=== PATIENT | female | born 1940 | race Caucasian/White ===

== ENCOUNTER 2022-05-31 10:34 | Outpatient (CLI) | payer MEDICARE, OTHER, SELFPAY ==
--- OUTSIDE RECORDS SUMMARY | 2022-05-09 09:34 | XMS_ITS | Continuity of Care Document ---
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 2018 2:50pm Simvastatin Disconti 20 MG PO Bedtime 30 uafebruary N O FURTHER nued y , , REFILLS UNTI L 2018 2018 SEEN IN 4:20pm 10:36a CLINIC. m Simvastatin Disconti 20 MG PO Bedtime 30 uaua NO FURTHER nued y , ry REFILLS UNTIL 2018, SEEN IN 10:21am 2018 CLINIC. 4:20pm Simvastatin Disconti 20 MG PO Bedtime 90 Augustua nued , ry 2017 11, 3:29pm 2018 10:21a m Simvastatin Disconti 20 MG PO Bedtime June Octobe nued , r 2017, 10:24am 2017 3:29pm Simvastatin Disconti 20 MG PO Bedtime 90 Juneua (Zocor) 20 Mg nued , ry TAB 2016, 1:56pm 2017 4:10pm Simvastatin Disconti 20 MG PO Bedtime 90 August (Zocor) 20 Mg nued , , TAB 2015 2016 1:28pm 1:56pm Simvastatin Disconti 20 MG PO Bedtime 180 November Octobe (Zocor) 20 Mg nued , r TAB 2015, 10:36am 2015 1:28pm Simvastatin Disconti 20 MG PO Bedtime 90 Septemb Januar (Zocor) 20 Mg nued er y , TAB 2015 10:36a 4:38pm m Simvastatin Disconti 20 MG PO Bedtime 30 Septem (Zocor) 20 Mg nued naz TAB 2014 4:38pm Sulfamethoxaz Disconti 1 TAB PO Twice A Day January il ole-Trimethop nued , , rim (Bactrim 2018 2018 Ds) 800 11:41am 2:48pm Mg/160 Mg TAB Tramadol Hcl Disconti 50 MG PO Three Times 90 De cemb nued A Day r , er 2020, 1:45pm 2020 9:11am Tramadol Hcl Disconti 50 MG PO Three Times 90 August No vemb nued A Day , er 2020, 4:10pm 2020 1:44pm Tramadol Hcl Disconti 50 MG PO Three Times 90 Julemb Oc opal nued A Day er r , , 2020 2020 7:13am 4:10pm Tramadol Hcl Disconti 50 MG PO Three Times 12 July Sep tem nued A Day , 2020, 9:36am 2020 7:11am Tramadol Hcl Disconti 50 MG PO Three Times [address] nued A Day , , 2020 2020 9:32am 9:35am Tramadol Hcl Disconti 50 MG PO Three Times 270 May nued A Day , , 2020 2020 10:44am 9:30am Tramadol Hcl Disconti 50 MG PO Three Times 270 May nued A Day , , 2020 2020 4:42pm 10:44a m Tramadol Hcl Disconti 50 MG PO Three Times 270 May nued A Day , 2020 10:22am 4:41pm Tramadol Hcl Disconti 50 MG PO Three Times 270 February nued A Day , 2020 7:33am 10:21a m Tramadol Hcl Disconti 50 MG PO Three Times 270 November Ap ril nued A Day , 2020 2:01pm 7:32am Tramadol Hcl Disconti 50 MG PO Three Times 270 August Ja nuar nued A Day 15, y 2019 7:18am 2:00pm Tramadol Hcl Disconti 50 MG PO Three Times May be nued A Day 2019, 11:51am 2019 7:17am Tramadol Hcl Disconti 50 MG PO Three Times March nued A Day 2019 10:20am 11:50a m Tramadol Hcl Disconti 50 MG PO Three Times 90 February nued A Day 2019 4:35pm 10:18a m Tramadol Hcl Disconti 50 MG PO Three Times 90 Februar Ap ril nued A Day y , 2019 4:24pm 4:34pm Tramadol Hcl Disconti 50 MG PO Three Times 120 Februar Fe brua nued A Day y 2019, 9:17am 2019 4:23pm Tramadol Hcl Disconti 50-100 MG PO Twice A Day November F ebrua nued as needed 2019, 4:17pm 2019 9:16am Tramadol Hcl Disconti 50-100 MG PO Twice A Day 60 J maddy nued as needed er y 2019 4:16pm 10:00am Tramadol Hcl Disconti 50 MG PO Twice A Day March nued as needed 2018 8:47am Tramadol Hcl Disconti 1-2 TAB PO Twice A Day February Apri l 1-2 tab twice nued as needed , , a day as 2018 2018 needed for 3:56pm 3:24pm pain Tramadol Hcl Disconti 1-2 TAB PO Twice A Day January Apri l 1-2 tab twice nued as needed , , a day as 2018 2018 needed for 1:34pm 3:56pm pain Tramadol Hcl Disconti 1-2 TAB PO Twice A Day November Ma rch 1-2 tab twice nued as needed , , a day as 2018 2018 needed for 9:39am 1:34pm pain Tramadol Hcl Disconti 1-2 TAB PO Twice A Day June uar 1-2 tab twice nued as needed 2nd, y a day as 2017, needed for 7:28am 2018 pain 9:39am Tramadol Hcl Disconti 1-2 TAB PO Twice A Day March st 1-2 tab twice nued as needed 4th, 2nd, a day as 2017 2017 needed for 2:14pm 7:28am pain Tramadol Hcl Disconti 1-2 TAB PO Twice A Day February 1-2 tab twice nued as needed 3rd, 4th, a day as 2017 2017 needed for 11:59am 2:14pm pain Tramadol Hcl Disconti 1-2 TAB PO Twice A Day 240 Novembe Ap ril 1-2 tab po bid prn pain, please give 2 months, since nued as needed r , , patient i s [place] 2 months 2016 2017 4:27pm 11:59a m Tramadol Hcl Disconti 1-2 TAB PO Twice A Day June emb 1-2 tab po bid prn pain, please give 2 months, since nued as needed , er patient is [place]ing [place] for 2 months 2017 04, 1:17pm 2016 4:27pm Tramadol Hcl Disconti 1-2 TAB PO Twice A Day May st 1-2 tab po nued as needed , , bid prn pa in 2016 2016 3:59pm 1:17pm Tramadol Hcl Disconti 1 TAB PO Twice A Day April nued as needed 2016 4:04pm 3:59pm Tramadol Hcl Disconti 1 TAB PO Twice A Day March nued as needed 2016 3:03pm 4:04pm Tramadol Hcl Disconti 1 TAB PO Bedtime as 0 March nued needed 2016 3:03pm Tramadol Hcl Disconti 50 MG PO Twice A Day January 1 tab po bid nued as needed , , prn back p ain 2016 2016 1:08pm 2:40pm Tramadol Hcl Disconti 50 MG PO Twice A Day 60 January Nas h 1 tab po bid nued as needed , , prn back p ain 2016 2016 11:42am 1:08pm Tramadol Hcl Disconti 50 MG PO Twice A Day 60 Februar Ma rch 1 tab po bid nued as needed y , , prn back pain 2016 2016 2:37pm 11:42a m Tramadol Hcl Disconti 50 MG PO Twice A Day 60 Februar Fe brua 1 tab po bid nued as needed y 17, ry prn back pain 2016, 3:34pm 2016 2:37pm Tramadol Hcl Disconti 50 MG PO Twice A Day November brua 1 tab po bid nued as needed , ry prn back p ain 2016, 10:04am 2016 3:34pm Tramadol Hcl Disconti 50 MG PO Twice A Day November Ja nuar 1 tab po bid nued as needed 17, y prn back p ain 2016, 2:23pm 2016 10:04a m Tramadol Hcl Disconti 50 MG PO Twice A Day 60 Novem Ja nuar 1 tab po bid nued as needed r 25th, y prn back pain 2015, 10:22am 2016 2:23pm Tramadol Hcl Disconti 50 - MG PO Q4-6H Prn November (Ultram) 50 nued 100 31st, 28th, Mg TAB 2010 2010 5:57pm 2:59pm Triamcinolone Disconti Unknow TOP Twice A Day 15 Oc opal APPLY TO Acetonide nued n Dose r AFFECTED AREA (Ointment) 2018 3:49pm Immunizations Immunization Event Date Not Given 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 Vac cine Reason Number Number Informatio n Statement (VIS) Deta COVID-19 Moderna November 25, 2020 COVID-19 Moderna December 152020 Influenza August 27, 2013 Influenza November 17, 2 Sanofi 2016 Influenza September 02, SANOFI 2015 Influenza August 16, 2017 Influenza July 182018 Influenza August 20, 2019 Prevnar Adult July 14 WYETH [id number] 2014 Pneumovax Adult January 20 MERCK [id number] 2017 Tetanus/Diptheri June 11, 1 a 2011 Tdap June 11 (adolescent/adul 2011 t) Tdap September 14 [id number] (adolescent/adul 2019 t) Typhoid April 15 2005 Yellow Fever April 152004 Medical Equipment Device Date Implanted Device Details ATTUNE March 12, 2019 ELVIN: [id number] Issuing Agency: [facility] [[email or web address]] Device Id: [id number] Expiration Date: 04-22-30 Lot Number: [id number] ATTUNE March 12, 2019 ELVIN: [id number] Issuing Agency: [facility] Device Id: [id number] Expiration Date: 07-14-30 Lot Number: [id number] ATTUNE March 12, 2019 ELVIN: [id number] Issuing Agency: 1 Device Id: [id number] Expiration Date: 01-16-30 Lot Number: [id number] ATTUNE March 12, 2019 ELVIN: [id number] Issuing Agency: [facility] Device Id: [id number] Expiration Date: 02-13-28 Lot Number: [id number] Advance Directives Advance Directive Response Recorded Date/Time Does Pt have Health Care No January 22 11:05am Directive? Has patient completed a Yes November 26 7:26am Health Care Directive? Insurance Providers Guarantor Alesia Navas Address [address] [facility] [address] Contact Info. Home Phone: Payer Policy Id Coverage Id Subscriber's Subscriber Id Effective E xpiration Name Date Date Medica [id number] Alesia Navas November Prime M 2021 Solution Plan Medicare [id number] Alesia Navas Plan of Treatment Future Tests Future scheduled test information is unavailable Pending Tests Pending diagnostic test information is unavailable Future Visits Future appointment information is unavailable Referrals to Other Providers Reason for Referral Referral Start Provider Provider Contact Pr ovider Address Date Information JAMAR Work Phone: [facility] [address] [phone] Cognitive impairment JAMAR Future Procedures Future procedure information is unavailable Future Medications Future medication information is unavailable Patient Instructions See Additional Instructions Urinary Tract Infection in Older Adults (ED) Urinary Tract Infection - Women
== END 2022-05-31 10:35 | disposition home or self-care (01) ==
PROVIDERS: PCP Family Medicine; Visit Provider Family Medicine
DX: M54.16 Radiculopathy, lumbar region (principal); M51.36 Other intervertebral disc degeneration, lumbar region
CPT/HCPCS: 62323; J0702; Q9966

== ENCOUNTER 2022-07-19 14:19 | Outpatient (REF) | payer MEDICARE, OTHER, SELFPAY ==
[2022-07-19 16:05] LABS: Chloride* 102 mmol/L (96-114); Potassium* 3.7 mmol/L (3.6-5.1); Sodium* 140 mmol/L (135-149)
[2022-07-19 16:08] LABS: Blood Urea Nitrogen* 16 mg/dL (7-30); Carbon Dioxide* 26 mmol/L (20-32); Creatinine* 0.8 mg/dL (0.5-1.5); Estimated Glomerular Filt Rate 74 ml/min
[2022-07-19 16:09] LABS: Calcium* 8.8 mg/dL (8.4-10.6); Glucose* 130 mg/dL (60-115)
[2022-07-19 16:40] LABS: Thyroid Stimulating Hormone* 0.743 uIU/mL (0.270-4.20)
== END 2022-07-19 14:20 | disposition home or self-care (01) ==
LOC: NPINS 14:19
PROVIDERS: PCP Family Medicine; Visit Provider Nurse Practitioner Gerontology
DX: E05.90 Thyrotoxicosis, unspecified without thyrotoxic crisis or storm (principal)
CPT/HCPCS: 80048; 84443

== ENCOUNTER 2022-08-27 14:08 | Emergency (ER) | payer MEDICARE, OTHER, SELFPAY ==
[2022-08-27 14:31] VITALS: PULSE 77; RESP 20; TEMP 36.2; O2SAT 98; BMI 50.6
--- NOTE | 2022-08-27 15:29 | ED.GENADULT ---
HPI - General Adult General Time Seen by Provider: 15:31 Date Seen: 08/27/22 Chief complaint: Shoulder Injury/Pain Stated complaint: Shoulder Pain Time Seen by Provider: 08/27/22 15:10 Source: patient, family and RN notes reviewed Mode of arrival: ambulatory Limitations: no limitations History of Present Illness HPI narrative: Alesia is an 81-year-old female brought in by her daughter from [facility] where she resides. Her daughter was visiting and her mom kept complaining of left shoulder pain. She seemed quite uncomfortable. She has had a history of about 3 years of chronic shoulder pain and issues. Her daughter states there was calcium buildup and Dr. Mary has attempted injection of this. She is seen a specialist in is going to be having some specialized procedure. Her daughter is interested in her perhaps having an MRI or having increased pain meds. There is no new falls. Patient talks about a fall recently where she fell down the stairs and her son helped her up. The daughter notes that the son lives in [facility] and has not been back home for 4 years. Patient became a little agitated at her daughter talking about it. Seems that the patient has some confusion for time line. In any event there is no new noted fall. Patient seems quite comfortable right now is not complaining of any significant shoulder pain right now. I did review her medication list and she is getting some Tylenol baseline and then the used tramadol 50 mg 3 times a day. Patient states that there is no neck pain. She is having no difficulty breathing, no pain in the chest. Related Data Home Medications Medication Instructions Recorded Confirmed albuterol sulfate 90 mcg/actuation 2 puff inhalation Q4H PRN 08/27/22 08/27/22 aerosol inhaler Allergies Allergy/AdvReac Type Severity Reaction Status Date / Time cephalexin [From Keflex] Allergy Verified 05/31/22 11:25 Cephalosporins Allergy Verified 05/31/22 11:25 Penicillins Allergy Verified 05/31/22 11:25 Sulfa (Sulfonamide Allergy Verified 05/31/22 11:25 Antibiotics) Review of Systems Status of ROS: Reports: 6 or more systems reviewed and unremarkable except as noted in History and below PFSH PFSH Social History Smoking Status: Never smoker Do you use any of these nicotine containing products: None Second hand tobacco smoke exposure: No How often do you have a drink containing alcohol: monthly or less How many standard drinks containing alcohol do you have on a typical day: 1 or 2 How often do you have six or more drinks on one occasion: Never AUDIT-C Alcohol total score: 1 Non-prescribed substance use: denies use Exam Const: Vital Signs, click to edit/add: Vital Signs - 24 hr 08/27/22 14:31 Temperature 97.1 F L Pulse Rate [Right Pulse Oximeter] 77 Respiratory Rate 20 Pulse Oximetry 98 Oxygen Delivery Me thod Room Air Documenting provider has reviewed patient's vital signs: yes Common normals: no apparent distress and alert General appearance: cooperative and comfortable HENMT: Common normals: normocephalic, head/scalp atraumatic and hearing grossly normal bilaterally Head and scalp: normocephalic and atraumatic Neck & C-Spine: Other: No midline tenderness, good range of motion, no paraspinous tenderness. Extremity: Other: Has crepitus when I palpate around her left shoulder but really is not complaining of any pain as a mobilize it. She is nontender over the clavicle, no acute joint effusion noted of her left shoulder. There is no erythema, no ecchymosis, no warmth. She has got good range of motion about her elbow, normal flexion extension and normal supination/pronation. Wrist with good range of motion, hand with good range of motion. No overlying skin changes. Normal peripheral pulse, neurovascular intact. She seems to be quite comfortable at baseline but states just after the minimal amount of mobilization I did about her shoulder. Neuro: Sensorium/orientation: alert Course Course Hospital Course: Reviewed with daughter that we cannot do an MRI on the weekend nor is it really clinically indicated at this time. This can be done in follow-up. I reviewed her medication reconciliation in she is getting tramadol 50 mg 3 times a day, did not get it at 2:00 p.m. today as they wanted me to see her in her state of pain. She and I discussed that acute pain needs certainly can be addressed but chronic ongoing pain management really should come to the clinic. I do think increasing the frequency of her tramadol since she tolerates this makes the most sense. Reviewed with the daughter that there is plenty of room both to increase the frequency as are going to do today but then after that increased the dose of the medicine. Did review that narcotics are a risk for falls in the elderly and would not want to necessarily try a new medicine on her when we know she works with tramadol per report. We will give her 100 mg dose here to load her and then she can never usual dose tonight. Tomorrow I will make recommendations that they dose her 4 times a day with 50 mg. Vital Signs Vital signs: Initial Vital Signs Temperature 97.1 F L 08/27/22 14:31 Temperature Source Temporal Artery Scan 08/27/22 14:31 Pulse Rate 77 08/27/22 14:31 Pulse Rhythm 08/27/22 14:31 Respiratory Rate 20 08/27/22 14:31 Pulse Oximetry 98 08/27/22 14:31 Oxygen Delivery Method 08/27/22 14:31 Vital Signs Temperature 97.1 F L 08/27/22 14:31 Pulse Rate 77 08/27/22 14:31 Respiratory Rate 20 08/27/22 14:31 Pulse Oximetry 98 08/27/22 14:31 Oxygen Delivery Method 08/27/22 14:31 Temperature 97.1 F L 08/27/22 14:31 Pulse Rate 77 08/27/22 14:31 Respiratory Rate 20 08/27/22 14:31 Pulse Oximetry 98 08/27/22 14:31 Oxygen Delivery Method 08/27/22 14:31 Discharge Plan Discharge Clinical Impression: Chronic left shoulder pain Patient Disposition: Home w/ Parent or Adult Condition: Stable Instructions: Shoulder Pain (ED) Additional Instructions: Give usual dose of tramadol tonight. Starting tomorrow recommend increasing tramadol to 50 mg 4 times a day, attempting to make this as equally spaced out during the day as possible. Will need to get a prescription for this increased amount from her primary care doctor as she will run out early. We will not be doing an MRI of her shoulder through the ER, this is not an emergent procedure. It certainly is not a possibility on weekends or after hours anyway. Follow-up with primary care or Dr. Muir as soon as you are able to. Activity Level: Activity as Tolerated Prescriptions: No Action albuterol sulfate 90 mcg/actuation HFA aerosol inhaler 2 puff INHALATION Q4H PRN Follow Up/Referrals: Samantha Acharya MD [Primary Care Provider] - Stand Alone Forms: [employer] Info Instructions
[2022-08-27] MEDS: TRAMADOL HCL 50 MG TABLET 100 MG PO (15:42)
== END 2022-08-27 17:21 | disposition home or self-care (01) ==
PROVIDERS: Emergency Provider Family Medicine; PCP Family Medicine
DX: M25.512 Pain in left shoulder (principal)
CPT/HCPCS: 99283; 99284; A9270

== ENCOUNTER 2022-09-03 11:47 | Outpatient (CLI) | payer MEDICARE, OTHER, SELFPAY | END 2022-09-03 11:48 | disposition home or self-care (01) | PROVIDERS: PCP Family Medicine; Visit Provider Family Medicine | DX: G89.29 Other chronic pain (principal); M25.519 Pain in unspecified shoulder | CPT/HCPCS: A0425; A0427 ==

== ENCOUNTER 2022-11-15 09:29 | Outpatient (REF) | payer MEDICARE, OTHER, SELFPAY ==
[2022-11-15 11:21] LABS: Basophils Absolute Auto 0.04 K/uL (0.00-0.30); Basophils Percent Auto 0.5 % (0.0-3.0); Eosinophils Absolute Auto 0.37 K/uL (0.00-0.50); Eosinophils Percent Auto 4.8 % (0.0-7.0); Hematocrit 38.4 % (33.0-51.0); Hemoglobin* 12.7 gm/dL (12.0-16.0); Immature Granulocytes Abs Auto 0.01 K/uL (0.00-0.30); Immature Granulocytes Pct Auto 0.1 %; Lymphocytes Absolute Auto 2.32 K/uL (0.90-2.90); Mean Corpuscular HGB Conc 33 gm/dL (32-36); Mean Corpuscular Hemoglobin 31 pg (26-34); Mean Corpuscular Volume 92 fL (80-100); Monocytes Percent Auto 9.1 % (0.0-11.0); Neutrophils Absolute Auto 4.29 K/uL (1.7-7.0); Neutrophils Percent Auto 55.5 % (42.0-72.0); Platelet Count* 304 K/uL (140-440); RDW Coefficient of Variation % 12.5 % (11.5-15.5); Red Blood Count 4.17 m/uL (4.00-5.20); White Blood Count* 7.73 K/uL (4.50-11.00)
[2022-11-15 11:24] LABS: Slide Review Reflex No
[2022-11-15 11:35] LABS: Albumin* 4.2 g/dL (3.3-5.0); Chloride* 109 mmol/L (96-114); Hemoglobin A1C* 5.78 % (0-5.6); Potassium* 4.2 mmol/L (3.6-5.1); Sodium* 143 mmol/L (135-149)
[2022-11-15 11:38] LABS: Alanine Aminotransferase* 18 U/L (4-35); Alkaline Phosphatase* 76 U/L (40-150); Aspartate Amino Transferase* 24 U/L (12-35); Bilirubin Total* 0.5 mg/dL (0.1-1.5); Blood Urea Nitrogen* 15 mg/dL (7-30); Carbon Dioxide* 28 mmol/L (20-32); Creatinine* 0.7 mg/dL (0.5-1.5); Estimated Glomerular Filt Rate 86 ml/min; Glucose* 90 mg/dL (60-115); Total Protein* 6.6 g/dL (6.0-8.3)
== END 2022-11-15 09:30 | disposition home or self-care (01) ==
LOC: NPINS 09:29
PROVIDERS: PCP Family Medicine; Visit Provider Family Medicine
DX: E03.9 Hypothyroidism, unspecified (principal); I10 Essential (primary) hypertension; E11.9 Type 2 diabetes mellitus without complications
CPT/HCPCS: 80053; 83036; 84443; 85025

== ENCOUNTER 2023-06-09 10:45 | Outpatient (CLI) | payer MEDICARE, OTHER, SELFPAY | END 2023-06-09 10:46 | disposition home or self-care (01) | LOC: INJ CL 10:46 | PROVIDERS: PCP Family Medicine; Visit Provider Family Medicine | DX: M54.16 Radiculopathy, lumbar region (principal); M51.36 Other intervertebral disc degeneration, lumbar region | CPT/HCPCS: 62323; J0702; Q9966 ==

== ENCOUNTER 2023-09-19 09:12 | Outpatient (REF) | payer MEDICARE, SELFPAY ==
[2023-09-19 10:36] LABS: Chloride* 107 mmol/L (96-114)
[2023-09-19 10:37] LABS: Potassium* 3.8 mmol/L (3.6-5.1); Sodium* 141 mmol/L (135-149)
[2023-09-19 10:39] LABS: Creatinine* 0.8 mg/dL (0.5-1.5); Estimated Glomerular Filt Rate 74 ml/min
[2023-09-19 10:40] LABS: Anion Gap 5 mEq/L (7-15); Blood Urea Nitrogen* 16 mg/dL (7-30); Carbon Dioxide* 29 mmol/L (20-32); Glucose* 104 mg/dL (60-115)
== END 2023-09-19 09:13 | disposition home or self-care (01) ==
LOC: NPINS 09:12
PROVIDERS: PCP Family Medicine; Visit Provider Family Medicine
DX: E03.9 Hypothyroidism, unspecified (principal); I10 Essential (primary) hypertension
CPT/HCPCS: 80048; 84443

== ENCOUNTER 2023-10-26 14:24 | Outpatient (REF) | payer MEDICARE, OTHER, SELFPAY ==
[2023-10-26 18:40] LABS: Appearance Urine Clear (Clear); Bilirubin Urine Negative (Negative); Blood Urine Negative (Negative); Color Urine Yellow (Yellow); Glucose Urine Negative (Negative); Ketones Urine Negative (Negative); Leukocyte Esterase Urine 1+ (Negative); Nitrite Urine Negative (Negative); Protein Urine Negative (Negative); Specific Gravity Urine 1.015 (1.000-1.030); Urobilinogen Urine 0.2 (0.2-1.0)
[2023-10-26 19:36] LABS: Bacteria Urine Few; RBC Urine 0-2 (0-2); Squamous Epithelial Cell Urine Few (None-Few); WBC Urine 0-2 (0-5)
== END 2023-10-26 14:25 | disposition home or self-care (01) ==
LOC: NPINS 14:24
PROVIDERS: PCP Family Medicine; Visit Provider Nurse Practitioner Gerontology
DX: R53.1 Weakness (principal)
CPT/HCPCS: 81001; 87086

== ENCOUNTER 2023-10-31 08:59 | Outpatient (REF) | payer MEDICARE, OTHER, SELFPAY ==
[2023-10-31 09:23] LABS: Basophils Absolute Auto 0.02 K/uL (0.00-0.30); Basophils Percent Auto 0.4 % (0.0-3.0); Eosinophils Absolute Auto 0.28 K/uL (0.00-0.50); Eosinophils Percent Auto 5.7 % (0.0-7.0); Hematocrit 38.4 % (33.0-51.0); Hemoglobin* 12.6 gm/dL (12.0-16.0); Immature Granulocytes Abs Auto 0.01 K/uL (0.00-0.30); Immature Granulocytes Pct Auto 0.2 %; Lymphocytes Absolute Auto 1.96 K/uL (0.90-2.90); Lymphocytes Percent Auto 40.2 % (20-44); Mean Corpuscular HGB Conc 33 gm/dL (32-36); Mean Corpuscular Hemoglobin 30 pg (26-34); Mean Corpuscular Volume 93 fL (80-100); Monocytes Percent Auto 10.7 % (0.0-11.0); Neutrophils Absolute Auto 2.08 K/uL (1.7-7.0); Neutrophils Percent Auto 42.8 % (42.0-72.0); Platelet Count* 270 K/uL (140-440); RDW Coefficient of Variation % 12.5 % (11.5-15.5); Red Blood Count 4.14 m/uL (4.00-5.20); White Blood Count* 4.87 K/uL (4.50-11.00)
[2023-10-31 09:28] LABS: Slide Review Reflex No
[2023-10-31 09:33] LABS: Chloride* 105 mmol/L (96-114); Potassium* 3.8 mmol/L (3.6-5.1); Sodium* 139 mmol/L (135-149)
[2023-10-31 09:36] LABS: Anion Gap 5 mEq/L (7-15); Carbon Dioxide* 29 mmol/L (20-32); Creatinine* 0.8 mg/dL (0.5-1.5); Estimated Glomerular Filt Rate 73 ml/min
[2023-10-31 09:37] LABS: Blood Urea Nitrogen* 15 mg/dL (7-30); Calcium* 8.9 mg/dL (8.4-10.6); Glucose* 106 mg/dL (60-115)
== END 2023-10-31 09:00 | disposition home or self-care (01) ==
LOC: NPINS 08:59
PROVIDERS: PCP Family Medicine; Visit Provider Nurse Practitioner Gerontology
DX: R53.1 Weakness (principal)
CPT/HCPCS: 80048; 85025

== ENCOUNTER 2023-12-20 23:51 | Outpatient (CLI) | payer MEDICARE, OTHER, SELFPAY | END 2023-12-20 23:52 | disposition home or self-care (01) | LOC: AMB 12-22 17:24 | PROVIDERS: PCP Family Medicine; Visit Provider Emergency Medicine | DX: R53.1 Weakness (principal) | CPT/HCPCS: A0425; A0429 ==

== ENCOUNTER 2023-12-21 00:22 | Emergency (ER) | payer MEDICARE, OTHER, SELFPAY ==
[2023-12-21] VITALS (12 sets, daily range): BP systolic 124–162; BP diastolic 70–97; PULSE 92–114; RESP 20–24; TEMP 37.2; O2SAT 93–95; BMI 40.4
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
--- NOTE | 2023-12-21 00:46 | CRLHL7_ITS ---
For Patients: As a result of the Century Cures Act, medical imaging exams and procedure reports are released immediately into your electronic medical record. You may view this report before your referring provider. If you have questions, please contact your health care provider. INDICATION: Dyspnea and weakness. TECHNIQUE: Chest 1 view. COMPARISON: 09/30/2020. FINDINGS: Cardiovascular and mediastinum: Heart size and vasculature are normal in caliber and appearance. Lungs and pleural spaces: Lungs are clear. No sign of infiltrate or mass. No sign of pleural effusion. No pneumothorax. Bones and soft tissues: No significant findings. IMPRESSION: Unremarkable chest. Dictated by Ralph Krishna MD @ 12/21/2023 1:33:03 AM (Electronically Signed)
[2023-12-21 00:47] LABS: Appearance Urine Cloudy (Clear); Bilirubin Urine Negative (Negative); Blood Urine Negative (Negative); Color Urine Yellow (Yellow); Glucose Urine Negative (Negative); Ketones Urine Negative (Negative); Leukocyte Esterase Urine 1+ (Negative); Nitrite Urine Negative (Negative); Protein Urine Negative (Negative); Specific Gravity Urine 1.025 (1.000-1.030); Urobilinogen Urine 0.2 (0.2-1.0); pH Urine 5.5 (5.0-8.5)
[2023-12-21] MEDS: IPRAT-ALBUT 0.5-2.5 MG/3 ML NEB 1 NEB IH (00:48)
[2023-12-21 00:55] LABS: RBC Urine 0-2 (0-2)
[2023-12-21 00:56] LABS: Bacteria Urine Moderate; Mucus Urine Moderate; Squamous Epithelial Cell Urine Moderate (None-Few)
[2023-12-21 01:34] LABS: Basophils Percent Auto 0.2 % (0.0-3.0); Eosinophils Percent Auto 0.1 % (0.0-7.0); Hematocrit 41.2 % (33.0-51.0); Hemoglobin* 13.5 gm/dL (12.0-16.0); Immature Granulocytes Pct Auto 0.4 %; Lymphocytes Percent Auto 11.9 % (20-44); Mean Corpuscular HGB Conc 33 gm/dL (32-36); Mean Corpuscular Hemoglobin 30 pg (26-34); Mean Corpuscular Volume 92 fL (80-100); Monocytes Percent Auto 6.1 % (0.0-11.0); Neutrophils Percent Auto 81.3 % (42.0-72.0); Platelet Count* 303 K/uL (140-440); RDW Coefficient of Variation % 12.9 % (11.5-15.5); Red Blood Count 4.47 m/uL (4.00-5.20); White Blood Count* 18.83 K/uL (4.50-11.00)
[2023-12-21 01:35] LABS: PCR FLU A Negative PCR FLU A (Negative); PCR FLU B Negative PCR FLU B (Negative); PCR RSV Negative PCR RSV (Negative); SARS PCR* Negative SARS-CoV-2 (Negative)
[2023-12-21 01:35] LABS: Slide Review Reflex No
[2023-12-21 01:36] LABS: HCO3 VBG 27 mmol/L (21-28); PCO2 VBG 41 mmHG (40-50); PO2 VBG 37.7 mmHG (25-47); pH VBG 7.425 (7.32-7.43)
--- NOTE | 2023-12-21 01:44 | CRLHL7_ITS ---
For Patients: As a result of the Century Cures Act, medical imaging exams and procedure reports are released immediately into your electronic medical record. You may view this report before your referring provider. If you have questions, please contact your health care provider. INDICATION: Sepsis TECHNIQUE: CT abdomen and pelvis without contrast. COMPARISON: None. FINDINGS: Portions of the examination are degraded by respiratory motion. Lower chest: Severely degraded, grossly unremarkable. Hepatobiliary: Status post cholecystectomy. No acute abnormality appreciated. Spleen: No acute abnormality appreciated. Pancreas: Unremarkable. Adrenal glands: Unremarkable. Kidneys: Grossly unremarkable. No hydronephrosis. Bowel: No obstruction. No obstruction. No focal perienteric or pericolonic stranding is appreciated. Vascular: Calcified atherosclerotic plaque. Lymph nodes: Grossly unremarkable. Peritoneum: No free air. No free fluid. Soft tissues: Multiple ventral abdominal hernias are noted. There is a hernia along the right supraumbilical abdomen containing a portion of a transverse colon wall compatible with Dunlap`s hernia. There remaining hernias contain fat. No acute abnormality appreciated. Bones: No acute abnormality appreciated. Degenerative changes of the spine and pelvis. IMPRESSION: 1. Allowing for areas of motion degradation, no acute abnormality is appreciated. 2. Multiple ventral abdominal hernias are noted. In particular, there is a hernia along the right supraumbilical space containing a portion of the transverse colon wall compatible with Dunlap`s hernia. Recommend correlation with reducibility. Surgical referral recommended as these are prone to silent bowel perforation if incarcerated. Please note that all CT scans at this facility use dose modulation, iterative reconstruction, and/or weight-based dosing when appropriate to reduce radiation dose to as low as reasonably achievable. Dictated by Ganesh Blanco MD @ 12/21/2023 2:49:42 AM (Electronically Signed)
[2023-12-21 01:45] LABS: Lactate* 2.7 mmol/L (0.5-1.9)
[2023-12-21 01:56] LABS: Chloride* 104 mmol/L (96-114); Sodium* 140 mmol/L (135-149)
[2023-12-21 01:58] LABS: Creatinine* 0.7 mg/dL (0.5-1.5); Est. Creatinine Clearance* 61.05; Estimated Glomerular Filt Rate 86 ml/min
[2023-12-21 01:59] LABS: Anion Gap 12 mEq/L (7-15); Blood Urea Nitrogen* 14 mg/dL (7-30); Calcium* 9.5 mg/dL (8.4-10.6); Carbon Dioxide* 24 mmol/L (20-32); Glucose* 184 mg/dL (60-115)
[2023-12-21 02:14] LABS: NT Pro B Type NatriureticPept* 356 pg/mL
[2023-12-21] MEDS: levoFLOXacin 750 MG TABLET PO (02:44)
[2023-12-21] MEDS: 0.9 % SODIUM CHLORIDE 1000 ml 1,000 ML IV (02:45)
--- NOTE | 2023-12-21 02:59 | CRLHL7_ITS ---
For Patients: As a result of the Century Cures Act, medical imaging exams and procedure reports are released immediately into your electronic medical record. You may view this report before your referring provider. If you have questions, please contact your health care provider. INDICATION: Cough, sepsis TECHNIQUE: CT chest without contrast. COMPARISON: Same day radiograph. FINDINGS: Examination is degraded by respiratory motion. Lungs: Apparent right basilar consolidation is favored to be hepatic dome respiratory motion, and the lesion was appreciated here on the lung bases of the CT abdomen and pelvis. No other consolidation. No pneumothorax. No effusion. Mediastinum: Cardiomegaly. No gross acute abnormality appreciated. Lymph nodes: Grossly unremarkable. Upper abdomen: Grossly unremarkable. Soft tissues: Grossly unremarkable. Bones: No acute abnormality appreciated. IMPRESSION: Respiratory motion degraded examination. No definite acute abnormality appreciated. Please note that all CT scans at this facility use dose modulation, iterative reconstruction, and/or weight-based dosing when appropriate to reduce radiation dose to as low as reasonably achievable. Dictated by Ganesh Blanco MD @ 12/21/2023 3:40:41 AM (Electronically Signed)
[2023-12-21 03:39] LABS: Procalcitonin* 0.13 ng/mL (<0.50)
[2023-12-21] MEDS: HYDROmorphone 0.5 mg/0.5 ml inj IVP (03:40)
[2023-12-21 04:31] LABS: Lactate* 2.5 mmol/L (0.5-1.9)
== END 2023-12-21 07:02 | disposition short-term general hospital (02) ==
PROVIDERS: Emergency Provider Family Medicine; PCP Family Medicine
DX: N39.0 Urinary tract infection, site not specified (principal); E66.01 Morbid (severe) obesity due to excess calories; A41.9 Sepsis, unspecified organism
CPT/HCPCS: 36415; 71045; 71250; 74176; 80048; 81001; 82803; 83605; 83880; 84145; 85025; 87040; 87086; 87631; 94640; 94761; 96365; 96375; 99285; A9270; J1170; J3370; J7030

== ENCOUNTER 2023-12-21 06:50 | Outpatient (CLI) | payer MEDICARE, OTHER, SELFPAY | END 2023-12-21 06:51 | disposition home or self-care (01) | LOC: AMB 12-22 17:32 | PROVIDERS: PCP Family Medicine; Visit Provider Family Medicine | DX: R53.1 Weakness (principal); R06.09 Other forms of dyspnea | CPT/HCPCS: A0425; A0426 ==

== ENCOUNTER 2024-03-02 02:49 | Outpatient (CLI) | payer MEDICARE, OTHER, SELFPAY ==
--- OUTSIDE RECORDS SUMMARY | 2024-03-03 14:29 | XMS_ITS | Clinical Summary ---
Author Name Unknown Organization [place] Address [address] [place] [address] Care Team Providers Care Break Out Worker Name Role Phone System, Provider Not In Primary Care Provider Un available Allergies Active Allergy Reactions Criticality Noted Date Comments Cephalexin Rash Low 06/18/2010 Cephalexin Monohydrate 04/15/2005 Penicillins Rash Low 06/18/2010 Avoids. Mild rash 06/07/16 Sulfamethoxazole-Trimethopri m Rash High 12/27/2019 Medications Medication Sig Dispensed Refills Start Date End Date Status PAIN RELIEF EXTRA STRENGTH 500 MG tablet Take 500 mg by mouth as needed 08/17/2021 Active albuterol (PROAIR HFA/PROVENTIL HFA/VENTOLIN HFA) 108 (90 Base) MCG/ACT inhaler Inhale 2 puffs into the lungs as needed 09/10/2021 Active VITAMIN D3 25 MCG (1000 UT) tablet Take 1 tablet by mouth daily 08/17/2021 Active diclofenac (VOLTAREN) 1 % topical gel Apply 2 g topically 4 times daily as needed for moderate pain (Shoulders) 08/01/2022 Active Multiple Vitamin (TAB-A-HAILEY) TABS TAKLE 1 TAB BY MOUTH ONCE DAILY 08/17/2021 Active NYAMYC 112701 UNIT/GM external powder Apply topically daily as needed 01/24/2022 Active simvastatin (ZOCOR) 20 MG tablet Take 20 mg by mouth at bedtime 08/12/2022 Active hydrochlorothiazide (HYDRODIURIL) 25 MG tabletIndications:Ess ential hypertension Take 1 tablet (25 mg) by mouth daily for 30 days 30 tablet 12/29/2023 Active gabapentin (NEURONTIN) 100 MG capsuleIndications:Ne uropathic pain Take 1 capsule (100 mg) by mouth at bedtime for 30 days 30 capsule 12/28/2023 Active levothyroxine (SYNTHROID/LEVOTHROID ) 125 MCG tabletIndications:Hyp othyroidism, unspecified type Take 1 tablet (125 mcg) by mouth daily for 30 days 30 tablet 12/29/2023 Active Rivaroxaban ANTICOAGULANT 15 & 20 MG TBPK Starter Therapy PackIndications:Acute deep vein thrombosis (DVT) of brachial vein of both upper extremities (H) Take 15 mg by mouth 2 times daily (with meals) for 19 days, THEN 20 mg daily with food for 9 days. 51 each 12/29/2023 Active Active Problems Problem Noted Date Diagnosed Date Pneumonia 12/26/2023 Weakness 12/21/2023 Primary osteoarthritis of both knees 05/10/2017 Lumbar spinal stenosis 01/12/2017 Bariatric surgery status 06/09/2016 Overview: Dr. Mandie [facility] Dr. Villanueva Encounters Date Type Department Care Team Description 12/21/2023 7:36 AM ACID WASHER OPERATOR - 12/29/2023 2:38 PM ACID WASHER OPERATOR Hospital Encounter [place] [address] [facility] [address] [place] [address] Roberto Donovan DO Baxa, Alexander, DO Chronic shoulder pain, unspecified laterality (Primary Dx); Neuropathic pain; Essential hypertension; Hypothyroidism, unspecified type; Pneumonia of left lower lobe due to infectious organism; Acute deep vein thrombosis (DVT) of brachial vein of both upper extremities (H) Discharge Disposition: Intermediate Care Facility 12/21/2023 Telephone [facility] - General Medicine & Pediatrics [facility] [place] [address] Roberto Donovan DO from Last 3 Months Immunizations Name Administration Dates Next Due COVID-19 Bivalent 18+ (Moderna) 08/18/2022 Influenza (High Dose) 3 radha nt vaccine 08/20/2020,08/15/2019,08/16/2018,2015 Influenza Vaccine >6 months,quad, PF 07/16/2019, 09/02/2016 Pneumo Conj 13-V (2010&after) 07/28/2015 Pneumococcal 23 valent 01/20/2017 TDAP (Adacel,Boostrix) 09/30/2020,06/11/2012 Typhoid IM 04/15/2005 Yellow Fever 04/15/2005 Social History Tobacco Use Types Packs/Day Years Used Date Smoking Tobacco: Never Smokeless Tobacco: Never Tobacco Cessation:Counseling Given: Not Answered PHQ-2 Answer Date Recorded PHQ-2 Score 0 08/14/2023 Adolescent Education Answer Date Record ed Getting School Help Needed Not on file 08/07 Sex and Gender Information Value Date Recorded Sex Assigned at Not on file Gender Identity Not on file Sexual Orientation Not on file Last Filed Vital Signs Vital Sign Reading Time Taken Comments Blood Pressure 132/88 12/29/2023 11:46 AM ACID WASHER OPERATOR Pulse 81 12/29/2023 11:46 AM ACID WASHER OPERATOR Temperature 36.6 ??C (97.9 ??F) 12/29/2023 8:07 AM CS T Respiratory Rate 19 12/29/2023 11:4 6 AM ACID WASHER OPERATOR Oxygen Saturation 93% 12/29/2023 11: 46 AM ACID WASHER OPERATOR Inhaled Oxygen Concentration - - Weight 107.7 kg (237 lb 6.4 oz) 12/26/2023 9:56 AM ACID WASHER OPERATOR Height 152.4 cm (5') 12/21/2023 8:24 AM ACID WASHER OPERATOR Body Mass Index 46.36 12/21/2023 8:24 AM ACID WASHER OPERATOR Plan of Treatment Health Maintenance Due Date Last Done Comments ADVANCE CARE PLANNING 1940 ANNUAL REVIEW OF HM ORDERS 1940 DEXA 1940 LIPID 1940 URINE DRUG SCREEN 1940 ZOSTER IMMUNIZATION (1 of 2) 1990 RSV VACCINE ( & 60+) (1 - 1-dose 60+ series) 2000 FALL RISK ASSESSMENT 2005 MEDICARE ANNUAL WELLNESS VISIT 2005 COVID-19 Vaccine ( season) 2023 08/18/2022, 12/23/2020, 11/25/2020 PHQ-2 (once per calendar year) 2023 08/14/2023 DTAP/TDAP/TD IMMUNIZATION (3 - Td or Tdap) 09/30/2030 09/30/2020, 06/11/2012 Pneumococcal Vaccine: 65+ Years Completed 01/20/2017, 07/28/2015 INFLUENZA VACCINE Completed 08/09/2023, , 08/15/2019, Additional history exists HPV IMMUNIZATION Aged Out No longer e ligible based on patient's age to complete this topic IPV IMMUNIZATION Aged Out No longer e ligible based on patient's age to complete this topic MENINGITIS IMMUNIZATION Aged Out No l onger eligible based on patient's age to complete this topic RSV MONOCLONAL ANTIBODY Aged Out No l onger eligible based on patient's age to complete this topic Procedures Procedure Name Priority Date/Time Associated Diagnosis Comments GLUCOSE BY METER Routine 12/29/2023 12:3 8 AM ACID WASHER OPERATOR BLOOD GAS VENOUS STAT 12/28/2023 2:41 PM ACID WASHER OPERATOR GLUCOSE BY METER Routine 12/28/2023 2:18 PM ACID WASHER OPERATOR MRSA MSSA PCR, NASAL SWAB STAT 12/28/2023 6:57 AM ACID WASHER OPERATOR LEGIONELLA PNEUMOPHILA URINARY ANTIGEN Routine 12/28/2023 6:56 AM ACID WASHER OPERATOR BASIC METABOLIC PANEL Routine 12/28/2023 6:26 AM ACID WASHER OPERATOR CBC WITH PLATELETS Routine 12/28/2023 6: 26 AM ACID WASHER OPERATOR HEPARIN UNFRACTIONATED ANTI XA LEVEL Routine 12/28/2023 6:26 AM ACID WASHER OPERATOR HEPARIN UNFRACTIONATED ANTI XA LEVEL Timed 12/27/2023 3:03 PM ACID WASHER OPERATOR BLOOD CULTURE STAT 12/27/2023 10:36 AM ACID WASHER OPERATOR BLOOD CULTURE STAT 12/27/2023 10:31 AM ACID WASHER OPERATOR PROCALCITONIN Routine 12/27/2023 10:31 AM ACID WASHER OPERATOR HEPARIN UNFRACTIONATED ANTI XA LEVEL Timed 12/27/2023 8:16 AM ACID WASHER OPERATOR EKG 12-LEAD, TRACING ONLY STAT 12/27/2023 7:01 AM ACID WASHER OPERATOR HEPARIN UNFRACTIONATED ANTI XA LEVEL Timed 12/27/2023 12:28 AM ACID WASHER OPERATOR CT CHEST PULMONARY EMBOLISM W CONTRAST Routine 12/26/2023 4:33 PM ACID WASHER OPERATOR HEPARIN UNFRACTIONATED ANTI XA LEVEL Timed 12/26/2023 3:38 PM ACID WASHER OPERATOR CBC WITH PLATELETS STAT 12/26/2023 9: 08 AM ACID WASHER OPERATOR US LOWER EXTREMITY VENOUS DUPLEX BILATERAL Routine 12/25/2023 4:17 PM ACID WASHER OPERATOR US UPPER EXTREMITY VENOUS DUPLEX BILATERAL Routine 12/25/2023 4:16 PM ACID WASHER OPERATOR RESPIRATORY PANEL PCR Routine 12/25/2023 1:46 PM ACID WASHER OPERATOR CBC WITH PLATELETS Routine 12/25/2023 9: 17 AM ACID WASHER OPERATOR BASIC METABOLIC PANEL Routine 12/25/2023 9:17 AM ACID WASHER OPERATOR CBC WITH PLATELETS Routine 12/24/2023 1: 39 PM ACID WASHER OPERATOR BASIC METABOLIC PANEL Routine 12/24/2023 1:39 PM ACID WASHER OPERATOR ECHO COMPLETE WITH CONTRAST Routine 12/23/2023 9:20 AM ACID WASHER OPERATOR US LOWER EXTREMITY VENOUS DUPLEX BILATERAL Routine 12/23/2023 5:10 AM ACID WASHER OPERATOR XR CHEST PORT 1 VIEW Routine 12/22/2023 10:11 AM ACID WASHER OPERATOR CBC WITH PLATELETS Routine 12/22/2023 6: 53 AM ACID WASHER OPERATOR COMPREHENSIVE METABOLIC PANEL Routine 12/22/2023 6:53 AM ACID WASHER OPERATOR ROUTINE UA WITH MICROSCOPIC REFLEX TO CULTURE Routine 12/21/2023 1:49 PM ACID WASHER OPERATOR XR CHEST PORT 1 VIEW Routine 12/21/2023 11:05 AM ACID WASHER OPERATOR T4 FREE STAT 12/21/2023 8:33 AM ACID WASHER OPERATOR EXTRA GREEN TOP (LITHIUM HEPARIN) TUBE Routine 12/21/2023 8:33 AM ACID WASHER OPERATOR EXTRA TUBE Routine 12/21/2023 8:33 AM ACID WASHER OPERATOR LACTIC ACID WHOLE BLOOD Routine 12/21/19 8:33 AM ACID WASHER OPERATOR TSH WITH FREE T4 REFLEX STAT 12/21/19 8:33 AM ACID WASHER OPERATOR BLOOD GAS VENOUS STAT 12/21/2023 8:33 AM ACID WASHER OPERATOR TROPONIN T, HIGH SENSITIVITY STAT 12/21/2023 8:33 AM ACID WASHER OPERATOR AMMONIA STAT 12/21/2023 8:33 AM ACID WASHER OPERATOR HEPATIC FUNCTION PANEL STAT 8:33 AM ACID WASHER OPERATOR MAGNESIUM STAT 12/21/2023 8:33 AM ACID WASHER OPERATOR CBC WITH PLATELETS STAT 12/21/2023 8: 33 AM ACID WASHER OPERATOR BASIC METABOLIC PANEL STAT 12/21/2023 8:33 AM ACID WASHER OPERATOR XRAY IMAGING - HIM SCAN 12/21/19 12:00 AM ACID WASHER OPERATOR CT IMAGING - HIM SCAN 12/21/2023 12:00 AM ACID WASHER OPERATOR CT IMAGING - HIM SCAN 12/21/2023 12:00 AM ACID WASHER OPERATOR from Last 3 Months Results * (ABNORMAL) Glucose by meter (12/29/2023 12:38 AM ACID WASHER OPERATOR) Only the most recent of2 resultswithin the time period is included. GLUCOSE BY METER POCT 111(H) 70 - 99 mg/dL 12/29/2023 12:45 AM ACID WASHER OPERATOR [facility] POC Blood, Capillary BLOOD SPECIMEN / Unknown 12/29/2023 12:38 AM ACID WASHER OPERATOR 12/29/2023 12:45 AM ACID WASHER OPERATOR Roberto Donovan DO LAB - ARTHUR POCT [facility] POC [facility] [address] Lab (1st floor, no room number) [place] [address], [facility] [place] [phone] * (ABNORMAL) Blood gas venous (12/28/2023 2:41 PM ACID WASHER OPERATOR) Only the most recent of2 resultswithin the time period is included. pH Venous 7.37 7.32 - 7.43 12/28/2023 3:03 PM ACID WASHER OPERATOR [facility] pCO2 Venous 55(H) 40 - 50 mm Hg 12/28/2023 3:03 PM ACID WASHER OPERATOR [facility] pO2 Venous 26 25 - 47 mm Hg 12/28/2023 3:03 PM ACID WASHER OPERATOR [facility] Bicarbonate Venous 32(H) 21 - 28 mmol/L 12/28/2023 3:03 PM ACID WASHER OPERATOR [facility] Base Excess/Deficit Venous 4.8(H) -3.0 - 3.0 mmol/L 12/28/2023 3:03 PM ACID WASHER OPERATOR [facility] FIO2 21 DELILAH 12/28/2023 3:03 PM ACID WASHER OPERATOR [facility] Oxyhemoglobin Venous 48(L) 70 - 75 % 12/28/2023 3:03 PM ACID WASHER OPERATOR [facility] O2 Sat, Venous 49.0(L) 70.0 - 75.0 % 12/28/2023 3:03 PM ACID WASHER OPERATOR [facility] Blood, venous STRUCTURE OF RIGHT UPPER LIMB / Unknown Venipuncture / Unknown 12/28/2023 2:41 PM ACID WASHER OPERATOR 12/28/2023 2:46 PM ACID WASHER OPERATOR Narrative [facility] - 12/28/2023 3:03 PM ACID WASHER OPERATOR In healthy individuals, oxyhemoglobin (O2Hb) and oxygen saturation (SO2) are approximately equal. In the presence of dyshemoglobins, oxyhemoglobin can be considerably lower than oxygen saturation. Kristina Griffin MD LAB - BLOOD ORDERABL ES LABORATORY [facility] [address] Lab (1st floor, no room number) [place] [address], [place] [phone] * MRSA MSSA PCR, Nasal Swab (12/28/2023 6:57 AM ACID WASHER OPERATOR) MRSA Target DNA Negative Negative 12/28/2023 10:01 AM ACID WASHER OPERATOR [facility] SA Target DNA Negative 12/28/2023 10:01 AM ACID WASHER OPERATOR [facility] Swab BOTH ANTERIOR NARES / Unknown Non-blood Collection / Unknown 12/28/2023 6:57 AM ACID WASHER OPERATOR 12/28/2023 7:13 AM ACID WASHER OPERATOR Narrative [facility] - 12/28/2023 10:01 AM ACID WASHER OPERATOR The Cepheid?? Xpert SA Nasal Complete assay performed in the [employer]?? Dx System is a qualitative in vitro diagnostic test designed for rapid detection of Staphylococcus aureus (SA) and methicillin-resistant Staphylococcus aureus (MRSA) from nasal swabs in patients at risk for nasal colonization. The test utilizes automated real- time polymerase chain reaction (PCR) to detect MRSA/SA DNA. The Xpert SA Nasal Complete assay is intended to aid in the prevention and control of MRSA/SA infections in healthcare settings. The assay is not intended to diagnose, guide or monitor treatment for MRSA/SA infections, or provide results of susceptibility to methicillin. A negative result does not preclude MRSA/SA nasal colonization. Kristina Griffin MD LAB - MICRO GENERAL ORDERABLES [facility] Inf. Diseases Diag. Lab [address] [place] [address], [place] [phone] * Legionella pneumophila antigen urine (12/28/2023 6:56 AM ACID WASHER OPERATOR) Legionella pneumophila serogroup 1 urinary antigen Negative Negative DELILAH 12/28/2023 9:08 AM ACID WASHER OPERATOR [facility] Comment:Suggests no recent o r current infection. Infection due to Legionella cannot be ruled out, since other serogroups and species may cause disease, antigen may not be present in urine in early infection, and the level of antigen present in the urine may be below detectable limits of the test. Urine MID-STREAM URINE SPECIMEN / Unknown Non-blood Collection / Unknown 12/28/2023 6:56 AM ACID WASHER OPERATOR 12/28/2023 7:16 AM ACID WASHER OPERATOR Kristina Griffin MD LAB - MICRO GENERAL ORDERABLES [facility] Inf. Diseases Diag. Lab [address] [place] [address], [place] [phone] * (ABNORMAL) Heparin Unfractionated Anti Xa Level (12/28/2023 6:26 AM ACID WASHER OPERATOR) Only the most recent of5 resultswithin the time period is included. Anti Xa Unfractionated Heparin >1.10(HH ) For Reference Range, See Comment IU/mL 12/28/2023 7:40 AM ACID WASHER OPERATOR LABORATORY Blood STRUCTURE OF RIGHT HAND / Unknown Venipuncture / Unknown 12/28/2023 6:26 AM ACID WASHER OPERATOR 12/28/2023 6:36 AM ACID WASHER OPERATOR Narrative LABORATORY - 12/28/2023 7:40 AM ACID WASHER OPERATOR Therapeutic Range: UFH: 0.25-0.50 IU/mL for low intensity dosing, 0.30-0.70 IU/mL for high intensity dosing DVT and PE. This test is not validated for other direct factor X inhibitors (e.g. rivaroxaban, apixaban, edoxaban, betrixaban, fondaparinux) and should not be used for monitoring of other medications. Kristina Griffin MD LAB - BLOOD ORDERABL ES LABORATORY [facility] [address] Lab (1st floor, no room number) [place] [address], [place] [phone] * (ABNORMAL) Basic metabolic panel (12/28/2023 6:26 AM ACID WASHER OPERATOR) Only the most recent of4 resultswithin the time period is included. Sodium 142 135 - 145 mmol/L 12/28/2023 7:13 AM [facility] Comment:Reference intervals for this test were updated on 08/08/2023 to more accurately reflect our healthy population. There may be differences in the flagging of prior results with similar values performed with this method. Interpretation of those prior results can be made in the context of the updated reference intervals. Potassium 3.8 3.4 - 5.3 mmol/L 12/28/2023 7:13 AM [facility] Chloride 103 98 - 107 mmol/L 12/28/2023 7:13 AM [facility] Carbon Dioxide (CO2) 26 22 - 29 mmol/L 12/28/2023 7:13 AM [facility] Anion Gap 13 7 - 15 mmol/L 12/28/2023 7:13 AM [facility] Urea Nitrogen 17.9 8.0 - 23.0 mg/dL 12/28/2023 7:13 AM [facility] Creatinine 0.90 0.51 - 0.95 mg/dL 12/28/2023 7:13 AM [facility] GFR Estimate 63 >60 mL/min/1. 73m2 12/28/2023 7:13 AM [facility] Calcium 9.4 8.8 - 10.2 mg/dL 12/28/2023 7:13 AM [facility] Glucose 117(H) 70 - 99 mg/dL 12/28/2023 7:13 AM [facility] Blood STRUCTURE OF RIGHT HAND / Unknown Venipuncture / Unknown 12/28/2023 6:26 AM ACID WASHER OPERATOR 12/28/2023 6:36 AM [facility] Kristina Griffin MD LAB - BLOOD ORDERABL ES LABORATORY [facility] [address] [facility] Lab (1st floor, no room number) [place] [address], [facility] [place] [phone] * (ABNORMAL) CBC with platelets (12/28/2023 6:26 AM ACID WASHER OPERATOR) Only the most recent of6 resultswithin the time period is included. WBC Count 11.7(H) 4.0 - 11.0 10e3/uL 12/28/2023 6:41 AM ACID WASHER OPERATOR [facility] RBC Count 4.37 3.80 - 5.20 10e6/uL 12/28/2023 6:41 AM ACID WASHER OPERATOR [facility] Hemoglobin 13.2 11.7 - 15.7 g/dL 12/28/2023 6:41 AM ACID WASHER OPERATOR [facility] Hematocrit 40.7 35.0 - 47.0 % 12/28/2023 6:41 AM ACID WASHER OPERATOR [facility] MCV 93 78 - 100 fL 12/28/2023 6:41 AM ACID WASHER OPERATOR [facility] MCH 30.2 26.5 - 33.0 pg 12/28/2023 6:41 AM ACID WASHER OPERATOR [facility] MCHC 32.4 31.5 - 36.5 g/dL 12/28/2023 6:41 AM ACID WASHER OPERATOR [facility] RDW 13.2 10.0 - 15.0 % 12/28/2023 6:41 AM ACID WASHER OPERATOR [facility] Platelet Count 379 150 - 450 10e3/uL 12/28/2023 6:41 AM ACID WASHER OPERATOR [facility] Blood STRUCTURE OF RIGHT HAND / Unknown Venipuncture / Unknown 12/28/2023 6:26 AM ACID WASHER OPERATOR 12/28/2023 6:36 AM ACID WASHER OPERATOR Kristina Griffin MD LAB - BLOOD ORDERABL ES LABORATORY [facility] [address] [facility] Lab (1st floor, no room number) [place] [address], [facility] [place] [phone] * Blood Culture Hand, Right (12/27/2023 10:36 AM ACID WASHER OPERATOR) Only the most recent of2 resultswithin the time period is included. Culture No Growth 01/01/2024 3:32 PM ACID WASHER OPERATOR [facility] Blood STRUCTURE OF RIGHT HAND / Unknown Venipuncture / Unknown 12/27/2023 10:36 AM ACID WASHER OPERATOR 12/27/2023 10:40 AM ACID WASHER OPERATOR Narrative [facility] - 01/01/2024 3:32 PM ACID WASHER OPERATOR Only an Aerobic Blood Culture Bottle was collected, interpret results with caution. Gomez Napier MD LAB - MICRO GENERAL ORDERABLES [facility] Inf. Diseases Diag. Lab [address] [place] [address], [facility] [place] [phone] * Procalcitonin (12/27/2023 10:31 AM ACID WASHER OPERATOR) Procalcitonin 0.12 <0.50 ng/mL 12/27/2023 11:12 AM ACID WASHER OPERATOR LABORATORY Comment: Interpretation and Recommendations <0.5 ng/mL: Systemic bacterial infection unlikely. Local bacterial infection is possible. 0.5-1.99 ng/mL: Systemic bacterial infection possible, but various other conditions are known to induce PCT as well. >=2.00 ng/mL: Systemic bacterial infection likely, unless other causes are known. Decision to start antibiotics should not be based on procalcitonin level alone. See Procalcitonin Guidance document for more details. [email or web address] Factors that may affect PCT levels (not all-inclusive): ?? - Increased PCT level ?Severe trauma/lombardi ?Invasive surgery ?Cooling therapy after cardiac arrest/surgery ?Treatment with agents which stimulate cytokines ?Acute kidney injury ?Chronic kidney disease and end stage renal disease ?Acute graft vs host disease ?Non-specific shock causing decreased organ perfusion and/or infarction ?? - Normal or unchanged PCT level ?Early in infections (if low and infection is suspected, repeating in 6-12 hours is recommended) ?Chronic infections (endocarditis, osteomyelitis, prosthetic device/graft infections) ?Localized infections (cellulitis, wound infections, intra-abdominal abscess) Note: PCT has not been extensively studied in /, pediatrics, severe immunosuppression, and cystic fibrosis. Blood STRUCTURE OF RIGHT WRIST REGION / Unknown Venipuncture / Unknown 12/27/2023 10:31 AM ACID WASHER OPERATOR 12/27/2023 10:40 AM ACID WASHER OPERATOR Gomez Napier MD LAB - BLOOD ORDERABL ES [facility] Acute Care Lab [address] Lab (1st floor, no room number) [place] [address], [facility] [place] [phone] * EKG 12-lead, tracing only (12/27/2023 7:01 AM ACID WASHER OPERATOR) Systolic Blood Pressure mmHg RADIOLOGY RESULTS Diastolic Blood Pressure mmHg RADIOLOGY RESULTS Ventricular Rate 87 BPM RAD IOLOGY RESULTS Atrial Rate 87 BPM RADIOLOG Y RESULTS ID Interval 158 ms RADIOLOG Y RESULTS QRS Duration 82 ms RADIOLO GY RESULTS QT 400 ms RADIOLOGY RESULTS QTc 481 ms RADIOLOGY RESULTS P [place] 64 degrees RADIOLOGY RESULTS R AXIS 5 degrees RADIOLOGY RESULTS T [place] 90 degrees RADIOLOGY RESULTS Interpretation ECG Sinus rhythm Inferior infarct , age undetermined Abnormal ECG Confirmed by MD BIBI, HALIMA ([id number]), technical editor Javid Gray ([id number]) on 12/27/2023 2:43:26 PM RADIOLOGY RESULTS 12/27/2023 7:01 AM ACID WASHER OPERATOR 12/27/2023 2:43 PM ACID WASHER OPERATOR Kristina Griffin MD ECG ORDERABLES RADIOLOGY RESULTS * CT Chest Pulmonary Embolism w Contrast (12/26/2023 4:33 PM ACID WASHER OPERATOR) Anatomical Region Laterality Modality Chest, SUBRAD CT BODY, UMP CT CHEST Computed Tomography 12/26/2023 4:33 PM ACID WASHER OPERATOR Impressions 12/26/2023 5:49 PM ACID WASHER OPERATOR IMPRESSION: 1. ??No acute pulmonary emboli. 2. ??Small left pleural effusion with left lower lobe consolidation concerning for pneumonia. Patchy airspace opacities in the right lower lobe are also likely infectious or inflammatory. 3. ??Incidental 0.4 cm left upper lobe pulmonary nodule. Follow-up recommendations below: REFERENCE: Guidelines for Management of Incidental Pulmonary Nodules Detected on CT Images: From the Fleischner Society 2017. Guidelines apply to incidental nodules in patients who are 35 years or older. Guidelines do not apply to lung cancer screening, patients with immunosuppression, or patients with known primary cancer. SINGLE NODULE Nodule size <6 mm Low-risk patients: No follow-up needed. High-risk patients: Optional follow-up at 12 months. Narrative 12/26/2023 5:49 PM ACID WASHER OPERATOR EXAM: CT CHEST PULMONARY EMBOLISM W CONTRAST LOCATION: [facility] DATE: 12/26/2023 INDICATION: continued cough and mild resp failure; now with DVTS; rule out PE vs intraparenchymal disease COMPARISON: None. TECHNIQUE: CT chest pulmonary angiogram during arterial phase injection of IV contrast. Multiplanar reformats and MIP reconstructions were performed. Dose reduction techniques were used. CONTRAST: 85mL Isovue 370 FINDINGS: ANGIOGRAM CHEST: Pulmonary arteries are normal caliber and negative for pulmonary emboli. Thoracic aorta is negative for dissection. No CT evidence of right heart strain. LUNGS AND PLEURA: 0.4 cm nodule in the left upper lobe (7/86). Small left pleural effusion with confluent opacities and consolidation in the left lower lobe. Scattered patchy and confluent opacities in the right lower lobe as well. MEDIASTINUM/AXILLAE: Normal. CORONARY ARTERY CALCIFICATION: None. UPPER ABDOMEN: Cholecystectomy. MUSCULOSKELETAL: Mild degenerative changes in the spine. Advanced degenerative changes shoulder. Procedure Note Lionel Chavez MD - 12/26/2023 EXAM: CT CHEST PULMONARY EMBOLISM W CONTRAST LOCATION: [facility] DATE: 12/26/2023 INDICATION: continued cough and mild resp failure; now with DVTS; rule outPE vs intraparenchymal disease COMPARISON: None. TECHNIQUE: CT chest pulmonary angiogram during arterial phase injection ofIV contrast. Multiplanar reformats and MIP reconstructions were performed.Dose reduction techniques were used. CONTRAST: 85mL Isovue 370 FINDINGS: ANGIOGRAM CHEST: Pulmonary arteries are normal caliber and negative forpulmonary emboli. Thoracic aorta is negative for dissection. No CTevidence of right heart strain. LUNGS AND PLEURA: 0.4 cm nodule in the left upper lobe (7/86). Small leftpleural effusion with confluent opacities and consolidation in the leftlower lobe. Scattered patchy and confluent opacities in the right lowerlobe as well. MEDIASTINUM/AXILLAE: Normal. CORONARY ARTERY CALCIFICATION: None. UPPER ABDOMEN: Cholecystectomy. MUSCULOSKELETAL: Mild degenerative changes in the spine. Advanceddegenerative changes shoulder. IMPRESSION: 1. No acute pulmonary emboli. 2. Small left pleural effusion with left lower lobe consolidationconcerning for pneumonia. Patchy airspace opacities in the right lowerlobe are also likely infectious or inflammatory. 3. Incidental 0.4 cm left upper lobe pulmonary nodule. Follow-uprecommendations below: REFERENCE: Guidelines for Management of Incidental Pulmonary Nodules Detected on CTImages: From the Fleischner Society 2017. Guidelines apply to incidental nodules in patients who are 35 years orolder. Guidelines do not apply to lung cancer screening, patients withimmunosuppression, or patients with known primary cancer. SINGLE NODULE Nodule size <6 mm Low-risk patients: No follow-up needed. High-risk patients: Optional follow-up at 12 months. Christian Carson MD IMG CT ORDERABLES * US Lower Extremity Venous Duplex Bilateral (12/25/2023 4:17 PM ACID WASHER OPERATOR) Only the most recent of2 resultswithin the time period is included. Anatomical Region Laterality Modality Vascular, Thigh, Leg Ultrasound Impressions 12/25/2023 4:23 PM ACID WASHER OPERATOR IMPRESSION: 1. No evidence of deep venous thrombosis in the right lower extremity. 2. No evidence of deep venous thrombosis in the left lower extremity. KHALIF DOMÍNGUEZ MD Narrative 12/25/2023 4:23 PM ACID WASHER OPERATOR US LOWER EXTREMITY VENOUS DUPLEX BILATERAL PROCEDURE DATE: 12/25/2023 4:17 PM HISTORY: ??Bilateral lower extremity pain, evaluate for DVT. COMPARISON: None. TECHNIQUE: Grayscale, color-flow, and spectral waveform analysis were performed of the deep veins of the bilateral lower extremities. Patient did not allow compression due to pain. FINDINGS: The right common femoral vein, femoral vein, popliteal vein and tibial veins demonstrate normal spectral waveform, color flow and augmentation. The left common femoral vein, femoral vein, popliteal vein and tibial veins demonstrate normal spectral waveform, color flow and augmentation. Procedure Note Khalif Domínguez MD - 12/25/2023 US LOWER EXTREMITY VENOUS DUPLEX BILATERAL PROCEDURE DATE: 12/25/2023 4:17 PM HISTORY: Bilateral lower extremity pain, evaluate for DVT. COMPARISON: None. TECHNIQUE: Grayscale, color-flow, and spectral waveform analysis were performed of the deep veins of the bilateral lower extremities. Patient did not allow compression due to pain. FINDINGS: The right common femoral vein, femoral vein, popliteal vein and tibial veins demonstrate normal spectral waveform, color flow and augmentation. The left common femoral vein, femoral vein, popliteal vein and tibial veins demonstrate normal spectral waveform, color flow and augmentation. IMPRESSION: 1. No evidence of deep venous thrombosis in the right lower extremity. 2. No evidence of deep venous thrombosis in the left lower extremity. KHALIF DOMÍNGUEZ MD Christian Carson MD IMT[place] US ORDERABLES * US Upper Extremity Venous Duplex Bilat (12/25/2023 4:16 PM ACID WASHER OPERATOR) Anatomical Region Laterality Modality Arm Ultrasound Impressions 12/25/2023 4:26 PM ACID WASHER OPERATOR IMPRESSION: 1. ??Short segment DVT in the right brachial vein at the level of mid humerus. 2. ??Nonocclusive DVT within the left brachial vein at the level of the mid to distal humerus. KHALIF DOMÍNGUEZ MD Narrative 12/25/2023 4:26 PM ACID WASHER OPERATOR US UPPER EXTREMITY VENOUS DUPLEX BILATERAL ??12/25/2023 4:16 PM HISTORY: ??new left arm pain and warmth, evaluate for DVT COMPARISON: None. TECHNIQUE: ??Snowden-scale evaluation with compression, spectral flow, and color Doppler assessment of the deep venous system of both upper extremities. FINDINGS: Normal blood flow and waveforms are demonstrated in the internal jugular, innominate, subclavian, and axillary veins bilaterally. Short segment nonocclusive DVT is noted within the right brachial vein at the level of the midhumerus. There is also short segment nonocclusive DVT within the left brachial vein at the level of the mid to distal humerus. There is normal compressibility of the bilateral basilic and cephalic veins. Procedure Note Khalif Domínguez MD - 12/25/2023 US UPPER EXTREMITY VENOUS DUPLEX BILATERAL 12/25/2023 4:16 PM HISTORY: new left arm pain and warmth, evaluate for DVT COMPARISON: None. TECHNIQUE: Snowden-scale evaluation with compression, spectral flow, and color Doppler assessment of the deep venous system of both upper extremities. FINDINGS: Normal blood flow and waveforms are demonstrated in the internal jugular, innominate, subclavian, and axillary veins bilaterally. Short segment nonocclusive DVT is noted within the right brachial vein at the level of the midhumerus. There is also short segment nonocclusive DVT within the left brachial vein at the level of the mid to distal humerus. There is normal compressibility of the bilateral basilic and cephalic veins. IMPRESSION: 1. Short segment DVT in the right brachial vein at the level of mid humerus. 2. Nonocclusive DVT within the left brachial vein at the level of the mid to distal humerus. KHALIF DOMÍNGUEZ MD Christian Carson MD [place] US ORDERABLES * Respiratory Panel PCR (12/25/2023 1:46 PM ACID WASHER OPERATOR) Adenovirus Not Detected Not Detected 12/25/2023 5:35 PM ACID WASHER OPERATOR [facility] Coronavirus Not Detected Not Detected 12/25/2023 5:35 PM ACID WASHER OPERATOR [facility] Comment:This test detects Co ronavirus 229E, HKU1, NL63 and OC43 but does not distinguish between them. It does not detect MERS ( Respiratory Syndrome), SARS (Severe Acute Respiratory Syndrome) or 2019-nCoV (Novel 2018) Coronavirus. Human Metapneumovirus Not Detected Not Detected 12/25/2023 5:35 PM ACID WASHER OPERATOR [facility] Human Rhin/Enterovirus Not Detected Not Detected 12/25/2023 5:35 PM ACID WASHER OPERATOR [facility] Influenza A Not Detected Not Detected 12/25/2023 5:35 PM ACID WASHER OPERATOR [facility] Influenza A, H1 Not Detected Not Detected 12/25/2023 5:35 PM ACID WASHER OPERATOR [facility] Influenza A 2009 H1N1 Not Detected Not Detected 12/25/2023 5:35 PM ACID WASHER OPERATOR [facility] Influenza A, H3 Not Detected Not Detected 12/25/2023 5:35 PM ACID WASHER OPERATOR [facility] Influenza B Not Detected Not Detected 12/25/2023 5:35 PM ACID WASHER OPERATOR [facility] Parainfluenza Virus 1 Not Detected Not Detected 12/25/2023 5:35 PM ACID WASHER OPERATOR [facility] Parainfluenza Virus 2 Not Detected Not Detected 12/25/2023 5:35 PM ACID WASHER OPERATOR [facility] Parainfluenza Virus 3 Not Detected Not Detected 12/25/2023 5:35 PM ACID WASHER OPERATOR [facility] Parainfluenza Virus 4 Not Detected Not Detected 12/25/2023 5:35 PM ACID WASHER OPERATOR [facility] Respiratory Syncytial Virus A Not Detected Not Detected 12/25/2023 5:35 PM ACID WASHER OPERATOR [facility] Respiratory Syncytial Virus B Not Detected Not Detected 12/25/2023 5:35 PM ACID WASHER OPERATOR [facility] Chlamydia Pneumoniae Not Detected Not Detected 12/25/2023 5:35 PM ACID WASHER OPERATOR [facility] Mycoplasma Pneumoniae Not Detected Not Detected 12/25/2023 5:35 PM ACID WASHER OPERATOR [facility] Swab NASOPHARYNGEAL STRUCTURE / Unknown Non-blood Collection / Unknown 12/25/2023 1:46 PM ACID WASHER OPERATOR 12/25/2023 2:10 PM ACID WASHER OPERATOR Narrative [facility] - 12/25/2023 5:35 PM ACID WASHER OPERATOR The ePlex Respiratory Panel is a qualitative nucleic acid, multiplex, in vitro diagnostic test for the simultaneous detection and identification of multiple respiratory viral and bacterial nucleic acids in nasopharyngeal swabs collected in viral transport media from individual exhibiting signs and symptoms of respiratory infection. The assay has received FDA approval for the testing of nasopharyngeal (OIL TANK CAR [employer]ER) swabs only. The Infectious Diseases Diagnostic Laboratory at [facility] has validated the performance characteristics for bronchial alveolar lavage specimens. This test is used for clinical purposes and should not be regarded as investigational or for research. This laboratory is certified under the Clinical Laboratory Improvement Amendments of 1988 (CLIA-88) as qualified to perform high complexity clinical laboratory testing. Christian Carson MD LAB - MICRO GENERAL ORDERABLES [facility] Inf. Diseases Diag. Lab [address], [address] [place] [address] [[email or web address]] [phone] * ECHO COMPLETE WITH CONTRAST (12/23/2023 9:20 AM ACID WASHER OPERATOR) [facility] LVEF 60-65% CARDIOLOGY RESULTS Anatomical Region Laterality Modality Echocardiography 12/23/2023 9:01 AM ACID WASHER OPERATOR Narrative 12/23/2023 11:21 AM [facility] [id number]^MITCHELL^CHRISTIAN [facility] Echocardiography Laboratory [address] [place] [id number] Name: ALESIA NAVAS : 1940 Study Date: 12/23/2023 09:01 AM Age: 83 yrs Gender: Female Patient Location: [facility] Reason For Study: Cardiac Murmur Ordering Physician: CHRISTIAN CARSON Referring Physician: BRIANNA ROYAL Performed By: González Orosco RDCS BSA: 2.0 m2 Height: 60 in Weight: 245 lb HR: 92 BP: 155/78 mmHg Procedure Complete Portable Echo Adult. Farrah ([facility] #[id number]) given intravenously. Interpretation Summary Doppler interrogation does not demonstate signficant stenosis or insufficiency involving cardiac valves. There is mild trileaflet aortic sclerosis. Left ventricular systolic function is normal. The visual ejection fraction is 60-65%. The left ventricle is normal in size. The right ventricle is normal in structure, function and size. Sinus rhythm was noted. No old studies for comparison Left Ventricle The left ventricle is normal in size. There is normal left ventricular wall thickness. Left ventricular systolic function is normal. The visual ejection fraction is 60-65%. Left ventricular diastolic function is indeterminate. No regional wall motion abnormalities noted. Right Ventricle The right ventricle is normal in structure, function and size. There is no mass or thrombus in the right ventricle. Atria Normal left atrial size. Right atrial size is normal. There is no atrial shunt seen. The left atrial appendage is not well visualized. Mitral Valve The mitral valve leaflets appear normal. There is no evidence of stenosis, fluttering, or prolapse. There is no mitral regurgitation noted. There is no mitral valve stenosis. Tricuspid Valve Normal tricuspid valve. The right ventricular systolic pressure is approximated at 32.6 mmHg plus the right atrial pressure. There is trace to mild tricuspid regurgitation. Right ventricular systolic pressure is elevated, consistent with mild pulmonary hypertension. There is no tricuspid stenosis. Aortic Valve There is mild trileaflet aortic sclerosis. No aortic regurgitation is present. No aortic stenosis is present. Pulmonic Valve Normal pulmonic valve. There is no pulmonic valvular regurgitation. There is no pulmonic valvular stenosis. Vessels The aortic root is normal size. Normal size ascending aorta. The inferior vena cava is normal. The pulmonary artery is normal size. Pericardium The pericardium appears normal. There is no pleural effusion. Rhythm Sinus rhythm was noted. MMode/2D Measurements & Calculations IVSd: 1.1 cm LVIDd: 4.3 cm LVIDs: 2.0 cm LVPWd: 1.2 cm IVC diam: 1.8 cm FS: 53.8 % LV mass(C)d: 169.6 grams LV mass(C)dI: 83.4 grams/m2 Ao root diam: 3.1 cm asc Aorta Diam: 3.4 cm LVOT diam: 1.9 cm LVOT area: 2.8 cm2 Ao root diam index Ht(cm/m): 2.0 Ao root diam index BSA (cm/m2): 1.5 Asc Ao diam index BSA (cm/m2): 1.7 Asc Ao diam index Ht(cm/m): 2.2 LA Volume (BP): 54.0 ml LA Volume Index (BP): 26.6 ml/m2 RWT: 0.55 TAPSE: 2.4 cm Time Measurements Aortic HR: 102.0 BPM Doppler Measurements & Calculations MV E max ernie: 111.0 cm/sec MV A max ernie: 111.0 cm/sec MV E/A: 1.0 MV max P.8 mmHg MV mean P.0 mmHg MV V2 VTI: 23.3 cm MVA(VTI): 2.5 cm2 MV dec time: 0.18 sec LV V1 max P.6 mmHg LV V1 max: 118.0 cm/sec LV V1 VTI: 20.7 cm CO(LVOT): 5.9 l/min CI(LVOT): 2.9 l/min/m2 SV(LVOT): 58.1 ml SI(LVOT): 28.5 ml/m2 PA acc time: 0.11 sec TR max ernie: 285.5 cm/sec TR max P.6 mmHg E/E' av.6 Lateral E/e': 10.5 Medial E/e': 10.6 RV S Ernie: 15.1 cm/sec Report approved by: Dr. Halima Robison 12/23/2023 11:21 AM Procedure Note Halima Jama MD - 12/23/2023 [id number]^CARSON^TOY [facility] Echocardiography Laboratory [address] [place] [address] Name: ALESIA NAVAS : 1940 Study Date: 12/23/2023 09:01 AM Age: 83 yrs Gender: Female Patient Location: [facility] Reason For Study: Cardiac Murmur Ordering Physician: CHRISTIAN CARSON Referring Physician: BRIANNA ROYAL Performed By: González Orosco RDCS BSA: 2.0 m2 Height: 60 in Weight: 245 lb HR: 92 BP: 155/78 mmHg Procedure Complete Portable Echo Adult. Optison ([facility] #[id number]) givenintravenously. Interpretation Summary Doppler interrogation does not demonstate signficant stenosis orinsufficiency involving cardiac valves. There is mild trileaflet aortic sclerosis. Left ventricular systolic function is normal. The visual ejection fraction is 60-65%. The left ventricle is normal in size. The right ventricle is normal in structure, function and size. Sinus rhythm was noted. No old studies for comparison Left Ventricle The left ventricle is normal in size. There is normal left ventricularwall thickness. Left ventricular systolic function is normal. The visualejection fraction is 60-65%. Left ventricular diastolic function is indeterminate.No regional wall motion abnormalities noted. Right Ventricle The right ventricle is normal in structure, function and size. There isno mass or thrombus in the right ventricle. Atria Normal left atrial size. Right atrial size is normal. There is no atrialshunt seen. The left atrial appendage is not well visualized. Mitral Valve The mitral valve leaflets appear normal. There is no evidence ofstenosis, fluttering, or prolapse. There is no mitral regurgitation noted. There isno mitral valve stenosis. Tricuspid Valve Normal tricuspid valve. The right ventricular systolic pressure is approximated at 32.6 mmHg plus the right atrial pressure. There is traceto mild tricuspid regurgitation. Right ventricular systolic pressure iselevated, consistent with mild pulmonary hypertension. There is no tricuspidstenosis. Aortic Valve There is mild trileaflet aortic sclerosis. No aortic regurgitation ispresent. No aortic stenosis is present. Pulmonic Valve Normal pulmonic valve. There is no pulmonic valvular regurgitation. Thereis no pulmonic valvular stenosis. Vessels The aortic root is normal size. Normal size ascending aorta. The inferiorvena cava is normal. The pulmonary artery is normal size. Pericardium The pericardium appears normal. There is no pleural effusion. Rhythm Sinus rhythm was noted. MMode/2D Measurements & Calculations IVSd: 1.1 cm LVIDd: 4.3 cm LVIDs: 2.0 cm LVPWd: 1.2 cm IVC diam: 1.8 cm FS: 53.8 % LV mass(C)d: 169.6 grams LV mass(C)dI: 83.4 grams/m2 Ao root diam: 3.1 cm asc Aorta Diam: 3.4 cm LVOT diam: 1.9 cm LVOT area: 2.8 cm2 Ao root diam index Ht(cm/m): 2.0 Ao root diam index BSA (cm/m2): 1.5 Asc Ao diam index BSA (cm/m2): 1.7 Asc Ao diam index Ht(cm/m): 2.2 LA Volume (BP): 54.0 ml LA Volume Index (BP): 26.6 ml/m2 RWT: 0.55 TAPSE: 2.4 cm Time Measurements Aortic HR: 102.0 BPM Doppler Measurements & Calculations MV E max ernie: 111.0 cm/sec MV A max ernie: 111.0 cm/sec MV E/A: 1.0 MV max P.8 mmHg MV mean P.0 mmHg MV V2 VTI: 23.3 cm MVA(VTI): 2.5 cm2 MV dec time: 0.18 sec LV V1 max P.6 mmHg LV V1 max: 118.0 cm/sec LV V1 VTI: 20.7 cm CO(LVOT): 5.9 l/min CI(LVOT): 2.9 l/min/m2 SV(LVOT): 58.1 ml SI(LVOT): 28.5 ml/m2 PA acc time: 0.11 sec TR max ernie: 285.5 cm/sec TR max P.6 mmHg E/E' av.6 Lateral E/e': 10.5 Medial E/e': 10.6 RV S Ernie: 15.1 cm/sec Report approved by: Dr. Halima Robison 12/23/2023 11:21 AM Christian Carson MD CV ECHO ORDERABLES * XR Chest Port 1 View (12/22/2023 10:11 AM ACID WASHER OPERATOR) Only the most recent of2 resultswithin the time period is included. Anatomical Region Laterality Modality Chest Digital Radiogra phy Impressions 12/22/2023 1:11 PM ACID WASHER OPERATOR IMPRESSION: No acute disease. ROBERTO DIXON MD SYSTEM ID: ??[id number] Narrative 12/22/2023 1:11 PM ACID WASHER OPERATOR CHEST ONE VIEW ??12/22/2023 10:11 AM HISTORY: Respiratory distress. COMPARISON: 12/21/23 Procedure Note Roberto Dixon MD - 12/22/2023 CHEST ONE VIEW 12/22/2023 10:11 AM HISTORY: Respiratory distress. COMPARISON: 12/21/23 IMPRESSION: No acute disease. ROBERTO DIXON MD SYSTEM ID: [id number] Christian Carson MD IMG DIAGNOSTIC IMAGI NG ORDERABLES * (ABNORMAL) Comprehensive metabolic panel (12/22/2023 6:53 AM ACID WASHER OPERATOR) [facility] Sodium 140 135 - 145 mmol/L 12/22/2023 7:15 AM ACID WASHER OPERATOR [facility] Comment:Reference intervals for this test were updated on 08/08/2023 to more accurately reflect our healthy population. There may be differences in the flagging of prior results with similar values performed with this method. Interpretation of those prior results can be made in the context of the updated reference intervals. Potassium 4.0 3.4 - 5.3 mmol/L 12/22/2023 7:15 AM ACID WASHER OPERATOR [facility] Carbon Dioxide (CO2) 27 22 - 29 mmol/L 12/22/2023 7:15 AM ACID WASHER OPERATOR [facility] Anion Gap 9 7 - 15 mmol/L 12/22/2023 7:15 AM ACID WASHER OPERATOR [facility] Urea Nitrogen 8.5 8.0 - 23.0 mg/dL 12/22/2023 7:15 AM ACID WASHER OPERATOR [facility] Creatinine 0.80 0.51 - 0.95 mg/dL 12/22/2023 7:15 AM ACID WASHER OPERATOR [facility] GFR Estimate 73 >60 mL/min/1. 73m2 12/22/2023 7:15 AM ACID WASHER OPERATOR [facility] Calcium 8.6(L) 8.8 - 10.2 mg/dL 12/22/2023 7:15 AM ACID WASHER OPERATOR [facility] Chloride 104 98 - 107 mmol/L 12/22/2023 7:15 AM ACID WASHER OPERATOR [facility] Glucose 113(H) 70 - 99 mg/dL 12/22/2023 7:15 AM ACID WASHER OPERATOR [facility] Alkaline Phosphatase 80 40 - 150 U/L 12/22/2023 7:15 AM ACID WASHER OPERATOR [facility] Comment:Reference intervals for this test were updated on 09/26/2023 to more accurately reflect our healthy population. There may be differences in the flagging of prior results with similar values performed with this method. Interpretation of those prior results can be made in the context of the updated reference intervals. AST 22 0 - 45 U/L 12/22/2023 7:15 AM ACID WASHER OPERATOR [facility] Comment:Reference intervals for this test were updated on 04/24/2023 to more accurately reflect our healthy population. There may be differences in the flagging of prior results with similar values performed with this method. Interpretation of those prior results can be made in the context of the updated reference intervals. ALT 17 0 - 50 U/L 12/22/2023 7:15 AM ACID WASHER OPERATOR [facility] Comment:Reference intervals for this test were updated on 04/24/2023 to more accurately reflect our healthy population. There may be differences in the flagging of prior results with similar values performed with this method. Interpretation of those prior results can be made in the context of the updated reference intervals. Protein Total 6.4 6.4 - 8.3 g/dL 12/22/2023 7:15 AM ACID WASHER OPERATOR LABORATORY Albumin 3.7 3.5 - 5.2 g/dL 12/22/2023 7:15 AM ACID WASHER OPERATOR [facility] Bilirubin Total 0.7 <=1.2 mg/dL 12/22/2023 7:15 AM ACID WASHER OPERATOR LABORATORY Blood STRUCTURE OF RIGHT WRIST REGION / Unknown Venipuncture / Unknown 12/22/2023 6:53 AM ACID WASHER OPERATOR 12/22/2023 6:57 AM ACID WASHER OPERATOR Oswaldo Samuel APRN CARDIOLOGY NURSE LAB - BLOOD O RDERABLES LABORATORY [facility] Lab [address] [facility] Lab (1st floor, no room number) [place] [address], [facility] [place] [phone] * (ABNORMAL) UA with Microscopic reflex to Culture (12/21/2023 1:49 PM ACID WASHER OPERATOR) Color Urine Yellow Colorless, Straw, Light Yellow, Yellow 12/21/2023 2:07 PM ACID WASHER OPERATOR LABORATORY Appearance Urine Clear Clear 12/21/19 24 2:07 PM ACID WASHER OPERATOR LABORATORY Glucose Urine Negative Negative mg/dL 12/21/2023 2:07 PM ACID WASHER OPERATOR LABORATORY Bilirubin Urine Negative Negative 2:07 PM ACID WASHER OPERATOR LABORATORY Ketones Urine Negative Negative mg/dL 12/21/2023 2:07 PM ACID WASHER OPERATOR LABORATORY Specific [place] Urine 1.028 1.003 - 1.035 12/21/2023 2:07 PM ACID WASHER OPERATOR LABORATORY Blood Urine Trace(A) Negative 12/21/2023 2:07 PM ACID WASHER OPERATOR LABORATORY pH Urine 6.0 5.0 - 7.0 12/21/2023 2:07 PM ACID WASHER OPERATOR LABORATORY Protein Albumin Urine 20(A) Negative mg/dL 12/21/2023 2:07 PM ACID WASHER OPERATOR LABORATORY Urobilinogen Urine Normal Normal, 2.0 mg/dL 12/21/2023 2:07 PM ACID WASHER OPERATOR LABORATORY Nitrite Urine Negative Negative 12/21/2023 2:07 PM ACID WASHER OPERATOR LABORATORY Leukocyte Esterase Urine Negative Negative 12/21/2023 2:07 PM ACID WASHER OPERATOR LABORATORY Mucus Urine Present(A) None Seen /LPF 12/21/2023 2:07 PM ACID WASHER OPERATOR LABORATORY RBC Urine 5(H) <=2 /HPF 12/21/2023 2:07 PM ACID WASHER OPERATOR LABORATORY WBC Urine 1 <=5 /HPF 12/21/2023 2:07 PM ACID WASHER OPERATOR LABORATORY Urine URINE SPECIMEN OBTAINED VIA [facility] URINARY CATHETER / Unknown Non-blood Collection / Unknown 12/21/2023 1:49 PM ACID WASHER OPERATOR 12/21/2023 1:58 PM ACID WASHER OPERATOR [facility] LABORATORY - 12/21/2023 2:07 PM ACID WASHER OPERATOR Urine Culture not indicated Oswaldo Samuel APRN CARDIOLOGY NURSE LAB - URINE O RDERABLES LABORATORY [facility] [address] (1st floor, no room number) [place] [address], [facility] [place] [phone] * Extra Green Top (Erick Heparin) Tube (12/21/2023 8:33 AM ACID WASHER OPERATOR) Hold Specimen [facility] 12/21/2023 10:04 AM ACID WASHER OPERATOR LABORATORY Blood STRUCTURE OF LEFT UPPER LIMB / Unknown Venipuncture / Unknown 12/21/2023 8:33 AM ACID WASHER OPERATOR 12/21/2023 8:51 AM ACID WASHER OPERATOR Roberto Florianbyron Donovan DO LAB - BLOOD ORDERAB LES Performing Organization Address City/[facility]/ZIP Co de Phone Number [facility] Acute Care Lab [address] Lab (1st floor, no room number) [place] [address], [facility] [place] [phone] * Troponin T, High Sensitivity (12/21/2023 8:33 AM ACID WASHER OPERATOR) Troponin T, High Sensitivity 13 <=14 ng/L 12/21/2023 9:14 AM ACID WASHER OPERATOR LABORATORY Comment: Either a High Sensitivity Troponin T baseline (0 hours) value = 100 ng/L, or an increase in High Sensitivity Troponin T = 7 ng/L at 2 hours compared to 0 hours (2-0 hours), suggests myocardial injury, and urgent clinical attention is required. ?? If the 2-0 hours increase is <7 ng/L, a High Sensitivity Troponin T result above gender-specific reference ranges warrants further evaluation. Recommendations for further evaluation include correlation with clinical decision-making tool (e.g., HEART), a 3rd High Sensitivity Troponin T test 2 hours after the 2nd (a 20% change from baseline would represent concern), admission for observation, close PCC/cardiology follow-up, or urgent outpatient provocative testing. Blood STRUCTURE OF LEFT UPPER LIMB / Unknown Venipuncture / Unknown 12/21/2023 8:33 AM ACID WASHER OPERATOR 12/21/2023 8:40 AM ACID WASHER OPERATOR Oswaldo Sameul APRN CARDIOLOGY NURSE LAB - BLOOD O RDERABLES [facility] Acute Care Lab [address] Lab (1st floor, no room number) [place] [address], [facility] [place] [phone] * (ABNORMAL) TSH with free T4 reflex (12/21/2023 8:33 AM ACID WASHER OPERATOR) TSH 5.16(H) 0.30 - 4.20 uIU/mL 12/21/2023 9:14 AM ACID WASHER OPERATOR LABORATORY Blood STRUCTURE OF LEFT UPPER LIMB / Unknown Venipuncture / Unknown 12/21/2023 8:33 AM ACID WASHER OPERATOR 12/21/2023 8:40 AM ACID WASHER OPERATOR Oswaldo Samuel APRN CARDIOLOGY NURSE LAB - BLOOD O RDERABLES [facility] [address] Lab (1st floor, no room number) [place] [address], [facility] [place] [phone] * T4 free (12/21/2023 8:33 AM ACID WASHER OPERATOR) Free T4 1.12 0.90 - 1.70 ng/dL 12/21/2023 9:45 AM ACID WASHER OPERATOR [facility] Blood STRUCTURE OF LEFT UPPER LIMB / Unknown Venipuncture / Unknown 12/21/2023 8:33 AM ACID WASHER OPERATOR 12/21/2023 8:40 AM ACID WASHER OPERATOR Oswaldo Samuel APRN CARDIOLOGY NURSE LAB - BLOOD O RDERAGISSELLE Performing Organization Address [facility]/ZIP Co de Phone Number [facility] [address] Lab (1st floor, no room number) [place] [address], [facility] [place] [phone] * Magnesium (12/21/2023 8:33 AM ACID WASHER OPERATOR) Magnesium 1.9 1.7 - 2.3 mg/dL 12/21/2023 9:09 AM ACID WASHER OPERATOR [facility] Blood STRUCTURE OF LEFT UPPER LIMB / Unknown Venipuncture / Unknown 12/21/2023 8:33 AM ACID WASHER OPERATOR 12/21/2023 8:40 AM ACID WASHER OPERATOR Oswaldo Samuel APRN CARDIOLOGY NURSE LAB - BLOOD O RDERABLES [facility] [address] Lab (1st floor, no room number) [place] [address], [facility] [place] [phone] * Lactic acid whole blood (12/21/2023 8:33 AM ACID WASHER OPERATOR) Lactic Acid 1.4 0.7 - 2.0 mmol/L 12/21/2023 8:44 AM ACID WASHER OPERATOR LABORATORY Blood, venous BLOOD SPECIMEN / Unknown Venipuncture / Unknown 12/21/2023 8:33 AM ACID WASHER OPERATOR 12/21/2023 8:41 AM ACID WASHER OPERATOR Oswaldo Samuel APRN CARDIOLOGY NURSE LAB - BLOOD O RDERABLES [facility] [address] Lab (1st floor, no room number) [place] [address], [facility] [place] [phone] * Hepatic panel (12/21/2023 8:33 AM ACID WASHER OPERATOR) Protein Total 6.9 6.4 - 8.3 g/dL 12/21/2023 9:09 AM ACID WASHER OPERATOR LABORATORY Albumin 4.1 3.5 - 5.2 g/dL 12/21/2023 9:09 AM ACID WASHER OPERATOR LABORATORY Bilirubin Total 0.6 <=1.2 mg/dL 12/21/2023 9:09 AM ACID WASHER OPERATOR LABORATORY Alkaline Phosphatase 83 40 - 150 U/L 12/21/2023 9:09 AM ACID WASHER OPERATOR [facility] Comment:Reference intervals for this test were updated on 09/26/2023 to more accurately reflect our healthy population. There may be differences in the flagging of prior results with similar values performed with this method. Interpretation of those prior results can be made in the context of the updated reference intervals. AST 20 0 - 45 U/L 12/21/2023 9:09 AM ACID WASHER OPERATOR [facility] Comment:Reference intervals for this test were updated on 04/24/2023 to more accurately reflect our healthy population. There may be differences in the flagging of prior results with similar values performed with this method. Interpretation of those prior results can be made in the context of the updated reference intervals. ALT 15 0 - 50 U/L 12/21/2023 9:09 AM ACID WASHER OPERATOR [facility] Comment:Reference intervals for this test were updated on 04/24/2023 to more accurately reflect our healthy population. There may be differences in the flagging of prior results with similar values performed with this method. Interpretation of those prior results can be made in the context of the updated reference intervals. Bilirubin Direct <0.20 0.00 - 0.30 mg/dL 12/21/2023 9:09 AM ACID WASHER OPERATOR LABORATORY Blood STRUCTURE OF LEFT UPPER LIMB / Unknown Venipuncture / Unknown 12/21/2023 8:33 AM ACID WASHER OPERATOR 12/21/2023 8:40 AM ACID WASHER OPERATOR Oswaldo Samuel APRN CARDIOLOGY NURSE LAB - BLOOD O RDERABLES [facility] [address] Lab (1st floor, no room number) [place] [address], [facility] [place] [phone] * Ammonia (12/21/2023 8:33 AM ACID WASHER OPERATOR) Ammonia 23 11 - 51 umol/L 12/21/2023 9:13 AM ACID WASHER OPERATOR LABORATORY Blood STRUCTURE OF LEFT UPPER LIMB / Unknown Venipuncture / Unknown 12/21/2023 8:33 AM ACID WASHER OPERATOR 12/21/2023 8:40 AM ACID WASHER OPERATOR Oswaldo Samuel APRN CARDIOLOGY NURSE LAB - BLOOD O RDERABLES Performing Organization Address [facility] Co de Phone Number [facility] [address] Lab (1st floor, no room number) [place] [address], [facility] [place] [phone] * XRAY IMAGING - HIM SCAN (12/21/2023 12:00 AM ACID WASHER OPERATOR) Anatomical Region Laterality Modality Other 12/21/2023 Provider Outside IMG DIAGNOSTIC IMAGI NG ORDERABLES * CT IMAGING - HIM SCAN (12/21/2023 12:00 AM ACID WASHER OPERATOR) Only the most recent of2 resultswithin the time period is included. Anatomical Region Laterality Modality Computed Tomogra phy 12/21/[address] ORDERABLES from Last 3 Months Advance Directives For more information, please contact: [phone] * No CPR- Do NOT Intubate (Latest Code Status on File) Date Activated Date Inactivated Comments 12/21/2023 8:01 AM 12/29/2023 4:45 PM NO basic or a dvanced life-sustaining interventions are performed Question Answer Comments Code status determined by: Discussion with alexa davidson/ legal decision maker Care Teams Break Out Worker Relationship Specialty Start Date End Date System, Provider Not In PCP - General Clinic 12/21/23
--- OUTSIDE RECORDS SUMMARY | 2024-03-03 14:30 | XMS_ITS | Referral Summary ---
Author Name Unknown Organization [facility] Address [address] [place] [address]. [place] [address] Care Team Providers Care Regional Driver Name Role Phone System, Provider Not In Primary Care Provider Un available Encounters Date Type Department Care Team Description 12/21/2023 7:36 AM AUDITING SPECIALIST - 12/29/2023 2:38 PM AUDITING SPECIALIST Hospital Encounter [place] [id number] [facility] Surgical [address] [place] [address] Roberto Donovan DO Baxa, Alexander, DO Chronic shoulder pain, unspecified laterality (Primary Dx); Neuropathic pain; Essential hypertension; Hypothyroidism, unspecified type; Pneumonia of left lower lobe due to infectious organism; Acute deep vein thrombosis (DVT) of brachial vein of both upper extremities (H) Discharge Disposition: Intermediate Care Facility 12/21/2023 Telephone [facility] Services - General Medicine & Pediatrics [address] [place] [address] Roberto Donovan DO from Last 3 Months Allergies Active Allergy Reactions Criticality Noted Date [...] BY MOUTH ONCE DAILY 08/17/2021 Active NYAMYC 153791 UNIT/GM external powder Apply topically daily as [...] surgery status 06/09/2016 Overview: Dr. Mandie Douglass of [place] Dr. Villanueva Immunizations Name Administration Dates Next Due COVID-19 [...] Comments Blood Pressure 132/88 12/29/2023 11:46 AM AUDITING SPECIALIST Pulse 81 12/29/2023 11:46 AM AUDITING SPECIALIST Temperature 36.6 ??C (97.9 ??F) 12/29/2023 8:07 AM CS T Respiratory Rate 19 12/29/2023 11:4 6 AM AUDITING SPECIALIST Oxygen Saturation 93% 12/29/2023 11: 46 AM AUDITING SPECIALIST Inhaled Oxygen Concentration - - Weight 107.7 kg (237 lb 6.4 oz) 12/26/2023 9:56 AM AUDITING SPECIALIST Height 152.4 cm (5') 12/21/2023 8:24 AM AUDITING SPECIALIST Body Mass Index 46.36 12/21/2023 8:24 AM AUDITING SPECIALIST Plan of Treatment Not on file Procedures Procedure Name Priority Date/Time Associated Diagnosis Comments GLUCOSE BY METER Routine 12/29/2023 12:3 8 AM AUDITING SPECIALIST BLOOD GAS VENOUS STAT 12/28/2023 2:41 PM AUDITING SPECIALIST GLUCOSE BY METER Routine 12/28/2023 2:18 PM AUDITING SPECIALIST MRSA MSSA PCR, NASAL SWAB STAT 12/28/2023 6:57 AM AUDITING SPECIALIST LEGIONELLA PNEUMOPHILA URINARY ANTIGEN Routine 12/28/2023 6:56 AM AUDITING SPECIALIST BASIC METABOLIC PANEL Routine 12/28/2023 6:26 AM AUDITING SPECIALIST CBC WITH PLATELETS Routine 12/28/2023 6: 26 AM AUDITING SPECIALIST HEPARIN UNFRACTIONATED ANTI XA LEVEL Routine 12/28/2023 6:26 AM AUDITING SPECIALIST HEPARIN UNFRACTIONATED ANTI XA LEVEL Timed 12/27/2023 3:03 PM AUDITING SPECIALIST BLOOD CULTURE STAT 12/27/2023 10:36 AM AUDITING SPECIALIST BLOOD CULTURE STAT 12/27/2023 10:31 AM AUDITING SPECIALIST PROCALCITONIN Routine 12/27/2023 10:31 AM AUDITING SPECIALIST HEPARIN UNFRACTIONATED ANTI XA LEVEL Timed 12/27/2023 8:16 AM AUDITING SPECIALIST EKG 12-LEAD, TRACING ONLY STAT 12/27/2023 7:01 AM AUDITING SPECIALIST HEPARIN UNFRACTIONATED ANTI XA LEVEL Timed 12/27/2023 12:[address] CHEST PULMONARY EMBOLISM W CONTRAST Routine 12/26/2023 4:33 PM AUDITING SPECIALIST HEPARIN UNFRACTIONATED ANTI XA LEVEL Timed 12/26/2023 3:38 PM AUDITING SPECIALIST CBC WITH PLATELETS STAT 12/26/2023 9: 08 AM AUDITING SPECIALIST US LOWER EXTREMITY VENOUS DUPLEX BILATERAL Routine 12/25/2023 4:17 PM AUDITING SPECIALIST US UPPER EXTREMITY VENOUS DUPLEX BILATERAL Routine 12/25/2023 4:16 PM AUDITING SPECIALIST RESPIRATORY PANEL PCR Routine 12/25/2023 1:46 PM AUDITING SPECIALIST CBC WITH PLATELETS Routine 12/25/2023 9: 17 AM AUDITING SPECIALIST BASIC METABOLIC PANEL Routine 12/25/2023 9:17 AM AUDITING SPECIALIST CBC WITH PLATELETS Routine 12/24/2023 1: 39 PM AUDITING SPECIALIST BASIC METABOLIC PANEL Routine 12/24/2023 1:39 PM AUDITING SPECIALIST ECHO COMPLETE WITH CONTRAST Routine 12/23/2023 9:20 AM AUDITING SPECIALIST US LOWER EXTREMITY VENOUS DUPLEX BILATERAL Routine 12/23/2023 5:10 AM AUDITING SPECIALIST XR CHEST PORT 1 VIEW Routine 12/22/2023 10:11 AM AUDITING SPECIALIST CBC WITH PLATELETS Routine 12/22/2023 6: 53 AM AUDITING SPECIALIST COMPREHENSIVE METABOLIC PANEL Routine 12/22/2023 6:53 AM AUDITING SPECIALIST ROUTINE UA WITH MICROSCOPIC REFLEX TO CULTURE Routine 12/21/2023 1:49 PM AUDITING SPECIALIST XR CHEST PORT 1 VIEW Routine 12/21/2023 11:05 AM AUDITING SPECIALIST T4 FREE STAT 12/21/2023 8:33 AM AUDITING SPECIALIST EXTRA GREEN TOP (LITHIUM HEPARIN) TUBE Routine 12/21/2023 8:33 AM AUDITING SPECIALIST EXTRA TUBE Routine 12/21/2023 8:33 AM AUDITING SPECIALIST LACTIC ACID WHOLE BLOOD Routine 12/21/19 24 8:33 AM AUDITING SPECIALIST TSH WITH FREE T4 REFLEX STAT 12/21/19 24 8:33 AM AUDITING SPECIALIST BLOOD GAS VENOUS STAT 12/21/2023 8:33 AM AUDITING SPECIALIST TROPONIN T, HIGH SENSITIVITY STAT 12/21/2023 8:33 AM AUDITING SPECIALIST AMMONIA STAT 12/21/2023 8:33 AM AUDITING SPECIALIST HEPATIC FUNCTION PANEL STAT 8:33 AM AUDITING SPECIALIST MAGNESIUM STAT 12/21/2023 8:33 AM AUDITING SPECIALIST CBC WITH PLATELETS STAT 12/21/2023 8: 33 AM AUDITING SPECIALIST BASIC METABOLIC PANEL STAT 12/21/2023 8:33 AM AUDITING SPECIALIST XRAY IMAGING - HIM SCAN 12/21/19 12:[address] IMAGING - HIM SCAN 12/21/2023 12:[address] IMAGING - HIM SCAN 12/21/2023 12:00 AM AUDITING SPECIALIST from Last 3 Months Results * (ABNORMAL) Glucose by meter (12/29/2023 12:38 AM AUDITING SPECIALIST) Only the most recent of2 resultswithin the time period is included. [facility] GLUCOSE BY METER POCT 111(H) 70 - 99 mg/dL 12/29/2023 12:45 AM AUDITING SPECIALIST [facility] POC Blood, Capillary BLOOD SPECIMEN / Unknown 12/29/2023 12:38 AM AUDITING SPECIALIST 12/29/2023 12:45 AM AUDITING SPECIALIST Roberto Donovan DO LAB - MELCHORAKER POCT [facility] Acute Care Lab [address] [facility] Lab (1st floor, no room number) [place] [address], [facility] [phone] * (ABNORMAL) Blood gas venous (12/28/2023 2:41 PM AUDITING SPECIALIST) Only the most recent of2 resultswithin the time period is included. pH Venous 7.37 7.32 - 7.43 12/28/2023 3:03 PM AUDITING SPECIALIST [facility] pCO2 Venous 55(H) 40 - 50 mm Hg 12/28/2023 3:03 PM AUDITING SPECIALIST [facility] pO2 Venous 26 25 - 47 mm Hg 12/28/2023 3:03 PM AUDITING SPECIALIST [facility] Bicarbonate Venous 32(H) 21 - 28 mmol/L 12/28/2023 3:03 PM AUDITING SPECIALIST [facility] Base Excess/Deficit Venous 4.8(H) -3.0 - 3.0 mmol/L 12/28/2023 3:03 PM AUDITING SPECIALIST [facility] FIO2 21 DELILAH 12/28/2023 3:03 PM AUDITING SPECIALIST [facility] Oxyhemoglobin Venous 48(L) 70 - 75 % 12/28/2023 3:03 PM AUDITING SPECIALIST [facility] O2 Sat, Venous 49.0(L) 70.0 - 75.0 % 12/28/2023 3:03 PM AUDITING SPECIALIST [facility] Blood, venous STRUCTURE OF RIGHT UPPER LIMB / Unknown Venipuncture / Unknown 12/28/2023 2:41 PM AUDITING SPECIALIST 12/28/2023 2:46 PM AUDITING SPECIALIST Narrative [facility] - 12/28/2023 3:03 PM AUDITING SPECIALIST In healthy individuals, oxyhemoglobin (O2Hb) and oxygen saturation (SO2) are approximately equal. In the presence of dyshemoglobins, oxyhemoglobin can be considerably lower than oxygen saturation. Kristina Griffin MD LAB - BLOOD ORDERABL ES LABORATORY [facility] Acute Care Lab [address] [facility] Lab (1st floor, no room number) [place] [address], [facility] [phone] * MRSA MSSA PCR, Nasal Swab (12/28/2023 6:57 AM AUDITING SPECIALIST) [facility] MRSA Target DNA Negative Negative 12/28/2023 10:01 AM AUDITING SPECIALIST [facility] SA Target DNA Negative 12/28/2023 10:01 AM AUDITING SPECIALIST [facility] Swab BOTH ANTERIOR NARES / Unknown Non-blood Collection / Unknown 12/28/2023 6:57 AM AUDITING SPECIALIST 12/28/2023 7:13 AM AUDITING SPECIALIST Narrative [facility] - 12/28/2023 10:01 AM AUDITING SPECIALIST The Cepheid?? Xpert SA Nasal Complete assay performed in the GeneBarcoding?? Dx System is a qualitative in vitro [...] Griffin MD LAB - MICRO GENERAL ORDERABLES Performing Organization Address [facility] de Phone Number [facility] Inf. Diseases Diag. Lab [address] [facility], [address] [address], [facility] [phone] * Legionella pneumophila antigen urine (12/28/2023 6:56 AM AUDITING SPECIALIST) Legionella pneumophila serogroup 1 urinary antigen Negative Negative DELILAH 12/28/2023 9:08 AM AUDITING SPECIALIST [facility] Comment:Suggests no recent o [...] Non-blood Collection / Unknown 12/28/2023 6:56 AM AUDITING SPECIALIST 12/28/2023 7:16 AM AUDITING SPECIALIST Kristina Griffin MD LAB - MICRO GENERAL ORDERABLES Performing Organization Address [facility] de Phone Number [facility] Inf. Diseases Diag. Lab [address] [place] [address], [address] [address], [facility] [phone] * (ABNORMAL) Heparin Unfractionated Anti Xa Level (12/28/2023 6:26 AM AUDITING SPECIALIST) Only the most recent of5 resultswithin the time period is included. Anti Xa Unfractionated Heparin >1.10(HH ) For Reference Range, See Comment IU/mL 12/28/2023 7:40 AM AUDITING SPECIALIST [facility] Blood STRUCTURE OF RIGHT HAND / Unknown Venipuncture / Unknown 12/28/2023 6:26 AM AUDITING SPECIALIST 12/28/2023 6:36 AM AUDITING SPECIALIST Narrative [facility] - 12/28/2023 7:40 AM AUDITING SPECIALIST Therapeutic Range: UFH: 0.25-0.50 IU/mL for low intensity dosing, 0.30-0.70 IU/mL for high intensity dosing DVT and PE. This test is not validated for other direct factor X inhibitors (e.g. rivaroxaban, apixaban, edoxaban, betrixaban, fondaparinux) and should not be used for monitoring of other medications. Kristina Griffin MD LAB - BLOOD ORDERABL ES LABORATORY [facility] Acute Care Lab [address] [facility] Lab (1st floor, no room number) [place] [address], [facility] [phone] * (ABNORMAL) Basic metabolic panel (12/28/2023 6:26 AM AUDITING SPECIALIST) Only the most recent of4 resultswithin the time period is included. [facility] Sodium 142 135 - 145 mmol/L 12/28/2023 7:13 AM [facility] Comment:Reference intervals for this test were updated on 08/08/2023 to more accurately reflect our healthy population. There may be differences in the flagging of prior results with similar values performed with this method. Interpretation of those prior results can be made in the context of the updated reference intervals. Potassium 3.8 3.4 - 5.3 mmol/L 12/28/2023 7:13 AM [facility] Chloride 103 98 - 107 mmol/L 12/28/2023 7:13 AM [facility] Carbon Dioxide (CO2) 26 22 - 29 mmol/L 12/28/2023 7:13 AM [facility] Anion Gap 13 7 - 15 mmol/L 12/28/2023 7:13 AM [facility] Urea Nitrogen 17.9 8.0 - 23.0 mg/dL 12/28/2023 7:13 AM [facility] Creatinine 0.90 0.51 - 0.95 mg/dL 12/28/2023 7:13 AM [facility] GFR Estimate 63 >60 mL/min/1. 73m2 12/28/2023 7:13 AM [facility] Calcium 9.4 8.8 - 10.2 mg/dL 12/28/2023 7:13 AM [facility] Glucose 117(H) 70 - 99 mg/dL 12/28/2023 7:13 AM AUDITING SPECIALIST [facility] Blood STRUCTURE OF RIGHT HAND / Unknown Venipuncture / Unknown 12/28/2023 6:26 AM AUDITING SPECIALIST 12/28/2023 6:36 AM AUDITING SPECIALIST Kristina Griffin MD LAB - BLOOD ORDERABL ES [facility] Lab [address] Lab (1st floor, no room number) [place] [address], [facility] [phone] * (ABNORMAL) CBC with platelets (12/28/2023 6:26 AM AUDITING SPECIALIST) Only the most recent of6 resultswithin the time period is included. WBC Count 11.7(H) 4.0 - 11.0 10e3/uL 12/28/2023 6:41 AM AUDITING SPECIALIST [facility] RBC Count 4.37 3.80 - 5.20 10e6/uL 12/28/2023 6:41 AM AUDITING SPECIALIST [facility] Hemoglobin 13.2 11.7 - 15.7 g/dL 12/28/2023 6:41 AM AUDITING SPECIALIST [facility] Hematocrit 40.7 35.0 - 47.0 % 12/28/2023 6:41 AM AUDITING SPECIALIST [facility] MCV 93 78 - 100 fL 12/28/2023 6:41 AM AUDITING SPECIALIST [facility] MCH 30.2 26.5 - 33.0 pg 12/28/2023 6:41 AM AUDITING SPECIALIST [facility] MCHC 32.4 31.5 - 36.5 g/dL 12/28/2023 6:41 AM AUDITING SPECIALIST [facility] RDW 13.2 10.0 - 15.0 % 12/28/2023 6:41 AM AUDITING SPECIALIST [facility] Platelet Count 379 150 - 450 10e3/uL 12/28/2023 6:41 AM AUDITING SPECIALIST [facility] Blood STRUCTURE OF RIGHT HAND / Unknown Venipuncture / Unknown 12/28/2023 6:26 AM AUDITING SPECIALIST 12/28/2023 6:36 AM AUDITING SPECIALIST rKistina Griffin MD LAB - BLOOD ORDERABL ES LABORATORY [facility] Care Lab [address] Lab (1st floor, no room number) [place] [address], [place] [phone] * Blood Culture Hand, Right (12/27/2023 10:36 AM AUDITING SPECIALIST) Only the most recent of2 resultswithin the time period is included. Culture No Growth 01/01/2024 3:32 PM AUDITING SPECIALIST [facility] Blood STRUCTURE OF RIGHT HAND / Unknown Venipuncture / Unknown 12/27/2023 10:36 AM AUDITING SPECIALIST 12/27/2023 10:40 AM AUDITING SPECIALIST Narrative [facility] - 01/01/2024 3:32 PM AUDITING SPECIALIST Only an Aerobic Blood Culture Bottle was collected, interpret results with caution. Gomez Napier MD LAB - MICRO GENERAL ORDERABLES [facility] Inf. Diseases Diag. Lab [address] [facility], [address] [place] [address], [place] [phone] * Procalcitonin (12/27/2023 10:31 AM AUDITING SPECIALIST) Procalcitonin 0.12 <0.50 ng/mL 12/27/2023 11:12 AM AUDITING SPECIALIST LABORATORY Comment: Interpretation and Recommendations <0.5 ng/mL: Systemic bacterial infection unlikely. Local bacterial infection is possible. 0.5-1.99 ng/mL: Systemic bacterial infection possible, but various other conditions are known to induce PCT as well. >=2.00 ng/mL: Systemic bacterial infection likely, unless other causes are known. Decision to start antibiotics should not be based on procalcitonin level alone. See Procalcitonin Guidance document for more details. [email or web address] Factors that may affect PCT levels (not [...] Unknown Venipuncture / Unknown 12/27/2023 10:31 AM AUDITING SPECIALIST 12/27/2023 10:40 AM AUDITING SPECIALIST Gomez Napier MD LAB - BLOOD ORDERABL ES [facility] Acute Care Lab [address] [facility] Lab (1st floor, no room number) [place] [address], [facility] [phone] * EKG 12-lead, tracing only (12/27/2023 7:01 AM AUDITING SPECIALIST) Systolic Blood Pressure mmHg RADIOLOGY RESULTS Diastolic Blood Pressure mmHg RADIOLOGY RESULTS Ventricular Rate 87 BPM RAD IOLOGY RESULTS Atrial Rate 87 BPM RADIOLOG Y RESULTS AZ Interval 158 ms RADIOLOG Y RESULTS QRS Duration 82 ms RADIOLO GY RESULTS QT 400 ms RADIOLOGY RESULTS QTc 481 ms RADIOLOGY RESULTS P Lyons 64 degrees RADIOLOGY RESULTS R AXIS 5 degrees RADIOLOGY RESULTS T Lyons 90 degrees RADIOLOGY RESULTS Interpretation ECG Sinus rhythm Inferior infarct , age undetermined Abnormal ECG Confirmed by MD BIBI, HALIMA ([id number]), newspaper photo editor Javid Gray ([id number]) on 12/27/2023 2:43:26 PM RADIOLOGY RESULTS 12/27/2023 7:01 AM AUDITING SPECIALIST 12/27/2023 2:43 PM AUDITING SPECIALIST Kristina Griffin MD ECG ORDERABLES RADIOLOGY RESULTS * CT Chest Pulmonary Embolism w Contrast (12/26/2023 4:33 PM AUDITING SPECIALIST) Anatomical Region Laterality Modality Chest, SUBRAD CT BODY, UMP CT CHEST Computed Tomography 12/26/2023 4:33 PM AUDITING SPECIALIST Impressions 12/26/2023 5:49 PM AUDITING SPECIALIST IMPRESSION: 1. ??No acute pulmonary emboli. 2. [...] at 12 months. Narrative 12/26/2023 5:49 PM AUDITING SPECIALIST EXAM: CT CHEST PULMONARY EMBOLISM W CONTRAST LOCATION: [facility] DATE: 12/26/2023 INDICATION: continued cough and [...] cm nodule in the left upper lobe (). Small left pleural effusion with confluent opacities and consolidation in the left lower lobe. Scattered patchy and confluent opacities in the right lower lobe as well. MEDIASTINUM/AXILLAE: Normal. CORONARY ARTERY CALCIFICATION: None. UPPER ABDOMEN: Cholecystectomy. MUSCULOSKELETAL: Mild degenerative changes in the spine. Advanced degenerative changes shoulder. Procedure Note Lionel Chavez MD - 12/26/2023 EXAM: CT CHEST PULMONARY EMBOLISM W CONTRAST LOCATION: [facility] DATE: 12/26/2023 INDICATION: continued cough and [...] cm nodule in the left upper lobe (). Small leftpleural effusion with confluent opacities and [...] Extremity Venous Duplex Bilateral (12/25/2023 4:17 PM AUDITING SPECIALIST) Only the most recent of2 resultswithin the time period is included. Anatomical Region Laterality Modality Vascular, Thigh, Leg Ultrasound Impressions 12/25/2023 4:23 PM AUDITING SPECIALIST IMPRESSION: 1. No evidence of deep venous thrombosis in the right lower extremity. 2. No evidence of deep venous thrombosis in the left lower extremity. KHALIF DOMÍNGUEZ MD Narrative 12/25/2023 4:23 PM AUDITING SPECIALIST US LOWER EXTREMITY VENOUS DUPLEX BILATERAL PROCEDURE [...] the left lower extremity. KHALIF DOMÍNGUEZ MD Authorizing Provider Result Milton MATAMOROS US ORDERABLES * US Upper Extremity Venous Duplex Bilat (12/25/2023 4:16 PM AUDITING SPECIALIST) Anatomical Region Laterality Modality Arm Ultrasound Impressions 12/25/2023 4:26 PM AUDITING SPECIALIST IMPRESSION: 1. ??Short segment DVT in the right brachial vein at the level of mid humerus. 2. ??Nonocclusive DVT within the left brachial vein at the level of the mid to distal humerus. KHALIF DOMÍNGUEZ MD Narrative 12/25/2023 4:26 PM AUDITING SPECIALIST US UPPER EXTREMITY VENOUS DUPLEX BILATERAL ??12/25/2023 [...] humerus. KHALIF DOMÍNGUEZ MD Christian Carson MD [facility] US ORDERABLES * Respiratory Panel PCR (12/25/2023 1:46 PM AUDITING SPECIALIST) Pathologist [facility] Adenovirus Not Detected Not Detected 12/25/2023 5:35 PM AUDITING SPECIALIST [facility] Coronavirus Not Detected Not Detected 12/25/2023 5:35 PM AUDITING SPECIALIST [facility] Comment:This test detects Co ronavirus 229E, HKU1, NL63 and OC43 but does not distinguish between them. It does not detect MERS ( Respiratory Syndrome), SARS (Severe Acute Respiratory Syndrome) or 2019-nCoV (Novel 2019) Coronavirus. Human Metapneumovirus Not Detected Not Detected 12/25/2023 5:35 PM AUDITING SPECIALIST [facility] Human Rhin/Enterovirus Not Detected Not Detected 12/25/2023 5:35 PM AUDITING SPECIALIST [facility] Influenza A Not Detected Not Detected 12/25/2023 5:35 PM AUDITING SPECIALIST [facility] Influenza A, H1 Not Detected Not Detected 12/25/2023 5:35 PM AUDITING SPECIALIST [facility] Influenza A 2009 H1N1 Not Detected Not Detected 12/25/2023 5:35 PM AUDITING SPECIALIST [facility] Influenza A, H3 Not Detected Not Detected 12/25/2023 5:35 PM AUDITING SPECIALIST [facility] Influenza B Not Detected Not Detected 12/25/2023 5:35 PM AUDITING SPECIALIST [facility] Parainfluenza Virus 1 Not Detected Not Detected 12/25/2023 5:35 PM AUDITING SPECIALIST [facility] Parainfluenza Virus 2 Not Detected Not Detected 12/25/2023 5:35 PM AUDITING SPECIALIST [facility] Parainfluenza Virus 3 Not Detected Not Detected 12/25/2023 5:35 PM AUDITING SPECIALIST [facility] Parainfluenza Virus 4 Not Detected Not Detected 12/25/2023 5:35 PM AUDITING SPECIALIST [facility] Respiratory Syncytial Virus A Not Detected Not Detected 12/25/2023 5:35 PM AUDITING SPECIALIST [facility] Respiratory Syncytial Virus B Not Detected Not Detected 12/25/2023 5:35 PM AUDITING SPECIALIST [facility] Chlamydia Pneumoniae Not Detected Not Detected 12/25/2023 5:35 PM AUDITING SPECIALIST [facility] Mycoplasma Pneumoniae Not Detected Not Detected 12/25/2023 5:35 PM AUDITING SPECIALIST [facility] Swab NASOPHARYNGEAL STRUCTURE / Unknown Non-blood Collection / Unknown 12/25/2023 1:46 PM AUDITING SPECIALIST 12/25/2023 2:10 PM AUDITING SPECIALIST Narrative [facility] - 12/25/2023 5:35 PM AUDITING SPECIALIST The ePlex Respiratory Panel is a qualitative nucleic acid, multiplex, in vitro diagnostic test for the simultaneous detection and identification of multiple respiratory viral and bacterial nucleic acids in nasopharyngeal swabs collected in viral transport media from individual exhibiting signs and symptoms of respiratory infection. The assay has received FDA approval for the testing of nasopharyngeal (QUALITY TECHNICIAN FIBERGLASS) swabs only. The Infectious Diseases Diagnostic Laboratory at [facility] has validated the performance characteristics for bronchial alveolar lavage specimens. This test is used for clinical purposes and should not be regarded as investigational or for research. This laboratory is certified under the Clinical Laboratory Improvement Amendments of 1988 (CLIA-88) as qualified to perform high complexity clinical laboratory testing. Christian Carson MD LAB - MICRO GENERAL ORDERABLES [facility] Inf. Diseases Diag. Lab [address] [facility], [address] [place] [address], [facility] [phone] * ECHO COMPLETE WITH CONTRAST (12/23/2023 9:20 AM AUDITING SPECIALIST) [facility] LVEF 60-65% CARDIOLOGY RESULTS Anatomical Region Laterality Modality Echocardiography 12/23/2023 9:01 AM AUDITING SPECIALIST Narrative 12/23/2023 11:21 AM AUDITING SPECIALIST [id number]^MITCHELL^CHRISTIAN [facility] Echocardiography Laboratory [address] [place] [id number] Name: ALESIA NAVAS : 1940 Study Date: 12/23/2023 09:01 AM Age: 83 yrs Gender: Female Patient Location: [facility] Reason For Study: Cardiac Murmur Ordering Physician: CHRISTIAN CARSON Referring Physician: BRIANNA ROYAL Performed By: González Orosco RDCS BSA: 2.0 m2 Height: 60 in Weight: 245 lb HR: 92 BP: 155/78 mmHg Procedure Complete Portable Echo Adult. Optison ([facility] #[id number]) given intravenously. Interpretation Summary Doppler interrogation does [...] Procedure Note Halima Jama MD - 12/23/2023 [id number]^MITCHELL^CHRISTIAN [facility] Echocardiography Laboratory [address] [place] [id number] Name: ALESIA NAVAS : 1940 Study Date: 12/23/2023 09:01 AM Age: 83 yrs Gender: Female Patient Location: [facility] Reason For Study: Cardiac Murmur Ordering Physician: CHRISTIAN CARSON Referring Physician: BRIANNA ROYAL Performed By: González Orosco RDCS BSA: 2.0 m2 Height: 60 in Weight: 245 lb HR: 92 BP: 155/78 mmHg Procedure Complete Portable Echo Adult. Optison ([facility] #[id number]) givenintravenously. Interpretation Summary Doppler interrogation does not [...] Chest Port 1 View (12/22/2023 10:11 AM AUDITING SPECIALIST) Only the most recent of2 resultswithin the time period is included. Anatomical Region Laterality Modality Chest Digital Radiogra phy Impressions 12/22/2023 1:11 PM AUDITING SPECIALIST IMPRESSION: No acute disease. ROBERTO DIXON MD SYSTEM ID: [id number] Narrative 12/22/2023 1:11 PM AUDITING SPECIALIST CHEST ONE VIEW ??12/22/2023 10:11 AM HISTORY: Respiratory distress. COMPARISON: 12/21/23 Procedure Note Roberto Dixon MD - 12/22/2023 CHEST ONE VIEW 12/22/2023 10:11 AM HISTORY: Respiratory distress. COMPARISON: 12/21/23 IMPRESSION: No acute disease. ROBERTO DIXON MD SYSTEM ID: [id number] Christian Carson MD IMG DIAGNOSTIC IMAGI NG ORDERABLES * (ABNORMAL) Comprehensive metabolic panel (12/22/2023 6:53 AM AUDITING SPECIALIST) Sodium 140 135 - 145 mmol/L 12/22/2023 7:15 AM AUDITING SPECIALIST [facility] Comment:Reference intervals for this test were updated on 08/08/2023 to more accurately reflect our healthy population. There may be differences in the flagging of prior results with similar values performed with this method. Interpretation of those prior results can be made in the context of the updated reference intervals. Potassium 4.0 3.4 - 5.3 mmol/L 12/22/2023 7:15 AM AUDITING SPECIALIST [facility] Carbon Dioxide (CO2) 27 22 - 29 mmol/L 12/22/2023 7:15 AM AUDITING SPECIALIST [facility] Anion Gap 9 7 - 15 mmol/L 12/22/2023 7:15 AM AUDITING SPECIALIST [facility] Urea Nitrogen 8.5 8.0 - 23.0 mg/dL 12/22/2023 7:15 AM AUDITING SPECIALIST [facility] Creatinine 0.80 0.51 - 0.95 mg/dL 12/22/2023 7:15 AM [facility] GFR Estimate 73 >60 mL/min/1. 73m2 12/22/2023 7:15 AM [facility] Calcium 8.6(L) 8.8 - 10.2 mg/dL 12/22/2023 7:15 AM [facility] Chloride 104 98 - 107 mmol/L 12/22/2023 7:15 AM [facility] Glucose 113(H) 70 - 99 mg/dL 12/22/2023 7:15 AM [facility] Alkaline Phosphatase 80 40 - 150 U/L 12/22/2023 7:15 AM [facility] Comment:Reference intervals for this test were updated on 09/26/2023 to more accurately reflect our healthy population. There may be differences in the flagging of prior results with similar values performed with this method. Interpretation of those prior results can be made in the context of the updated reference intervals. AST 22 0 - 45 U/L 12/22/2023 7:15 AM [facility] Comment:Reference intervals for this test were updated on 04/24/2023 to more accurately reflect our healthy population. There may be differences in the flagging of prior results with similar values performed with this method. Interpretation of those prior results can be made in the context of the updated reference intervals. ALT 17 0 - 50 U/L 12/22/2023 7:15 AM [facility] Comment:Reference intervals for this test were updated on 04/24/2023 to more accurately reflect our healthy population. There may be differences in the flagging of prior results with similar values performed with this method. Interpretation of those prior results can be made in the context of the updated reference intervals. Protein Total 6.4 6.4 - 8.3 g/dL 12/22/2023 7:15 AM [facility] Albumin 3.7 3.5 - 5.2 g/dL 12/22/2023 7:15 AM [facility] Bilirubin Total 0.7 <=1.2 mg/dL 12/22/2023 7:15 AM [facility] Blood STRUCTURE OF RIGHT WRIST REGION / Unknown Venipuncture / Unknown 12/22/2023 6:53 AM AUDITING SPECIALIST 12/22/2023 6:57 AM AUDITING SPECIALIST Oswaldo Samuel BLUEPRINT CLERK HUMAN RESOURCE ASSISTANT LAB - BLOOD O RDERABLES LABORATORY [facility] Acute Care Lab [address] [facility] Lab (1st floor, no room number) [place] [address], [facility] [phone] * (ABNORMAL) UA with Microscopic reflex to Culture (12/21/2023 1:49 PM AUDITING SPECIALIST) Color Urine Yellow Colorless, Straw, Light Yellow, Yellow 12/21/2023 2:07 PM AUDITING SPECIALIST LABORATORY Appearance Urine Clear Clear 12/21/19 24 2:07 PM AUDITING SPECIALIST LABORATORY Glucose Urine Negative Negative mg/dL 12/21/2023 2:07 PM AUDITING SPECIALIST LABORATORY Bilirubin Urine Negative Negative 2:07 PM AUDITING SPECIALIST LABORATORY Ketones Urine Negative Negative mg/dL 12/21/2023 2:07 PM AUDITING SPECIALIST LABORATORY Specific [place] Urine 1.028 1.003 - 1.035 12/21/2023 2:07 PM AUDITING SPECIALIST LABORATORY Blood Urine Trace(A) Negative 12/21/2023 2:07 PM AUDITING SPECIALIST LABORATORY pH Urine 6.0 5.0 - 7.0 12/21/2023 2:07 PM AUDITING SPECIALIST LABORATORY Protein Albumin Urine 20(A) Negative mg/dL 12/21/2023 2:07 PM AUDITING SPECIALIST LABORATORY Urobilinogen Urine Normal Normal, 2.0 mg/dL 12/21/2023 2:07 PM AUDITING SPECIALIST LABORATORY Nitrite Urine Negative Negative 12/21/2023 2:07 PM AUDITING SPECIALIST LABORATORY Leukocyte Esterase Urine Negative Negative 12/21/2023 2:07 PM [facility] Mucus Urine Present(A) None Seen /LPF 12/21/2023 2:07 PM AUDITING SPECIALIST LABORATORY RBC Urine 5(H) <=2 /HPF 12/21/2023 2:07 PM AUDITING SPECIALIST LABORATORY WBC Urine 1 <=5 /HPF 12/21/2023 2:07 PM [facility] Urine URINE SPECIMEN OBTAINED VIA INDWELLING URINARY CATHETER / Unknown Non-blood Collection / Unknown 12/21/2023 1:49 PM AUDITING SPECIALIST 12/21/2023 1:58 PM AUDITING SPECIALIST Narrative LABORATORY - 12/21/2023 2:07 PM AUDITING SPECIALIST Urine Culture not indicated Oswaldo Samuel APRN HUMAN RESOURCE ASSISTANT LAB - URINE O RDERABLES [facility] [address] [facility] [address] [facility], no room number) [place] [address], [facility] [phone] * Extra Green Top ([place] Heparin) Tube (12/21/2023 8:33 AM AUDITING SPECIALIST) Hold Specimen JIC 12/21/2023 10:04 AM AUDITING SPECIALIST LABORATORY Blood STRUCTURE OF LEFT UPPER LIMB / Unknown Venipuncture / Unknown 12/21/2023 8:33 AM AUDITING SPECIALIST 12/21/2023 8:51 AM AUDITING SPECIALIST Roberto Donovan DO LAB - BLOOD ORDERAB LES Performing Organization Address City/[facility]/ZIP Co de Phone Number [facility] [address] [facility] (1st floor, no room number) [place] [address], [facility] [phone] * Troponin T, High Sensitivity (12/21/2023 8:33 AM AUDITING SPECIALIST) Pathologist [facility] Troponin T, High Sensitivity 13 <=14 ng/L 12/21/2023 9:14 AM AUDITING SPECIALIST LABORATORY Comment: Either a High Sensitivity Troponin [...] Unknown Venipuncture / Unknown 12/21/2023 8:33 AM AUDITING SPECIALIST 12/21/2023 8:40 AM AUDITING SPECIALIST Oswaldo Samuel APRN HUMAN RESOURCE ASSISTANT LAB - BLOOD O RDERABLES Performing Organization Address City/[facility]/ZIP Co de Phone Number [facility] Care Lab [address] Lab (1st floor, no room number) [place] [phone], [facility] [phone] * (ABNORMAL) TSH with free T4 reflex (12/21/2023 8:33 AM AUDITING SPECIALIST) TSH 5.16(H) 0.30 - 4.20 uIU/mL 12/21/2023 9:14 AM AUDITING SPECIALIST LABORATORY Blood STRUCTURE OF LEFT UPPER LIMB / Unknown Venipuncture / Unknown 12/21/2023 8:33 AM AUDITING SPECIALIST 12/21/2023 8:40 AM AUDITING SPECIALIST Oswaldo Samuel APRN HUMAN RESOURCE ASSISTANT LAB - BLOOD O RDERABLES Performing Organization Address [facility]/ZIP Co de Phone Number [facility] Acute Care Lab [address] Lab (1st floor, no room number) [place] [phone], [facility] [phone] * T4 free (12/21/2023 8:33 AM AUDITING SPECIALIST) Free T4 1.12 0.90 - 1.70 ng/dL 12/21/2023 9:45 AM AUDITING SPECIALIST LABORATORY Blood STRUCTURE OF LEFT UPPER LIMB / Unknown Venipuncture / Unknown 12/21/2023 8:33 AM AUDITING SPECIALIST 12/21/2023 8:40 AM AUDITING SPECIALIST Oswaldo Samuel APRN HUMAN RESOURCE ASSISTANT LAB - BLOOD O RDERABLES [facility] Care Lab [address] Lab (1st floor, no room number) [place] [phone], [facility] [phone] * Magnesium (12/21/2023 8:33 AM AUDITING SPECIALIST) Magnesium 1.9 1.7 - 2.3 mg/dL 12/21/2023 9:09 AM AUDITING SPECIALIST LABORATORY Blood STRUCTURE OF LEFT UPPER LIMB / Unknown Venipuncture / Unknown 12/21/2023 8:33 AM AUDITING SPECIALIST 12/21/2023 8:40 AM AUDITING SPECIALIST Oswaldo Samuel APRN [facility] LAB - BLOOD O RDERABLES LABORATORY [facility] Acute Care Lab [address] Lab (1st floor, no room number) [place] [address], [facility] [phone] * Lactic acid whole blood (12/21/2023 8:33 AM AUDITING SPECIALIST) Lactic Acid 1.4 0.7 - 2.0 mmol/L 12/21/2023 8:44 AM AUDITING SPECIALIST LABORATORY Blood, venous BLOOD SPECIMEN / Unknown Venipuncture / Unknown 12/21/2023 8:33 AM AUDITING SPECIALIST 12/21/2023 8:41 AM AUDITING SPECIALIST Oswaldo Samuel APRN [facility] LAB - BLOOD O RDERABLES LABORATORY [facility] Acute Care Lab [address] Lab (1st floor, no room number) [place] [address], [facility] [phone] * Hepatic panel (12/21/2023 8:33 AM AUDITING SPECIALIST) Protein Total 6.9 6.4 - 8.3 g/dL 12/21/2023 9:09 AM AUDITING SPECIALIST LABORATORY Albumin 4.1 3.5 - 5.2 g/dL 12/21/2023 9:09 AM [facility] Bilirubin Total 0.6 <=1.2 mg/dL 12/21/2023 9:09 AM AUDITING SPECIALIST LABORATORY Alkaline Phosphatase 83 40 - 150 U/L 12/21/2023 9:09 AM [facility] Comment:Reference intervals for this test were updated on 09/26/2023 to more accurately reflect our healthy population. There may be differences in the flagging of prior results with similar values performed with this method. Interpretation of those prior results can be made in the context of the updated reference intervals. AST 20 0 - 45 U/L 12/21/2023 9:09 AM AUDITING SPECIALIST [facility] Comment:Reference intervals for this test were updated on 04/24/2023 to more accurately reflect our healthy population. There may be differences in the flagging of prior results with similar values performed with this method. Interpretation of those prior results can be made in the context of the updated reference intervals. ALT 15 0 - 50 U/L 12/21/2023 9:09 AM AUDITING SPECIALIST [facility] Comment:Reference intervals for this test were updated on 04/24/2023 to more accurately reflect our healthy population. There may be differences in the flagging of prior results with similar values performed with this method. Interpretation of those prior results can be made in the context of the updated reference intervals. Bilirubin Direct <0.20 0.00 - 0.30 mg/dL 12/21/2023 9:09 AM AUDITING SPECIALIST [facility] Blood STRUCTURE OF LEFT UPPER LIMB / Unknown Venipuncture / Unknown 12/21/2023 8:33 AM AUDITING SPECIALIST 12/21/2023 8:40 AM AUDITING SPECIALIST Oswaldo Samuel APRN, CNP LAB - BLOOD O RDERABLES [facility] Acute Care Lab [address] [facility] Lab (1st floor, no room number) [place] [address], [facility] [phone] * Ammonia (12/21/2023 8:33 AM AUDITING SPECIALIST) Ammonia 23 11 - 51 umol/L 12/21/2023 9:13 AM AUDITING SPECIALIST [facility] Blood STRUCTURE OF LEFT UPPER LIMB / Unknown Venipuncture / Unknown 12/21/2023 8:33 AM AUDITING SPECIALIST 12/21/2023 8:40 AM AUDITING SPECIALIST Oswaldo Samuel APRN, CNP LAB - BLOOD O RDERAGISSELLE [facility] Acute Care Lab [address] [facility] Lab (1st floor, no room number) [place] [address], [facility] [phone] * XRAY IMAGING - HIM SCAN (12/21/2023 12:00 AM AUDITING SPECIALIST) Anatomical Region Laterality Modality Other 12/21/2023 Provider Outside IMG DIAGNOSTIC IMAGI NG ORDERABLES * CT IMAGING - HIM SCAN (12/21/2023 12:00 AM AUDITING SPECIALIST) Only the most recent of2 resultswithin the time period is included. Anatomical Region Laterality Modality Computed Tomogra phy 12/21/[address] ORDERABLES from Last 3 Months Advance Directives For more information, please contact: [phone] * No CPR- Do NOT Intubate (Latest Code Status on File) Date Activated Date Inactivated Comments 12/21/2023 8:01 AM 12/29/2023 4:45 PM NO basic or a dvanced life-sustaining interventions are performed Question Answer Comments Code status determined by: Discussion with alexa nt/ legal decision maker Care Teams Regional Driver Relationship Specialty Start Date End Date System, Provider Not In PCP - General Clinic 12/21/23
--- OUTSIDE RECORDS SUMMARY | 2024-03-03 14:31 | XMS_ITS | Continuity of Care Document ---
Author Name Unknown Organization [facility] Address [address] [place] [address] Phone Care Team Providers Care Modern Languages Professor Name Role Phone Jonny PAC Luis Unavailable Unavailable Allergies, Adverse Reactions, Alerts Substance Reaction Status Criticality No Known Allergies Active No Inform ation Procedures Procedure Date Office/Outpatient Visit,[facility] 2016 Advance Directives Directive Yes / No Effective Date File Name No Information Encounters Encounter Description Practice Location Reason(s) For Visit Diagnoses Date Provider Providers Copied on Encounter [facility], [address], [place], [place], [id number], [place] tel:[phone] [facility] No Information Panvica Luis. [facility], [address] [place] [address], [facility] [address], [place], [place], [id number] , [place]. tel:[phone] Office/Outpat ient Visit,[facility], [facility], [address], [place], [place], [id number], [place] tel:[phone] [facility] Spondylolisthes is, lumbar regionSpinal stenosis, lumbar regionOther intervertebral disc degeneration, lumbar region Panvica Luis. [facility], [address] [place] [address], [address], [place], [place], [id number] , [place]. tel:[phone] Referring Provider: Samantha Abreu[address], [address]. tel:[phone] Family History Family Member Type Diagnosis Age At Onset No Information Payers Payer name Insurance type Covered republican ID Authoriza amirah(s) [employer] Camila RIOS [id number] Social History Type Description Quantity Date Captured Comments Sex Female Smoking Status No Information Chief Complaint And Reason For Visit No Information Reason For Referral Reason For Referral No Information History Of Present Illness Encounter Date Complaint History Of Prese nt Illness No Information Functional Status Date Functional Assessmen t No Information Instructions Date Instruction Additional Infor mation Weight Management Education Rela surinder to Overweight Weight management: I nstructed to return to General Practitioner timeframe: 1 Month. Related to Overweight Assessments Type Assessment Date No Information Patient Care Teams Name Effective Dates (start - stop) Status Members No Information
--- OUTSIDE RECORDS SUMMARY | 2024-03-03 14:31 | XMS_ITS | Clinical Summary ---
Author Name Unknown Organization [facility] Address [address] [place] [address] Care Team Providers Care Member Services Representative Name Role Phone Unavailable Primary Care Provider Unavailabl e Source Comments Patient records contain information from all sites at [facility]. For routine questions regarding patient records, call [phone] during business hours, M-F 8:00 AM - 5:00 PM Central Time. Record requests for emergency care only can be directed to [phone] at any time.[facility] Allergies No known active allergies Medications No known medications Active Problems No known active problems Social History Tobacco Use Types Packs/Day Years Used Date Smoking Tobacco: Never Tobacco Cessation:Counseling Given: Not Answered Nutrition Answer Date Recorded Nutrition: EVOO Fat Source Unknown 05/16 Nutrition: Servings of Fruits/Vegetables per Day Not on file 05/16/2023 Dental Answer Date Recorded Dental: Regular Dentist Unknown 05/16/20 Sex and Gender Information Value Date Recorded Sex Assigned at Not on file Gender Identity Not on file Sexual Orientation Not on file Last Filed Vital Signs Vital Sign Reading Time Taken Comments Blood Pressure 151/72 05/16/2023 1:45 PM CDT Pulse 70 05/16/2023 2:15 PM CDT Temperature 36.6 ??C (97.9 ??F) 05/16/2023 12:01 PM C DT Respiratory Rate - - Oxygen Saturation 97% 05/16/2023 2:15 PM CDT Inhaled Oxygen Concentration - - Weight 105 kg (231 lb 7.7 oz) 05/16/2023 12:01 P M CDT Height - - Body Mass Index - - Plan of Treatment Health Maintenance Due Date Last Done Comments Zoster Vaccines (1 of 2) 1990 COVID-19 Vaccine (4 - 2022-2 4 season) 2023 08/18/2022, 12/23/2020, 11/25/2020 Depression Screening (Annual PHQ-2) 11/13/2023 Fall Risk Screen (Annual) 11/13/2023 DTaP,Tdap,and Td Vaccines (3 - Td or Tdap) 09/30/2030 09/30/2020, 06/11/2012 Pneumococcal vaccine (65+ years) Completed 01/21/20 17, 07/28/2015 Influenza Vaccine Completed 08/09/2023, , 08/15/2019, Additional history exists Medical Devices Implanted Type Area Kitchen Bath Designer Device Identifier Shelf Expiration Date Model / Serial / Lot Hardware E.G. Pins/Screws/Ro ds Hardware e.g. pins/screws/ rods Right: Knee
--- OUTSIDE RECORDS SUMMARY | 2024-03-03 14:31 | XMS_ITS | Encounter Summary ---
Author Name Unknown Organization [facility] Address [address] [place] [address]. [place] [address] Care Team Providers Care Plate Grainer Apprentice Name Role Phone System, Provider Not In Primary Care Provider Un available Encounter Details Date Type Department Care Team (Late st Contact Info) Description 12/21/2023 Telephone [facility] - General Medicine & Pediatrics [address] [place] [id number] Alvarez Donovan, DO [address] [place] [address] Social History Tobacco Use Types Packs/Day Years Used Date Smoking Tobacco: Never Smokeless Tobacco: Never PHQ-2 Answer Date Recorded PHQ-2 Score 0 08/14/2023 Adolescent Education Answer Date Record ed Getting School Help Needed Not on file 08/07 Sex and Gender Information Value Date Recorded Sex Assigned at Not on file Gender Identity Not on file Sexual Orientation Not on file documented as of this encounter Plan of Treatment Not on file documented as of this encounter Visit Diagnoses Not on filedocumented in this encounter Care Teams Plate Grainer Apprentice Relationship Specialty Start Date End Date System, Provider Not In PCP - General Clinic 12/21/23 documented as of this encounter
--- OUTSIDE RECORDS SUMMARY | 2024-03-03 14:31 | XMS_ITS ---
Author Name Unknown Organization [facility] Address [address] [place] [address]. [place] [address] Care Team Providers Care Telecommunications Repairer Name Role Phone System, Provider Not In Primary Care Provider Un available Transitional Care Management Status:Closed (Closed) Start date:12/30/2023 End date:12/30/2023 Continued Care and Services Coordination
--- OUTSIDE RECORDS SUMMARY | 2024-03-03 14:31 | XMS_ITS | Referral Summary ---
Author Name Unknown Organization [facility] Address [address] [place] [address] Care Team Providers Care Electrical System Specialist Name Role Phone Unavailable Primary Care Provider Unavailabl e Source Comments Patient records contain information from all sites at [facility]. For routine questions regarding patient records, call [phone] during business hours, M-F 8:00 AM - 5:00 PM Central Time. Record requests for emergency care only can be directed to [phone] at any time.[facility] Allergies No known active allergies Medications No [...] Mass Index - - Plan of Treatment Not on file Medical Devices Implanted Type Area Plaster Applicator Device Identifier Shelf Expiration Date Model / Serial / Lot Hardware E.G. Pins/Screws/Ro ds Hardware e.g. pins/screws/ rods Right: Knee
--- OUTSIDE RECORDS SUMMARY | 2024-03-03 14:31 | XMS_ITS | Encounter Summary ---
Author Name Unknown Organization [facility] Address [address] [facility] [place] [address] Care Team Providers Care Mushroom Cutter Name Role Phone System, Provider Not In Primary Care Provider Un available Reason for Visit * Auth/Cert (Routine) Specialty Diagnoses / Procedures Referred By Courtney t Referred To Contact Med Surg Diagnoses Weakness Urosepsis Weakness 3 Medical Surgical [address] [place] [address] Referral ID Status Reason Start Date Expiration Date Visits Re quested Visits Authorized [id number] 1 1 Encounter Details Date Type Department Care Team (Latest Contact Info) Description 12/21/2023 7:36 AM CLINICAL LAW PROFESSOR - 12/29/2023 2:38 PM CLINICAL LAW PROFESSOR Hospital Encounter [facility] 3 Medical Surgical [address] [place] [address] Roberto Donovan, [address] [place] [address] Valdo Roach, DO [address] [place] [address] Chronic shoulder pain, unspecified laterality (Primary Dx); Neuropathic pain; Essential hypertension; Hypothyroidism, unspecified type; Pneumonia of left lower lobe due to infectious organism; Acute deep vein thrombosis (DVT) of brachial vein of both upper extremities (H) Discharge Disposition: Intermediate Care Facility Social History Tobacco Use Types Packs/Day Years [...] on file documented as of this encounter Last Filed Vital Signs Vital Sign Reading Time Taken Comments Blood Pressure 132/88 12/29/2023 11:46 AM CLINICAL LAW PROFESSOR Pulse 81 12/29/2023 11:46 AM CLINICAL LAW PROFESSOR Temperature 36.6 ??C (97.9 ??F) 12/29/2023 8:07 AM CS T Respiratory Rate 19 12/29/2023 11:4 6 AM CLINICAL LAW PROFESSOR Oxygen Saturation 93% 12/29/2023 11: 46 AM CLINICAL LAW PROFESSOR Inhaled Oxygen Concentration - - Weight 107.7 kg (237 lb 6.4 oz) 12/26/2023 9:56 AM CLINICAL LAW PROFESSOR Height 152.4 cm (5') 12/21/2023 8:24 AM CLINICAL LAW PROFESSOR Body Mass Index 46.36 12/21/2023 8:24 AM CLINICAL LAW PROFESSOR documented in this encounter Discharge Summaries * Kristina Griffin MD - 12/29/2023 1:09 PM CST [facility] Hospitalist Discharge Summary Date of Admission: 12/21/2023 Date of Discharge: 12/29/2023 Discharging Provider: Kristina Griffin MD Discharge Service: Hospitalist Service Discharge Diagnoses Bilateral brachial vein DVT Acute toxic/metabolic encephalopathy, resolved Dementia Delirium Early sepsis, secondary to unclear etiology, resolved Urinary retention, resolved Acute hypoxic respiratory failure, resolved Left lower lobe infiltrate, suspicious for pneumonia Prolonged QTc Clinically Significant Risk Factors # Severe Obesity: Estimated body mass index is 46.36 kg/m?? as calculated from the following: Height as of this encounter: 1.524 m (5'). Weight as of this encounter: 107.7 kg (237 lb 6.4 oz). Follow-ups Needed After Discharge Follow-up Appointments Follow Up and recommended labs and tests Follow up with PCP in 7-10 days for a routine hospital discharge follow up and medication change. Unresulted Labs Ordered in the Past 30 Days of this Admission Date and Time Order Name Status Description 12/27/2023 10:20 AM Blood Culture Hand, Right Preliminary 12/27/2023 10:20 AM Blood Culture Wrist, Right Preliminary Discharge Disposition Discharged to home Condition at discharge: Stable Hospital Course Alesia Fishman is a 83 year old female with a past medical history of chronic pain (on tramadol), hypertension, and obesity who resides in a memory care unit at assisted living facility who was at her daughter's house earlier in the day of 12/20/2023. She took a dose of tramadol due to chronic shoulder pain. Daughter said that this knocked her out. Daughter tried to drop her off to the facilityhowever she was unable to get into the car, then daughter called EMS, requested them to transport her back to the facility however given her somnolence/confusion she was taken to the [facility] ER. At [facility] ER She was noted to be awake and alert but was confused and vague. No focal deficits. She was hemodynamically stable. Laboratory evaluation at the emergency department showed a white count of 18,000 with predominant neutrophils shift. BMP was okay except for blood sugar of around 180.Lactate was 2.7 with a procalcitonin at 0.13. Urinalysis revealed 5-10 white blood cells with moderate bacteria. A CT of the chest abdomen pelvis was negative and viral respiratory testing was also negative. Given history of penicillin and cephalosporin allergies she was given Levaquin and vancomycin due to concern for urinary tract infection. She received 1 L of IV fluid and was transferred to [facility] for further evaluation and management. Upon admission she continued to received levofloxacin and vancomycin was stopped due to low concerns for MRSA infection/UTI. Urine analysis did not qualify for cultures and hence Lovenox was stopped. During the course of hospital stay patient was also noted to have bilateral upper extremities DVT and was started on IV heparin then transitioned to PO rivaroxaban. She has had intermittent AHRF/wheezing/cough improved with IV diuresis. CT chest showed LLL pneumonia. Over all patient remained clinically stable. ID consulted and seemed less likely having clinically significant pneumonia. Will continue treating empirically with doxycycline but would not escalate abx further. Patient is discharging back to her assisted living facility/memory care unit. Following problems were addressed during this hospitalization Bilateral Brachial Vein DVT Reporting mid-humeral pain to left upper extremity on 12/25/2023. Upper extremity ultrasounds obtained showing brachial DVTs bilaterally. Bilateral lower extremity ultrasound without evidence of DVT. Unclear cause of upper DVTs; reportedly may have had recent PICC in left arm, but unclear if had onein right as well. Started heparin gtt then switched to PO DOAC. -Continue PO Rivaroxban 15 mg BID for 21 days (started on 12/27) followed by 20 mg daily with supper. Cost issues were discussed with the daughter. -Likely need 3 to 6 months of anticoagulation. Acute Toxic / Metabolic Encephalopathy, resolved Dementia Delirium Patient with underlying dementia and resides in a memory care unit. She was Presented 2/2 confusionand was found to have possible sepsis. Initially encephalopathy suspected 2/2 infection, however, patient became more encephalopathic on 12/22/2023 likely 2/2 combination of her normal pain medicationsplus an additional dose of seroquel for agitation. Multiple changes were made in the sedating meds this admission, see below. -discussed with the daughter about patient's baseline mental status. At baseline patient is very forgetful though pleasant. To me patient appears at her baseline. Daughter thinks that currently she is a bit restless and agitated and this is likely due to hospital environment which I agree. She did not require sitter. -Continue delirium precautions -continue PO tramadol 25 mg TID PRN for shoulder pain (this was decreased from 50 mg TID) -started on topicals including lidocaine patch and diclofenac gel for shoulder pain -continue Po gabapentin 100 mg at bed time (this was decreased from 300 mg at bed time) -continue to hold melatonin and trazodone -started PO Seroquel 12.5 mg at bed time PRN for sleep/agitation. Patient was using it intermittently here and was not prescribed at the time of discharge hoping that going back into her home environment will help her and she might not this medication. Early Sepsis, resolved Possible Urinary Tract Infection, resolved Urinary Retention, resolved Presented with tachycardia, leukocytosis, and elevated lactic acid as well as encephalopathy. Suspected to have sepsis, with possible source to be urinary given moderate bacteria in urine and urinaryretention on presentation. She was started on vancomycin + levaquin and admitted for further cares;levaquin alone was continued on admission. However, cultures were not run in setting of equivocal urinalysis findings (no LE or nitrites). Continued levaquin for total 4 days. Trial of void completed12/23/2023 successfully. -discontinue Levaquin Acute Hypoxic Respiratory Failure, resolved Cough Wheezing Noted by nursing to have a cough and some wheezing on 12/22/2023. Sounded slightly upper respiratory wheeze on exam. CXR with poor inspiration and similar to prior. Did provide lasix 20mg IV once, withimprovement in symptoms. Recurred on 12/24/2023; auscultation with what sounded suspicious for cardiogenic wheezing. In setting of accelerated hypertension and reaccumulation of peripheral edema sinceyesterday. Provided additional lasix 20mg IV once with repeat improvement. Do wonder if patient is experiencing diastolic dysfunction vs flash pulmonary edema with blood pressure spikes. Seems to be helped with diuresis, so will add fluid and sodium restriction. Changed losartan to hydrochlorothiazide in instance that may have bradykinin mediated cough. Expiratory wheezing seemed to improve slightly, but is still present. Continues to have persistent dry cough, and new notable expiratory crackles in LLL. Was able to wean off supplemental O2, but still with SpO2 in mid-90s. RVP negative. -CT PE Chest without PE but showed LLL pneumonia. -ID consulted and seemed less likely having clinically significant pneumonia. Will continue treating empirically with doxycycline but would not escalate abx further. -Continue doxycycline upon discharge Prolong QTC QTC up to 480. -avoid QTC prolonging medications. Leukocytosis Mild leukocytosis at 11.7. No fever or chills reported. Review of system is fairly negative. Receiving doxycycline for her left lower lobe infiltrate. -Continue to monitor Systolic Murmur Patient endorsed having been told she had a murmur before, reported to Dr. Carson they are trying tofigure out what to do with that next. She could not provide much additional collateral information, however. TTE, however, without obvious valvular insufficiency. Murmur does appear to have improvedafter single dose of lasix, but has resolved since 12/22/2023. Unclear if this was auscultation erroror if hemodynamics were changed by lasix that may have reduced murmur. Ventral Hernias Hx of morbid obesity and s/p previous abdominal surgeries including hernia repair. Outside imaging made note of multiple ventral hernias on CT abdomen and pelvis. There is a hernia long the right supraumbilical space containing a portion of the transverse colon compatible with Dunlap's hernia. On clinical exam, does not have a reducible hernia nor is complaining of abdominal pain. Monitor. Chronic Pain / OA / Left Rotator Cuff Tear: On tramadol at baseline. Hypertension: On losartan initially, now changed to HCTZ. Dementia: Lives in . Delirium precautions. Redirect as able. Dannielle HERNÁNDEZ for assistance with sleep, only. Severe Obesity: BMI of 47. Complicates cares. Hypothyroidism: TSH 5.16, T4 1.12. Increased levothyroxine to 125mcg from 112mcg to achieve T4 >1.5. Consultations This Hospital Stay PHARMACY IP CONSULT PHYSICAL THERAPY ADULT IP CONSULT UROLOGY IP CONSULT CARE MANAGEMENT / SOCIAL WORK IP CONSULT PHARMACY IP CONSULT PHARMACY LIAISON FOR MEDICATION COVERAGE CONSULT PHARMACY LIAISON FOR MEDICATION COVERAGE CONSULT INFECTIOUS DISEASES IP CONSULT PHARMACY DISCHARGE EDUCATION BY PHARMACIST Code Status No CPR- Do NOT Intubate Time Spent on this Encounter I, Kristina Griffin MD, personally saw the patient today and spent greater than 30 minutes discharging this patient. Kristina Griffin MD [address] SURGICAL [address] [facility] [address] Physical Exam Vital Signs: Temp: 97.9 ??F (36.6 ??C) Temp src: Oral BP: 132/88 Pulse: 81 Resp: 19 SpO2: 93 % O2 Device: None (Room air) Oxygen Delivery: 1 LPM Weight: 237 lbs 6.4 oz General: Very pleasant female resting comfortably in chair. Thinks year is 1959. HEENT: Normocephalic, atraumatic. sclerae anicteric. Mucous membranes moist. Cardiac: Regular rate and rhythm. No murmur Respiratory: Normal work of breathing. Lungs clear anteriorly GI: Normal, active bowel sounds. Abdomen soft, nontender, nondistended. : Deferred. Musculoskeletal: 1+ peripheral edema bilaterally. Skin: No rashes or abrasions on exposed skin. Neurologic: Alert and oriented to self and place. She knew that she is in the hospital. Said year is 1959 Psychologic: Appropriate mood and affect Primary Care Physician Provider Not In System Discharge Orders Follow Up and recommended labs and tests Follow up with PCP in 7-10 days for a routine hospital discharge follow up and medication change. Reason for your hospital stay Dear Alesia, You were admitted to the hospital due to concerns for sepsis secondary to UTI. You were started on antibiotics however this was stopped since your urine studies did not qualify for cultures.. During the course of hospital stay you were also noted to have a blood clot in both of your upper extremities. You were started on a blood thinner medication. There were also concerns for possible pneumonia based on your imaging findings due to which you were started on antibiotics empirically. Due to intermittent confusion changes were made in your pain medications. Please see the medication list for further details. Activity - Up with assistive device Activity Your activity upon discharge: activity as tolerated Diet Follow this diet upon discharge: Orders Placed This Encounter Fluid restriction 1800 ML FLUID 2 Gram Sodium Diet Diet Significant Results and Procedures Most Recent 3 CBC's: Recent Labs Lab Test 12/28/23 0626 12/26/23 0908 12/25/23 0917 WBC 11.7* 10.7 10.1 HGB 13.2 11.8 12.1 MCV 93 91 93 PLT 379 342 339 Most Recent 3 BMP's: Recent Labs Lab Test 12/29/23 0038 12/28/23 1418 12/28/23 0626 12/25/23 0917 12/24/23 1339 NA -- -- 142 140 142 POTASSIUM -- -- 3.8 3.8 3.9 CHLORIDE -- -- 103 102 103 CO2 -- -- 26 26 25 BUN -- -- 17.9 15.6 15.0 CR -- -- 0.90 0.79 0.84 ANIONGAP -- -- 13 12 14 BENEDICTO -- -- 9.4 9.1 9.2 GLC 111* 120* 117* 113* 157* Discharge Medications Current Discharge Medication List START taking these medications Details doxycycline hyclate (VIBRAMYCIN) 100 MG capsule Take 1 capsule (100 mg) by mouth 2 times daily for 4 doses Qty: 4 capsule, Refills: 0 Associated Diagnoses: Pneumonia of left lower lobe due to infectious organism hydrochlorothiazide (HYDRODIURIL) 25 MG tablet Take 1 tablet (25 mg) by mouth daily for 30 days Qty: 30 tablet, Refills: 0 Associated Diagnoses: Essential hypertension Rivaroxaban ANTICOAGULANT 15 & 20 MG TBPK Starter Therapy Pack Take 15 mg by mouth 2 times daily (with meals) for 19 days, THEN 20 mg daily with food for 9 days. Qty: 51 each, Refills: 0 Associated Diagnoses: Acute deep vein thrombosis (DVT) of brachial vein of both upper extremities (H) CONTINUE these medications which have CHANGED Details gabapentin (NEURONTIN) 100 MG capsule Take 1 capsule (100 mg) by mouth at bedtime for 30 days Qty: 30 capsule, Refills: 0 Associated Diagnoses: Neuropathic pain levothyroxine (SYNTHROID/LEVOTHROID) 125 MCG tablet Take 1 tablet (125 mcg) by mouth daily for 30 days Qty: 30 tablet, Refills: 0 Associated Diagnoses: Hypothyroidism, unspecified type traMADol (ULTRAM) 50 MG tablet Take 0.5 tablets (25 mg) by mouth 3 times daily as needed for pain Qty: 15 tablet, Refills: 0 Associated Diagnoses: Chronic shoulder pain, unspecified laterality CONTINUE these medications which have NOT CHANGED Details albuterol (PROAIR HFA/PROVENTIL HFA/VENTOLIN HFA) 108 (90 Base) MCG/ACT inhaler Inhale 2 puffs intothe lungs as needed diclofenac (VOLTAREN) 1 % topical gel Apply 2 g topically 4 times daily as needed for moderate pain(Shoulders) Multiple Vitamin (TAB-A-HAILEY) TABS TAKLE 1 TAB BY MOUTH ONCE DAILY NYAMYC 801082 UNIT/GM external powder Apply topically daily as needed PAIN RELIEF EXTRA STRENGTH 500 MG tablet Take 500 mg by mouth as needed simvastatin (ZOCOR) 20 MG tablet Take 20 mg by mouth at bedtime VITAMIN D3 25 MCG (1000 UT) tablet Take 1 tablet by mouth daily STOP taking these medications losartan (COZAAR) 50 MG tablet Comments: Reason for Stopping: Allergies Allergies Allergen Reactions Sulfamethoxazole-Trimethoprim Rash Keflex [Cephalexin Monohydrate] Cephalexin Rash Penicillins Rash Avoids. Mild rash 06/07/16 ICAL LAW PROFESSOR documented in this encounter Medications at Time of Discharge Medication Sig Dispensed Refills Start Date End Date albuterol (PROAIR HFA/PROVENTIL HFA/VENTOLIN HFA) 108 (90 Base) MCG/ACT inhaler Inhale 2 puffs into the lungs as needed 09/10/2021 diclofenac (VOLTAREN) 1 % topical gel Apply 2 g topically 4 times daily as needed for moderate pain (Shoulders) 08/01/2022 gabapentin (NEURONTIN) 100 MG capsuleIndications:Neur opathic pain Take 1 capsule (100 mg) by mouth at bedtime for 30 days 30 capsule 12/28/2023 hydrochlorothiazide (HYDRODIURIL) 25 MG tabletIndications:Essen tial hypertension Take 1 tablet (25 mg) by mouth daily for 30 days 30 tablet 12/29/2023 levothyroxine (SYNTHROID/LEVOTHROID) 125 MCG tabletIndications:Hypot hyroidism, unspecified type Take 1 tablet (125 mcg) by mouth daily for 30 days 30 tablet 12/29/2023 Multiple Vitamin (TAB-A-HAILEY) TABS TAKLE 1 TAB BY MOUTH ONCE DAILY 08/17/2021 NYAMYC [id number] UNIT/GM external powder Apply topically daily as needed 01/24/2022 PAIN RELIEF EXTRA STRENGTH 500 MG tablet Take 500 mg by mouth as needed 08/17/2021 Rivaroxaban ANTICOAGULANT 15 & 20 MG TBPK Starter Therapy PackIndications:Acute deep vein thrombosis (DVT) of brachial vein of both upper extremities (H) Take 15 mg by mouth 2 times daily (with meals) for 19 days, THEN 20 mg daily with food for 9 days. 51 each 12/29/2023 simvastatin (ZOCOR) 20 MG tablet Take 20 mg by mouth at bedtime 08/12/2022 VITAMIN D3 25 MCG (1000 UT) tablet Take 1 tablet by mouth daily 08/17/2021 doxycycline hyclate (VIBRAMYCIN) 100 MG capsuleIndications:Comm unity Acquired Pneumonia Take 1 capsule (100 mg) by mouth 2 times daily for 4 doses 4 capsule 12/29/2023 12/31/2023 traMADol (ULTRAM) 50 MG tabletIndications:Chron ic shoulder pain, unspecified laterality Take 0.5 tablets (25 mg) by mouth 3 times daily as needed for pain 15 tablet 12/29/2023 01/08/2024 documented as of this encounter Progress Notes * Filomena Najera RN - 12/29/2023 1:40 PM CST Care Management Discharge Note Discharge Date: 12/29/2023 Discharge Disposition: Assisted Living Discharge Transportation: Family Private pay costs discussed: Not applicable Does the patient's insurance plan have a 3 day qualifying hospital stay waiver? No Education Provided on the Discharge Plan: Yes Persons Notified of Discharge Plans: Provider, family, Memory Care, bedside nurse Patient/Family in Agreement with the Plan: yes Handoff Referral Completed: No Additional Information: Pt will be discharging back to her Memory Care today. Son-in-law will be providing transportation around 1400. Orders have been faxed to [facility] facility. Please call if additional needs arise. Filomena Najera RN Inpatient Care Coordination [facility] ICAL LAW PROFESSOR * Manju Guzman MD - 12/29/2023 10:39 AM CST [facility] Infectious Disease Progress Note Date of Service : 12/29/2023 Assessment: 1 83-year-old female admitted with mental status changes, vague weakness, overall syndrome , now with slight cough and infiltrate on repeat imaging not at all convinced she has pneumonia as an initial unifying diagnosis or current actual diagnosis in this type vague syndrome with differential including infectious encephalopathy by far the most important laboratory test his blood cultures which were not done 2 slight infiltrate, cough, initial CT negative s 3 bilateral brachial vein thrombosis 4 some urinary retention, urinalysis completely normal 5 penicillin and cephalosporin allergy Recommendations Received Levaquin for 4 days and now on day 4 of Doxycycline Treat with Doxycycline X 5 days then discontinue antibiotics on 12/31 Supportive care Manju Guzman MD Interval History Patient was seen and examined, chart reviewed Sitting out in a chair, has remained afebrile, no new complaints feels a little weak but no cough or shortness of breath Physical Exam Temp: 97.9 ??F (36.6 ??C) Temp src: Oral BP: (!) 136/92 Pulse: 84 Resp: 22 SpO2: 93 % O2 Device: None (Room air) Oxygen Delivery: 1 LPM Vitals: 12/21/23 0824 12/26/23 0956 Weight: 111.3 kg (245 lb 6 oz) 107.7 kg (237 lb 6.4 oz) Vital Signs with Ranges Temp: [97.2 ??F (36.2 ??C)-97.9 ??F (36.6 ??C)] 97.9 ??F (36.6 ??C) Pulse: [80-91] 84 Resp: [18-22] 22 BP: (136-172)/(63-92) 136/92 SpO2: [93 %-98 %] 93 % Constitutional: Awake, alert, cooperative, no apparent distress Lungs: Clear to auscultation bilaterally, no crackles or wheezing Cardiovascular: Regular rate and rhythm, normal S1 and S2, and no murmur noted Abdomen: Normal bowel sounds, soft, non-distended, non-tender Skin: No rashes, no cyanosis, no edema Other: Medications diclofenac 4 g Topical 4x Daily doxycycline hyclate 100 mg Oral BID gabapentin 100 mg Oral At Bedtime hydrochlorothiazide 25 mg Oral Daily levothyroxine 125 mcg Oral Daily lidocaine 2 patch Transdermal Q24H menthol Transdermal Q8H miconazole Topical BID rivaroxaban ANTICOAGULANT 15 mg Oral BID w/meals Followed by [START ON 01/17/2024] rivaroxaban ANTICOAGULANT 20 mg Oral Daily with supper sodium chloride (PF) 3 mL Intracatheter Q8H Data All microbiology laboratory data reviewed. Recent Labs Lab Test 12/28/23 0626 12/26/23 0908 12/25/23 0917 WBC 11.7* 10.7 10.1 HGB 13.2 11.8 12.1 HCT 40.7 35.8 37.4 MCV 93 91 93 PLT 379 342 339 Recent Labs Lab Test 12/28/23 0626 12/25/23 0917 12/24/23 1339 CR 0.90 0.79 0.84 Imaging EXAM: CT CHEST PULMONARY EMBOLISM W CONTRAST LOCATION: [facility] DATE: 12/26/2023 INDICATION: continued cough and mild resp failure; now with DVTS; rule out PE vs intraparenchymal disease COMPARISON: None. TECHNIQUE: CT chest pulmonary angiogram during arterial phase injection of IV contrast. Multiplanarreformats and MIP reconstructions were performed. Dose reduction techniques were used. CONTRAST: 85mL Isovue 370 FINDINGS: ANGIOGRAM CHEST: Pulmonary arteries are normal caliber and negative for pulmonary emboli. Thoracic aorta is negative for dissection. No CT evidence of right heart strain. LUNGS AND PLEURA: 0.4 cm nodule in the left upper lobe (7/). Small left pleural effusion with confluent opacities and consolidation in the left lower lobe. Scattered patchy and confluent opacities in the right lower lobe as well. MEDIASTINUM/AXILLAE: Normal. CORONARY ARTERY CALCIFICATION: None. UPPER ABDOMEN: Cholecystectomy. MUSCULOSKELETAL: Mild degenerative changes in the spine. Advanced degenerative changes shoulder. IMPRESSION: 1. No acute pulmonary [...] cancer screening, patients with immunosuppression, or patients withknown primary cancer. SINGLE NODULE Nodule size <6 mm Low-risk patients: No follow-up needed. High-risk patients: Optional follow-up at 12 months. ICAL LAW PROFESSOR * Kristina Griffin MD - 12/28/2023 12:27 PM CST [facility] Medicine Progress Note - Hospitalist Service Date of Admission: 12/21/2023 Assessment & Plan Summary of hospital stay: cherie Fishman is a 83 year old female who past medical history of chronic pain (on tramadol), hypertension, and obesity who apparently resides in a memory care unit at assisted living facility who was at her daughter's house earlier in the day of 12/20/2023. She took a dose of tramadol due to chronic shoulder pain. Daughter said that this knocked her out. Daughter tried to drop her off to the facility however she was unable to get into the car, then daughter called EMS, requested them to transport her back to the facility however given her somnolence/confusion she was taken to the [facility] ER. At [facility] ER She was noted to be awake and alert but was confused and vague. No focal deficits. She was hemodynamically stable. Laboratory evaluation at the emergency department showed a white count of 18,000 with predominant neutrophils shift. BMP was okay except for blood sugar of around 180. Lactate was 2.7 with a procalcitonin at 0.13. Urinalysis revealed 5-10 white blood cells with moderate bacteria. A CT of the chest abdomen pelvis was negative and viral respiratory testing wasalso negative. Given history of penicillin and cephalosporin allergies she was given Levaquin and vancomycin due to concern for urinary tract infection. She received 1 L of IV fluid and was transferred to [facility] for further evaluation and management. Upon admission she continued to received levofloxacin and vancomycin was stopped due to low concerns for MRSA infection/UTI. UCX came back negative and levofloxacin was stopped. During the course of hospital stay patient was also noted to have bilateral upper extremities DVT and was started on IV heparin then transitioned to PO r ivaroxaban. She has had intermittent AHRF/wheezing/cough. CT chest showed LLL pneumonia. Over all patient remained clinically stable. ID consulted and seemed less likely having clinically significantpneumonia. Will continue treating empirically with doxycycline but would not escalate abx further. Patient now medically stable and ready for discharge. Bilateral Brachial Vein DVT Reporting mid-humeral pain to left upper extremity on 12/25/2023. Upper extremity ultrasounds obtained showing brachial DVTs bilaterally. Bilateral lower extremity ultrasound without evidence of DVT. Unclear cause of upper DVTs; reportedly may have had recent PICC in left arm, but unclear if had onein right as well. Started heparin gtt then switched to PO DOAC. -Continue PO Rivaroxban 15 mg BID for 21 days (started on 12/27) followed by 20 mg daily with supper. Cost issues were discussed with the daughter Acute Toxic / Metabolic Encephalopathy, resolved Dementia Delirium Patient with underlying dementia and resides in a memory care unit. She was Presented 2/2 confusionand was found to have possible sepsis. Initially encephalopathy suspected 2/2 infection, however, patient became more encephalopathic on 12/22/2023 likely 2/2 combination of her normal pain medicationsplus an additional dose of seroquel for agitation. Multiple changes were made in the sedating meds this admission, see below. -discussed with the daughter about patient's baseline mental status. At baseline patient is very forgetful though pleasant. To me patient appears at her baseline. Daughter thinks that currently she is a bit restless and agitated and this is likely due to hospital environment which I agree. Encourage daughter to visit as often as possible. -delirium precautions -continue PO tramadol 25 mg TID PRN for shoulder pain (this was decreased from 50 mg TID) -started on topicals including lidocaine patch and diclofenac gel for shoulder pain -continue Po gabapentin 100 mg at bed time (this was decreased from 300 mg at bed time) -continue to hold melatonin and trazodone -started PO Seroquel 12.5 mg at bed time PRN for sleep/agitation Early Sepsis, resolved Possible Urinary Tract Infection, resolved Urinary Retention, resolved Presented with tachycardia, leukocytosis, and elevated lactic acid as well as encephalopathy. Suspected to have sepsis, with possible source to be urinary given moderate bacteria in urine and urinaryretention on presentation. She was started on vancomycin + levaquin and admitted for further cares;levaquin alone was continued on admission. However, cultures were not run in setting of equivocal urinalysis findings (no LE or nitrites). Continued levaquin for total 4 days. Trial of void completed12/23/2023 successfully. -discontinue Levaquin -PT consulted Acute Hypoxic Respiratory Failure, resolved Cough Wheezing Noted by nursing to have a cough and some wheezing on 12/22/2023. Sounded slightly upper respiratory wheeze on exam. CXR with poor inspiration and similar to prior. Did provide lasix 20mg IV once, withimprovement in symptoms. Recurred on 12/24/2023; auscultation with what sounded suspicious for cardiogenic wheezing. In setting of accelerated hypertension and reaccumulation of peripheral edema sinceyesterday. Provided additional lasix 20mg IV once with repeat improvement. Do wonder if patient is experiencing diastolic dysfunction vs flash pulmonary edema with blood pressure spikes. Seems to be helped with diuresis, so will add fluid and sodium restriction. Changed losartan to hydrochlorothiazide in instance that may have bradykinin mediated cough. Expiratory wheezing seemed to improve slightly, but is still present. Continues to have persistent dry cough, and new notable expiratory crackles in LLL. Was able to wean off supplemental O2, but still with SpO2 in mid-90s. RVP negative. -CT PE Chest without PE but showed LLL pneumonia. -ID consulted and seemed less likely having clinically significant pneumonia. Will continue treating empirically with doxycycline but would not escalate abx further. Prolong QTC QTC up to 480. -avoid QTC prolonging medications. Systolic Murmur Patient endorsed having been told she had a murmur before, reported to Dr. Carson they are trying tofigure out what to do with that next. She could not provide much additional collateral information, however. TTE, however, without obvious valvular insufficiency. Murmur does appear to have improvedafter single dose of lasix, but has resolved since 12/22/2023. Unclear if this was auscultation erroror if hemodynamics were changed by lasix that may have reduced murmur. Ventral Hernias Hx of morbid obesity and s/p previous abdominal surgeries including hernia repair. Outside imaging made note of multiple ventral hernias on CT abdomen and pelvis. There is a hernia long the right supraumbilical space containing a portion of the transverse colon compatible with Dunlap's hernia. On clinical exam, does not have a reducible hernia nor is complaining of abdominal pain. Monitor. Chronic Pain / OA / Left Rotator Cuff Tear: On tramadol at baseline. Hypertension: On losartan initially, now changed to HCTZ. Dementia: Lives in . Delirium precautions. Redirect as able. Dannielle HERNÁNDEZ for assistance with sleep, only. Severe Obesity: BMI of 47. Complicates cares. Hypothyroidism: TSH 5.16, T4 1.12. Increased levothyroxine to 125mcg from 112mcg to achieve T4 >1.5. Diet: Orders Placed This Encounter 2 Gram Sodium Diet DVT Prophylaxis: DOAC Code Status: No CPR- Do NOT Intubate Expected discharge: Likely 1-2 days, awaiting to hear back from memory care The patient's care was discussed with the Bedside Nurse and Patient. Updated Daughter Ayla as well. I personally spent 47 minutes on chart review, documentation, coordination, and bedside management of patient. Kristina Griffin Hospitalist Service [facility] Interval History Nursing notes reviewed. Patient reported feeling fine. This morning she knew where she was. She reported feeling okay and sleeping well at night. She is looking forward to get out of hospital. A full 10+ point review of systems was performed and found to be negative with the exception of those items noted here. Physical Exam Temp: 97.7 ??F (36.5 ??C) Temp src: Oral BP: (!) 150/87 Pulse: 87 Resp: 18 SpO2: 95 % O2 Device: None (Room air) Oxygen Delivery: 1 LPM Height: 152.4 cm (5') Weight: 107.7 kg (237 lb 6.4 oz) Estimated body mass index is 46.36 kg/m?? as calculated from the following: Height as of this encounter: 1.524 m (5'). Weight as of this encounter: 107.7 kg (237 lb 6.4 oz). General: Very pleasant female resting comfortably in hospital bed. Sleeping but easily arisen to voice HEENT: Normocephalic, atraumatic. sclerae anicteric. Mucous membranes moist. Cardiac: Regular rate and rhythm. No murmur Respiratory: Normal work of breathing. Lungs clear anteriorly GI: Normal, active bowel sounds. Abdomen soft, nontender, nondistended. : Deferred. Musculoskeletal: Moving all extremities appropriately. 1+ peripheral edema bilaterally. Skin: No rashes or abrasions on exposed skin. Neurologic: Alert and oriented to self and place. Psychologic: Appropriate mood and affect. Data All laboratory results and other diagnostic data from the past 24 hours is available in [facility] and has been personally reviewed. Recent Labs Lab 12/28/23 0626 12/26/23 0908 12/25/23 0917 12/24/23 1339 12/22/23 0653 WBC 11.7* 10.7 10.1 13.6* 16.3* HGB 13.2 11.8 12.1 13.0 11.1* MCV 93 91 93 93 94 PLT 379 342 339 348 232 NA 142 -- 140 142 140 POTASSIUM 3.8 -- 3.8 3.9 4.0 CHLORIDE 103 -- 102 103 104 CO2 26 -- 26 25 27 BUN 17.9 -- 15.6 15.0 8.5 CR 0.90 -- 0.79 0.84 0.80 ANIONGAP 13 -- 12 14 9 BENEDICTO 9.4 -- 9.1 9.2 8.6* GLC 117* -- 113* 157* 113* ALBUMIN -- -- -- -- 3.7 PROTTOTAL -- -- -- -- 6.4 BILITOTAL -- -- -- -- 0.7 ALKPHOS -- -- -- -- 80 ALT -- -- -- -- 17 AST -- -- -- -- 22 Imaging results reviewed over the past 24 hrs: No results found for this or any previous visit (from the past 24 hour(s)). I personally reviewed: no images or EKG's today. ICAL LAW PROFESSOR * Filomena Najera RN - 12/28/2023 12:16 PM CST Care Management Follow Up Length of Stay (days): 2 Expected Discharge Date: 12/28/2023 Concerns to be Addressed: care coordination/care conferences, discharge planning Patient plan of care discussed at interdisciplinary rounds: Yes Anticipated Discharge Disposition: Memory Care Education Provided on the Discharge Plan: Yes Additional Information: Pt is ready to discharge today. Call to NORMA Lora in Memory Care at [facility]. They are unable to accept pt back today as they need to complete an assessment before accepting back. Requested documentation be faxed for review, faxed information to [phone]. Updated provider on delay in discharge. Spoke with daughter, she prefers to transport pt rather than paying for the transportation. She would be able to pick pt up tomorrow after 1600. Informed Memory Care that pt would not be returning until after 1700 tomorrow despite their preference would be a return before 1400. Will continue to follow for discharge planning. Filomena Najera RN Inpatient Care Coordination [facility] ICAL LAW PROFESSOR * Gomez Napier MD - 12/28/2023 10:46 AM CST [facility] Infectious Disease Progress Note Assessment and Plan: Date of Admission: 12/21/2023 Date of Consult (When I saw the patient): 12/27/23 Assessment & Plan Alesia Fishman is a 83 year old who was admitted on 12/21/2023. Impression: 1 83-year-old female admitted 1 week ago with mental status changes, vague weakness, overall syndrome with large differential diagnosis and no clear infection, being treated as a UTI but UTI was completely eliminated by initial normal urinalysis , initial CT scan with no diagnosis either, now with slight cough and infiltrate on repeat imaging not at all convinced she has pneumonia as an initial unifying diagnosis or current actual diagnosis in this type vague syndrome with differential including infectious encephalopathy by far the most important laboratory test his blood culturesnot done yet 2 slight infiltrate, cough, initial CT negative so was not the cause the initial admission, overalldoubt infectious pneumonia 3 bilateral brachial vein thrombosis 4 some urinary retention, urinalysis completely normal 5 penicillin and cephalosporin allergy REC 1 unclear cause to the 1 week hospitalization, no clear infection including not convincing clinical pneumonia currently, okay with doxycycline but would not expand antibiotics or challenge allergies, plan 1 week course 2 by far the most important laboratory test in this situation, with a concern for infectious encephalopathy, is blood cultures, not done until now, negative at 24 hours and not septic or ill looking anticipate them being negative Interval History: no new complaints except some shortness of breath only now acutely as she just was up walking, oxygen dropped into the 80s but quickly back into the mid and high 90s at rest. Mild cough, not much forclinical pneumonia and original imaging imaging was negative so certainly not the cause of initial e ncephalopathy. Mentation seems fairly good to me but per daughter still not at baseline. No fever and blood cultures negative Medications: diclofenac 4 g Topical 4x Daily doxycycline 100 mg Intravenous Q12H gabapentin 100 mg Oral At Bedtime hydrochlorothiazide 25 mg Oral Daily ipratropium - albuterol 0.5 mg/2.5 mg/3 mL 3 mL Nebulization 4x daily levothyroxine 125 mcg Oral Daily lidocaine 2 patch Transdermal Q24H menthol Transdermal Q8H miconazole Topical BID rivaroxaban ANTICOAGULANT 15 mg Oral BID w/meals Followed by [START ON 01/17/2024] rivaroxaban ANTICOAGULANT 20 mg Oral Daily with supper sodium chloride (PF) 3 mL Intracatheter Q8H Physical Exam: Blood pressure (!) 150/72, pulse 69, temperature 97.6 ??F (36.4 ??C), temperature source Oral, resp. rate 18, height 1.524 m (5'), weight 107.7 kg (237 lb 6.4 oz), SpO2 93%. Wt Readings from Last 2 Encounters: 12/26/23 107.7 kg (237 lb 6.4 oz) Vital Signs with Ranges Temp: [97.5 ??F (36.4 ??C)-98.3 ??F (36.8 ??C)] 97.6 ??F (36.4 ??C) Pulse: [69-110] 69 Resp: [18-26] 18 BP: (116-172)/(72-95) 150/72 SpO2: [92 %-96 %] 93 % Constitutional: Awake, alert, cooperative, no apparent distress Just got up from walking and slightly short of breath and hypoxic but immediately resolved on rest Lungs: Clear to auscultation bilaterally, no crackles or wheezing Cardiovascular: Regular rate and rhythm, normal S1 and S2, and no murmur noted Abdomen: Normal bowel sounds, soft, non-distended, non-tender Skin: No rashes, no cyanosis, no edema Other: Data: All microbiology laboratory data reviewed. Recent Labs Lab Test 12/28/23 0626 12/26/23 0908 12/25/23 0917 WBC 11.7* 10.7 10.1 HGB 13.2 11.8 12.1 HCT 40.7 35.8 37.4 MCV 93 91 93 PLT 379 342 339 Recent Labs Lab Test 12/28/23 0626 12/25/23 0917 12/24/23 1339 CR 0.90 0.79 0.84 No lab results found. No lab results found. Invalid input(s): [facility] ICAL LAW PROFESSOR * Lionel Fontenot, RT - 12/28/2023 8:33 AM CST [facility] Date: 12/28/2023 Admission Dx: Weakness Pulmonary History Mild intermittent asthma Home Nebulizer/MDI Use: Albuterol HFA prn Home Oxygen: Room air Acuity Level (RCAT flow sheet): 4 Aerosol Therapy initiated: Duoneb changed from QID to Q4 hours prn. Pulmonary Hygiene initiated: Deep breath and cough TID Volume Expansion initiated: IS TID Current Oxygen Requirements: Room air Current SpO2: 93% Re-evaluation date: 12/31/2023 Patient Education: Informed Pt of RCAT, she seems to have some confusion but is cooperative. See RT Assessments flow sheet for patient assessment scoring and Acuity Level Details. ICAL LAW PROFESSOR * Karen Ward RN - 12/27/2023 11:57 PM CST Alert , oriented only to self . On RA . High SBP , stable for her baser line . Confused but cooperative . Denied chest pain or palpitation. Wheezing all over th the lung field and diminished air entry on the anterior and lateal lung field . Moved to bed with assit. X 1 with GBW . Repositioned with asst x2 and lift . Scheduled pain medication provided poc. Miconazole applied on L lower quadrant skin fold . Abx : doxycycline ICAL LAW PROFESSOR * Kristina Griffin MD - 12/27/2023 3:42 PM CST [facility] Medicine Progress Note - Hospitalist Service Date of Admission: 12/21/2023 Assessment & Plan cherie Fishman is a 83 year old female who past medical history of chronic pain (on tramadol), hypertension, and obesity who apparently resides at assisted living facility (questionable if this isnot a memory care facility) who was at her daughter's house earlier in the day of 12/20/2023. She took a dose of tramadol due to chronic shoulder pain. She fell asleep and when she woke up at her daught er's house she was confused. EMS was contacted and daughter intended for EMS to bring her back to her facility but instead they brought her to [place] emergency department for evaluation. She was noted to be awake and alert but was confused and vague. No focal deficits. She was hemodynamically stable. Laboratory evaluation at the emergency department showed a white count of 18,000 with predominant neutrophils shift. BMP was okay except for blood sugar of around 180. Lactate was 2.7 with a procalcitonin at 0.13. Urinalysis revealed 5- 10 white blood cells with moderate bacteria. A CT of the chest abdomen pelvis was negative and viral respiratory testing was also negative. Given history of p enicillin and cephalosporin allergies she was given Levaquin and vancomycin due to concern for urinary tract infection. She received 1 L of IV fluid and was transferred to [facility] for further evaluation and management. Bilateral Brachial Vein DVT Reporting mid-humeral pain to left upper extremity on 12/25/2023. Upper extremity ultrasounds obtained showing brachial DVTs bilaterally. Bilateral lower extremity ultrasound without evidence of DVT. Unclear cause of upper DVTs; reportedly may have had recent PICC in left arm, but unclear if had onein right as well. Started heparin gtt -switch to PO rivaroxaban Acute Toxic / Metabolic Encephalopathy, resolved Delirium Presented 2/2 confusion and was found to have possible sepsis. Initially encephalopathy suspected 2/2 infection, however, patient became more encephalopathic on 12/22/2023 likely 2/2 combination of hernormal pain medications plus an additional dose of seroquel for agitation. Majority of sedating medi cations were held, with exception of gabapentin that was restarted at a lower dose due to patient uncontrolled neuropathic pain. Dr. Carson restarted low dose tramadol PRN for additional pain relief, as well as seroquel 12.5mg PO at night to assist with sleep; continuing to hold dilaudid, melatonin, trazodone. -discussed with the daughter about patient's baseline mental status. At baseline patient is very forgetful though pleasant. To me patient appears at her baseline. Daughter thinks that currently she is a bit restless and agitated and this is likely due to hospital environment which I agree. Encourage daughter to visit as often as possible. -delirium precautions Early Sepsis, resolved Possible Urinary Tract Infection, resolved Urinary Retention, resolved Presented with tachycardia, leukocytosis, and elevated lactic acid as well as encephalopathy. Suspected to have sepsis, with possible source to be urinary given moderate bacteria in urine and urinaryretention on presentation. She was started on vancomycin + levaquin and admitted for further cares;levaquin alone was continued on admission. Patient now vitally improved, with improvement in mentation as well. However, cultures were not run in setting of equivocal urinalysis findings (no LE or nitrites). Continued levaquin for total 4 days. Trial of void completed 12/23/2023 successfully. - discontinue Levaquin -PT consulted Acute Hypoxic Respiratory Failure, resolved Cough Wheezing Noted by nursing to have a cough and some wheezing on 12/22/2023. Sounded slightly upper respiratory wheeze on exam. CXR with poor inspiration and similar to prior. Did provide lasix 20mg IV once, withimprovement in symptoms. Recurred on 12/24/2023; auscultation with what sounded suspicious for cardiogenic wheezing. In setting of accelerated hypertension and reaccumulation of peripheral edema sinceyesterday. Provided additional lasix 20mg IV once with repeat improvement. Do wonder if patient is experiencing diastolic dysfunction vs flash pulmonary edema with blood pressure spikes. Seems to be helped with diuresis, so will add fluid and sodium restriction. Changed losartan to hydrochlorothiazide in instance that may have bradykinin mediated cough. Expiratory wheezing seemed to improve slightly, but is still present. Continues to have persistent dry cough, and new notable expiratory crackles in LLL. Was able to wean off supplemental O2, but still with SpO2 in mid-90s. RVP negative. -CT PE Chest without PE but showed LLL pneumonia. -ID consulted for antibiotics management, appreciated recommendations. Prolong QTC QTC up to 480. -avoid QTC prolonging medications. Systolic Murmur Patient endorsed having been told she had a murmur before, reporting they are trying to figure outwhat to do with that next. She could not provide much additional collateral information, however. TTE, however, without obvious valvular insufficiency. Murmur does appear to have improved after single dose of lasix, but has resolved since 12/22/2023. Unclear if this was auscultation error or if hemodynamics were changed by lasix that may have reduced murmur. Ventral Hernias Hx of morbid obesity and s/p previous abdominal surgeries including hernia repair. Outside imaging made note of multiple ventral hernias on CT abdomen and pelvis. There is a hernia long the right supraumbilical space containing a portion of the transverse colon compatible with Dunlap's hernia. On clinical exam, does not have a reducible hernia nor is complaining of abdominal pain. Monitor. Chronic Pain / OA / Left Rotator Cuff Tear: On tramadol at baseline. Hypertension: On losartan initially, now changed to HCTZ. Dementia: Lives in . Delirium precautions. Redirect as able. Serjani PRN for assistance with sleep, only. Severe Obesity: BMI of 47. Complicates cares. Hypothyroidism: TSH 5.16, T4 1.12. Increased levothyroxine to 125mcg from 112mcg to achieve T4 >1.5. Diet: Orders Placed This Encounter 2 Gram Sodium Diet DVT Prophylaxis: Pneumatic Compression Devices Pinon: TOV tomorrow Code Status: No CPR- Do NOT Intubate Expected discharge: Likely 1-2 days pending trial of void. The patient's care was discussed with the Bedside Nurse and Patient. Have attempted to connect withdaughter, Jacquelyn, via telephone on several occasions without success. I personally spent 45 minutes on chart review, documentation, coordination, and bedside management of patient. Juan Carson MD, S Hospitalist Service [facility] Interval History Nursing notes reviewed. Patient continued to endorse cough and wheezing. Otherwise, no new symptoms. A full 10+ point review of systems was performed and found to be negative with the exception of those items noted here. Physical Exam Temp: 97.7 ??F (36.5 ??C) Temp src: Oral BP: (!) 143/89 Pulse: 97 Resp: 24 SpO2: 94 % O2 Device: None (Room air) Oxygen Delivery: 1 LPM Height: 152.4 cm (5') Weight: 107.7 kg (237 lb 6.4 oz) Estimated body mass index is 46.36 kg/m?? as calculated from the following: Height as of this encounter: 1.524 m (5'). Weight as of this encounter: 107.7 kg (237 lb 6.4 oz). General: Very pleasant female resting comfortably in hospital bed. Awake, alert, interactive. Folding pillow cases. HEENT: Normocephalic, atraumatic. PERRL, EOMI. Conjunctiva clear, sclerae anicteric. Mucous membranes moist. Cardiac: Regular rate and rhythm. Load systolic murmur heard throughout all femrin. Respiratory: Normal work of breathing. Dry cough. Upper airway mediated wheezing. Faint crackles inleft base. GI: Normal, active bowel sounds. Abdomen soft, nontender, nondistended. : Deferred. Musculoskeletal: Moving all extremities appropriately. 1+ peripheral edema bilaterally. Left upper arm with tenderness to palpation of mid-humerus soft tissue. Skin: No rashes or abrasions on exposed skin. Neurologic: Alert and oriented x1. She thought she was at an office building that has a place for children to play. Thought month was February and did not know the year. Psychologic: Appropriate mood and affect. Data All laboratory results and other diagnostic data from the past 24 hours is available in [facility] and has been personally reviewed. Recent Labs Lab 12/26/23 0908 12/25/23 0917 12/24/23 1339 12/22/23 0653 12/21/23 0833 WBC 10.7 10.1 13.6* 16.3* 17.7* HGB 11.8 12.1 13.0 11.1* 12.1 MCV 91 93 93 94 96 PLT 342 339 348 232 274 NA -- 140 142 140 141 POTASSIUM -- 3.8 3.9 4.0 3.9 CHLORIDE -- 102 103 104 105 CO2 -- 26 25 27 24 BUN -- 15.6 15.0 8.5 11.3 CR -- 0.79 0.84 0.80 0.74 ANIONGAP -- 12 14 9 12 BENEDICTO -- 9.1 9.2 8.6* 8.5* GLC -- 113* 157* 113* 135* ALBUMIN -- -- -- 3.7 4.1 PROTTOTAL -- -- -- 6.4 6.9 BILITOTAL -- -- -- 0.7 0.6 ALKPHOS -- -- -- 80 83 ALT -- -- -- 17 15 AST -- -- -- 22 20 Imaging results reviewed over the past 24 hrs: Recent Results (from the past 24 hour(s)) CT Chest Pulmonary Embolism w Contrast Narrative EXAM: CT CHEST PULMONARY EMBOLISM W CONTRAST LOCATION: [facility] DATE: 12/26/2023 INDICATION: continued cough and mild resp failure; now with DVTS; rule out PE vs intraparenchymal disease COMPARISON: None. TECHNIQUE: CT chest pulmonary angiogram during arterial phase injection of IV contrast. Multiplanarreformats and MIP reconstructions were performed. Dose reduction [...] in the spine. Advanced degenerative changes shoulder. Impression IMPRESSION: 1. No acute pulmonary emboli. 2. [...] cancer screening, patients with immunosuppression, or patients withknown primary cancer. SINGLE NODULE Nodule size <6 mm Low-risk patients: No follow-up needed. High-risk patients: Optional follow-up at 12 months. I personally reviewed: no images or EKG's today. ICAL LAW PROFESSOR * Juan Carson MD - 12/26/2023 6:51 PM CST Review of CT shows possible LLL pneumonia. Patient had received levaquin for UTI, but with continued pneumonia. Unfortunately, has penicillin and cephalosporin allergies. Started doxycycline, but could consider contacting ID for desensitization/initiation of cephalosporin/penicillin if necessary/patient worsens. Juan Carson MD ICAL LAW PROFESSOR * Janelle Ureña RN - 12/26/2023 4:42 PM CST Patient Transfer Information Patient connected to monitoring equipment on arrival: N/A Patient connected to wall oxygen on arrival: N/A Belongings: No belongings present Safety check completed: Yes ICAL LAW PROFESSOR * Juan Carson MD - 12/26/2023 3:12 PM CST [facility] Medicine Progress Note - Hospitalist Service Date of Admission: 12/21/2023 Assessment & Plan cherie Fishman is a 83 year old female who past medical history of chronic pain (on tramadol), hypertension, and obesity who apparently resides at assisted living facility (questionable if this isnot a memory care facility) who was at her daughter's house earlier in the day of 12/20/2023. She took a dose of tramadol due to chronic shoulder pain. She fell asleep and when she woke up at her daught er's house she was confused. EMS was contacted and daughter intended for EMS to bring her back to her facility but instead they brought her to [place] emergency department for evaluation. She was noted to be awake and alert but was confused and vague. No focal deficits. She was hemodynamically stable. Laboratory evaluation at the emergency department showed a white count of 18,000 with predominant neutrophils shift. BMP was okay except for blood sugar of around 180. Lactate was 2.7 with a procalcitonin at 0.13. Urinalysis revealed 5- 10 white blood cells with moderate bacteria. A CT of the chest abdomen pelvis was negative and viral respiratory testing was also negative. Given history of p enicillin and cephalosporin allergies she was given Levaquin and vancomycin due to concern for urinary tract infection. She received 1 L of IV fluid and was transferred to [facility] for further evaluation and management. Bilateral Brachial Vein DVT Reporting mid-humeral pain to left upper extremity on 12/25/2023. Upper extremity ultrasounds obtained showing brachial DVTs bilaterally. Bilateral lower extremity ultrasound without evidence of DVT. Unclear cause of upper DVTs; reportedly may have had recent PICC in left arm, but unclear if had onein right as well. Started heparin gtt, with plan to transition to DOAC if not cost prohibitive. Acute Toxic / Metabolic Encephalopathy, resolved Presented 2/2 confusion and was found to have possible sepsis. Initially encephalopathy suspected 2/2 infection, however, patient became more encephalopathic on 12/22/2023 likely 2/2 combination of hernormal pain medications plus an additional dose of seroquel for agitation. I do wonder if there is also a compounding toxic component. Majority of sedating medications were held, with exception of gabapentin that was restarted overnight at a lower dose due to patient uncontrolled neuropathic pain. I have restarted low dose tramadol PRN for additional pain relief, as well as seroquel 12.5mg PO at night to assist with sleep; continuing to hold dilaudid, melatonin, trazodone. Early Sepsis, resolved Possible Urinary Tract Infection, resolved Urinary Retention, resolved Presented with tachycardia, leukocytosis, and elevated lactic acid as well as encephalopathy. Suspected to have sepsis, with possible source to be urinary given moderate bacteria in urine and urinaryretention on presentation. She was started on vancomycin + levaquin and admitted for further cares;levaquin alone was continued on admission. Patient now vitally improved, with improvement in mentation as well. However, cultures were not run in setting of equivocal urinalysis findings (no LE or nitrites). Continue levaquin for total 3 days. Trial of void completed 12/23/2023 successfully. - discontinue Levaquin -PT consulted Acute Hypoxic Respiratory Failure, resolved Cough Wheezing Noted by nursing to have a cough and some wheezing on 12/22/2023. Sounded slightly upper respiratory wheeze on exam. CXR with poor inspiration and similar to prior. Did provide lasix 20mg IV once, withimprovement in symptoms. Recurred on 12/24/2023; auscultation with what sounded suspicious for cardiogenic wheezing. In setting of accelerated hypertension and reaccumulation of peripheral edema sinceyesterday. Provided additional lasix 20mg IV once with repeat improvement. Do wonder if patient is experiencing diastolic dysfunction vs flash pulmonary edema with blood pressure spikes. Seems to be helped with diuresis, so will add fluid and sodium restriction. Changed losartan to hydrochlorothiazide in instance that may have bradykinin mediated cough. Expiratory wheezing seemed to improve slightly, but is still present. Continues to have persistent dry cough, and new notable expiratory crackles in LLL. Was able to wean off supplemental O2, but still with SpO2 in mid-90s. RVP negative. -CT PE Chest to rule out PE (in setting of upper extremity DVTs) vs parenchymal disease vs PNA Systolic Murmur Patient endorsed having been told she had a murmur before, reporting they are trying to figure outwhat to do with that next. She could not provide much additional collateral information, however. TTE, however, without obvious valvular insufficiency. Murmur does appear to have improved after single dose of lasix, but has resolved since 12/22/2023. Unclear if this was auscultation error or if hemodynamics were changed by lasix that may have reduced murmur. Ventral Hernias Hx of morbid obesity and s/p previous abdominal surgeries including hernia repair. Outside imaging made note of multiple ventral hernias on CT abdomen and pelvis. There is a hernia long the right supraumbilical space containing a portion of the transverse colon compatible with Dunlap's hernia. On clinical exam, does not have a reducible hernia nor is complaining of abdominal pain. Monitor. Chronic Pain / OA / Left Rotator Cuff Tear: On tramadol at baseline. Hypertension: On losartan initially, now changed to HCTZ. Dementia: Lives in . Delirium precautions. Redirect as able. Seroquel PRN for assistance with sleep, only. Severe Obesity: BMI of 47. Complicates cares. Hypothyroidism: TSH 5.16, T4 1.12. Increased levothyroxine to 125mcg from 112mcg to achieve T4 >1.5. Diet: Orders Placed This Encounter 2 Gram Sodium Diet DVT Prophylaxis: Pneumatic Compression Devices Pinon: TOGuillaume tomorrow Code Status: No CPR- Do NOT Intubate Expected discharge: Likely 1-2 days pending trial of void. The patient's care was discussed with the Bedside Nurse and Patient. Have attempted to connect withdaalpesh, Jacquelyn, via telephone on several occasions without success. I personally spent 45 minutes on chart review, documentation, coordination, and bedside management of patient. Juan Carson MD, S Hospitalist Service [facility] Interval History Nursing notes reviewed. Patient continued to endorse cough and wheezing. Otherwise, no new symptoms. A full 10+ point review of systems was performed and found to be negative with the exception of those items noted here. Physical Exam Temp: 97.9 ??F (36.6 ??C) Temp src: Oral BP: 137/77 Pulse: 86 Resp: 20 SpO2: 95 % O2 Device: Nasal cannula Oxygen Delivery: 1 LPM Height: 152.4 cm (5') Weight: 107.7 kg (237 lb 6.4 oz) Estimated body mass index is 46.36 kg/m?? as calculated from the following: Height as of this encounter: 1.524 m (5'). Weight as of this encounter: 107.7 kg (237 lb 6.4 oz). General: Very pleasant female resting comfortably in hospital bed. Awake, alert, interactive. Folding pillow cases. HEENT: Normocephalic, atraumatic. PERRL, EOMI. Conjunctiva clear, sclerae anicteric. Mucous membranes moist. Cardiac: Regular rate and rhythm. Load systolic murmur heard throughout all fermin. Respiratory: Normal work of breathing. Dry cough. Upper airway mediated wheezing. Faint crackles inleft base. GI: Normal, active bowel sounds. Abdomen soft, nontender, nondistended. : Deferred. Musculoskeletal: Moving all extremities appropriately. 1+ peripheral edema bilaterally. Left upper arm with tenderness to palpation of mid-humerus soft tissue. Skin: No rashes or abrasions on exposed skin. Neurologic: Alert and oriented x1. She thought she was at an office building that has a place for children to play. Thought month was February and did not know the year. Psychologic: Appropriate mood and affect. Data All laboratory results and other diagnostic data from the past 24 hours is available in Flasma and has been personally reviewed. Recent Labs Lab 12/26/23 0908 12/25/23 0917 12/24/23 1339 12/22/23 0653 12/21/23 0833 WBC 10.7 10.1 13.6* 16.3* 17.7* HGB 11.8 12.1 13.0 11.1* 12.1 MCV 91 93 93 94 96 PLT 342 339 348 232 274 NA -- 140 142 140 141 POTASSIUM -- 3.8 3.9 4.0 3.9 CHLORIDE -- 102 103 104 105 CO2 -- 26 25 27 24 BUN -- 15.6 15.0 8.5 11.3 CR -- 0.79 0.84 0.80 0.74 ANIONGAP -- 12 14 9 12 BENEDICTO -- 9.1 9.2 8.6* 8.5* GLC -- 113* 157* 113* 135* ALBUMIN -- -- -- 3.7 4.1 PROTTOTAL -- -- -- 6.4 6.9 BILITOTAL -- -- -- 0.7 0.6 ALKPHOS -- -- -- 80 83 ALT -- -- -- 17 15 AST -- -- -- 22 20 Imaging results reviewed over the past 24 hrs: Recent Results (from the past 24 hour(s)) US Upper Extremity Venous Duplex Bilat Narrative US UPPER EXTREMITY VENOUS DUPLEX BILATERAL 12/25/2023 [...] of the bilateral basilic and cephalic veins. Impression IMPRESSION: 1. Short segment DVT in the right brachial vein at the level of mid humerus. 2. Nonocclusive DVT within the left brachial vein at the level of the mid to distal humerus. KHALIF DOMÍNGUEZ MD US Lower Extremity Venous Duplex Bilateral Narrative US LOWER EXTREMITY VENOUS DUPLEX BILATERAL PROCEDURE [...] normal spectral waveform, color flow and augmentation. Impression IMPRESSION: 1. No evidence of deep venous thrombosis in the right lower extremity. 2. No evidence of deep venous thrombosis in the left lower extremity. KHALIF DOMÍNGUEZ MD I personally reviewed: no images or EKG's today. ICAL LAW PROFESSOR * Juana Kay RN - 12/26/2023 4:00 AM CST PRIMARY DIAGNOSIS: GENERALIZED WEAKNESS OUTPATIENT/OBSERVATION GOALS TO BE MET BEFORE DISCHARGE 1. Orthostatic performed: No 2. Tolerating PO medications: Yes 3. Return to near baseline physical activity: No 4. Cleared for discharge by consultants (if involved): No Art Sales Consultant Nurse Safe discharge environment identified: No Barriers to discharge: Yes Entered by: Juana Kay RN 12/26/2023 Please review provider order for any additional goals. Nurse to notify provider when observation goals have been met and patient is ready for discharge. ICAL LAW PROFESSOR * Juana Kay RN - 12/26/2023 12:00 AM CST PRIMARY DIAGNOSIS: GENERALIZED WEAKNESS OUTPATIENT/OBSERVATION GOALS TO BE MET BEFORE DISCHARGE 1. Orthostatic performed: No 2. Tolerating PO medications: Yes 3. Return to near baseline physical activity: No 4. Cleared for discharge by consultants (if involved): No Art Sales Consultant Nurse Safe discharge environment identified: No Barriers to discharge: Yes Entered by: Juana Kay RN 12/26/2023 Please review provider order for any additional goals. Nurse to notify provider when observation goals have been met and patient is ready for discharge. ICAL LAW PROFESSOR * Janelle Ureña RN - 12/25/2023 4:07 PM CST Patient Transfer Information Patient connected to monitoring equipment on arrival: N/A Patient connected to wall oxygen on arrival: N/A Belongings: No belongings present Safety check completed: Yes ICAL LAW PROFESSOR * Eileen Beasley RN - 12/25/2023 3:05 PM CST Neuro: A&Ox1. Follows commands and converses appropriately but disoriented to time/place/situation, remembers briefly when reoriented. Not compliant with call light. Cardiac: HR Regular. VSS. Respiratory: Sating >92% on RA during day. GI/: Adequate urine output. No BM this shift. Diet/appetite: Tolerating 2G NA diet. And 1800ml Activity: Assist of SBA with GB and walker, up to chair and in halls. Pain: At acceptable level on current regimen. Tylenol X1. Skin: No new deficits noted. LDA's:L PIV-SL. Plan: Albuterol Neb PRN X1. Respiratory PCR sent. Off unit at 1445 for LUE and LLE ultrasound. Lasix 10mg given X1. Encouraged activity and PO intake. Ambulated in halls. Updated care plan. ICAL LAW PROFESSOR * Juan Carson MD - 12/25/2023 2:06 PM CST [facility] Medicine Progress Note - Hospitalist Service Date of Admission: 12/21/2023 Assessment & Plan cherie Fishman is a 83 year old female who past medical history of chronic pain (on tramadol), hypertension, and obesity who apparently resides at assisted living facility (questionable if this isnot a memory care facility) who was at her daughter's house earlier in the day of 12/20/2023. She took a dose of tramadol due to chronic shoulder pain. She fell asleep and when she woke up at her daught er's house she was confused. EMS was contacted and daughter intended for EMS to bring her back to her facility but instead they brought her to [place] emergency department for evaluation. She was noted to be awake and alert but was confused and vague. No focal deficits. She was hemodynamically stable. Laboratory evaluation at the emergency department showed a white count of 18,000 with predominant neutrophils shift. BMP was okay except for blood sugar of around 180. Lactate was 2.7 with a procalcitonin at 0.13. Urinalysis revealed 5- 10 white blood cells with moderate bacteria. A CT of the chest abdomen pelvis was negative and viral respiratory testing was also negative. Given history of p enicillin and cephalosporin allergies she was given Levaquin and vancomycin due to concern for urinary tract infection. She received 1 L of IV fluid and was transferred to [facility] for further evaluation and management. Acute Toxic / Metabolic Encephalopathy, improving Presented 2/2 confusion and was found to have possible sepsis. Initially encephalopathy suspected 2/2 infection, however, patient became more encephalopathic on 12/22/2023 likely 2/2 combination of hernormal pain medications plus an additional dose of seroquel for agitation. I do wonder if there is also a compounding toxic component. Majority of sedating medications were held, with exception of gabapentin that was restarted overnight at a lower dose due to patient uncontrolled neuropathic pain. I have restarted low dose tramadol PRN for additional pain relief, as well as seroquel 12.5mg PO at night to assist with sleep; continuing to hold dilaudid, melatonin, trazodone. Early Sepsis, resolved Possible Urinary Tract Infection Urinary Retention, resolved Presented with tachycardia, leukocytosis, and elevated lactic acid as well as encephalopathy. Suspected to have sepsis, with possible source to be urinary given moderate bacteria in urine and urinaryretention on presentation. She was started on vancomycin + levaquin and admitted for further cares;levaquin alone was continued on admission. Patient now vitally improved, with improvement in mentation as well. However, cultures were not run in setting of equivocal urinalysis findings (no LE or nitrites). Continue levaquin for total 3 days. Trial of void completed 12/23/2023 successfully. - discontinue Levaquin -PT consulted Acute Hypoxic Respiratory Failure Cough Wheezing Noted by nursing to have a cough and some wheezing on 12/22/2023. Sounded slightly upper respiratory wheeze on exam. CXR with poor inspiration and similar to prior. Did provide lasix 20mg IV once, withimprovement in symptoms. Recurred on 12/24/2023; auscultation with what sounded suspicious for cardiogenic wheezing. In setting of accelerated hypertension and reaccumulation of peripheral edema sinceyesterday. Provided additional lasix 20mg IV once with repeat improvement. Do wonder if patient is experiencing diastolic dysfunction vs flash pulmonary edema with blood pressure spikes. Seems to be helped with diuresis, so will add fluid and sodium restriction. Expiratory wheezing seemed to improve slightly with lasix, but is still present. Will check RVP. Also changed from valsartan to hydrochlorothiazide in case this is playing a role. Systolic Murmur Patient endorsed having been told she had a murmur before, reporting they are trying to figure outwhat to do with that next. She could not provide much additional collateral information, however. TTE, however, without obvious valvular insufficiency. Murmur does appear to have improved after single dose of lasix, as well. Question whether patient was maybe in fluid overloaded state which may have causes murmur? Ventral Hernias Hx of morbid obesity and s/p previous abdominal surgeries including hernia repair. Outside imaging made note of multiple ventral hernias on CT abdomen and pelvis. There is a hernia long the right supraumbilical space containing a portion of the transverse colon compatible with Dunlap's hernia. On clinical exam, does not have a reducible hernia nor is complaining of abdominal pain. Monitor. Chronic Pain / OA / Left Rotator Cuff Tear: On tramadol at baseline. Hypertension: On losartan initially, now changed to HCTZ. Dementia: Lives in . Delirium precautions. Redirect as able. Seroquel PRN for assistance with sleep, only. Severe Obesity: BMI of 47. Complicates cares. Hypothyroidism: TSH 5.16, T4 1.12. Increased levothyroxine to 125mcg from 112mcg to achieve T4 >1.5. Diet: Orders Placed This Encounter 2 Gram Sodium Diet DVT Prophylaxis: Pneumatic Compression Devices Pinon: TOGuillaume tomorrow Code Status: No CPR- Do NOT Intubate Expected discharge: Likely 1-2 days pending trial of void. The patient's care was discussed with the Bedside Nurse and Patient. Have attempted to connect withJacquelyn talley, via telephone on several occasions without success. I personally spent 45 minutes on chart review, documentation, coordination, and bedside management of patient. Juan Carson MD, S Hospitalist Service [facility] Interval History Nursing notes reviewed. Patient reporting some left arm pain today, worse with movement. Otherwise,feels as if breathing slightly improved from yesterday but still coughing. A full 10+ point review of systems was performed and found to be negative with the exception of those items noted here. Physical Exam Temp: 97.9 ??F (36.6 ??C) Temp src: Oral BP: (!) 169/93 Pulse: 82 Resp: 20 SpO2: 95 % O2 Device: None (Room air) Oxygen Delivery: 1 LPM Height: 152.4 cm (5') Weight: 111.3 kg (245 lb 6 oz) Estimated body mass index is 47.92 kg/m?? as calculated from the following: Height as of this encounter: 1.524 m (5'). Weight as of this encounter: 111.3 kg (245 lb 6 oz). General: Very pleasant female resting comfortably in hospital bed. Awake, alert, interactive. HEENT: Normocephalic, atraumatic. PERRL, EOMI. Conjunctiva clear, sclerae anicteric. Mucous membranes moist. Cardiac: Regular rate and rhythm. Load systolic murmur heard throughout all fermin. Respiratory: Normal work of breathing. Dry cough. Upper airway mediated wheezing. No crackles or rales. GI: Normal, active bowel sounds. Abdomen soft, nontender, nondistended. : Deferred. Musculoskeletal: Moving all extremities appropriately. 1+ peripheral edema bilaterally. Left upper arm with tenderness to palpation of mid-humerus soft tissue. Slightly warm. Skin: No rashes or abrasions on exposed skin. Neurologic: Alert and oriented x1. She thought she was at an office building that has a place for children to play. Thought month was February and did not know the year. Psychologic: Appropriate mood and affect. Data All laboratory results and other diagnostic data from the past 24 hours is available in [employer] and has been personally reviewed. Recent Labs Lab 12/25/23 0917 12/24/23 1339 12/22/23 0653 12/21/23 0833 WBC 10.1 13.6* 16.3* 17.7* HGB 12.1 13.0 11.1* 12.1 MCV 93 93 94 96 PLT 339 348 232 274 NA 140 142 140 141 POTASSIUM 3.8 3.9 4.0 3.9 CHLORIDE 102 103 104 105 CO2 26 25 27 24 BUN 15.6 15.0 8.5 11.3 CR 0.79 0.84 0.80 0.74 ANIONGAP 12 14 9 12 BENEDICTO 9.1 9.2 8.6* 8.5* GLC 113* 157* 113* 135* ALBUMIN -- -- 3.7 4.1 PROTTOTAL -- -- 6.4 6.9 BILITOTAL -- -- 0.7 0.6 ALKPHOS -- -- 80 83 ALT -- -- 17 15 AST -- -- 22 20 Imaging results reviewed over the past 24 hrs: No results found for this or any previous visit (from the past 24 hour(s)). I personally reviewed: no images or EKG's today. ICAL LAW PROFESSOR * Nila Lo RN - 12/25/2023 3:39 AM CST PRIMARY DIAGNOSIS: PNEUMONIA OUTPATIENT/OBSERVATION GOALS TO BE MET BEFORE DISCHARGE: Dyspnea improved and O2 sats >88% on RA or back to baseline O2 levels: Yes SpO2: 93 %, O2 Device: None (Room air) Tolerating oral abx or appropriate plans made outpatient infusion: Yes Vitals signs normal or return to baseline: yes, HTN Short term supplemental O2 needed with activity at home: No Tolerate oral intake to maintain hydration: Yes Return to near baseline physical activity: Yes Art Sales Consultant Nurse Safe discharge environment identified: Yes Barriers to discharge: Yes Entered by: Nila oL RN 12/25/2023 3:45 AM Please review provider order for any additional goals. Nurse to notify provider when observation goals have been met and patient is ready for discharge. ICAL LAW PROFESSOR * Juan Carson MD - 12/24/2023 4:24 PM CST [facility] Medicine Progress Note - Hospitalist Service Date of Admission: 12/21/2023 Assessment & Plan cherie Fishman is a 83 year old female who past medical history of chronic pain (on tramadol), hypertension, and obesity who apparently resides at assisted living facility (questionable if this isnot a memory care facility) who was at her daughter's house earlier in the day of 12/20/2023. She took a dose of tramadol due to chronic shoulder pain. She fell asleep and when she woke up at her daught er's house she was confused. EMS was contacted and daughter intended for EMS to bring her back to her facility but instead they brought her to [place] emergency department for evaluation. She was noted to be awake and alert but was confused and vague. No focal deficits. She was hemodynamically stable. Laboratory evaluation at the emergency department showed a white count of 18,000 with predominant neutrophils shift. BMP was okay except for blood sugar of around 180. Lactate was 2.7 with a procalcitonin at 0.13. Urinalysis revealed 5- 10 white blood cells with moderate bacteria. A CT of the chest abdomen pelvis was negative and viral respiratory testing was also negative. Given history of p enicillin and cephalosporin allergies she was given Levaquin and vancomycin due to concern for urinary tract infection. She received 1 L of IV fluid and was transferred to [facility] for further evaluation and management. Acute Toxic / Metabolic Encephalopathy, improving Presented 2/2 confusion and was found to have possible sepsis. Initially encephalopathy suspected 2/2 infection, however, patient became more encephalopathic on 12/22/2023 likely 2/2 combination of hernormal pain medications plus an additional dose of seroquel for agitation. I do wonder if there is also a compounding toxic component. Majority of sedating medications were held, with exception of gabapentin that was restarted overnight at a lower dose due to patient uncontrolled neuropathic pain. I have restarted low dose tramadol PRN for additional pain relief, as well as seroquel 12.5mg PO at night to assist with sleep; continuing to hold dilaudid, melatonin, trazodone. Early Sepsis, resolved Possible Urinary Tract Infection Urinary Retention, resolved Presented with tachycardia, leukocytosis, and elevated lactic acid as well as encephalopathy. Suspected to have sepsis, with possible source to be urinary given moderate bacteria in urine and urinaryretention on presentation. She was started on vancomycin + levaquin and admitted for further cares;levaquin alone was continued on admission. Patient now vitally improved, with improvement in mentation as well. However, cultures were not run in setting of equivocal urinalysis findings (no LE or nitrites). Continue levaquin for total 3 days. Trial of void this afternoon with bladder scans this evening; if patient continues to retain will replace pinon and consult urology. -Levaquin 500mg PO daily -Trial of void this afternoon -PT consulted Acute Hypoxic Respiratory Failure Cough Wheezing Noted by nursing to have a cough and some wheezing on 12/22/2023. Sounded slightly upper respiratory wheeze on exam. CXR with poor inspiration and similar to prior. Did provide lasix 20mg IV once, withimprovement in symptoms. Recurred on 12/24/2023; auscultation with what sounded suspicious for cardiogenic wheezing. In setting of accelerated hypertension and reaccumulation of peripheral edema sinceyesterday. Provided additional lasix 20mg IV once with repeat improvement. Do wonder if patient is experiencing diastolic dysfunction vs flash pulmonary edema with blood pressure spikes. Seems to be helped with diuresis, so will add fluid and sodium restriction. If breathing does not improve, can consider changed from valsartan to hydrochlorothiazide to eliminate potential for ACEi/ARB related cough and provide some low level diuresis. May consider doing this tomorrow. Systolic Murmur Patient endorsed having been told she had a murmur before, reporting they are trying to figure outwhat to do with that next. She could not provide much additional collateral information, however. TTE, however, without obvious valvular insufficiency. Murmur does appear to have improved after single dose of lasix, as well. Question whether patient was maybe in fluid overloaded state which may have causes murmur? Ventral Hernias Hx of morbid obesity and s/p previous abdominal surgeries including hernia repair. Outside imaging made note of multiple ventral hernias on CT abdomen and pelvis. There is a hernia long the right supraumbilical space containing a portion of the transverse colon compatible with Dunlap's hernia. On clinical exam, does not have a reducible hernia nor is complaining of abdominal pain. Monitor. Chronic Pain / OA / Left Rotator Cuff Tear: On tramadol at baseline. Hypertension: On losartan. Renal function WNL. Okay to continue. Has been very hypertensive here and might need escalation of meds. Dementia: Lives in . Delirium precautions. Redirect as able. Seroquel PRN for assistance with sleep, only. Severe Obesity: BMI of 47. Complicates cares. Hypothyroidism: TSH 5.16, T4 1.12. Increased levothyroxine to 125mcg from 112mcg to achieve T4 >1.5. Diet: Orders Placed This Encounter Regular Diet Adult DVT Prophylaxis: Pneumatic Compression Devices Pinon: TOV tomorrow Code Status: No CPR- Do NOT Intubate Expected discharge: Likely 1-2 days pending trial of void. The patient's care was discussed with the Bedside Nurse and Patient. I personally spent 45 minutes on chart review, documentation, coordination, and bedside management of patient. Juan Carson MD, S Hospitalist Service [facility] Interval History Nursing notes reviewed. Nursing reporting wheezing not improved by nebs. On exam, patient does appear to have more upper airway wheezing and cough. No fever, chills, nausea, vomiting. Stated wheezingand cough are new. A full 10+ point review of systems was performed and found to be negative with the exception of those items noted here. Physical Exam Temp: 98.3 ??F (36.8 ??C) Temp src: Oral BP: 135/85 Pulse: 82 Resp: 18 SpO2: 94 % O2 Device: None (Room air) Oxygen Delivery: 1 LPM Height: 152.4 cm (5') Weight: 111.3 kg (245 lb 6 oz) Estimated body mass index is 47.92 kg/m?? as calculated from the following: Height as of this encounter: 1.524 m (5'). Weight as of this encounter: 111.3 kg (245 lb 6 oz). General: Very pleasant female resting comfortably in hospital bed. Awake, alert, interactive. HEENT: Normocephalic, atraumatic. PERRL, EOMI. Conjunctiva clear, sclerae anicteric. Mucous membranes moist. Cardiac: Regular rate and rhythm. Load systolic murmur heard throughout all fermin. Respiratory: Slightly increased work of breathing. Upper airway mediated wheezing. No crackles or rales. GI: Normal, active bowel sounds. Abdomen soft, nontender, nondistended. : Deferred. Musculoskeletal: Moving all extremities appropriately. 2+ peripheral edema bilaterally. Skin: No rashes or abrasions on exposed skin. Neurologic: Alert and oriented x1. She thought she was at an office building that has a place for children to play. Thought month was February and did not know the year. Psychologic: Appropriate mood and affect. Data All laboratory results and other diagnostic data from the past 24 hours is available in Epic and has been personally reviewed. Recent Labs Lab 12/24/23 1339 12/22/23 0653 12/21/23 0833 WBC 13.6* 16.3* 17.7* HGB 13.0 11.1* 12.1 MCV 93 94 96 PLT 348 232 274 NA 142 140 141 POTASSIUM 3.9 4.0 3.9 CHLORIDE 103 104 105 CO2 25 27 24 BUN 15.0 8.5 11.3 CR 0.84 0.80 0.74 ANIONGAP 14 9 12 BENEDICTO 9.2 8.6* 8.5* GLC 157* 113* 135* ALBUMIN -- 3.7 4.1 PROTTOTAL -- 6.4 6.9 BILITOTAL -- 0.7 0.6 ALKPHOS -- 80 83 ALT -- 17 15 AST -- 22 20 Imaging results reviewed over the past 24 hrs: No results found for this or any previous visit (from the past 24 hour(s)). I personally reviewed: no images or EKG's today. ICAL LAW PROFESSOR * Nila Lo RN - 12/24/2023 11:38 AM CST PRIMARY DIAGNOSIS: PNEUMONIA OUTPATIENT/OBSERVATION GOALS TO BE MET BEFORE DISCHARGE: Dyspnea improved and O2 sats >88% on RA or back to baseline O2 levels: Yes SpO2: 93 %, O2 Device: None (Room air) Tolerating oral abx or appropriate plans made outpatient infusion: Yes Vitals signs normal or return to baseline: Yes, HTN Short term supplemental O2 needed with activity at home: No Tolerate oral intake to maintain hydration: Yes Return to near baseline physical activity: Yes Art Sales Consultant Nurse Safe discharge environment identified: Yes Barriers to discharge: Yes Entered by: Nila Lo RN 12/25/2023 3:38 AM Please review provider order for any additional goals. Nurse to notify provider when observation goals have been met and patient is ready for discharge. ICAL LAW PROFESSOR * Dora Antonio RN - 12/23/2023 2:20 PM CST Notified provider about indwelling pinon catheter discussed removal or continued need. Did provider choose to remove indwelling pinon catheter? YES Provider's pinon indication for keeping indwelling pinon catheter: Indication for continued use: Retention Is there an order for indwelling pinon catheter? YES *If there is a plan to keep pinon catheter in place at discharge daily notification with provider is not necessary, but please add a notation in the treatment team sticky note that the patient will be discharging with the catheter. PRIMARY DIAGNOSIS: GENERIC NURSING OUTPATIENT/OBSERVATION GOALS TO BE MET BEFORE DISCHARGE: ADLs back to baseline: Yes Activity and level of assistance: Ambulating independently. Pain status: Improved-controlled with oral pain medications. Return to near baseline physical activity: Yes Art Sales Consultant Nurse Safe discharge environment identified: Yes Barriers to discharge: No Entered by: Dora Antonio RN 12/23/2023 6:40 PM Please review provider order for any additional goals. Nurse to notify provider when observation goals have been met and patient is ready for discharge. ICAL LAW PROFESSOR * Juan Carson MD - 12/23/2023 12:01 PM CST [facility] Medicine Progress Note - Hospitalist Service Date of Admission: 12/21/2023 Assessment & Plan cherie Fishman is a 83 year old female who past medical history of chronic pain (on tramadol), hypertension, and obesity who apparently resides at assisted living facility (questionable if this isnot a memory care facility) who was at her daughter's house earlier in the day of 12/20/2023. She took a dose of tramadol due to chronic shoulder pain. She fell asleep and when she woke up at her daught er's house she was confused. EMS was contacted and daughter intended for EMS to bring her back to her facility but instead they brought her to [place] emergency department for evaluation. She was noted to be awake and alert but was confused and vague. No focal deficits. She was hemodynamically stable. Laboratory evaluation at the emergency department showed a white count of 18,000 with predominant neutrophils shift. BMP was okay except for blood sugar of around 180. Lactate was 2.7 with a procalcitonin at 0.13. Urinalysis revealed 5- 10 white blood cells with moderate bacteria. A CT of the chest abdomen pelvis was negative and viral respiratory testing was also negative. Given history of p enicillin and cephalosporin allergies she was given Levaquin and vancomycin due to concern for urinary tract infection. She received 1 L of IV fluid and was transferred to [facility] for further evaluation and management. Acute Toxic / Metabolic Encephalopathy, improving Presented 2/2 confusion and was found to have possible sepsis. Initially encephalopathy suspected 2/2 infection, however, patient became more encephalopathic on 12/22/2023 likely 2/2 combination of hernormal pain medications plus an additional dose of seroquel for agitation. I do wonder if there is also a compounding toxic component. Majority of sedating medications were held, with exception of gabapentin that was restarted overnight at a lower dose due to patient uncontrolled neuropathic pain. I have restarted low dose tramadol PRN for additional pain relief, as well as seroquel 12.5mg PO at night to assist with sleep; continuing to hold dilaudid, melatonin, trazodone. Early Sepsis, resolved Possible Urinary Tract Infection Urinary Retention Presented with tachycardia, leukocytosis, and elevated lactic acid as well as encephalopathy. Suspected to have sepsis, with possible source to be urinary given moderate bacteria in urine and urinaryretention on presentation. She was started on vancomycin + levaquin and admitted for further cares;levaquin alone was continued on admission. Patient now vitally improved, with improvement in mentation as well. However, cultures were not run in setting of equivocal urinalysis findings (no LE or nitrites). Continue levaquin for total 3 days. Trial of void this afternoon with bladder scans this evening; if patient continues to retain will replace pinon and consult urology. -Levaquin 500mg PO daily -Trial of void this afternoon -PT consulted Acute Hypoxic Respiratory Failure Cough Wheezing Noted by nursing to have a cough and some wheezing. Sounded slightly upper respiratory wheeze on exam. CXR with poor inspiration and similar to prior. Did provide lasix 20mg IV once, but would not recommend continuing without overt pulmonary edema or signs of fluid overload. Systolic Murmur Patient endorsed having been told she had a murmur before, reporting they are trying to figure outwhat to do with that next. She could not provide much additional collateral information, however. TTE, however, without obvious valvular insufficiency. Murmur does appear to have improved after single dose of lasix, as well. Question whether patient was maybe in fluid overloaded state which may have causes murmur? Ventral Hernias Hx of morbid obesity and s/p previous abdominal surgeries including hernia repair. Outside imaging made note of multiple ventral hernias on CT abdomen and pelvis. There is a hernia long the right supraumbilical space containing a portion of the transverse colon compatible with Dunlap's hernia. On clinical exam, does not have a reducible hernia nor is complaining of abdominal pain. Monitor. Chronic Pain / OA / Left Rotator Cuff Tear: On tramadol at baseline. Hypertension: On losartan. Renal function WNL. Okay to continue. Has been very hypertensive here and might need escalation of meds. Dementia: Lives in . Delirium precautions. Redirect as able. Seroquel PRN for assistance with sleep, only. Severe Obesity: BMI of 47. Complicates cares. Hypothyroidism: TSH 5.16, T4 1.12. Increased levothyroxine to 125mcg from 112mcg to achieve T4 >1.5. Diet: Orders Placed This Encounter Regular Diet Adult DVT Prophylaxis: Pneumatic Compression Devices Pinon: TOV tomorrow Code Status: No CPR- Do NOT Intubate Expected discharge: Likely 1-2 days pending trial of void. The patient's care was discussed with the Bedside Nurse and Patient. I personally spent 45 minutes on chart review, documentation, coordination, and bedside management of patient. Juan Carson MD, S Hospitalist Service [facility] Interval History Nursing notes reviewed. Patient doing well today. More awake and stating that she is eating well. Feels well, but does endorse some neck pain this morning. Gabapentin was restarted overnight given patient uncontrolled neuropathic pain. A full 10+ point review of systems was performed and found to be negative with the exception of those items noted here. Physical Exam Temp: 98 ??F (36.7 ??C) Temp src: Oral BP: (!) 155/78 Pulse: 89 Resp: 18 SpO2: 98 % O2 Device: None(Room air) Oxygen Delivery: 1 LPM Height: 152.4 cm (5') Weight: 111.3 kg (245 lb 6 oz) Estimated body mass index is 47.92 kg/m?? as calculated from the following: Height as of this encounter: 1.524 m (5'). Weight as of this encounter: 111.3 kg (245 lb 6 oz). General: Very pleasant female resting comfortably in bedside chair. Awake, alert, interactive. HEENT: Normocephalic, atraumatic. PERRL, EOMI. Conjunctiva clear, sclerae anicteric. Mucous membranes moist. Cardiac: Regular rate and rhythm. Load systolic murmur heard throughout all fermin. Respiratory: Normal work of breathing. Clear to auscultation bilaterally without wheezing, rales, or rhonchi. GI: Normal, active bowel sounds. Abdomen soft, nontender, nondistended. : Deferred. Musculoskeletal: Moving all extremities appropriately. Wrinkles of bilateral lower extremity skin. Skin: No rashes or abrasions on exposed skin. Neurologic: Alert and oriented x1. She thought she was at an office building that has a place for children to play. Thought month was February and did not know the year. Psychologic: Appropriate mood and affect. Data All laboratory results and other diagnostic data from the past 24 hours is available in [facility] and has been personally reviewed. Recent Labs Lab 12/22/23 0653 12/21/23 0833 WBC 16.3* 17.7* HGB 11.1* 12.1 MCV 94 96 PLT 232 274 NA 140 141 POTASSIUM 4.0 3.9 CHLORIDE 104 105 CO2 27 24 BUN 8.5 11.3 CR 0.80 0.74 ANIONGAP 9 12 BENEDICTO 8.6* 8.5* GLC 113* 135* ALBUMIN 3.7 4.1 PROTTOTAL 6.4 6.9 BILITOTAL 0.7 0.6 ALKPHOS 80 83 ALT 17 15 AST 22 20 Imaging results reviewed over the past 24 hrs: Recent Results (from the past 24 hour(s)) US Lower Extremity Venous Duplex Bilateral Narrative EXAM: ULTRASOUND LOWER EXTREMITY VENOUS DUPLEX BILATERAL LOCATION: [facility] DATE: 12/23/2023 INDICATION: Bilateral leg pain, rule out DVT. COMPARISON: None. TECHNIQUE: Venous Duplex ultrasound of bilateral lower extremities with and without compression, augmentation and duplex. Color flow and spectral Doppler with waveform analysis performed. FINDINGS: The right common femoral and femoral veins are patent and negative for thrombus. Patient refused the remainder of the exam indicating that it was too painful to continue. Impression IMPRESSION: 1. Limited exam. Right common femoral and femoral veins are patent and negative for thrombus. Remainder of the right lower extremity and the left lower extremity were not evaluated as the patient declined to continue with the exam. Echocardiogram Complete Result Value LVEF 60-65% Narrative [id number]^MITCHELL^JUAN [facility] Echocardiography Laboratory [address] [place] [id number] Name: ALESIA FISHMAN : 1940 Study Date: 12/23/2023 09:01 AM Age: 83 yrs Gender: Female Patient [facility]: [facility] Reason For Study: Cardiac Murmur Ordering Physician: JUAN CARSON Referring Physician: LUCIANO ROYAL Performed By: González Orosco RDCS BSA: 2.0 m2 Height: 60 in Weight: 245 lb HR: 92 BP: 155/78 mmHg Procedure Complete Portable Echo Adult. Farrah ([facility] #[id number]) given intravenously. Interpretation Summary Doppler interrogation does [...] Doppler Measurements & Calculations MV E max ry: 111.0 cm/sec MV A max ry: 111.0 cm/sec MV E/A: 1.0 MV max P.8 mmHg MV mean P.0 mmHg MV V2 VTI: 23.3 cm MVA(VTI): 2.5 cm2 MV dec time: 0.18 sec LV V1 max P.6 mmHg LV V1 max: 118.0 cm/sec LV V1 VTI: 20.7 cm CO(LVOT): 5.9 l/min CI(LVOT): 2.9 l/min/m2 SV(LVOT): 58.1 ml SI(LVOT): 28.5 ml/m2 PA acc time: 0.11 sec TR max ry: 285.5 cm/sec TR max P.6 mmHg E/E' av.6 Lateral E/e': 10.5 Medial E/e': 10.6 RV S Ry: 15.1 cm/sec Report approved by: Dr. Halima Robison 12/23/2023 11:21 AM I personally reviewed: no images or EKG's today. ICAL LAW PROFESSOR * Dora Antonio RN - 12/23/2023 10:21 AM CST PRIMARY DIAGNOSIS: GENERIC NURSING OUTPATIENT/OBSERVATION GOALS TO BE MET BEFORE DISCHARGE: ADLs back to baseline: Yes Activity and level of assistance: Up with standby assistance. Pain status: No improvement noted. Consider adjustment in pain regimen. Return to near baseline physical activity: Yes Art Sales Consultant Nurse Safe discharge environment identified: Yes Barriers to discharge: Yes Entered by: Dora Antonio RN 12/23/2023 10:21 AM Please review provider order for any additional goals. Nurse to notify provider when observation goals have been met and patient is ready for discharge. ICAL LAW PROFESSOR * Leslie Porter RN - 12/23/2023 2:00 AM CST PRIMARY DIAGNOSIS: PNEUMONIA OUTPATIENT/OBSERVATION GOALS TO BE MET BEFORE DISCHARGE: Dyspnea improved and O2 sats >88% on RA or back to baseline O2 levels: No O2 sats OK but dyspneaongoing SpO2: 96 %, O2 Device: None (Room air) Tolerating oral abx or appropriate plans made outpatient infusion: Yes Vitals signs normal or return to baseline: No HTN Short term supplemental O2 needed with activity at home: No Tolerate oral intake to maintain hydration: Yes Return to near baseline physical activity: No Art Sales Consultant Nurse Safe discharge environment identified: No Barriers to discharge: Yes Entered by: Leslie Porter RN 12/23/2023 4:23 AM Please review provider order for any additional goals. Nurse to notify provider when observation goals have been met and patient is ready for discharge. ICAL LAW PROFESSOR * Leslie Porter RN - 12/22/2023 10:00 PM CST PRIMARY DIAGNOSIS: PNEUMONIA OUTPATIENT/OBSERVATION GOALS TO BE MET BEFORE DISCHARGE: Dyspnea improved and O2 sats >88% on RA or back to baseline O2 levels: No - O2 sats good but dyspnea ongoing SpO2: 96 %, O2 Device: None (Room air) Tolerating oral abx or appropriate plans made outpatient infusion: Yes Vitals signs normal or return to baseline: Yes Short term supplemental O2 needed with activity at home: No Tolerate oral intake to maintain hydration: Yes Return to near baseline physical activity: No Art Sales Consultant Nurse Safe discharge environment identified: No Barriers to discharge: Yes Entered by: Leslie Porter RN 12/23/2023 4:22 AM Please review provider order for any additional goals. Nurse to notify provider when observation goals have been met and patient is ready for discharge. ICAL LAW PROFESSOR * Dora Antonio RN - 12/22/2023 6:44 PM CST PRIMARY DIAGNOSIS: GENERIC NURSING OUTPATIENT/OBSERVATION GOALS TO BE MET BEFORE DISCHARGE: ADLs back to baseline: Yes Activity and level of assistance: A1 with gaitbelt and walker Pain status: No improvement noted. Consider adjustment in pain regimen. Return to near baseline physical activity: Yes Art Sales Consultant Nurse Safe discharge environment identified: Yes Barriers to discharge: Yes Entered by: Dora Antonio RN 12/22/2023 6:44 PM Please review provider order for any additional goals. Nurse to notify provider when observation goals have been met and patient is ready for discharge. ICAL LAW PROFESSOR * Dora Antonio RN - 12/22/2023 6:43 PM CST Notified provider about indwelling pinon catheter discussed removal or continued need. Did provider choose to remove indwelling pinon catheter? NO Provider's pinon indication for keeping indwelling pinon catheter: Indication for continued use: Retention Is there an order for indwelling pinon catheter? YES *If there is a plan to keep pinon catheter in place at discharge daily notification with provider is not necessary, but please add a notation in the treatment team sticky note that the patient will be discharging with the catheter. ICAL LAW PROFESSOR * Chichi Almaguer, PT - 12/22/2023 3:12 PM CST [facility] OUTPATIENT PHYSICAL THERAPY EVALUATION PLAN OF TREATMENT FOR OUTPATIENT REHABILITATION (COMPLETE FOR INITIAL CLAIMS ONLY) Patient's Last Name, First Name, M.I. Date of : 1940 Alesia Fishman Provider's Name [facility] Onset Date: 12/21/23 Start of Care Date: Type: _X_PT ___OT ___SLP Medical Diagnosis: PT Diagnosis: Impaired functional mobility Visits from SOC: 1 See note for plan of treatment, functional goals and certification details I CERTIFY THE NEED FOR THESE SERVICES FURNISHED UNDER THIS PLAN OF TREATMENT AND WHILE UNDER MY CARE (Physician co-signature of this document indicates review and certification of the therapy plan). 12/22/23 1400 Appointment Info Signing Clinician's Name / Credentials (PT) PAYAL Thomas Student Supervision Direct Patient Contact Provided Living Environment People in Home facility resident Current Living Arrangements (memory care) Self-Care Usual Activity Tolerance moderate Current Activity Tolerance fair Equipment Currently Used at Home walker, standard Activity/Exercise/Self-Care Comment Per SW note, pt typically has assist for toileting and bathing.Typically Olinda with FWW for mobility General Information Onset of Illness/Injury or Date of Surgery 12/21/23 Referring Physician Luciano Royal MD Patient/Family Therapy Goals Statement (PT) Not stated Pertinent History of Current Problem (include personal factors and/or comorbidities that impact thePOC) Per H&P Alesia Fishman is a 83 year old female who past medical history of chronic pain (on tramadol), hypertension, and obesity who apparently resides at assisted living facility (questionable if this is not a memory care facility) who was at her daughter's house earlier in the day of 12/20/2023. Cognition Affect/Mental Status (Cognition) confused Orientation Status (Cognition) oriented to;person Follows Commands (Cognition) follows one-step commands;over 90% accuracy Pain Assessment Patient Currently in Pain Yes, see Vital Sign flowsheet (L shoulder and neck pain) Posture Posture Forward head position;Protracted shoulders Range of Motion (ROM) Range of Motion ROM is WFL Strength (Manual Muscle Testing) Strength (Manual Muscle Testing) Deficits observed during functional mobility Strength Comments decreased functional strength observed during mobility Bed Mobility Bed Mobility supine-sit Supine-Sit [place] (Bed Mobility) 2 person assist;moderate assist (50% patient effort) Assistive Device (Bed Mobility) bed rails;draw sheet Transfers Transfers sit-stand transfer Sit-Stand Transfer Sit-Stand [place] (Transfers) minimum assist (75% patient effort) Assistive Device (Sit-Stand Transfers) walker, standard Gait/Stairs (Locomotion) [place] Level (Gait) minimum assist (75% patient effort) Assistive Device (Gait) walker, standard Distance in Feet (Gait) 2 Pattern (Gait) step-to Deviations/Abnormal Patterns (Gait) gait speed decreased Balance Balance other (describe) Balance Comments UE support required for stability during bed mobility, transfers, and amb Sensory Examination Sensory Perception patient reports no sensory changes Clinical Impression Criteria for Skilled Therapeutic Intervention Yes, treatment indicated PT Diagnosis (PT) Impaired functional mobility Influenced by the following impairments Dec strength, dec activity tolerance, inc pain, and confusion Functional limitations due to impairments Bed mobility, transfers, gait Clinical Presentation (PT Evaluation Complexity) stable Clinical Presentation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 results: K+ 3.8 . Consults: Urology following. Abnormals/Pending: none Other Cares/Comments: Alert to self/confused, VSS, LS diminished/clear, O2 96% RA. Hep infusing/ IVabx given.Sitter at bedside.CT this evening see result. Discharge Disposition: TBD Discharge Time: TBD. ICAL LAW PROFESSOR * Plan of Care - Janelle Ureña RN - 12/26/2023 11:42 PM CST Goal Outcome Evaluation: Admitting Diagnosis: Urosepsis /weakness Pertinent History: chronic left rotator cuff tear HTN, & obesity. For vitals and assessment please see flow sheet. Living Situation: [facility] Pain plan: c/o left shoulder pain prn and Tylenol & scheduled meds given. . Mobility: assistance, 1 person/gb/w Baseline activity: with assistive equipment. Alarms/Safety: Bed Alarm LDA's: 2 Peripherals/Right & Left Pertinent test results: K+ 3.8 . Consults: Urology following. Abnormals/Pending: none Other Cares/Comments: Alert to self/confused, VSS, LS diminished/clear, O2 96% RA. Hep infusing/ IVabx given.Sitter at bedside.CT this evening see result. Discharge Disposition: TBD Discharge Time: TBD. ICAL LAW PROFESSOR * Utilization Review - Dion Costello MD - 12/26/2023 4:47 PM CST Admission Status; Secondary Review Determination Under the authority of the Utilization Management Committee, the utilization review process indicated a secondary review on the above patient. The review outcome is based on review of the medical records, discussions with staff, and applying clinical experience noted on the date of the review. (x) Inpatient Status Appropriate - This patient's medical care is consistent with medical management for inpatient care and reasonable inpatient medical practice. RATIONALE FOR DETERMINATION The patient is a 83-year-old female admitted on 12/21/2023. Patient was apparently at her daughter's home and fell asleep and woke up and was confused with acute encephalopathy. Patient had an elevatedprocalcitonin of 0.13 and suspicious urine analysis and she was started on antibiotics. White countwas elevated at 17.7 on admission and no urine culture is noted in the labs. She was initially evaluated at [facility] and urine culture was likely done there. She was also noted to have acute hypoxic respiratory failure and required Lasix IV with pulmonary wheezing. She was found to have a bilateral brachial vein DVT and is currently on heparin IV with consideration for DOAC if not costprohibitive. Acute confusional state has improved and is being attributed to possible sepsis. The patient is intermittently on 1 L/min of O2 to maintain SpO2's in the mid 90s. Based on complex history and acute encephalopathic condition with possible sepsis and respiratory failure during this admission, recommend changing from observation status to inpatient status. Chest CT results are pending from today, likely with the indication of possible PEs. The severity of illness, intensity of service provided, expected LOS and risk for adverse outcome make the care complex, high risk and appropriate for hospital admission. The information on this document is developed by the utilization review team in order for the business office to ensure compliance. This only denotes the appropriateness of proper admission status and does not reflect the quality of care rendered. The definitions of Inpatient Status and Observation Status used in making the determination above are those provided in the CMS Coverage Manual, Chapter 1 and Chapter 6, section 70.4. Sincerely, Murtaza Costello MD Physician Advisor Utilization Review/ Case Management [facility]. ICAL LAW PROFESSOR * Plan of Care - Constantin Lr RN - 12/26/2023 3:59 PM CST Problem: Adult Inpatient Plan of Care Goal: Plan of Care Review Description: The Plan of Care Review/Shift note should be completed every shift. The Outcome Evaluation is a brief statement about your assessment that the patient is improving, declining, or no change. This information will be displayed automatically on your shift note. Outcome: Progressing Goal: Patient-Specific Goal (Individualized) Description: You can add care plan individualizations to a care plan. Examples of Individualizationmight be: Parent requests to be called daily at 9am for status, I have a hard time hearing out of my right ear, or Do not touch me to wake me up as it startles me. Outcome: Progressing Goal: Absence of Hospital-Acquired Illness or Injury Outcome: Progressing Intervention: Identify and Manage Fall Risk Recent Flowsheet Documentation Taken 12/26/2023 0845 by Constantin Lr RN Safety Promotion/Fall Prevention: safety round/check completed room organization consistent room near nurse's station supervised activity Intervention: Prevent Skin Injury Recent Flowsheet Documentation Taken 12/26/2023 1034 by Constantin Lr RN Body Position: heels elevated legs elevated log-rolled weight shifting Taken 12/26/2023 0845 by Constantin Lr RN Device Skin Pressure Protection: absorbent pad utilized/changed positioning supports utilized pressure points protected Goal: Optimal Comfort and Wellbeing Outcome: Progressing Intervention: Monitor Pain and Promote Comfort Recent Flowsheet Documentation Taken 12/26/2023 1408 by Constantin Lr RN Pain Management Interventions: medication (see MAR) Taken 12/26/2023 1030 by Constantin Lr RN Pain Management Interventions: cold applied emotional support distraction rest repositioned Taken 12/26/2023 0934 by Constantin Lr RN Pain Management Interventions: medication (see MAR) breathing exercises care clustered cold applied distraction emotional support heat applied massage provided Goal: Readiness for Transition of Care Outcome: Progressing Problem: Pain Acute Goal: Optimal Pain Control and Function Outcome: Progressing Intervention: Develop Pain Management Plan Recent Flowsheet Documentation Taken 12/26/2023 1408 by Constantin Lr RN Pain Management Interventions: medication (see MAR) Taken 12/26/2023 1030 by Constantin Lr RN Pain Management Interventions: cold applied emotional support distraction rest repositioned Taken 12/26/2023 0934 by Constantin Lr RN Pain Management Interventions: medication (see MAR) breathing exercises care clustered cold applied distraction emotional support heat applied massage provided Intervention: Optimize Psychosocial Wellbeing Recent Flowsheet Documentation Taken 12/26/2023 0845 by Constantin Lr RN Supportive Measures: active listening utilized positive reinforcement provided problem-solving facilitated self-reflection promoted Problem: Fall Injury Risk Goal: Absence of Fall and Fall-Related Injury Outcome: Progressing Intervention: Promote Injury-Free Environment Recent Flowsheet Documentation Taken 12/26/2023 0845 by Constantin Lr RN Safety Promotion/Fall Prevention: safety round/check completed room organization consistent room near nurse's station supervised activity Problem: Infection Goal: Absence of Infection Signs and Symptoms Outcome: Progressing Goal Outcome Evaluation: PRIMARY DIAGNOSIS: DVT OUTPATIENT/OBSERVATION GOALS TO BE MET BEFORE DISCHARGE: 1. Anticoagulant treatment initiated: Yes; heparin gtt 2. Diagnostic testing complete (if applicable): Yes 3. Adequate home care or support arranged for LMWH administration: No 4. Return to near baseline physical activity: Yes 5. Pain Status: Improved-controlled with oral pain medications. Art Sales Consultant Nurse Safe discharge environment identified: No Barriers to discharge: Yes Entered by: Constantin Lr RN 12/26/2023 4:00 PM Please review provider order for any additional goals. Nurse to notify provider when observation goals have been met and patient is ready for discharge. Vss A&O to person place. US +DVT in BUE. Heparin gtt started with bolus. Tylenol, lidocaine patch, and heat to left shoulder and neck pain with decrease in pain. Voltaren cream on bilat feet pain. Psc at bedside. Up with A1 belt and walker. Following commands. Small bm . Senna given. LS dim expwheezing. Sats stable on RA. Neb given for sob CT-scan of the chest pending. ICAL LAW PROFESSOR * Plan of Care - Juana Kay RN - 12/26/2023 6:42 AM CST Goal Outcome Evaluation: Plan of Care Reviewed With: patient Overall Patient Progress: no changeOverall Patient Progress: no change Shift: 11pm-7am Vitals: Temp: 97.9 ??F (36.6 ??C) Temp src: Oral BP: (!) 173/108 Pulse: 93 Resp: 18 SpO2: 96 % O2 Device: Nasal cannula Oxygen Delivery: 1 LPM Orientation: alert to self Pain: complained of left shoulder pain, Tpump applied, PRN tylenol given Tele: - Activity: assist of 1 Resp: pt wheezes on 1L O2- PRN neb given Diet: 2g Na diet How to take meds: whole w/ fluids GI & : continent of urine, no bm this shift Protocol: - BG: - Skin: mepilex on right buttock, redness in folds- barrier applied Lines: IV on left arm saline locked Other: PRN Seroquel and Zyprexa given for restlessness/repeated attempts of trying to go home, sitter is at bedside ICAL LAW PROFESSOR * Plan of Care - Janelle Ureña RN - 12/25/2023 11:26 PM CST dmitting Diagnosis: Urosepsis /weakness Pertinent History: chronic left rotator cuff tear HTN, & obesity. For vitals and assessment please see flow sheet. Living Situation: [facility] Pain plan: c/o left shoulder pain prn and Tylenol & scheduled meds given. . Mobility: assistance, 1 person/gb/w Baseline activity: with assistive equipment. Alarms/Safety: Bed Alarm LDA's: Peripheral Pertinent test results: K+ 3.8 & Mg+ 1.9. Consults: Urology following. Abnormals/Pending: none Other Cares/Comments: Alert to self/confused, VSS, LS clear, O2 96% RA. Sitter at bedside. Discharge Disposition: possible 1-2 days. Discharge Time: TBD. ICAL LAW PROFESSOR * Plan of Care - Janelle Ureña RN - 12/25/2023 8:00 PM CST PRIMARY DIAGNOSIS: GENERALIZED WEAKNESS OUTPATIENT/OBSERVATION GOALS TO BE MET BEFORE DISCHARGE 1. Orthostatic performed: No 2. Tolerating PO medications: Yes 3. Return to near baseline physical activity: No 4. Cleared for discharge by consultants (if involved): No Art Sales Consultant Nurse Safe discharge environment identified: No Barriers to discharge: Yes/ confused Entered by: Janelle Ureña RN 12/25/2023 10:44 PM Please review provider order for any additional goals. Nurse to notify provider when observation goals have been met and patient is ready for discharge.Goal Outcome Evaluation: ICAL LAW PROFESSOR * Provider Notification - Janelle Ureña RN - 12/25/2023 6:33 PM CLINICAL LAW PROFESSOR paged. Pt needs something for restless and agitation. There is no prn meds. Please advise. Corey. placed order. ICAL LAW PROFESSOR * Plan of Care - Eileen Beasley RN - 12/25/2023 12:00 PM CST PRIMARY DIAGNOSIS: PNEUMONIA OUTPATIENT/OBSERVATION GOALS TO BE MET BEFORE DISCHARGE: Dyspnea improved and O2 sats >88% on RA or back to baseline O2 levels: Yes SpO2: 96 %, O2 Device: None (Room air) Tolerating oral abx or appropriate plans made outpatient infusion: Yes Vitals signs normal or return to baseline: Yes Short term supplemental O2 needed with activity at home: No Tolerate oral intake to maintain hydration: Yes Return to near baseline physical activity: Yes Art Sales Consultant Nurse Safe discharge environment identified: Yes Barriers to discharge: No Entered by: Eileen Beasley RN 12/25/2023 12:09 PM Please review provider order for any additional goals. Nurse to notify provider when observation goals have been met and patient is ready for discharge. ICAL LAW PROFESSOR * Plan of Care - Eileen Beasley RN - 12/25/2023 8:00 AM CST PRIMARY DIAGNOSIS: PNEUMONIA OUTPATIENT/OBSERVATION GOALS TO BE MET BEFORE DISCHARGE: Dyspnea improved and O2 sats >88% on RA or back to baseline O2 levels: No , Wore 1L NC at night last night 12/24. SpO2: 96 %, O2 Device: None (Room air) Tolerating oral abx or appropriate plans made outpatient infusion: Yes Vitals signs normal or return to baseline: Yes Short term supplemental O2 needed with activity at home: No Tolerate oral intake to maintain hydration: Yes Return to near baseline physical activity: Yes Art Sales Consultant Nurse Safe discharge environment identified: Yes Barriers to discharge: No Entered by: Eileen Beasley RN 12/25/2023 12:08 PM 1. diagnostic tests and consults completed and resulted-Yes 2. vital signs normal or at patient baseline-Yes 3. tolerating oral intake to maintain hydration-Yes 4. adequate pain control on oral analgesics-Yes 5. returns to baseline functional status-Yes (see PT note) 6. safe disposition plan has been identified-Yes Pt resident of [facility] Nurse to notify provider when observation goals have been met and patient is ready for discharge. Please review provider order for any additional goals. Nurse to notify provider when observation goals have been met and patient is ready for discharge. ICAL LAW PROFESSOR * Plan of Care - Nila Lo RN - 12/25/2023 2:59 AM CST Goal Outcome Evaluation: Plan of Care Reviewed With: patient Overall Patient Progress: no changeOverall Patient Progress: no change Alert to self. 1800mL fluid restriction. INC brief. Ambulated in stone x1. Denies sob, dizziness or n/v. Lung wheezy expiratory. Prn neb given. Desat to 88% RA when sleep, put 1L NC when sleep. Complaint of left shoulder and neck pain, prn tramodol given. New leg spasm and pain noted, notified, 1x robaxin given. ICAL LAW PROFESSOR * Plan of Care - Soledad Hubbard RN - 12/24/2023 11:54 PM CST Goal Outcome Evaluation: Overall Patient Progress: improvingOverall Patient Progress: improving BP (!) 163/83 (BP Location: Right arm) Pulse 84 Temp 97.8 ??F (36.6 ??C) (Oral) Resp 20 Ht 1.524 m (5') Wt 111.3 kg (245 lb 6 oz) SpO2 91% BMI 47.92 kg/m?? General: Pt alert and decision making, confused at baseline. VSS on RA. Sustains pain 5/10 in left shoulder. C/o new pain and spasms in bilat legs, gave one time dose flexeril. walked halls x4. Neuro: AxOx2, person and place. Resp: Lungs rhonchi, course. RA. Intermittent cough. Merchant. Cardiac: WDL, denies chest pain. GI / - 2 gm, 1800 FR. Good appetite. Up to bathroom, Ax1, walker gait belt / SBA. Does not use call light. Mobility: generalized weakness. Pt sleeping intermittently between cares throughout evening. Awake and confused at end of shift. Gave prn tramadol. Melatonin,tylenol x1 at 2010. Plan: Discharge home to [place] in 1-2 days. Problem: Adult Inpatient Plan of Care Goal: Plan of Care Review Description: The Plan of Care Review/Shift note should be completed every shift. The Outcome Evaluation is a brief statement about your assessment that the patient is improving, declining, or no change. This information will be displayed automatically on your shift note. Outcome: Progressing Flowsheets (Taken 12/24/2023 8501) Overall Patient Progress: improving Goal: Patient-Specific Goal (Individualized) Description: You can add care plan individualizations to a care plan. Examples of Individualizationmight be: Parent requests to be called daily at 9am for status, I have a hard time hearing out of my right ear, or Do not touch me to wake me up as it startles me. Outcome: Progressing Goal: Absence of Hospital-Acquired Illness or Injury Outcome: Progressing Intervention: Identify and Manage Fall Risk Recent Flowsheet Documentation Taken 12/24/2023 192 by Soledad Hubbard RN Safety Promotion/Fall Prevention: safety round/check completed nonskid shoes/slippers when out of bed room door open Taken 12/24/2023 1627 by Soledad Hubbard RN Safety Promotion/Fall Prevention: safety round/check completed nonskid shoes/slippers when out of bed room door open Taken 12/24/2023 1527 by Soledad Hubbard RN Safety Promotion/Fall Prevention: safety round/check completed Intervention: Prevent and Manage VTE (Venous Thromboembolism) Risk Recent Flowsheet Documentation Taken 12/24/2023 152 by Soledad Hubbard RN VTE Prevention/Management: SCDs (sequential compression devices) off Intervention: Prevent Infection Recent Flowsheet Documentation Taken 12/24/2023 1527 by Soledad Hubbard RN Infection Prevention: single patient room provided Goal: Optimal Comfort and Wellbeing Outcome: Progressing Goal: Readiness for Transition of Care Outcome: Progressing Problem: Pain Acute Goal: Optimal Pain Control and Function Outcome: Progressing Intervention: Prevent or Manage Pain Recent Flowsheet Documentation Taken 12/24/2023 1527 by Soledad Hubbard RN Medication Review/Management: medications reviewed Problem: Fall Injury Risk Goal: Absence of Fall and Fall-Related Injury Outcome: Progressing Intervention: Identify and Manage Contributors Recent Flowsheet Documentation Taken 12/24/2023 1527 by Soledad Hubbard RN Medication Review/Management: medications reviewed Intervention: Promote Injury-Free Environment Recent Flowsheet Documentation Taken 12/24/2023 192 by Soledad Hubbard RN Safety Promotion/Fall Prevention: safety round/check completed nonskid shoes/slippers when out of bed room door open Taken 12/24/2023 1627 by Soledad Hubbard RN Safety Promotion/Fall Prevention: safety round/check completed nonskid shoes/slippers when out of bed room door open Taken 12/24/2023 1527 by Soledad Hubbard RN Safety Promotion/Fall Prevention: safety round/check completed Problem: Infection Goal: Absence of Infection Signs and Symptoms Outcome: Progressing ICAL LAW PROFESSOR * Plan of Care - Marilee Gibson RN - 12/24/2023 4:11 PM CST VSS, alert to self only, A1 gaitbelt walker, pain addressed by various analgesics and non-pharmacological interventions. MERCHANT congested cough and rhonchi, apical pulse regular, BLE 2+ edema, continentx2. One time IV lasix this afternoon per Dr. Carson, plan to discharge back to assisted living as soon as tomorrow Goal Outcome Evaluation: Plan of Care Reviewed With: patient Overall Patient Progress: improving Outcome Evaluation: expressed interest in going for a walk Problem: Adult Inpatient Plan of Care Goal: Plan of Care Review Description: The Plan of Care Review/Shift note should be completed every shift. The Outcome Evaluation is a brief statement about your assessment that the patient is improving, declining, or no change. This information will be displayed automatically on your shift note. Outcome: Progressing Flowsheets (Taken 12/24/2023 1610) Outcome Evaluation: expressed interest in going for a walk Plan of Care Reviewed With: patient Overall Patient Progress: improving Goal: Patient-Specific Goal (Individualized) Description: You can add care plan individualizations to a care plan. Examples of Individualizationmight be: Parent requests to be called daily at 9am for status, I have a hard time hearing out of my right ear, or Do not touch me to wake me up as it startles me. Outcome: Progressing Goal: Absence of Hospital-Acquired Illness or Injury Outcome: Progressing Intervention: Identify and Manage Fall Risk Recent Flowsheet Documentation Taken 12/24/2023 1040 by Marilee Gibson RN Safety Promotion/Fall Prevention: safety round/check completed Intervention: Prevent Skin Injury Recent Flowsheet Documentation Taken 12/24/2023 1230 by Marilee Gibson, RN Body Position: supine upper extremity elevated weight shifting Goal: Optimal Comfort and Wellbeing Outcome: Progressing Intervention: Monitor Pain and Promote Comfort Recent Flowsheet Documentation Taken 12/24/2023 1323 by Marilee Gibson, business employment specialist Interventions: medication (see MAR) repositioned Goal: Readiness for Transition of Care Outcome: Progressing Problem: Pain Acute Goal: Optimal Pain Control and Function Outcome: Progressing Intervention: Develop Pain Management Plan Recent Flowsheet Documentation Taken 12/24/2023 1323 by Marilee Gibson, business employment specialist Interventions: medication (see MAR) repositioned Problem: Fall Injury Risk Goal: Absence of Fall and Fall-Related Injury Outcome: Progressing Intervention: Promote Injury-Free Environment Recent Flowsheet Documentation Taken 12/24/2023 1040 by Marilee Gibson RN Safety Promotion/Fall Prevention: safety round/check completed Problem: Infection Goal: Absence of Infection Signs and Symptoms Outcome: Progressing ICAL LAW PROFESSOR * Plan of Care - Leslie Porter RN - 12/24/2023 6:00 AM CST [id number] VSS on RA. C/o neck/shoulder pain relieved by tylenol, voltaren, tramadol. Gave seroquel, melatonin, pt slept well throughout night. Voided this shift. Up A1 GB W. BP (!) 158/82 (BP Location: Right arm, Patient Position: Supine, Cuff Size: Adult Regular) Pulse 75 Temp 98 ??F (36.7 ??C) (Axillary) Resp 24 Ht 1.524 m (5') Wt 111.3 kg (245 lb 6 oz) SpO2 97% BMI 47.92 kg/m?? ICAL LAW PROFESSOR * Plan of [place] - Leslie Porter RN - 12/24/2023 2:00 AM CST PRIMARY DIAGNOSIS: PNEUMONIA OUTPATIENT/OBSERVATION GOALS TO BE MET BEFORE DISCHARGE: Dyspnea improved and O2 sats >88% on RA or back to baseline O2 levels: Yes SpO2: 94 %, O2 Device: None (Room air) Tolerating oral abx or appropriate plans made outpatient infusion: Yes Vitals signs normal or return to baseline: Yes x HTN Short term supplemental O2 needed with activity at home: No Tolerate oral intake to maintain hydration: Yes Return to near baseline physical activity: Yes Art Sales Consultant Nurse Safe discharge environment identified: Yes Barriers to discharge: No Entered by: Leslie Porter RN 12/24/2023 2:05 AM Please review provider order for any additional goals. Nurse to notify provider when observation goals have been met and patient is ready for discharge. ICAL LAW PROFESSOR * Plan of Care - Leslie Porter RN - 12/23/2023 10:00 PM CST PRIMARY DIAGNOSIS: PNEUMONIA OUTPATIENT/OBSERVATION GOALS TO BE MET BEFORE DISCHARGE: Dyspnea improved and O2 sats >88% on RA or back to baseline O2 levels: Yes SpO2: 94 %, O2 Device: None (Room air) Tolerating oral abx or appropriate plans made outpatient infusion: Yes Vitals signs normal or return to baseline: Yes Short term supplemental O2 needed with activity at home: No Tolerate oral intake to maintain hydration: Yes Return to near baseline physical activity: Yes Art Sales Consultant Nurse Safe discharge environment identified: Yes Barriers to discharge: no Entered by: Leslie Porter RN 12/24/2023 2:03 AM Please review provider order for any additional goals. Nurse to notify provider when observation goals have been met and patient is ready for discharge.Goal Outcome Evaluation: ICAL LAW PROFESSOR * Plan of Care - Dora Antonio RN - 12/23/2023 6:36 PM CST Goal Outcome Evaluation: Vitals: Temp: 98.6 ??F (37 ??C) Temp src: Oral BP: (!) 155/78 Pulse: 88 Resp: 20 SpO2: 98 % O2 Device: None (Room air) Pain: PRN Tramadol x1 and PRN tylenol x1, scheduled lidocaine cream Neuro: AO1-2, forgetful, alert, able to make needs known. Respiratory: LS exp whz, merchant at times, denies SOB at rest Cardiac/tele: WDL, denies CP GI/: Pinon removed; voiding trial started Skin: Abrasion on R buttock, +1-2 edema in BLE LDAs: PIV SL Mobility: SBA Plan: Resumed some meds to help with pain and sleep, likely discharge tomorrow Pertinent events this shift: Pinon removed, ambulated in hallways x3 this shift, more alert compared to yesterday. Safety maintained. PRIMARY DIAGNOSIS: GENERIC NURSING OUTPATIENT/OBSERVATION GOALS TO BE MET BEFORE DISCHARGE: ADLs back to baseline: Yes Activity and level of assistance: Up with standby assistance. Pain status: Improved-controlled with oral pain medications. Return to near baseline physical activity: Yes Art Sales Consultant Nurse Safe discharge environment identified: Yes Barriers to discharge:No Entered by: Dora Antonio RN 12/23/2023 6:40 PM Please review provider order for any additional goals. Nurse to notify provider when observation goals have been met and patient is ready for discharge. ICAL LAW PROFESSOR * Plan of Care - Chichi Almaguer PT - 12/23/2023 4:26 PM CST Physical Therapy Discharge Summary Reason for therapy discharge: All goals and outcomes met, no further needs identified. Progress towards therapy goal(s). See goals on Care Plan in [facility] electronic health record for goal details. Goals met Therapy recommendation(s): Pt progressing since initial eval, today able to ambulate hallway distances with SBA. Pt likely near to baseline for mobility. Recommend return to with use of FWW and SBA for mobility. ICAL LAW PROFESSOR * Utilization Review - Carmine Benton MD - 12/23/2023 2:53 PM CST Concurrent stay review; Secondary Review Determination Under the authority of the Utilization Management Committee, the utilization review process indicated a secondary review on the above patient. The review outcome is based on review of the medical records, discussions with staff, and applying clinical experience noted on the date of the review. (x) Observation Status Appropriate - Concurrent stay review RATIONALE FOR DETERMINATION Alesia Fishman is an 83 year old female with history of chronic pain (on tramadol), hypertension, and obesity who resides at assisted living facility. She was at her daughter's house earlier in the day of 12/20/2023. She took a dose of tramadol due to chronic shoulder pain. She fell asleep and when she woke up at her daughter's house she was confused. EMS was contacted and daughter intended forEMS to take her back to her facility but instead they brought her to [place] emergency department for evaluation. She was noted to be awake and alert but was confused and vague. No focal deficits.She was hemodynamically stable. Laboratory evaluation at the emergency department showed a white count of 18,000 with predominant neutrophils shift. BMP was okay except for blood sugar of around 180.Lactate was 2.7 with a procalcitonin at 0.13. Urinalysis revealed 5-10 white blood cells with moderate bacteria. Due to equivocal UA, urine culture was not sent. A CT of the chest abdomen pelvis was negative and viral respiratory testing was also negative. Given history of penicillin and cephalosporin allergies she was given Levaquin and vancomycin due to concern for urinary tract infection. She received 1 L of IV fluid and was transferred to [facility] for further evaluation and management. After arrival here urinalysis was repeated and was unremarkable. She has been treated with oral Levaquin. Hospital course has been complicated by urine retention for which Pinon catheter was placed. She is to have a voiding trial after removal of Pinon catheter today. If urine retention persist she may require urology consult. Overall, she is been hemodynamically stable. Mental status improved and decreased level of consciousness prior to presentation was likely due to tramadol. Patient is clinically improving and there is no clear indication to change patient's status to inpatient. The severity of illness, intensity of service provided, expected LOS and risk for adverse outcome make the care appropriate for observation. This document was produced using voice recognition software The information on this document is developed by the utilization review team in order for the business office to ensure compliance. This only denotes the appropriateness of proper admission status and does not reflect the quality of care rendered. The definitions of Inpatient Status and Observation Status used in making the determination above are those provided in the CMS Coverage Manual, Chapter 1 and Chapter 6, section 70.4. Sincerely, Carmine Benton MD Utilization Review Physician Advisor [facility]. ICAL LAW PROFESSOR * Provider Notification - Leslie Porter RN - 12/23/2023 3:47 AM CLINICAL LAW PROFESSOR Notified x-cover MD r/t pt c/o new pain in BLEs as well as persistent severe pain in L neck/shoulder. MD assessed at bedside, resumed a lower dose of gabapentin for LE pain and ordered BLE doppler imaging. Also notified MD that urine in pinon is now pink from yellow. Notified MD that pt did not tolerate doppler of BLE, was too painful per US tech. ICAL LAW PROFESSOR * Plan of Care - Ganesh Christensen DO - 12/23/2023 3:46 AM CST Contacted by nursing, patient having increased leg pain. Evaluated at bedside, her pain is diffuse in legs, bilateral with pain to palpation and at rest. In some mild discomfort but no distress. No evidence of cellulitis of area. She's on gabapentin which has been held for sedation, she's alert andinteractive but confused. Unable to tell me why she's on gabapentin but suspect likely has neuropathy. Will resume her home gabapentin at lower dose (100 from 300 bedtime) and check dopplers for completeness but low likelihood of DVT. Cont to hold dilauded and other sedatives but again alert and interactive currently. ICAL LAW PROFESSOR * Plan of Care - Dora Antonio RN - 12/22/2023 6:34 PM CST Goal Outcome Evaluation: Vitals: Temp: 98 ??F (36.7 ??C) Temp src: Oral BP: (!) 155/78 Pulse: 101 Resp: 18 SpO2: 96 % O2 Device: None (Room air) Pain: C/o pain in neck and left shoulder. PRN Tylenol given x2, scheduled lidocaine cream Neuro: AO1-2; forgetful, able to make needs known Respiratory: LS coarse, whz at times. PRN neb x1 Cardiac/tele: WDL, denies CP GI/: Pinon in place, no BM this shift Skin: +2 edema in BLE, Blanchable redness ot buttocks LDAs: PIV SL Meds/gtt: PO abx Mobility: A1 with gaitbelt and walker Plan: trial no pinon tomorrow Pertinent events this shift: Weaned O2 to room air, CXR complete, new IV lasix dose, ambulated in hallways x2, up in chair for meals ICAL LAW PROFESSOR * Plan of Care - Evelyn Singh RN - 12/22/2023 5:13 AM CST Goal Outcome Evaluation: Plan of Care Reviewed With: patient Overall Patient Progress: no change Outcome Evaluation: . VSS on 1L NC except HTN. Alert to self only. Given PRN Dilaudid for pain. Given PRN Seroquel for agitation/restlessness. Given PRN Hydralazine for HTN. On PO Levaquin. Fluids stopped. Pt lung sounds clear but audible expiratory wheezes, pt reports SOB. Given PRN Albuterol nebulizer. Pinon patent. Ax2 lift. Discharge TBD. ICAL LAW PROFESSOR * Provider Notification - Evelyn Singh RN - 12/22/2023 1:03 AM CLINICAL LAW PROFESSOR [id number] paged crosscover MD: Hi, pt lung sounds are clear but pt is wheezing. PRN Nebulizer was givenbut pt is still feeling short of breath. Pt is on 1L NC with good O2 sats. Pt also has LR running at 125 ml/hr, would you like to add anything else to help with breathing or decrease fluid rate? Thanks! 0015 per MD Christensen: Will stop fluids ICAL LAW PROFESSOR * Plan of Care - Vilma Valenzuela RN - 12/21/2023 6:24 PM CST Goal Outcome Evaluation: Plan of Care Reviewed With: patient Overall Patient Progress: no changeOverall Patient Progress: no change A&Ox1. Confused, calling out, asking to leave etc. Pinon catheter placed by urology due to retention - several RN attempts w/o success. Small abrasion to R buttock and blanchable redness to sacrum/coccyx. Dilaudid IV given 1x for pain. Problem: Adult Inpatient Plan of Care Goal: Plan of Care Review Description: The Plan of Care Review/Shift note should be completed every shift. The Outcome Evaluation is a brief statement about your assessment that the patient is improving, declining, or no change. This information will be displayed automatically on your shift note. Outcome: Not Progressing Flowsheets (Taken 12/21/2023 1824) Plan of Care Reviewed With: patient Overall Patient Progress: no change Goal: Patient-Specific Goal (Individualized) Description: You can add care plan individualizations to a care plan. Examples of Individualizationmight be: Parent requests to be called daily at 9am for status, I have a hard time hearing out of my right ear, or Do not touch me to wake me up as it startles me. Outcome: Not Progressing Goal: Absence of Hospital-Acquired Illness or Injury Outcome: Not Progressing Intervention: Identify and Manage Fall Risk Recent Flowsheet Documentation Taken 12/21/2023 0915 by Vilma Valenzuela RN Safety Promotion/Fall Prevention: treat underlying cause treat reversible contributory factors supervised activity safety round/check completed room organization consistent room near nurse's station room door open Intervention: Prevent and Manage VTE (Venous Thromboembolism) Risk Recent Flowsheet Documentation Taken 12/21/2023 0915 by Vilma Valenzuela RN VTE Prevention/Management: SCDs (sequential compression devices) off Goal: Optimal Comfort and Wellbeing Outcome: Not Progressing Goal: Readiness for Transition of Care Outcome: Not Progressing ICAL LAW PROFESSOR * Pharmacy-Admission Medication History - Halima Newby RPH - 12/21/2023 12:22 PM CST Pharmacist Admission Medication History Admission medication history is complete. The information provided in this note is only as accurateas the sources available at the time of the update. Information Source(s): Family member, Patient's pharmacy, Clinic records, Hospital records, and [facility] via phone and Chart Pertinent Information: Nurse charted last doses, Daughter Jacquelyn called and went through med listto ensure we had everything. Changes made to DRAFTING SUPERVISOR medication list: Added: None Deleted: Triamcinolone, aspirin, furosemide (Dc'd today) Changed: None Allergies reviewed with patient and updates made in EHR: yes Medication History Completed By: Halima Newby RPH 12/21/2023 12:22 PM DRAFTING SUPERVISOR Med List Medication Sig Last Dose albuterol (PROAIR HFA/PROVENTIL HFA/VENTOLIN HFA) 108 (90 Base) MCG/ACT inhaler Inhale 2 puffs intothe lungs as needed 12/20/2023 diclofenac (VOLTAREN) 1 % topical gel Apply 2 g topically 4 times daily as needed 12/20/2023 gabapentin (NEURONTIN) 300 MG capsule Take 300 mg by mouth At Bedtime Past Week levothyroxine (SYNTHROID/LEVOTHROID) 112 MCG tablet Take 112 mcg by mouth daily 12/20/2023 losartan (COZAAR) 50 MG tablet Take 50 mg by mouth 2 times daily 12/20/2023 Multiple Vitamin (TAB-A-HAILEY) TABS TAKLE 1 TAB BY MOUTH ONCE DAILY Past Week NYAMYC [id number] UNIT/GM external powder Unknown PAIN RELIEF EXTRA STRENGTH 500 MG tablet Take 500 mg by mouth as needed 12/20/2023 simvastatin (ZOCOR) 20 MG tablet Take 20 mg by mouth at bedtime Past Week traMADol (ULTRAM) 50 MG tablet 12/20/2023 VITAMIN D3 25 MCG (1000 UT) tablet Take 1 tablet by mouth daily Past Week ICAL LAW PROFESSOR * Pharmacy-Consult Note - Lionel Kilgore [facility] - 12/21/2023 9:41 AM CLINICAL LAW PROFESSOR Reviewed medications for potentially high risk medications for development of delirium - tramadol and gabapentin carry risk of delirium. ICAL LAW PROFESSOR documented in this encounter Plan of Treatment Scheduled Orders Name Type Priority Associated Diagnoses Orde r Schedule EKG 12 lead EKG Routine Enter conditi on for order release in comments for 1 Occurrences starting 12/21/2023 documented as of this encounter Procedures Procedure Name Priority Date/Time Associated Diagnosis Comments GLUCOSE BY METER Routine 12/29/2023 12:3 8 AM CLINICAL LAW PROFESSOR BLOOD GAS VENOUS STAT 12/28/2023 2:41 PM CLINICAL LAW PROFESSOR GLUCOSE BY METER Routine 12/28/2023 2:18 PM CLINICAL LAW PROFESSOR MRSA MSSA PCR, NASAL SWAB STAT 12/28/2023 6:57 AM CLINICAL LAW PROFESSOR LEGIONELLA PNEUMOPHILA URINARY ANTIGEN Routine 12/28/2023 6:56 AM CLINICAL LAW PROFESSOR HEPARIN UNFRACTIONATED ANTI XA LEVEL Routine 12/28/2023 6:26 AM CLINICAL LAW PROFESSOR BASIC METABOLIC PANEL Routine 12/28/2023 6:26 AM CLINICAL LAW PROFESSOR CBC WITH PLATELETS Routine 12/28/2023 6: 26 AM CLINICAL LAW PROFESSOR HEPARIN UNFRACTIONATED ANTI XA LEVEL Timed 12/27/2023 3:03 PM CLINICAL LAW PROFESSOR BLOOD CULTURE STAT 12/27/2023 10:36 AM CLINICAL LAW PROFESSOR PROCALCITONIN Routine 12/27/2023 10:31 AM CLINICAL LAW PROFESSOR BLOOD CULTURE STAT 12/27/2023 10:31 AM CLINICAL LAW PROFESSOR HEPARIN UNFRACTIONATED ANTI XA LEVEL Timed 12/27/2023 8:16 AM CLINICAL LAW PROFESSOR EKG 12-LEAD, TRACING ONLY STAT 12/27/2023 7:01 AM CLINICAL LAW PROFESSOR HEPARIN UNFRACTIONATED ANTI XA LEVEL Timed 12/27/2023 12:[address] CHEST PULMONARY EMBOLISM W CONTRAST Routine 12/26/2023 4:33 PM CLINICAL LAW PROFESSOR HEPARIN UNFRACTIONATED ANTI XA LEVEL Timed 12/26/2023 3:38 PM CLINICAL LAW PROFESSOR CBC WITH PLATELETS STAT 12/26/2023 9: 08 AM CLINICAL LAW PROFESSOR US LOWER EXTREMITY VENOUS DUPLEX BILATERAL Routine 12/25/2023 4:17 PM CLINICAL LAW PROFESSOR US UPPER EXTREMITY VENOUS DUPLEX BILATERAL Routine 12/25/2023 4:16 PM CLINICAL LAW PROFESSOR RESPIRATORY PANEL PCR Routine 12/25/2023 1:46 PM CLINICAL LAW PROFESSOR BASIC METABOLIC PANEL Routine 12/25/2023 9:17 AM CLINICAL LAW PROFESSOR CBC WITH PLATELETS Routine 12/25/2023 9: 17 AM CLINICAL LAW PROFESSOR BASIC METABOLIC PANEL Routine 12/24/2023 1:39 PM CLINICAL LAW PROFESSOR CBC WITH PLATELETS Routine 12/24/2023 1: 39 PM CLINICAL LAW PROFESSOR ECHO COMPLETE WITH CONTRAST Routine 12/23/2023 9:20 AM CLINICAL LAW PROFESSOR US LOWER EXTREMITY VENOUS DUPLEX BILATERAL Routine 12/23/2023 5:10 AM CLINICAL LAW PROFESSOR XR CHEST PORT 1 VIEW Routine 12/22/2023 10:11 AM CLINICAL LAW PROFESSOR COMPREHENSIVE METABOLIC PANEL Routine 12/22/2023 6:53 AM CLINICAL LAW PROFESSOR CBC WITH PLATELETS Routine 12/22/2023 6: 53 AM CLINICAL LAW PROFESSOR ROUTINE UA WITH MICROSCOPIC REFLEX TO CULTURE Routine 12/21/2023 1:49 PM CLINICAL LAW PROFESSOR XR CHEST PORT 1 VIEW Routine 12/21/2023 11:05 AM CLINICAL LAW PROFESSOR EXTRA TUBE Routine 12/21/2023 8:33 AM CLINICAL LAW PROFESSOR EXTRA GREEN TOP (LITHIUM HEPARIN) TUBE Routine 12/21/2023 8:33 AM CLINICAL LAW PROFESSOR TROPONIN T, HIGH SENSITIVITY STAT 12/21/2023 8:33 AM CLINICAL LAW PROFESSOR TSH WITH FREE T4 REFLEX STAT 12/21/19 24 8:33 AM CLINICAL LAW PROFESSOR T4 FREE STAT 12/21/2023 8:33 AM CLINICAL LAW PROFESSOR MAGNESIUM STAT 12/21/2023 8:33 AM CLINICAL LAW PROFESSOR LACTIC ACID WHOLE BLOOD Routine 12/21/19 24 8:33 AM CLINICAL LAW PROFESSOR HEPATIC FUNCTION PANEL STAT 8:33 AM CLINICAL LAW PROFESSOR BLOOD GAS VENOUS STAT 12/21/2023 8:33 AM CLINICAL LAW PROFESSOR AMMONIA STAT 12/21/2023 8:33 AM CLINICAL LAW PROFESSOR BASIC METABOLIC PANEL STAT 12/21/2023 8:33 AM CLINICAL LAW PROFESSOR CBC WITH PLATELETS STAT 12/21/2023 8: 33 AM CLINICAL LAW PROFESSOR documented in this encounter Results * (ABNORMAL) Glucose by meter (12/29/2023 12:38 AM CLINICAL LAW PROFESSOR) GLUCOSE BY METER POCT 111(H) 70 - 99 mg/dL 12/29/2023 12:45 AM CLINICAL LAW PROFESSOR [facility] POC Blood, Capillary BLOOD SPECIMEN / Unknown 12/29/2023 12:38 AM CLINICAL LAW PROFESSOR 12/29/2023 12:45 AM CLINICAL LAW PROFESSOR Roberto CAO - MELCHORAKER POCT [facility] LAB[facility]AT[facility] Acute Care Lab [address] [facility] [address] Lab (1st floor, no room number) [place] [address], [facility] [phone] * (ABNORMAL) Blood gas venous (12/28/2023 2:41 PM CLINICAL LAW PROFESSOR) pH Venous 7.37 7.32 - 7.43 12/28/2023 3:03 PM CLINICAL LAW PROFESSOR [facility] pCO2 Venous 55(H) 40 - 50 mm Hg 12/28/2023 3:03 PM CLINICAL LAW PROFESSOR [facility] pO2 Venous 26 25 - 47 mm Hg 12/28/2023 3:03 PM CLINICAL LAW PROFESSOR [facility] Bicarbonate Venous 32(H) 21 - 28 mmol/L 12/28/2023 3:03 PM CLINICAL LAW PROFESSOR [facility] Base Excess/Deficit Venous 4.8(H) -3.0 - 3.0 mmol/L 12/28/2023 3:03 PM CLINICAL LAW PROFESSOR [facility] FIO2 21 DELILAH 12/28/2023 3:03 PM CLINICAL LAW PROFESSOR [facility] Oxyhemoglobin Venous 48(L) 70 - 75 % 12/28/2023 3:03 PM CLINICAL LAW PROFESSOR LABORATORY O2 Sat, Venous 49.0(L) 70.0 - 75.0 % 12/28/2023 3:03 PM CLINICAL LAW PROFESSOR LABORATORY Blood, venous STRUCTURE OF RIGHT UPPER LIMB / Unknown Venipuncture / Unknown 12/28/2023 2:41 PM CLINICAL LAW PROFESSOR 12/28/2023 2:46 PM CLINICAL LAW PROFESSOR Narrative LABORATORY - 12/28/2023 3:03 PM CLINICAL LAW PROFESSOR In healthy individuals, oxyhemoglobin (O2Hb) and oxygen saturation (SO2) are approximately equal. In the presence of dyshemoglobins, oxyhemoglobin can be considerably lower than oxygen saturation. Kristina Griffin MD LAB - BLOOD ORDERABL ES [facility] Lab [address] (1st floor, no room number) [place] [address], [facility] [phone] * (ABNORMAL) Glucose by meter (12/28/2023 2:18 PM CLINICAL LAW PROFESSOR) GLUCOSE BY METER POCT 120(H) 70 - 99 mg/dL 12/28/2023 2:25 PM CLINICAL LAW PROFESSOR LABORATORY POC Blood, Capillary BLOOD SPECIMEN / Unknown 12/28/2023 2:18 PM CLINICAL LAW PROFESSOR 12/28/2023 2:25 PM CLINICAL LAW PROFESSOR Roberto CAO - BEAKER POCT LABORATORY [facility] Lab [address] Lab (1st floor, no room number) [place] [address], [place] [phone] * MRSA MSSA PCR, Nasal Swab (12/28/2023 6:57 AM CLINICAL LAW PROFESSOR) MRSA Target DNA Negative Negative 12/28/2023 10:01 AM CLINICAL LAW PROFESSOR [facility] SA Target DNA Negative 12/28/2023 10:01 AM CLINICAL LAW PROFESSOR [facility] Swab BOTH ANTERIOR NARES / Unknown Non-blood Collection / Unknown 12/28/2023 6:57 AM CLINICAL LAW PROFESSOR 12/28/2023 7:13 AM CLINICAL LAW PROFESSOR Narrative [facility] - 12/28/2023 10:01 AM CLINICAL LAW PROFESSOR The Cepheid?? Xpert SA Nasal Complete assay performed in the Gene121cast?? Dx System is a qualitative in vitro [...] - MICRO GENERAL ORDERABLES Performing Organization Address City/[facility]/ZIP Co de Phone Number [facility] Inf. Diseases Diag. Lab [address] [facility], [address] [address], [facility] [phone] * Legionella pneumophila antigen urine (12/28/2023 6:56 AM CLINICAL LAW PROFESSOR) [facility] Legionella pneumophila serogroup 1 urinary antigen Negative Negative DELILAH 12/28/2023 9:08 AM CLINICAL LAW PROFESSOR [facility] Comment:Suggests no recent o [...] Non-blood Collection / Unknown 12/28/2023 6:56 AM CLINICAL LAW PROFESSOR 12/28/2023 7:16 AM CLINICAL LAW PROFESSOR Kristina Griffin MD LAB - MICRO GENERAL ORDERABLES [facility] Inf. Diseases Diag. Lab [address] [facility], [address] [address], [facility] [phone] * (ABNORMAL) Basic metabolic panel (12/28/2023 6:26 AM CLINICAL LAW PROFESSOR) Sodium 142 135 - 145 mmol/L 12/28/2023 7:13 AM [facility] Comment:Reference intervals for this test were updated on 08/08/2023 to more accurately reflect our healthy population. There may be differences in the flagging of prior results with similar values performed with this method. Interpretation of those prior results can be made in the context of the updated reference intervals. Potassium 3.8 3.4 - 5.3 mmol/L 12/28/2023 7:13 AM [facility] Chloride 103 98 - 107 mmol/L 12/28/2023 7:13 AM [facility] Carbon Dioxide (CO2) 26 22 - 29 mmol/L 12/28/2023 7:13 AM [facility] Anion Gap 13 7 - 15 mmol/L 12/28/2023 7:13 AM [facility] Urea Nitrogen 17.9 8.0 - 23.0 mg/dL 12/28/2023 7:13 AM [facility] Creatinine 0.90 0.51 - 0.95 mg/dL 12/28/2023 7:13 AM [facility] GFR Estimate 63 >60 mL/min/1. 73m2 12/28/2023 7:13 AM [facility] Calcium 9.4 8.8 - 10.2 mg/dL 12/28/2023 7:13 AM [facility] Glucose 117(H) 70 - 99 mg/dL 12/28/2023 7:13 AM [facility] Blood STRUCTURE OF RIGHT HAND / Unknown Venipuncture / Unknown 12/28/2023 6:26 AM CLINICAL LAW PROFESSOR 12/28/2023 6:36 AM [facility] Kristina Griffin MD LAB - BLOOD ORDERABL ES LABORATORY [facility] Acute Care Lab [address] [facility] Lab (1st floor, no room number) [place] [address], [facility] [phone] * (ABNORMAL) CBC with platelets (12/28/2023 6:26 AM CLINICAL LAW PROFESSOR) WBC Count 11.7(H) 4.0 - 11.0 10e3/uL 12/28/2023 6:41 AM CLINICAL LAW PROFESSOR [facility] RBC Count 4.37 3.80 - 5.20 10e6/uL 12/28/2023 6:41 AM CLINICAL LAW PROFESSOR [facility] Hemoglobin 13.2 11.7 - 15.7 g/dL 12/28/2023 6:41 AM CLINICAL LAW PROFESSOR [facility] Hematocrit 40.7 35.0 - 47.0 % 12/28/2023 6:41 AM CLINICAL LAW PROFESSOR [facility] MCV 93 78 - 100 fL 12/28/2023 6:41 AM CLINICAL LAW PROFESSOR [facility] MCH 30.2 26.5 - 33.0 pg 12/28/2023 6:41 AM CLINICAL LAW PROFESSOR [facility] MCHC 32.4 31.5 - 36.5 g/dL 12/28/2023 6:41 AM CLINICAL LAW PROFESSOR [facility] RDW 13.2 10.0 - 15.0 % 12/28/2023 6:41 AM CLINICAL LAW PROFESSOR [facility] Platelet Count 379 150 - 450 10e3/uL 12/28/2023 6:41 AM CLINICAL LAW PROFESSOR [facility] Blood STRUCTURE OF RIGHT HAND / Unknown Venipuncture / Unknown 12/28/2023 6:26 AM CLINICAL LAW PROFESSOR 12/28/2023 6:36 AM CLINICAL LAW PROFESSOR Kristina Griffin MD LAB - BLOOD ORDERABL ES [facility] Acute Care Lab [address] [facility] Lab (1st floor, no room number) [place] [address], [facility] [phone] * (ABNORMAL) Heparin Unfractionated Anti Xa Level (12/28/2023 6:26 AM CLINICAL LAW PROFESSOR) Anti Xa Unfractionated Heparin >1.10(HH ) For Reference Range, See Comment IU/mL 12/28/2023 7:40 AM CLINICAL LAW PROFESSOR [facility] Blood STRUCTURE OF RIGHT HAND / Unknown Venipuncture / Unknown 12/28/2023 6:26 AM CLINICAL LAW PROFESSOR 12/28/2023 6:36 AM CLINICAL LAW PROFESSOR Narrative [facility] - 12/28/2023 7:40 AM CLINICAL LAW PROFESSOR Therapeutic Range: UFH: 0.25-0.50 IU/mL for low intensity dosing, 0.30-0.70 IU/mL for high intensity dosing DVT and PE. This test is not validated for other direct factor X inhibitors (e.g. rivaroxaban, apixaban, edoxaban, betrixaban, fondaparinux) and should not be used for monitoring of other medications. Kristina Griffin MD LAB - BLOOD ORDERABL ES Performing Organization Address [facility]/ZIP Co de Phone Number [facility] Acute Care Lab [address] Lab (1st floor, no room number) [place] [address], [facility] [phone] * Heparin Unfractionated Anti Xa Level (12/27/2023 3:03 PM CLINICAL LAW PROFESSOR) Anti Xa Unfractionated Heparin 0.44 For Reference Range, See Comment IU/mL 12/27/2023 3:25 PM CLINICAL LAW PROFESSOR [facility] Blood STRUCTURE OF LEFT WRIST REGION / Unknown Venipuncture / Unknown 12/27/2023 3:03 PM CLINICAL LAW PROFESSOR 12/27/2023 3:10 PM CLINICAL LAW PROFESSOR Narrative [facility] - 12/27/2023 3:25 PM CLINICAL LAW PROFESSOR Therapeutic Range: UFH: 0.25-0.50 IU/mL for low intensity dosing, 0.30-0.70 IU/mL for high intensity dosing DVT and PE. This test is not validated for other direct factor X inhibitors (e.g. rivaroxaban, apixaban, edoxaban, betrixaban, fondaparinux) and should not be used for monitoring of other medications. Kristina Griffin MD LAB - BLOOD ORDERABL ES Performing Organization Address [facility]/ZIP Co de Phone Number [facility] Acute Care Lab [address] Lab (1st floor, no room number) [place] [address], [facility] [phone] * Blood Culture Hand, Right (12/27/2023 10:36 AM CLINICAL LAW PROFESSOR) Culture No Growth 01/01/2024 3:32 PM CLINICAL LAW PROFESSOR [facility] Blood STRUCTURE OF RIGHT HAND / Unknown Venipuncture / Unknown 12/27/2023 10:36 AM CLINICAL LAW PROFESSOR 12/27/2023 10:40 AM CLINICAL LAW PROFESSOR Narrative [facility] - 01/01/2024 3:32 PM CLINICAL LAW PROFESSOR Only an Aerobic Blood Culture Bottle was collected, interpret results with caution. Gomez Napier MD LAB - MICRO GENERAL ORDERABLES [facility] Inf. Diseases Diag. Lab [address], [address] [place] [address], [facility] [phone] * Procalcitonin (12/27/2023 10:31 AM CLINICAL LAW PROFESSOR) Procalcitonin 0.12 <0.50 ng/mL 12/27/2023 11:12 AM CLINICAL LAW PROFESSOR LABORATORY Comment: Interpretation and Recommendations <0.5 ng/mL: Systemic bacterial infection unlikely. Local bacterial infection is possible. 0.5-1.99 ng/mL: Systemic bacterial infection possible, but various other conditions are known to induce PCT as well. >=2.00 ng/mL: Systemic bacterial infection likely, unless other causes are known. Decision to start antibiotics should not be based on procalcitonin level alone. See Procalcitonin Guidance document for more details. [email or web address] Factors that may affect PCT levels (not [...] Unknown Venipuncture / Unknown 12/27/2023 10:31 AM CLINICAL LAW PROFESSOR 12/27/2023 10:40 AM CLINICAL LAW PROFESSOR Gomez Napier MD LAB - BLOOD ORDERABL ES LABORATORY [facility] Acute Care Lab [address] [facility] Lab (1st floor, no room number) [place] [address], [place] [phone] * Blood Culture Wrist, Right (12/27/2023 10:31 AM CLINICAL LAW PROFESSOR) Culture No Growth 01/01/2024 3:32 PM CLINICAL LAW PROFESSOR [facility] Blood STRUCTURE OF RIGHT WRIST REGION / Unknown Venipuncture / Unknown 12/27/2023 10:31 AM CLINICAL LAW PROFESSOR 12/27/2023 10:40 AM CLINICAL LAW PROFESSOR Narrative [facility] - 01/01/2024 3:32 PM CLINICAL LAW PROFESSOR Only an Aerobic Blood Culture Bottle was collected, interpret results with caution. Gomez Napier MD LAB - MICRO GENERAL ORDERABLES [facility] Inf. Diseases Diag. Lab [address] [facility] [address], [address] [place] [address], [place] [phone] * Heparin Unfractionated Anti Xa Level (12/27/2023 8:16 AM CLINICAL LAW PROFESSOR) Anti Xa Unfractionated Heparin 0.60 For Reference Range, See Comment IU/mL 12/27/2023 8:36 AM CLINICAL LAW PROFESSOR LABORATORY Blood STRUCTURE OF RIGHT HAND / Unknown Venipuncture / Unknown 12/27/2023 8:16 AM CLINICAL LAW PROFESSOR 12/27/2023 8:22 AM CLINICAL LAW PROFESSOR Narrative [facility] - 12/27/2023 8:36 AM CLINICAL LAW PROFESSOR Therapeutic Range: UFH: 0.25-0.50 IU/mL for low intensity dosing, 0.30-0.70 IU/mL for high intensity dosing DVT and PE. This test is not validated for other direct factor X inhibitors (e.g. rivaroxaban, apixaban, edoxaban, betrixaban, fondaparinux) and should not be used for monitoring of other medications. Kristina Griffin MD LAB - BLOOD ORDERABL ES LABORATORY [facility] Acute Care Lab [address] [facility] Lab (1st floor, no room number) [place] [address], [facility] [phone] * EKG 12-lead, tracing only (12/27/2023 7:01 AM CLINICAL LAW PROFESSOR) Systolic Blood Pressure mmHg RADIOLOGY RESULTS Diastolic Blood Pressure mmHg RADIOLOGY RESULTS Ventricular Rate 87 BPM RAD IOLOGY RESULTS Atrial Rate 87 BPM RADIOLOG Y RESULTS OR Interval 158 ms RADIOLOG Y RESULTS QRS Duration 82 ms RADIOLO GY RESULTS QT 400 ms RADIOLOGY RESULTS QTc 481 ms RADIOLOGY RESULTS P [place] 64 degrees RADIOLOGY RESULTS R AXIS 5 degrees RADIOLOGY RESULTS T [place] 90 degrees RADIOLOGY RESULTS Interpretation ECG Sinus rhythm Inferior infarct , age undetermined Abnormal ECG Confirmed by MD BIBI, HALIMA ([id number]), editor map Javid Gray ([id number]) on 12/27/2023 2:43:26 PM RADIOLOGY RESULTS 12/27/2023 7:01 AM CLINICAL LAW PROFESSOR 12/27/2023 2:43 PM CLINICAL LAW PROFESSOR Kristina Griffin MD ECG ORDERABLES RADIOLOGY RESULTS * Heparin Unfractionated Anti Xa Level (12/27/2023 12:28 AM CLINICAL LAW PROFESSOR) Anti Xa Unfractionated Heparin 0.93 For Reference Range, See Comment IU/mL 12/27/2023 1:11 AM CLINICAL LAW PROFESSOR LABORATORY Blood STRUCTURE OF RIGHT HAND / Unknown Venipuncture / Unknown 12/27/2023 12:28 AM CLINICAL LAW PROFESSOR 12/27/2023 1:00 AM CLINICAL LAW PROFESSOR Narrative LABORATORY - 12/27/2023 1:11 AM CLINICAL LAW PROFESSOR Therapeutic Range: UFH: 0.25-0.50 IU/mL for low intensity dosing, 0.30-0.70 IU/mL for high intensity dosing DVT and PE. This test is not validated for other direct factor X inhibitors (e.g. rivaroxaban, apixaban, edoxaban, betrixaban, fondaparinux) and should not be used for monitoring of other medications. Juna Carson MD LAB - BLOOD ORDERABL ES [facility] Acute Care Lab [address] Lab (1st floor, no room number) [place] [address], [facility] [phone] * CT Chest Pulmonary Embolism w Contrast (12/26/2023 4:33 PM CLINICAL LAW PROFESSOR) Anatomical Region Laterality Modality Chest, SUBRAD CT BODY, UMP CT CHEST Computed Tomography 12/26/2023 4:33 PM CLINICAL LAW PROFESSOR Impressions 12/26/2023 5:49 PM CLINICAL LAW PROFESSOR IMPRESSION: 1. ??No acute pulmonary emboli. 2. [...] at 12 months. Narrative 12/26/2023 5:49 PM CLINICAL LAW PROFESSOR EXAM: CT CHEST PULMONARY EMBOLISM W CONTRAST LOCATION: [facility] DATE: 12/26/2023 INDICATION: continued cough and [...] CT CHEST PULMONARY EMBOLISM W CONTRAST LOCATION: [facility] DATE: 12/26/2023 INDICATION: continued cough and [...] High-risk patients: Optional follow-up at 12 months. Juan Carson MD IMG CT ORDERABLES * (ABNORMAL) Heparin Unfractionated Anti Xa Level (12/26/2023 3:38 PM CLINICAL LAW PROFESSOR) Anti Xa Unfractionated Heparin >1.10(HH ) For Reference Range, See Comment IU/mL 12/26/2023 4:25 PM CLINICAL LAW PROFESSOR [facility] Blood STRUCTURE OF RIGHT HAND / Unknown Venipuncture / Unknown 12/26/2023 3:38 PM CLINICAL LAW PROFESSOR 12/26/2023 3:44 PM CLINICAL LAW PROFESSOR Narrative [facility] - 12/26/2023 4:25 PM CLINICAL LAW PROFESSOR Therapeutic Range: UFH: 0.25-0.50 IU/mL for low intensity dosing, 0.30-0.70 IU/mL for high intensity dosing DVT and PE. This test is not validated for other direct factor X inhibitors (e.g. rivaroxaban, apixaban, edoxaban, betrixaban, fondaparinux) and should not be used for monitoring of other medications. Juan Carson MD LAB - BLOOD ORDERABL ES LABORATORY [facility] Acute Care Lab [address] [facility] Lab (1st floor, no room number) [place] [address], [facility] [phone] * CBC with platelets (12/26/2023 9:08 AM CLINICAL LAW PROFESSOR) WBC Count 10.7 4.0 - 11.0 10e3/uL 12/26/2023 9:16 AM CLINICAL LAW PROFESSOR [facility] RBC Count 3.93 3.80 - 5.20 10e6/uL 12/26/2023 9:16 AM CLINICAL LAW PROFESSOR [facility] Hemoglobin 11.8 11.7 - 15.7 g/dL 12/26/2023 9:16 AM CLINICAL LAW PROFESSOR [facility] Hematocrit 35.8 35.0 - 47.0 % 12/26/2023 9:16 AM CLINICAL LAW PROFESSOR [facility] MCV 91 78 - 100 fL 12/26/2023 9:16 AM CLINICAL LAW PROFESSOR [facility] MCH 30.0 26.5 - 33.0 pg 12/26/2023 9:16 AM CLINICAL LAW PROFESSOR [facility] MCHC 33.0 31.5 - 36.5 g/dL 12/26/2023 9:16 AM CLINICAL LAW PROFESSOR [facility] RDW 12.8 10.0 - 15.0 % 12/26/2023 9:16 AM CLINICAL LAW PROFESSOR [facility] Platelet Count 342 150 - 450 10e3/uL 12/26/2023 9:16 AM CLINICAL LAW PROFESSOR [facility] Blood STRUCTURE OF RIGHT HAND / Unknown Venipuncture / Unknown 12/26/2023 9:08 AM CLINICAL LAW PROFESSOR 12/26/2023 9:12 AM CLINICAL LAW PROFESSOR Juan Carson MD LAB - BLOOD ORDERABL ES [facility]ATORY [facility] Acute Care Lab [address] Lab (1st floor, no room number) [place] [address] [phone] * US Lower Extremity Venous Duplex Bilateral (12/25/2023 4:17 PM CLINICAL LAW PROFESSOR) Anatomical Region Laterality Modality Vascular, Thigh, Leg Ultrasound Impressions 12/25/2023 4:23 PM CLINICAL LAW PROFESSOR IMPRESSION: 1. No evidence of deep venous thrombosis in the right lower extremity. 2. No evidence of deep venous thrombosis in the left lower extremity. KHALIF DOMÍNGUEZ MD Narrative 12/25/2023 4:23 PM CLINICAL LAW PROFESSOR US LOWER EXTREMITY VENOUS DUPLEX BILATERAL PROCEDURE [...] the left lower extremity. KHALIF DOMÍNGUEZ MD Juan Carson MD IMTamar US ORDERABLES * US Upper Extremity Venous Duplex Bilat (12/25/2023 4:16 PM CLINICAL LAW PROFESSOR) Anatomical Region Laterality Modality Arm Ultrasound Impressions 12/25/2023 4:26 PM CLINICAL LAW PROFESSOR IMPRESSION: 1. ??Short segment DVT in the right brachial vein at the level of mid humerus. 2. ??Nonocclusive DVT within the left brachial vein at the level of the mid to distal humerus. KHALIF DOMÍNGUEZ MD Narrative 12/25/2023 4:26 PM CLINICAL LAW PROFESSOR US UPPER EXTREMITY VENOUS DUPLEX BILATERAL ??12/25/2023 [...] mid to distal humerus. KHALIF DOMÍNGUEZ MD Juan Carson MD [facility] US ORDERABLES * Respiratory Panel PCR (12/25/2023 1:46 PM CLINICAL LAW PROFESSOR) Pathologist [facility] Adenovirus Not Detected Not Detected 12/25/2023 5:35 PM CLINICAL LAW PROFESSOR [facility] Coronavirus Not Detected Not Detected 12/25/2023 5:35 PM CLINICAL LAW PROFESSOR [facility] Comment:This test detects Co ronavirus 229E, HKU1, NL63 and OC43 but does not distinguish between them. It does not detect MERS ( Respiratory Syndrome), SARS (Severe Acute Respiratory Syndrome) or 2019-nCoV (Novel 2019) Coronavirus. Human Metapneumovirus Not Detected Not Detected 12/25/2023 5:35 PM CLINICAL LAW PROFESSOR [facility] Human Rhin/Enterovirus Not Detected Not Detected 12/25/2023 5:35 PM CLINICAL LAW PROFESSOR [facility] Influenza A Not Detected Not Detected 12/25/2023 5:35 PM CLINICAL LAW PROFESSOR [facility] Influenza A, H1 Not Detected Not Detected 12/25/2023 5:35 PM CLINICAL LAW PROFESSOR [facility] Influenza A 2009 H1N1 Not Detected Not Detected 12/25/2023 5:35 PM CLINICAL LAW PROFESSOR [facility] Influenza A, H3 Not Detected Not Detected 12/25/2023 5:35 PM CLINICAL LAW PROFESSOR [facility] Influenza B Not Detected Not Detected 12/25/2023 5:35 PM CLINICAL LAW PROFESSOR [facility] Parainfluenza Virus 1 Not Detected Not Detected 12/25/2023 5:35 PM CLINICAL LAW PROFESSOR [facility] Parainfluenza Virus 2 Not Detected Not Detected 12/25/2023 5:35 PM CLINICAL LAW PROFESSOR [facility] Parainfluenza Virus 3 Not Detected Not Detected 12/25/2023 5:35 PM CLINICAL LAW PROFESSOR [facility] Parainfluenza Virus 4 Not Detected Not Detected 12/25/2023 5:35 PM CLINICAL LAW PROFESSOR [facility] Respiratory Syncytial Virus A Not Detected Not Detected 12/25/2023 5:35 PM CLINICAL LAW PROFESSOR [facility] Respiratory Syncytial Virus B Not Detected Not Detected 12/25/2023 5:35 PM CLINICAL LAW PROFESSOR [facility] Chlamydia Pneumoniae Not Detected Not Detected 12/25/2023 5:35 PM CLINICAL LAW PROFESSOR [facility] Mycoplasma Pneumoniae Not Detected Not Detected 12/25/2023 5:35 PM CLINICAL LAW PROFESSOR [facility] Swab NASOPHARYNGEAL STRUCTURE / Unknown Non-blood Collection / Unknown 12/25/2023 1:46 PM CLINICAL LAW PROFESSOR 12/25/2023 2:10 PM CLINICAL LAW PROFESSOR Narrative [facility] - 12/25/2023 5:35 PM CLINICAL LAW PROFESSOR The ePlex Respiratory Panel is a qualitative nucleic acid, multiplex, in vitro diagnostic test for the simultaneous detection and identification of multiple respiratory viral and bacterial nucleic acids in nasopharyngeal swabs collected in viral transport media from individual exhibiting signs and symptoms of respiratory infection. The assay has received FDA approval for the testing of nasopharyngeal (SHELL SORTER) swabs only. The Infectious Diseases [facility] at [facility] has validated the performance characteristics for bronchial alveolar lavage specimens. This test is used for clinical purposes and should not be regarded as investigational or for research. This laboratory is certified under the Clinical Laboratory Improvement Amendments of 1988 (CLIA-88) as qualified to perform high complexity clinical laboratory testing. Juan Carson MD LAB - MICRO GENERAL ORDERABLES [facility] Inf. Diseases Diag. Lab [address], [address] [place] [address], [facility] [phone] * CBC with platelets (12/25/2023 9:17 AM CLINICAL LAW PROFESSOR) WBC Count 10.1 4.0 - 11.0 10e3/uL 12/25/2023 9:46 AM CLINICAL LAW PROFESSOR [facility] RBC Count 4.01 3.80 - 5.20 10e6/uL 12/25/2023 9:46 AM CLINICAL LAW PROFESSOR [facility] Hemoglobin 12.1 11.7 - 15.7 g/dL 12/25/2023 9:46 AM CLINICAL LAW PROFESSOR [facility] Hematocrit 37.4 35.0 - 47.0 % 12/25/2023 9:46 AM CLINICAL LAW PROFESSOR [facility] MCV 93 78 - 100 fL 12/25/2023 9:46 AM CLINICAL LAW PROFESSOR [facility] MCH 30.2 26.5 - 33.0 pg 12/25/2023 9:46 AM CLINICAL LAW PROFESSOR [facility] MCHC 32.4 31.5 - 36.5 g/dL 12/25/2023 9:46 AM CLINICAL LAW PROFESSOR [facility] RDW 12.9 10.0 - 15.0 % 12/25/2023 9:46 AM CLINICAL LAW PROFESSOR [facility] Platelet Count 339 150 - 450 10e3/uL 12/25/2023 9:46 AM CLINICAL LAW PROFESSOR [facility] Blood STRUCTURE OF LEFT HAND / Unknown Venipuncture / Unknown 12/25/2023 9:17 AM CLINICAL LAW PROFESSOR 12/25/2023 9:43 AM CLINICAL LAW PROFESSOR Juan Carson MD LAB - BLOOD ORDERABL ES [facility] LAB[facility]ATORY [facility] Acute Care Lab [address] Lab (1st floor, no room number) [place] [address], [facility] [phone] * (ABNORMAL) Basic metabolic panel (12/25/2023 9:17 AM CLINICAL LAW PROFESSOR) Sodium 140 135 - 145 mmol/L 12/25/2023 10:09 AM CLINICAL LAW PROFESSOR [facility] Comment:Reference intervals for this test were updated on 08/08/2023 to more accurately reflect our healthy population. There may be differences in the flagging of prior results with similar values performed with this method. Interpretation of those prior results can be made in the context of the updated reference intervals. Potassium 3.8 3.4 - 5.3 mmol/L 12/25/2023 10:09 AM [facility] Chloride 102 98 - 107 mmol/L 12/25/2023 10:09 AM [facility] Carbon Dioxide (CO2) 26 22 - 29 mmol/L 12/25/2023 10:09 AM [facility] Anion Gap 12 7 - 15 mmol/L 12/25/2023 10:09 AM [facility] Urea Nitrogen 15.6 8.0 - 23.0 mg/dL 12/25/2023 10:09 AM [facility] Creatinine 0.79 0.51 - 0.95 mg/dL 12/25/2023 10:09 AM [facility] GFR Estimate 74 >60 mL/min/1. 73m2 12/25/2023 10:09 AM [facility] Calcium 9.1 8.8 - 10.2 mg/dL 12/25/2023 10:09 AM [facility] Glucose 113(H) 70 - 99 mg/dL 12/25/2023 10:09 AM [facility] Blood STRUCTURE OF LEFT HAND / Unknown Venipuncture / Unknown 12/25/2023 9:17 AM CLINICAL LAW PROFESSOR 12/25/2023 9:43 AM CLINICAL LAW PROFESSOR Juan Carson MD LAB - BLOOD ORDERABL ES LABORATORY [facility] Acute Care Lab [address] [facility] [facility] Lab (1st floor, no room number) [place] [address], [facility] [phone] * (ABNORMAL) CBC with platelets (12/24/2023 1:39 PM CLINICAL LAW PROFESSOR) WBC Count 13.6(H) 4.0 - 11.0 10e3/uL 12/24/2023 2:10 PM CLINICAL LAW PROFESSOR LABORATORY RBC Count 4.35 3.80 - 5.20 10e6/uL 12/24/2023 2:10 PM CLINICAL LAW PROFESSOR LABORATORY Hemoglobin 13.0 11.7 - 15.7 g/dL 12/24/2023 2:10 PM CLINICAL LAW PROFESSOR LABORATORY Hematocrit 40.6 35.0 - 47.0 % 12/24/2023 2:10 PM CLINICAL LAW PROFESSOR [facility] MCV 93 78 - 100 fL 12/24/2023 2:10 PM CLINICAL LAW PROFESSOR [facility] MCH 29.9 26.5 - 33.0 pg 12/24/2023 2:10 PM CLINICAL LAW PROFESSOR [facility] MCHC 32.0 31.5 - 36.5 g/dL 12/24/2023 2:10 PM CLINICAL LAW PROFESSOR [facility] RDW 13.0 10.0 - 15.0 % 12/24/2023 2:10 PM CLINICAL LAW PROFESSOR LABORATORY Platelet Count 348 150 - 450 10e3/uL 12/24/2023 2:10 PM CLINICAL LAW PROFESSOR LABORATORY Blood BLOOD SPECIMEN / Unknown Venipuncture / Unknown 12/24/2023 1:39 PM CLINICAL LAW PROFESSOR 12/24/2023 1:51 PM CLINICAL LAW PROFESSOR Juan Carson MD LAB - BLOOD ORDERABL ES LABORATORY [facility] Acute Care Lab [address] [facility] Lab (1st floor, no room number) [place] [address] [phone] * (ABNORMAL) Basic metabolic panel (12/24/2023 1:39 PM CLINICAL LAW PROFESSOR) Sodium 142 135 - 145 mmol/L 12/24/2023 2:10 PM CLINICAL LAW PROFESSOR LABORATORY Comment:Reference intervals for this test were updated on 08/08/2023 to more accurately reflect our healthy population. There may be differences in the flagging of prior results with similar values performed with this method. Interpretation of those prior results can be made in the context of the updated reference intervals. Potassium 3.9 3.4 - 5.3 mmol/L 12/24/2023 2:10 PM CLINICAL LAW PROFESSOR LABORATORY Chloride 103 98 - 107 mmol/L 12/24/2023 2:10 PM CLINICAL LAW PROFESSOR LABORATORY Carbon Dioxide (CO2) 25 22 - 29 mmol/L 12/24/2023 2:10 PM CLINICAL LAW PROFESSOR LABORATORY Anion Gap 14 7 - 15 mmol/L 12/24/2023 2:10 PM CLINICAL LAW PROFESSOR LABORATORY Urea Nitrogen 15.0 8.0 - 23.0 mg/dL 12/24/2023 2:10 PM CLINICAL LAW PROFESSOR LABORATORY Creatinine 0.84 0.51 - 0.95 mg/dL 12/24/2023 2:10 PM CLINICAL LAW PROFESSOR LABORATORY GFR Estimate 69 >60 mL/min/1. 73m2 12/24/2023 2:10 PM CLINICAL LAW PROFESSOR LABORATORY Calcium 9.2 8.8 - 10.2 mg/dL 12/24/2023 2:10 PM CLINICAL LAW PROFESSOR LABORATORY Glucose 157(H) 70 - 99 mg/dL 12/24/2023 2:10 PM CLINICAL LAW PROFESSOR LABORATORY Blood BLOOD SPECIMEN / Unknown Venipuncture / Unknown 12/24/2023 1:39 PM CLINICAL LAW PROFESSOR 12/24/2023 1:51 PM CLINICAL LAW PROFESSOR Juan Carson MD LAB - BLOOD ORDERABL ES LABORATORY [facility] Acute Care Lab [address] [facility] Lab (1st floor, no room number) [place] [address], [facility] [phone] * ECHO COMPLETE WITH CONTRAST (12/23/2023 9:20 AM CLINICAL LAW PROFESSOR) LVEF 60-65% CARDIOLOGY RESULTS Anatomical Region Laterality Modality Echocardiography 12/23/2023 9:01 AM CLINICAL LAW PROFESSOR Narrative 12/23/2023 11:21 AM [facility] [id number]^MITCHELL^JUAN [facility] Echocardiography Laboratory [address] [place] [address] Name: ALESIA FISHMAN : 1940 Study Date: 12/23/2023 09:01 AM Age: 83 yrs Gender: Female Patient Location: [facility] Reason For Study: Cardiac Murmur Ordering Physician: JUAN CARSON Referring Physician: LUCIANO ROYAL Performed By: González Orosco RDCS BSA: 2.0 m2 Height: 60 in Weight: 245 lb HR: 92 BP: 155/78 mmHg Procedure Complete Portable Echo Adult. Farrah ([facility] #[id number]) given intravenously. Interpretation Summary Doppler interrogation does [...] Doppler Measurements & Calculations MV E max ry: 111.0 cm/sec MV A max ry: 111.0 cm/sec MV E/A: 1.0 MV max P.8 mmHg MV mean P.0 mmHg MV V2 VTI: 23.3 cm MVA(VTI): 2.5 cm2 MV dec time: 0.18 sec LV V1 max P.6 mmHg LV V1 max: 118.0 cm/sec LV V1 VTI: 20.7 cm CO(LVOT): 5.9 l/min CI(LVOT): 2.9 l/min/m2 SV(LVOT): 58.1 ml SI(LVOT): 28.5 ml/m2 PA acc time: 0.11 sec TR max ry: 285.5 cm/sec TR max P.6 mmHg E/E' av.6 Lateral E/e': 10.5 Medial E/e': 10.6 RV S Ry: 15.1 cm/sec Report approved by: Dr. Halima Robison 12/23/2023 11:21 AM Procedure Note Halima Jama MD - 12/23/2023 [id number]^MITCHELL^JUAN [facility] Echocardiography Laboratory [address] [place] [id number] Name: ALESIA FISHMAN : 1940 Study Date: 12/23/2023 09:01 AM Age: 83 yrs Gender: Female Patient Location: [facility] Reason For Study: Cardiac Murmur Ordering Physician: JUAN CARSON Referring Physician: LUCIANO ROYAL Performed By: González Orosco RDCS BSA: 2.0 m2 Height: 60 in Weight: 245 lb HR: 92 BP: 155/78 mmHg Procedure Complete Portable Echo Adult. Joseloson ([facility] #[id number]) givenintravenously. Interpretation Summary Doppler interrogation does not [...] Doppler Measurements & Calculations MV E max ry: 111.0 cm/sec MV A max ry: 111.0 cm/sec MV E/A: 1.0 MV max P.8 mmHg MV mean P.0 mmHg MV V2 VTI: 23.3 cm MVA(VTI): 2.5 cm2 MV dec time: 0.18 sec LV V1 max P.6 mmHg LV V1 max: 118.0 cm/sec LV V1 VTI: 20.7 cm CO(LVOT): 5.9 l/min CI(LVOT): 2.9 l/min/m2 SV(LVOT): 58.1 ml SI(LVOT): 28.5 ml/m2 PA acc time: 0.11 sec TR max ry: 285.5 cm/sec TR max P.6 mmHg E/E' av.6 Lateral E/e': 10.5 Medial E/e': 10.6 RV S Ry: 15.1 cm/sec Report approved by: Dr. Halima Robison 12/23/2023 11:21 AM Juan Carson MD CV ECHO ORDERABLES * US Lower Extremity Venous Duplex Bilateral (12/23/2023 5:10 AM CLINICAL LAW PROFESSOR) Anatomical Region Laterality Modality Vascular, Thigh, Leg Ultrasound 12/23/2023 5:10 AM CLINICAL LAW PROFESSOR Impressions 12/23/2023 5:21 AM CLINICAL LAW PROFESSOR IMPRESSION: 1. ??Limited exam. Right common femoral and femoral veins are patent and negative for thrombus. Remainder of the right lower extremity and the left lower extremity were not evaluated as the patient declined to continue with the exam. Narrative 12/23/2023 5:21 AM CLINICAL LAW PROFESSOR EXAM: ULTRASOUND LOWER EXTREMITY VENOUS DUPLEX BILATERAL LOCATION: [facility] DATE: 12/23/2023 INDICATION: Bilateral leg pain, rule out DVT. COMPARISON: None. TECHNIQUE: Venous Duplex ultrasound of bilateral lower extremities with and without compression, augmentation and duplex. Color flow and spectral Doppler with waveform analysis performed. FINDINGS: The right common femoral and femoral veins are patent and negative for thrombus. Patient refused the remainder of the exam indicating that it was too painful to continue. Procedure Note lA Greenberg MD - 12/23/2023 EXAM: ULTRASOUND LOWER EXTREMITY VENOUS DUPLEX BILATERAL LOCATION: [facility] DATE: 12/23/2023 INDICATION: Bilateral leg pain, rule out DVT. COMPARISON: None. TECHNIQUE: Venous Duplex ultrasound of bilateral lower extremities withand without compression, augmentation and duplex. Color flow and spectralDoppler with waveform analysis performed. FINDINGS: The right common femoral and femoral veins are patent andnegative for thrombus. Patient refused the remainder of the examindicating that it was too painful to continue. IMPRESSION: 1. Limited exam. Right common femoral and femoral veins are patent andnegative for thrombus. Remainder of the right lower extremity and the leftlower extremity were not evaluated as the patient declined to continuewith the exam. Ganesh Christensen DO IMG US ORDERABLES * XR Chest Port 1 View (12/22/2023 10:11 AM CLINICAL LAW PROFESSOR) Anatomical Region Laterality Modality Chest Digital Radiogra phy Impressions 12/22/2023 1:11 PM CLINICAL LAW PROFESSOR IMPRESSION: No acute disease. ROBERTO DIXON MD SYSTEM ID: ??[id number] Narrative 12/22/2023 1:11 PM CLINICAL LAW PROFESSOR CHEST ONE VIEW ??12/22/2023 10:11 AM HISTORY: Respiratory distress. COMPARISON: 12/21/23 Procedure Note Roberto Dixon MD - 12/22/2023 CHEST ONE VIEW 12/22/2023 10:11 AM HISTORY: Respiratory distress. COMPARISON: 12/21/23 IMPRESSION: No acute disease. ROBERTO DIXON MD SYSTEM ID: [id number] Juan Carson MD IMG DIAGNOSTIC IMAGI NG ORDERABLES * (ABNORMAL) CBC with platelets (12/22/2023 6:53 AM CLINICAL LAW PROFESSOR) WBC Count 16.3(H) 4.0 - 11.0 10e3/uL 12/22/2023 7:00 AM CLINICAL LAW PROFESSOR [facility] RBC Count 3.63(L) 3.80 - 5.20 10e6/uL 12/22/2023 7:00 AM CLINICAL LAW PROFESSOR [facility] Hemoglobin 11.1(L) 11.7 - 15.7 g/dL 12/22/2023 7:00 AM CLINICAL LAW PROFESSOR [facility] Hematocrit 34.0(L) 35.0 - 47.0 % 12/22/2023 7:00 AM CLINICAL LAW PROFESSOR [facility] MCV 94 78 - 100 fL 12/22/2023 7:00 AM CLINICAL LAW PROFESSOR [facility] MCH 30.6 26.5 - 33.0 pg 12/22/2023 7:00 AM CLINICAL LAW PROFESSOR [facility] MCHC 32.6 31.5 - 36.5 g/dL 12/22/2023 7:00 AM CLINICAL LAW PROFESSOR [facility] RDW 13.1 10.0 - 15.0 % 12/22/2023 7:00 AM CLINICAL LAW PROFESSOR [facility] Platelet Count 232 150 - 450 10e3/uL 12/22/2023 7:00 AM CLINICAL LAW PROFESSOR [facility] Blood STRUCTURE OF RIGHT WRIST REGION / Unknown Venipuncture / Unknown 12/22/2023 6:53 AM CLINICAL LAW PROFESSOR 12/22/2023 6:57 AM CLINICAL LAW PROFESSOR Oswaldo Shankar Jimmie ROSALES [employer] WORK[employer] LAB - BLOOD O RDERABLES RH LABORATORY [facility] Acute Care Lab [address] Lab (1st floor, no room number) [place] [address], [facility] [phone] * (ABNORMAL) Comprehensive metabolic panel (12/22/2023 6:53 AM CLINICAL LAW PROFESSOR) Sodium 140 135 - 145 mmol/L 12/22/2023 7:15 AM [facility] Comment:Reference intervals for this test were updated on 08/08/2023 to more accurately reflect our healthy population. There may be differences in the flagging of prior results with similar values performed with this method. Interpretation of those prior results can be made in the context of the updated reference intervals. Potassium 4.0 3.4 - 5.3 mmol/L 12/22/2023 7:15 AM [facility] Carbon Dioxide (CO2) 27 22 - 29 mmol/L 12/22/2023 7:15 AM [facility] Anion Gap 9 7 - 15 mmol/L 12/22/2023 7:15 AM [facility] Urea Nitrogen 8.5 8.0 - 23.0 mg/dL 12/22/2023 7:15 AM [facility] Creatinine 0.80 0.51 - 0.95 mg/dL 12/22/2023 7:15 AM [facility] GFR Estimate 73 >60 mL/min/1. 73m2 12/22/2023 7:15 AM [facility] Calcium 8.6(L) 8.8 - 10.2 mg/dL 12/22/2023 7:15 AM [facility] Chloride 104 98 - 107 mmol/L 12/22/2023 7:15 AM [facility] Glucose 113(H) 70 - 99 mg/dL 12/22/2023 7:15 AM [facility] Alkaline Phosphatase 80 40 - 150 U/L 12/22/2023 7:15 AM [facility] Comment:Reference intervals for this test were updated on 09/26/2023 to more accurately reflect our healthy population. There may be differences in the flagging of prior results with similar values performed with this method. Interpretation of those prior results can be made in the context of the updated reference intervals. AST 22 0 - 45 U/L 12/22/2023 7:15 AM CLINICAL LAW PROFESSOR [facility] Comment:Reference intervals for this test were updated on 04/24/2023 to more accurately reflect our healthy population. There may be differences in the flagging of prior results with similar values performed with this method. Interpretation of those prior results can be made in the context of the updated reference intervals. ALT 17 0 - 50 U/L 12/22/2023 7:15 AM CLINICAL LAW PROFESSOR [facility] Comment:Reference intervals for this test were updated on 04/24/2023 to more accurately reflect our healthy population. There may be differences in the flagging of prior results with similar values performed with this method. Interpretation of those prior results can be made in the context of the updated reference intervals. Protein Total 6.4 6.4 - 8.3 g/dL 12/22/2023 7:15 AM CLINICAL LAW PROFESSOR [facility] Albumin 3.7 3.5 - 5.2 g/dL 12/22/2023 7:15 AM CLINICAL LAW PROFESSOR [facility] Bilirubin Total 0.7 <=1.2 mg/dL 12/22/2023 7:15 AM CLINICAL LAW PROFESSOR LABORATORY Blood STRUCTURE OF RIGHT WRIST REGION / Unknown Venipuncture / Unknown 12/22/2023 6:53 AM CLINICAL LAW PROFESSOR 12/22/2023 6:57 AM CLINICAL LAW PROFESSOR Oswaldo Samuel APRN [employer] LAB - BLOOD O RDERABLES LABORATORY [facility] Acute Care Lab [address] [facility] Lab (1st floor, no room number) [place] [address], [facility] [phone] * (ABNORMAL) UA with Microscopic reflex to Culture (12/21/2023 1:49 PM CLINICAL LAW PROFESSOR) Color Urine Yellow Colorless, Straw, Light Yellow, Yellow 12/21/2023 2:07 PM CLINICAL LAW PROFESSOR LABORATORY Appearance Urine Clear Clear 12/21/19 24 2:07 PM CLINICAL LAW PROFESSOR LABORATORY Glucose Urine Negative Negative mg/dL 12/21/2023 2:07 PM CLINICAL LAW PROFESSOR LABORATORY Bilirubin Urine Negative Negative 2:07 PM CLINICAL LAW PROFESSOR LABORATORY Ketones Urine Negative Negative mg/dL 12/21/2023 2:07 PM CLINICAL LAW PROFESSOR LABORATORY Specific [place] Urine 1.028 1.003 - 1.035 12/21/2023 2:07 PM CLINICAL LAW PROFESSOR LABORATORY Blood Urine Trace(A) Negative 12/21/2023 2:07 PM CLINICAL LAW PROFESSOR LABORATORY pH Urine 6.0 5.0 - 7.0 12/21/2023 2:07 PM CLINICAL LAW PROFESSOR LABORATORY Protein Albumin Urine 20(A) Negative mg/dL 12/21/2023 2:07 PM CLINICAL LAW PROFESSOR LABORATORY Urobilinogen Urine Normal Normal, 2.0 mg/dL 12/21/2023 2:07 PM CLINICAL LAW PROFESSOR LABORATORY Nitrite Urine Negative Negative 12/21/2023 2:07 PM CLINICAL LAW PROFESSOR LABORATORY Leukocyte Esterase Urine Negative Negative 12/21/2023 2:07 PM CLINICAL LAW PROFESSOR LABORATORY Mucus Urine Present(A) None Seen /LPF 12/21/2023 2:07 PM CLINICAL LAW PROFESSOR LABORATORY RBC Urine 5(H) <=2 /HPF 12/21/2023 2:07 PM CLINICAL LAW PROFESSOR LABORATORY WBC Urine 1 <=5 /HPF 12/21/2023 2:07 PM CLINICAL LAW PROFESSOR LABORATORY Urine URINE SPECIMEN OBTAINED VIA INDWELLING URINARY CATHETER / Unknown Non-blood Collection / Unknown 12/21/2023 1:49 PM CLINICAL LAW PROFESSOR 12/21/2023 1:58 PM CLINICAL LAW PROFESSOR Narrative LABORATORY - 12/21/2023 2:07 PM CLINICAL LAW PROFESSOR Urine Culture not indicated Oswaldo Samuel APRN [employer] WHE[employer] LAB - URINE O RDERABLES LABORATORY [facility] Acute Care Lab [address] Lab (1st floor, no room number) [place] [address], [facility] [phone] * XR Chest Port 1 View (12/21/2023 11:05 AM CLINICAL LAW PROFESSOR) Anatomical Region Laterality Modality Chest Digital Radiogra phy Impressions 12/21/2023 1:40 PM CLINICAL LAW PROFESSOR IMPRESSION: No acute disease. ROBERTO DIXON MD Narrative 12/21/2023 1:40 PM CLINICAL LAW PROFESSOR CHEST ONE VIEW ??12/21/2023 11:05 AM HISTORY: Evaluate for infiltrates. Admitted for UTI/sepsis. History of COPD. COMPARISON: January 19, 2004 Procedure Note Roberto Dixon MD - 12/21/2023 CHEST ONE VIEW 12/21/2023 11:05 AM HISTORY: Evaluate for infiltrates. Admitted for UTI/sepsis. History of COPD. COMPARISON: January 19, 2004 IMPRESSION: No acute disease. ROBERTO DIXON MD Oswaldo Samuel APRN [employer] WHEEL WORKER IMG DIAGNOSTI C IMAGING ORDERABLES * T4 free (12/21/2023 8:33 AM CLINICAL LAW PROFESSOR) Free T4 1.12 0.90 - 1.70 ng/dL 12/21/2023 9:45 AM CLINICAL LAW PROFESSOR [facility] Blood STRUCTURE OF LEFT UPPER LIMB / Unknown Venipuncture / Unknown 12/21/2023 8:33 AM CLINICAL LAW PROFESSOR 12/21/2023 8:40 AM CLINICAL LAW PROFESSOR Oswaldo Samuel APRN [employer] LAB - BLOOD O RDERABLES [facility] Acute Care Lab [address] Lab (1st floor, no room number) [place] [address], [facility] [phone] * Extra Green Top ([place] Heparin) Tube (12/21/2023 8:33 AM CLINICAL LAW PROFESSOR) Hold Specimen JIC 12/21/2023 10:04 AM CLINICAL LAW PROFESSOR [facility] Blood STRUCTURE OF LEFT UPPER LIMB / Unknown Venipuncture / Unknown 12/21/2023 8:33 AM CLINICAL LAW PROFESSOR 12/21/2023 8:51 AM CLINICAL LAW PROFESSOR Roberto Donovan DO LAB - BLOOD ORDERAB LES [facility] Acute Care Lab [address] Lab (1st floor, no room number) [place] [address], [place] [phone] * Lactic acid whole blood (12/21/2023 8:33 AM CLINICAL LAW PROFESSOR) Lactic Acid 1.4 0.7 - 2.0 mmol/L 12/21/2023 8:44 AM CLINICAL LAW PROFESSOR [facility] Blood, venous BLOOD SPECIMEN / Unknown Venipuncture / Unknown 12/21/2023 8:33 AM CLINICAL LAW PROFESSOR 12/21/2023 8:41 AM CLINICAL LAW PROFESSOR Oswaldo Samuel APRN [employer] LAB - BLOOD O RDERABLES LABORATORY [facility] [address] Lab (1st floor, no room number) [place] [phone], [facility] [phone] * (ABNORMAL) TSH with free T4 reflex (12/21/2023 8:33 AM CLINICAL LAW PROFESSOR) Pathologist [facility] TSH 5.16(H) 0.30 - 4.20 uIU/mL 12/21/2023 9:14 AM CLINICAL LAW PROFESSOR [facility] Blood STRUCTURE OF LEFT UPPER LIMB / Unknown Venipuncture / Unknown 12/21/2023 8:33 AM CLINICAL LAW PROFESSOR 12/21/2023 8:40 AM CLINICAL LAW PROFESSOR Oswaldo Samuel APRN [employer] WHE[employer] LAB - BLOOD O RDERABLES LABORATORY [facility] Acute Care Lab [address] Lab (1st floor, no room number) [place] [address], [facility] [phone] * (ABNORMAL) Blood gas venous (12/21/2023 8:33 AM CLINICAL LAW PROFESSOR) pH Venous 7.38 7.32 - 7.43 12/21/2023 8:44 AM CLINICAL LAW PROFESSOR [facility] pCO2 Venous 48 40 - 50 mm Hg 12/21/2023 8:44 AM CLINICAL LAW PROFESSOR [facility] pO2 Venous 40 25 - 47 mm Hg 12/21/2023 8:44 AM CLINICAL LAW PROFESSOR [facility] Bicarbonate Venous 29(H) 21 - 28 mmol/L 12/21/2023 8:44 AM CLINICAL LAW PROFESSOR [facility] Base Excess/Deficit Venous 2.7 -3.0 - 3.0 mmol/L 12/21/2023 8:44 AM CLINICAL LAW PROFESSOR [facility] FIO2 0 DELILAH 12/21/2023 8:44 AM CLINICAL LAW PROFESSOR [facility] Oxyhemoglobin Venous 75 70 - 75 % 12/21/2023 8:44 AM CLINICAL LAW PROFESSOR [facility] O2 Sat, Venous 75.8(H) 70.0 - 75.0 % 12/21/2023 8:44 AM CLINICAL LAW PROFESSOR LABORATORY Blood, venous BLOOD SPECIMEN / Unknown Venipuncture / Unknown 12/21/2023 8:33 AM CLINICAL LAW PROFESSOR 12/21/2023 8:41 AM CLINICAL LAW PROFESSOR Narrative [facility] LABORATORY - 12/21/2023 8:44 AM CLINICAL LAW PROFESSOR In healthy individuals, oxyhemoglobin (O2Hb) and oxygen saturation (SO2) are approximately equal. In the presence of dyshemoglobins, oxyhemoglobin can be considerably lower than oxygen saturation. Oswaldo Samuel APRN B[employer] WHEEL WORKER LAB - BLOOD O RDERABLES LABORATORY [facility] Acute Care Lab [address] [facility] Lab (1st floor, no room number) [place] [address], [facility] [phone] * Troponin T, High Sensitivity (12/21/2023 8:33 AM CLINICAL LAW PROFESSOR) [facility] Troponin T, High Sensitivity 13 <=14 ng/L 12/21/2023 9:14 AM CLINICAL LAW PROFESSOR LABORATORY Comment: Either a High Sensitivity Troponin [...] Unknown Venipuncture / Unknown 12/21/2023 8:33 AM CLINICAL LAW PROFESSOR 12/21/2023 8:40 AM CLINICAL LAW PROFESSOR Oswaldo Raadpaco Samuel APRN [facility] LAB - BLOOD O RDERABLES LABORATORY [facility] Acute Care Lab [address] Lab (1st floor, no room number) [place] [phone], [facility] [phone] * Ammonia (12/21/2023 8:33 AM CLINICAL LAW PROFESSOR) Ammonia 23 11 - 51 umol/L 12/21/2023 9:13 AM CLINICAL LAW PROFESSOR LABORATORY Blood STRUCTURE OF LEFT UPPER LIMB / Unknown Venipuncture / Unknown 12/21/2023 8:33 AM CLINICAL LAW PROFESSOR 12/21/2023 8:40 AM CLINICAL LAW PROFESSOR Oswaldo Samuel APRN [facility] LAB - BLOOD O RDERABLES Performing Organization Address [facility] Co de Phone Number LABORATORY [facility] Acute Care Lab [address] Lab (1st floor, no room number) [place] [address], [facility] [phone] * Hepatic panel (12/21/2023 8:33 AM CLINICAL LAW PROFESSOR) Protein Total 6.9 6.4 - 8.3 g/dL 12/21/2023 9:09 AM CLINICAL LAW PROFESSOR LABORATORY Albumin 4.1 3.5 - 5.2 g/dL 12/21/2023 9:09 AM CLINICAL LAW PROFESSOR LABORATORY Bilirubin Total 0.6 <=1.2 mg/dL 12/21/2023 9:09 AM CLINICAL LAW PROFESSOR [facility] Alkaline Phosphatase 83 40 - 150 U/L 12/21/2023 9:09 AM CLINICAL LAW PROFESSOR LABORATORY Comment:Reference intervals for this test were updated on 09/26/2023 to more accurately reflect our healthy population. There may be differences in the flagging of prior results with similar values performed with this method. Interpretation of those prior results can be made in the context of the updated reference intervals. AST 20 0 - 45 U/L 12/21/2023 9:09 AM CLINICAL LAW PROFESSOR [facility] Comment:Reference intervals for this test were updated on 04/24/2023 to more accurately reflect our healthy population. There may be differences in the flagging of prior results with similar values performed with this method. Interpretation of those prior results can be made in the context of the updated reference intervals. ALT 15 0 - 50 U/L 12/21/2023 9:09 AM CLINICAL LAW PROFESSOR [facility] Comment:Reference intervals for this test were updated on 04/24/2023 to more accurately reflect our healthy population. There may be differences in the flagging of prior results with similar values performed with this method. Interpretation of those prior results can be made in the context of the updated reference intervals. Bilirubin Direct <0.20 0.00 - 0.30 mg/dL 12/21/2023 9:09 AM CLINICAL LAW PROFESSOR LABORATORY Blood STRUCTURE OF LEFT UPPER LIMB / Unknown Venipuncture / Unknown 12/21/2023 8:33 AM CLINICAL LAW PROFESSOR 12/21/2023 8:40 AM CLINICAL LAW PROFESSOR Oswaldo Samuel APRN, CNP LAB - BLOOD O RDERABLES [facility] Acute Care Lab [address] Lab (1st floor, no room number) [place] [address], [facility] [phone] * Magnesium (12/21/2023 8:33 AM CLINICAL LAW PROFESSOR) Magnesium 1.9 1.7 - 2.3 mg/dL 12/21/2023 9:09 AM CLINICAL LAW PROFESSOR LABORATORY Blood STRUCTURE OF LEFT UPPER LIMB / Unknown Venipuncture / Unknown 12/21/2023 8:33 AM CLINICAL LAW PROFESSOR 12/21/2023 8:40 AM CLINICAL LAW PROFESSOR Oswaldo Samuel APRN B[employer] WHE[employer] WORKER LAB - BLOOD O RDERABLES [facility] Acute Care Lab [address] Lab (1st floor, no room number) [place] [address], [facility] [phone] * (ABNORMAL) CBC with platelets (12/21/2023 8:33 AM CLINICAL LAW PROFESSOR) WBC Count 17.7(H) 4.0 - 11.0 10e3/uL 12/21/2023 8:47 AM CLINICAL LAW PROFESSOR [facility] RBC Count 3.95 3.80 - 5.20 10e6/uL 12/21/2023 8:47 AM CLINICAL LAW PROFESSOR [facility] Hemoglobin 12.1 11.7 - 15.7 g/dL 12/21/2023 8:47 AM CLINICAL LAW PROFESSOR [facility] Hematocrit 38.0 35.0 - 47.0 % 12/21/2023 8:47 AM CLINICAL LAW PROFESSOR [facility] LAB[facility] MCV 96 78 - 100 fL 12/21/2023 8:47 AM CLINICAL LAW PROFESSOR [facility] LAB[facility] MCH 30.6 26.5 - 33.0 pg 12/21/2023 8:47 AM CLINICAL LAW PROFESSOR [facility] MCHC 31.8 31.5 - 36.5 g/dL 12/21/2023 8:47 AM CLINICAL LAW PROFESSOR [facility] RDW 13.2 10.0 - 15.0 % 12/21/2023 8:47 AM CLINICAL LAW PROFESSOR [facility] LAB[facility] Platelet Count 274 150 - 450 10e3/uL 12/21/2023 8:47 AM CLINICAL LAW PROFESSOR [facility] Blood STRUCTURE OF LEFT UPPER LIMB / Unknown Venipuncture / Unknown 12/21/2023 8:33 AM CLINICAL LAW PROFESSOR 12/21/2023 8:40 AM CLINICAL LAW PROFESSOR Oswaldo Samuel APRN B[employer] WHE[employer] WORKER LAB - BLOOD O RDERABLES RH LABORATORY [facility] Acute Care Lab [address] Lab (1st floor, no room number) [place] [address], [facility] [phone] * (ABNORMAL) Basic metabolic panel (12/21/2023 8:33 AM CLINICAL LAW PROFESSOR) Sodium 141 135 - 145 mmol/L 12/21/2023 9:09 AM CLINICAL LAW PROFESSOR [facility] Comment:Reference intervals for this test were updated on 08/08/2023 to more accurately reflect our healthy population. There may be differences in the flagging of prior results with similar values performed with this method. Interpretation of those prior results can be made in the context of the updated reference intervals. Potassium 3.9 3.4 - 5.3 mmol/L 12/21/2023 9:09 AM [facility]ORY Chloride 105 98 - 107 mmol/L 12/21/2023 9:09 AM [facility] Carbon Dioxide (CO2) 24 22 - 29 mmol/L 12/21/2023 9:09 AM [facility] Anion Gap 12 7 - 15 mmol/L 12/21/2023 9:09 AM [facility] Urea Nitrogen 11.3 8.0 - 23.0 mg/dL 12/21/2023 9:09 AM [facility] Creatinine 0.74 0.51 - 0.95 mg/dL 12/21/2023 9:09 AM [facility] GFR Estimate 80 >60 mL/min/1. 73m2 12/21/2023 9:09 AM [facility] Calcium 8.5(L) 8.8 - 10.2 mg/dL 12/21/2023 9:09 AM [facility] Glucose 135(H) 70 - 99 mg/dL 12/21/2023 9:09 AM [facility] Blood STRUCTURE OF LEFT UPPER LIMB / Unknown Venipuncture / Unknown 12/21/2023 8:33 AM CLINICAL LAW PROFESSOR 12/21/2023 8:40 AM [facility] Oswaldo Samuel APRN BULL WHEEL WORKER LAB - BLOOD O RDERABLES LABORATORY [facility] Acute Care Lab [address] [facility] Lab (1st floor, no room number) [place] [address], [facility] [phone] documented in this encounter Visit Diagnoses Diagnosis Weakness- Primary Other malaise and fatigue Chronic shoulder pain, unspecified laterality Neuropathic pain Neuralgia, neuritis, and radiculitis, unspecified Essential hypertension Unspecified essential hypertension Hypothyroidism, unspecified type Pneumonia of left lower lobe due to infectious organism Acute deep vein thrombosis (DVT) of brachial vein of both upper extremities (H) Pneumonia Pneumonia, organism unspecified documented in this encounter Admitting Diagnoses Diagnosis Weakness Other malaise and fatigue Pneumonia Pneumonia, organism unspecified documented in this encounter Administered Medications Inactive Administered Medications - up to 3 most recent administrations Medication Order MAR Action Action Date Dose Rate Site acetaminophen (TYLENOL) Suppository 650 mg 650 mg, Rectal, EVERY 4 HOURS PRN, mild pain, other, and adjunct with moderate or severe pain or per patient request, Starting on Mon12/21/23 at 0756, Alternate with ibuprofen if ordered. Maximum acetaminophen dose from all sources = 75 mg/kg/day not to exceed 4 grams/day. acetaminophen (TYLENOL) tablet 650 mg 650 mg, Oral, EVERY 4 HOURS PRN, mild pain, other, and adjunct with moderate or severe pain or per patient request, Starting on Mon12/21/23 at 0756, Alternate with ibuprofen if ordered. Maximum acetaminophen dose from all sources = 75 mg/kg/day not to exceed 4 grams/day. $Given 12/28/2023 9:18 PM CLINICAL LAW PROFESSOR 650 mg $Given 12/28/2023 6:13 PM CLINICAL LAW PROFESSOR 650 mg $Given 12/27/2023 11:58 PM CLINICAL LAW PROFESSOR 650 mg albuterol (PROVENTIL) neb solution 2.5 mg 2.5 mg, Nebulization, EVERY 2 HOURS PRN, shortness of breath, Starting on Mon12/21/23 at 1003 $Given 12/26/2023 5:04 PM CLINICAL LAW PROFESSOR 2.5 mg $Given 12/26/2023 10:29 AM CLINICAL LAW PROFESSOR 2.5 mg $Given 12/25/2023 11:56 PM CLINICAL LAW PROFESSOR 2.[address] scan flush Intravenous, 100 mL, ONCE, On Mon12/26/23 at 1630, For 1 dose, This entry is for use by Radiology to intermittently used as a flush in patients receiving a CT scan. $Given 12/26/2023 4:24 PM CLINICAL LAW PROFESSOR 100 m Ls cyclobenzaprine (FLEXERIL) tablet 10 mg 10 mg, Oral, ONCE, On Mon12/24/23 at 2230, For 1 dose $Given 12/24/2023 10:25 PM CLINICAL LAW PROFESSOR 10 mg diclofenac (VOLTAREN) 1 % topical gel 4 g 4 g, Topical, 4 TIMES DAILY, First dose on Mon12/21/23 at 1300, Apply to affected areas. Use supplied dosing card to mearsure dose. $Given 12/29/2023 12:50 PM CLINICAL LAW PROFESSOR 4 g $Given 12/29/2023 8:41 AM CLINICAL LAW PROFESSOR 4 g $Given 12/28/2023 9:13 PM CLINICAL LAW PROFESSOR 4 g doxycycline (VIBRAMYCIN) 100 mg vial to attach to NS 100 mL bag Routine, 100 mg, Intravenous, EVERY 12 HOURS, First dose on Mon12/26/23 at 1900, Indications: Community Acquired Pneumonia $New Bag 12/28/2023 9:53 AM CLINICAL LAW PROFESSOR 100 mg $New Bag 12/27/2023 9:17 PM CLINICAL LAW PROFESSOR 100 mg $New Bag 12/27/2023 9:01 AM CLINICAL LAW PROFESSOR 100 mg doxycycline hyclate (VIBRAMYCIN) capsule 100 mg Routine, 100 mg, Oral, 2 TIMES DAILY, First dose on Elana 12/28/23 at 2100, Administer at least 2 hours before or after aluminum, calcium, iron, zinc or magnesium containing products., Indications: Community Acquired Pneumonia $Given 12/29/2023 8:40 AM CLINICAL LAW PROFESSOR 100 mg $Given 12/28/2023 9:13 PM CLINICAL LAW PROFESSOR 100 mg furosemide (LASIX) injection 10 mg 10 mg, Intravenous, ONCE, Administer over 1-3 Minutes, On 12/25/23 at 1430, For 1 dose, Do not refrigerate. Protect from light. $Given 12/25/2023 2:21 PM CLINICAL LAW PROFESSOR 10 mg furosemide (LASIX) injection 20 mg 20 mg, Intravenous, ONCE, Administer over 1-3 Minutes, On Mon12/22/23 at 1130, For 1 dose, Do not refrigerate. Protect from light. $Given 12/22/2023 11:55 AM CLINICAL LAW PROFESSOR 20 mg furosemide (LASIX) injection 20 mg 20 mg, Intravenous, ONCE, Administer over 1-3 Minutes, On Mon12/24/23 at 1300, For 1 dose, Do not refrigerate. Protect from light. $Given 12/24/2023 1:24 PM CLINICAL LAW PROFESSOR 20 mg gabapentin (NEURONTIN) capsule 100 mg 100 mg, Oral, AT BEDTIME, First dose (after last modification) on 12/23/23 at 0400 $Given 12/28/2023 9:13 PM CLINICAL LAW PROFESSOR 10 0 mg $Given 12/27/2023 9:31 PM CLINICAL LAW PROFESSOR 100 mg $Given 12/26/2023 9:26 PM CLINICAL LAW PROFESSOR 100 mg gabapentin 8 % in PLO cream 1 g 1 g, Topical, EVERY 8 HOURS PRN, pain, neuropathic pain, Starting on Mon12/26/23 at 0229, Apply to affected areas Dispense in dosing applicator. 1 click = 0.25g of product. haloperidol lactate (HALDOL) injection 2 mg 2 mg, Intravenous, EVERY 6 HOURS PRN, agitation, Administer over 1 Minutes, Starting on Mon12/27/23 at 1444 $Given 12/27/2023 2:47 PM CLINICAL LAW PROFESSOR 2 mg heparin 25,000 units in 0.45% NaCl 250 mL ANTICOAGULANT infusion 0-5,000 Units/hr (0-50 mL/hr), Intravenous, CONTINUOUS, Starting on Mon12/26/23 at 0900, --Nurse to use Heparin Infusion ADULT Dose Adjustments by RN order set after EVERY heparin unfractionated Anti-Xa result to place further orders (for bolus if needed, infusion adjustment if needed, and ordering next lab)- Starting Infusion Rate = 1800 units/hr (Ordered: 12/26/2023) High Intensity Heparin Treatment WITH Boluses. GOAL: Heparin Xa (10a) LEVEL = 0.3-0.7 IU/mL IF HEPARIN INFUSION HELD FOR PROCEDURE: Restart heparin infusion at previous rate (no bolus needed). Nurse to place a one-time unfractionated heparin Anti-Xa lab order timed for 6 hours after heparin infusion was restarted., Heparin Therapy Type: High Intensity Heparin Infusion (Anti Xa 0.3-0.7) Rate/Dose Verify 12/27/2023 3:38 PM CLINICAL LAW PROFESSOR 1,300 Units/hr 13 mL/hr $New Bag 12/27/2023 2:52 AM CLINICAL LAW PROFESSOR 1,300 Units/hr 13 mL/hr Rate/Dose Verify 12/27/2023 12:01 AM CLINICAL LAW PROFESSOR 1,500 Units/hr 15 mL/hr heparin ANTICOAGULANT loading dose for HIGH INTENSITY TREATMENT* Give BEFORE starting heparin infusion 8,000 Units, Intravenous, ONCE, On Mon12/26/23 at 0900, For 1 dose, Infuse over 5 minutes. High Intensity Heparin Treatment Nurse to administer dose from existing infusion. If no infusion bag or syringe for this order is available, contact pharmacist to re-enter medication order. $Given 12/26/2023 9:48 AM CLINICAL LAW PROFESSOR 8,000 Units hydrALAZINE (APRESOLINE) injection 10 mg 10 mg, Intravenous, EVERY 4 HOURS PRN, high blood pressure, for systolic BP greater than 180 mmHg, Administer over 1 Minutes, Starting on Elana 12/21/23 at 0756 $Given 12/26/2023 8:42 AM CLINICAL LAW PROFESSOR 10 mg $Given 12/23/2023 2:06 AM CLINICAL LAW PROFESSOR 10 mg hydrALAZINE (APRESOLINE) tablet 10 mg 10 mg, Oral, EVERY 4 HOURS PRN, high blood pressure, for systolic BP greater than 180 mmHg, Starting on Mon12/21/23 at 0756 $Given 12/21/2023 9:46 PM CLINICAL LAW PROFESSOR 10 mg hydrochlorothiazide (HYDRODIURIL) tablet 25 mg 25 mg, Oral, DAILY, First dose on Mon12/25/23 at 0900 $Given 12/25/2023 8:28 AM CLINICAL LAW PROFESSOR 25 mg hydrochlorothiazide (HYDRODIURIL) tablet 25 mg 25 mg, Oral, DAILY, First dose (after last modification) on Mon12/26/23 at 0900 $Given 12/29/2023 8:39 AM CLINICAL LAW PROFESSOR 25 mg $Given 12/28/2023 9:48 AM CLINICAL LAW PROFESSOR 25 mg $Given 12/27/2023 9:01 AM CLINICAL LAW PROFESSOR 25 mg HYDROmorphone (DILAUDID) injection 0.2 mg 0.2 mg, Intravenous, EVERY 3 HOURS PRN, moderate pain, Starting on Mon12/21/23 at 1011, On hold since Mon12/22/2023 at 1120 until manually unheld $Given 12/22/2023 12:31 AM CLINICAL LAW PROFESSOR 0.2 mg $Given 12/21/2023 11:32 AM CLINICAL LAW PROFESSOR 0.2 mg iopamidol (ISOVUE-370) solution 500 mL 500 mL, Intravenous, ONCE, On Mon12/26/23 at 1630, For 1 dose $Given 12/26/2023 4:24 PM CLINICAL LAW PROFESSOR 85 mLs ipratropium - albuterol 0.5 mg/2.5 mg/3 mL (DUONEB) neb solution 3 mL 3 mL, Nebulization, 4 TIMES DAILY RT, First dose on Mon12/28/23 at 0800 $Given 12/28/2023 8:33 AM CLINICAL LAW PROFESSOR 3 mLs ipratropium - albuterol 0.5 mg/2.5 mg/3 mL (DUONEB) neb solution 3 mL 3 mL, Nebulization, EVERY 4 HOURS PRN, wheezing, Starting on Mon12/28/23 at 1152 lactated ringers infusion at 125 mL/hr, Intravenous, CONTINUOUS, Starting on Mon12/21/23 at 0830, Until Mon12/22/23 at 0015 Restarted 12/21/2023 11:52 PM CLINICAL LAW PROFESSOR 125 mL/hr $New Bag 12/21/2023 4:40 PM CLINICAL LAW PROFESSOR 125 mL/hr $New Bag 12/21/2023 9:00 AM CLINICAL LAW PROFESSOR 125 mL/hr levofloxacin (LEVAQUIN) tablet 500 mg Routine, 500 mg, Oral, EVERY 24 HOURS, First dose on Mon12/21/23 at 2300, Administer at least 2 hours before or 4 hours after aluminum, calcium, iron, zinc or magnesium containing medications. May be taken with food or on an empty stomach. Do not administer alone with a dairy product like milk or yogurt or calcium-fortified juice, but may be administered with a meal containing dairy. Hold tube feeding 1 hour before and 1 hour after administration, Indications: Urinary Tract Infection $Given 12/24/2023 8:12 PM CLINICAL LAW PROFESSOR 500 mg $Given 12/23/2023 8:41 PM CLINICAL LAW PROFESSOR 500 mg $Given 12/22/2023 9:44 PM CLINICAL LAW PROFESSOR 500 mg levothyroxine (SYNTHROID/LEVOTHROID) tablet 112 mcg 112 mcg, Oral, DAILY, First dose on Mon12/21/23 at 1300, Separate oral administration of iron- or calcium-containing products and levothyroxine by at least 4 hours. $Given 12/22/2023 9:15 AM CLINICAL LAW PROFESSOR 112 mcg $Given 12/21/2023 1:41 PM CLINICAL LAW PROFESSOR 112 mcg levothyroxine (SYNTHROID/LEVOTHROID) tablet 125 mcg 125 mcg, Oral, DAILY, First dose (after last modification) on [facility] 12/23/23 at 0900, Separate oral administration of iron- or calcium-containing products and levothyroxine by at least 4 hours. $Given 12/29/2023 8:39 AM CLINICAL LAW PROFESSOR 125 mcg $Given 12/28/2023 9:49 AM CLINICAL LAW PROFESSOR 125 mcg $Given 12/27/2023 9:01 AM CLINICAL LAW PROFESSOR 125 mcg Lidocaine (LIDOCARE) 4 % Patch 2 patch 2 patch, Transdermal, EVERY 24 HOURS 0800, Administer over 12 Hours, First dose on Mon12/26/23 at 0800, Apply patch(s) to affected areas . To prevent lidocaine toxicity, patient should be patch free for 12 hrs daily. Patches may be cut to smaller size prior to removing release liner. Reminder: Remove previous patch before applying new patch. NEVER APPLY HEAT OVER PATCH which increases absorption and may lead to local anesthetic toxicity. Do not apply over area where liposomal bupivacaine was injected for 96 hours post injection. $Patch/Med Applied 12/29/2023 8:38 AM CLINICAL LAW PROFESSOR 2 patches Right Lower Back $Patch/Med Applied 12/28/2023 9:51 AM CLINICAL LAW PROFESSOR 2 patches Left Upper Back $Patch/Med Applied 12/27/2023 9:01 AM CLINICAL LAW PROFESSOR 2 patches Left Upper Back lidocaine (XYLOCAINE) 2 % external gel Urethral, ONCE PRN, mild pain, Starting on Mon12/21/23 at 1000, For 1 dose, Insert into urethra 5 minutes PRIOR to catheterization. losartan (COZAAR) tablet 50 mg 50 mg, Oral, 2 TIMES DAILY, First dose on Mon12/21/23 at 1300 $Given 12/24/2023 10:41 AM CLINICAL LAW PROFESSOR 50 mg $Given 12/23/2023 8:17 PM CLINICAL LAW PROFESSOR 50 mg $Given 12/23/2023 9:39 AM CLINICAL LAW PROFESSOR 50 mg melatonin tablet 1 mg 1 mg, Oral, AT BEDTIME PRN, sleep, Starting on Mon12/21/23 at 0757, Do not give unless at least 6 hours of uninterrupted sleep is expected. If patient has multiple medications ordered PRN sleep/insomnia, offer melatonin first., On hold since Mon12/22/2023 at 1649 until manually unheld $Given 12/21/2023 11:51 PM CLINICAL LAW PROFESSOR 1 mg melatonin tablet 3 mg 3 mg, Oral, AT BEDTIME PRN, sleep, Starting on Mon12/23/23 at 0155 $Given 12/28/2023 9:18 PM CLINICAL LAW PROFESSOR 3 mg $Given 12/27/2023 11:58 PM CLINICAL LAW PROFESSOR 3 mg $Given 12/25/2023 11:50 PM CLINICAL LAW PROFESSOR 3 mg menthol (ICY HOT) 5 % patch 1 patch 1 patch, Topical, EVERY 8 HOURS PRN, muscle soreness, Administer over 8 Hours, Starting on Mon12/26/23 at 0229, Apply to Skin. Remove 'old patch' and chart on Medication Patch Removal order when new patch is applied. Avoid placing heating pad over the patch. Reminder: Remove previous patch before applying new patch. $Patch/Med Applied 12/28/2023 10:00 AM CLINICAL LAW PROFESSOR 1 patch $Patch/Med Applied 12/27/2023 9:32 PM CLINICAL LAW PROFESSOR 1 patch $Patch/Med Applied 12/26/2023 6:13 AM CLINICAL LAW PROFESSOR 1 patch Left Shoulder menthol (ICY HOY) Patch in Place First dose on Mon12/26/23 at 0230, Chart every shift, confirming that patch is still in place on patient (no barcode scan needed). See patch order for dose information. methocarbamol (ROBAXIN) tablet 500 mg 500 mg, Oral, ONCE, On Mon12/25/23 at 0230, For 1 dose $Given 12/25/2023 2:26 AM CLINICAL LAW PROFESSOR 500 mg miconazole (MICATIN) 2 % cream Topical, 2 TIMES DAILY, First dose on Elana 12/21/23 at 1300, Apply to affected areas $Given 12/29/2023 8:41 AM CLINICAL LAW PROFESSOR $Given 12/28/2023 9:14 PM CLINICAL LAW PROFESSOR $Given 12/28/2023 9:52 AM CLINICAL LAW PROFESSOR naloxone (NARCAN) injection 0.2 mg 0.2 mg, Intravenous, EVERY 2 MIN PRN, opioid reversal, Starting on Mon12/21/23 at 1013, Administer intravenous route when available and notify provider when administered. For unintended sedation or respiratory depression if all of the below criteria are met: ~ respiratory rate LESS than or EQUAL to 8. ~SaO2 less than 92% and or/end-tidal CO2 is greater than 50. ~ the patient is receiving an opioid, has unintended sedations assessed as RASS (-3), and is currently not on mechanical ventilation. RASS scale moderate (-3) is movement or eye opening to voice but no eye contact. Patient Monitoring Once the patient has demonstrated a response to the naloxone, continue to monitor respiratory rate, depth, oxygen saturation and end-tidal CO2 (if available) every 15 minutes x 2, then every 30 minutes x 2, then every 1 hour x 1 after each naloxone dose. Consider transfer to ICU if patient respiratory parameters have not improved after 4 naloxone doses. naloxone (NARCAN) injection 0.2 mg 0.2 mg, Intramuscular, EVERY 2 MIN PRN, opioid reversal, Starting on Elana 12/21/23 at 1013, Administer intramuscular if an intravenous route is not available and notify provider when administered. For unintended sedation or respiratory depression if all of the below criteria are met: ~ respiratory rate LESS than or EQUAL to 8. ~SaO2 less than 92% and or/end-tidal CO2 is greater than 50. ~ the patient is receiving an opioid, has unintended sedations assessed as RASS (-3), and is currently not on mechanical ventilation. RASS scale moderate (-3) is movement or eye opening to voice but no eye contact. Patient Monitoring Once the patient has demonstrated a response to the naloxone, continue to monitor respiratory rate, depth, oxygen saturation and end-tidal CO2 (if available) every 15 minutes x 2, then every 30 minutes x 2, then every 1 hour x 1 after each naloxone dose. Consider transfer to ICU if patient respiratory parameters have not improved after 4 naloxone doses. naloxone (NARCAN) injection 0.4 mg 0.4 mg, Intravenous, EVERY 2 MIN PRN, opioid reversal, Starting on Elana 12/21/23 at 1013, Administer intravenous route when available and notify provider when administered. For unintended sedation or respiratory depression if all of the below criteria are met: ~ respiratory rate LESS than or EQUAL to 8. ~ SaO2 less than 92% and or/end-tidal CO2 is greater than 50. ~ the patient is receiving an opioid, has unintended sedation assessed as RASS (-4) or (-5) and patient is currently not on mechanical ventilation. RASS scale (-4) is deep sedation with no response to voice but movement or eye opening to physical stimulation. RASS scale (-5) is unarousable. Patient Monitoring Once the patient has demonstrated a response to the naloxone, continue to monitor respiratory rate, depth, oxygen saturation and end-tidal CO2 (if available) every 15 minutes x 2, then every 30 minutes x 2, then every 1 hour x 1 after each naloxone dose. Consider transfer to ICU if patient respiratory parameters have not improved after 4 naloxone doses. naloxone (NARCAN) injection 0.4 mg 0.4 mg, Intramuscular, EVERY 2 MIN PRN, opioid reversal, Starting on Elana 12/21/23 at 1013, Administer intramuscular if an intravenous route is not available and notify provider when administered. For unintended sedation or respiratory depression if all of the below criteria are met: ~ respiratory rate LESS than or EQUAL to 8. ~ SaO2 less than 92% and or/end-tidal CO2 is greater than 50. ~ the patient is receiving an opioid, has unintended sedation assessed as RASS (-4) or (-5) and patient is currently not on mechanical ventilation. RASS scale (-4) is deep sedation with no response to voice but movement or eye opening to physical stimulation. RASS scale (-5) is unarousable. Patient Monitoring Once the patient has demonstrated a response to the naloxone, continue to monitor respiratory rate, depth, oxygen saturation and end-tidal CO2 (if available) every 15 minutes x 2, then every 30 minutes x 2, then every 1 hour x 1 after each naloxone dose. Consider transfer to ICU if patient respiratory parameters have not improved after 4 naloxone doses. OLANZapine (zyPREXA) injection 2.5 mg 2.5 mg, Intramuscular, EVERY 6 HOURS PRN, agitation, and NPO or unmanageable with oral choices., Starting on Elana 12/21/23 at 0800, Dissolve the contents of the 10 mg vial using 2.1 mL of Sterile Water for Injection to provide a solution containing 5 mg/mL of olanzapine. Withdraw the ordered dose from vial. Use immediately (within 1 hour) after reconstitution. Discard any unused portion. $Given 12/27/2023 3:41 AM CLINICAL LAW PROFESSOR 2.5 mg $Given 12/26/2023 6:21 PM CLINICAL LAW PROFESSOR 2.5 mg $Given 12/26/2023 12:53 AM CLINICAL LAW PROFESSOR 2.5 mg OLANZapine zydis (zyPREXA) ODT tab 5 mg 5 mg, Oral, ONCE, On 12/25/23 at 2000, For 1 dose, Combined IM and PO doses may significantly increase the risk of orthostatic hypotension at 30 mg per day or higher. With dry hands, peel back foil backing and gently remove tablet. Do not push oral disintegrating tablet through foil backing. Administer immediately on tongue and oral disintegrating tablet dissolves in seconds, then swallow with saliva. Liquid not required. $Given 12/25/2023 7:50 PM CLINICAL LAW PROFESSOR 5 mg ondansetron (ZOFRAN ODT) ODT tab 4 mg 4 mg, Oral, EVERY 6 HOURS PRN, nausea, vomiting, Starting on Mon12/21/23 at 0754, This is Step 1 of nausea and vomiting management. If nausea not resolved in 15 minutes, go to Step 2 prochlorperazine (COMPAZINE). With dry hands, peel back foil backing and gently remove tablet. Do not push oral disintegrating tablet through foil backing. Administer immediately on tongue and oral disintegrating tablet dissolves in seconds, then swallow with saliva. Liquid not required. ondansetron (ZOFRAN) injection 4 mg 4 mg, Intravenous, EVERY 6 HOURS PRN, nausea, vomiting, Administer over 2-5 Minutes, Starting on Elana 12/21/23 at 0754, Give IF patient unable to tolerate oral medication. This is Step 1 of nausea and vomiting management. If nausea not resolved in 15 minutes, go to Step 2 prochlorperazine (COMPAZINE). Irritant. perflutren diluted 1mL to 2mL with saline (OPTISON) diluted injection 3 mL 3 mL, Intravenous, ONCE, On 12/23/23 at 0900, For 1 dose, [facility] [id number] $Given 12/23/2023 9:21 AM CLINICAL LAW PROFESSOR 3 mLs prochlorperazine (COMPAZINE) injection 5 mg 5 mg, Intravenous, EVERY 6 HOURS PRN, nausea, vomiting, Administer over 1-2 Minutes, Starting on Elana 12/21/23 at 0757, Give IF patient unable to tolerate oral medication. This is Step 2 of nausea and vomiting management. Give if nausea not resolved 15 minutes after giving ondansetron (ZOFRAN). If nausea not resolved in 15-30 minutes, Notify provider. prochlorperazine (COMPAZINE) suppository 12.5 mg 12.5 mg, Rectal, EVERY 12 HOURS PRN, nausea, vomiting, Starting on Elana 12/21/23 at 0757, This is Step 2 of nausea and vomiting management. Give if nausea not resolved 15 minutes after giving ondansetron (ZOFRAN). If nausea not resolved in 15-30 minutes, Notify provider. prochlorperazine (COMPAZINE) tablet 5 mg 5 mg, Oral, EVERY 6 HOURS PRN, vomiting, Starting on Elana 12/21/23 at 0757, This is Step 2 of nausea and vomiting management. Give if nausea not resolved 15 minutes after giving ondansetron (ZOFRAN). If nausea not resolved in 15-30 minutes, Notify provider. QUEtiapine (SEROquel) half-tab 12.5 mg 12.5 mg, Oral, EVERY 6 HOURS PRN, Agitation, Starting on Elana 12/21/23 at 0800, On hold since Mon12/22/2023 at 1649 until manually unheld $Given 12/22/2023 12:23 AM CLINICAL LAW PROFESSOR 12.5 mg QUEtiapine (SEROquel) half-tab 12.5 mg 12.5 mg, Oral, AT BEDTIME PRN, sleep, Starting on 12/23/23 at 1223 $Given 12/28/2023 1:07 AM CLINICAL LAW PROFESSOR 12.5 mg $Given 12/26/2023 8:33 PM CLINICAL LAW PROFESSOR 12.5 mg $Given 12/25/2023 11:50 PM CLINICAL LAW PROFESSOR 12.5 mg rivaroxaban ANTICOAGULANT (XARELTO) tablet 15 mg 15 mg, Oral, 2 TIMES DAILY WITH MEALS, First dose on Mon12/27/23 at 1800, For 21 days, Indications: DVT-PE Treatment $Given 12/29/2023 8:38 AM CLINICAL LAW PROFESSOR 15 mg $Given 12/28/2023 5:55 PM CLINICAL LAW PROFESSOR 15 mg $Given 12/28/2023 9:49 AM CLINICAL LAW PROFESSOR 15 mg rivaroxaban ANTICOAGULANT (XARELTO) tablet 20 mg 20 mg, Oral, DAILY WITH SUPPER, First dose on Mon01/17/24 at 1800, Indications: DVT-PE Treatment senna-docusate (SENOKOT-S/PERICOLACE) 8.6-50 MG per tablet 1 tablet 1 tablet, Oral, 2 TIMES DAILY PRN, constipation, Starting on Elana 12/21/23 at 0754, If no bowel movement in 24 hours, increase to 2 tablets by mouth. IF more than 1 constipation PRN medication is ordered, administer step-acuna as indicated, moving to the next step ONLY if prior step ineffective. Step 1: senna-docusate (SENOKOT-S; PERICOLACE) OR bisacodyl (DULCOLAX) EC tablet Step 2: polyethylene glycol (MIRALAX/GLYCOLAX) Step 3: bisacodyl (DULCOLAX) suppository Step 4: enema Hold for loose stools. $Given 12/26/2023 10:29 AM CLINICAL LAW PROFESSOR 1 tabl et senna-docusate (SENOKOT-S/PERICOLACE) 8.6-50 MG per tablet 2 tablet 2 tablet, Oral, 2 TIMES DAILY PRN, constipation, Starting on Elana 12/21/23 at 0754, IF more than 1 constipation PRN medication is ordered, administer step-acuna as indicated, moving to the next step ONLY if prior step ineffective. Step 1: senna-docusate (SENOKOT-S; PERICOLACE) OR bisacodyl (DULCOLAX) EC tablet Step 2: polyethylene glycol (MIRALAX/GLYCOLAX) Step 3: bisacodyl (DULCOLAX) suppository Step 4: enema Hold for loose stools. sodium chloride (PF) 0.9% PF flush 10 mL 10 mL, Intravenous, ONCE, On 12/23/23 at 0900, For 1 dose $Given 12/23/2023 9:20 AM CLINICAL LAW PROFESSOR 10 mLs sodium chloride (PF) 0.9% PF flush 3 mL 3 mL, Intracatheter, EVERY 1 MIN PRN, line flush, Starting on Elana 12/21/23 at 0755, for peripheral IV flush post IV meds $Given 12/22/2023 10:22 PM CLINICAL LAW PROFESSOR 3 mLs sodium chloride (PF) 0.9% PF flush 3 mL 3 mL, Intracatheter, EVERY 8 HOURS, First dose on Elana 12/21/23 at 0830, And Q1H PRN, to lock peripheral IV dormant line. $Given 12/29/2023 8:39 AM CLINICAL LAW PROFESSOR 3 mLs $Given 12/29/2023 1:33 AM CLINICAL LAW PROFESSOR 3 mLs $Given 12/28/2023 5:56 PM CLINICAL LAW PROFESSOR 3 mLs traMADol (ULTRAM) half-tab 25 mg 25 mg, Oral, 3 TIMES DAILY PRN, moderate pain, Starting on 12/23/23 at 1222, Hold for oversedation. $Given 12/28/2023 1:07 AM CLINICAL LAW PROFESSOR 25 mg $Given 12/27/2023 2:11 PM CLINICAL LAW PROFESSOR 25 mg $Given 12/27/2023 1:24 AM CLINICAL LAW PROFESSOR 25 mg documented in this encounter Active and Recently Administered Medications Times are shown in CLINICAL LAW PROFESSOR. Scheduled Medication Order 12/27/2023 12/28/2023 12/29/2023 diclofenac (VOLTAREN) 1 % topical gel 4 g 4 g, Topical, 4 TIMES DAILY, First dose on Elana 12/21/23 at 1300, Apply to affected areas. Use supplied dosing card to mearsure dose. 0902 ($Given - Provider: Chastity Escobar RN)1223 ($Given - Provider: Chastity Escobar RN)1818 ($Given - Provider: Sabine Velasquez RN)2129 ($Given - Provider: Karen Ward RN) 1015 (Not Given - Provider: Darrell Nelson RN - Reason: Patient/family refused)1405 (Not Given - Provider: Darrell Nelson RN - Reason: Patient/family refused)1756 ($Given - Provider: Vilma Copeland RN)2112 ($Given - Provider: Rizwana Cortez RN - Comment: L shoulder) 0841 ($Given - Provider: Berny Irwin RN)1250 ($Given - Provider: Berny Irwin RN) doxycycline (VIBRAMYCIN) 100 mg vial to attach to NS 100 mL bag (CANCELED) Routine, 100 mg, Intravenous, EVERY 12 HOURS, First dose on Mon12/26/23 at 1900, Indications: Community Acquired Pneumonia 09 ($New Bag - Provider: Chastity Escobar RN)2116 ($New Bag - Provider: Karen Ward RN) 0953 ($New Bag - Provider: Darrell Nelson RN) doxycycline hyclate (VIBRAMYCIN) capsule 100 mg Routine, 100 mg, Oral, 2 TIMES DAILY, First dose on Mon12/28/23 at 2100, Administer at least 2 hours before or after aluminum, calcium, iron, zinc or magnesium containing products., Indications: Community Acquired Pneumonia 2112 ($Given - Provider: Rizwana Cortez RN) 0840 ($Given - Provider: Berny Irwin RN) gabapentin (NEURONTIN) capsule 100 mg 100 mg, Oral, AT BEDTIME, First dose (after last modification) on Mon12/23/23 at 0400 2131 ($Given - Provider: Karen Ward RN) 2112 ($Given - Provider: Rizwana Cortez RN) hydrochlorothiazide (HYDRODIURIL) tablet 25 mg 25 mg, Oral, DAILY, First dose (after last modification) on Mon12/26/23 at 0900 0901 ($Given - Provider: Chastity Escobar RN) 0948 ($Given - Provider: Darrell Nelson RN) 0839 ($Given - Provider: Berny Irwin RN) ipratropium - albuterol 0.5 mg/2.5 mg/3 mL (DUONEB) neb solution 3 mL (CANCELED) 3 mL, Nebulization, 4 TIMES DAILY RT, First dose on Elana 12/28/23 at 0800 0833 ($Given - Provider: Lionel Fontenot, RT) levothyroxine (SYNTHROID/LEVOTHROID) tablet 125 mcg 125 mcg, Oral, DAILY, First dose (after last modification) on 12/23/23 at 0900, Separate oral administration of iron- or calcium-containing products and levothyroxine by at least 4 hours. 0901 ($Given - Provider: Chastity Escobar RN) 0949 ($Given - Provider: Darrell Nelson RN) 0839 ($Given - Provider: Berny Irwin RN) Lidocaine (LIDOCARE) 4 % Patch 2 patch 2 patch, Transdermal, EVERY 24 HOURS 0800, Administer over 12 Hours, First dose on Mon12/26/23 at 0800, Apply patch(s) to affected areas . To prevent lidocaine toxicity, patient should be patch free for 12 hrs daily. Patches may be cut to smaller size prior to removing release liner. Reminder: Remove previous patch before applying new patch. NEVER APPLY HEAT OVER PATCH which increases absorption and may lead to local anesthetic toxicity. Do not apply over area where liposomal bupivacaine was injected for 96 hours post injection. 0901 ($Patch/Med Applied - Provider: Chastity Escobar RN)2144 (Patch/Med Removed - Provider: Karen Ward RN) 0951 ($Patch/Med Applied - Provider: Darrell Nelson RN)2113 (Patch/Med Removed - Provider: Rizwana Cortez RN) 0838 ($Patch/Med Applied - Provider: Berny Irwin RN)1438 (Due: Patch/Med Removed - Provider: Orders Generic Provider - Comment: Time automatically adjusted from order being discontinued) menthol (ICY HOY) Patch in Place(Linked Group 1) First dose on Mon12/26/23 at 0230, Chart every shift, confirming that patch is still in place on patient (no barcode scan needed). See patch order for dose information. 0346 (Patch Free Period - Provider: Abhishek Bajwa RN)1112 (Patch Free Period - Provider: Chastity Escobar RN)1817 (Patch in Place - Provider: Sabine Velasquez RN) 0137 (Patch in Place - Provider: Tessy Rosenberg RN)1017 (Patch in Place - Provider: Darrell Nelson RN)1756 (Patch Free Period - Provider: Vilma Copeland, HERACLIO) 0137 (Patch Free Period - Provider: Cecile Joy RN)1030 (Patch Free Period - Provider: Berny Irwin RN - Comment: refused patch) miconazole (MICATIN) 2 % cream Topical, 2 TIMES DAILY, First dose on Mon12/21/23 at 1300, Apply to affected areas 0902 ($Given - Provider: Chastity Escobar RN)2216 ($Given - Provider: Karen Ward RN) 0952 ($Given - Provider: Darrell Nelson RN)2114 ($Given - Provider: Rizwana Cortez RN - Comment: [place] under R breast) 0841 ($Given - Provider: Berny Irwin RN) rivaroxaban ANTICOAGULANT (XARELTO) tablet 15 mg(Linked Group 2) 15 mg, Oral, 2 TIMES DAILY WITH MEALS, First dose on Mon12/27/23 at 1800, For 21 days, Indications: DVT-PE Treatment 181 ($Given - Provider: Sabine Velasquez RN) 0949 ($Given - Provider: Darrell Nelson RN)1755 ($Given - Provider: Vilma Copeland RN) 0838 ($Given - Provider: Berny Irwin RN) rivaroxaban ANTICOAGULANT (XARELTO) tablet 20 mg(Linked Group 2) 20 mg, Oral, DAILY WITH SUPPER, First dose on Mon01/17/24 at 1800, Indications: DVT-PE Treatment sodium chloride (PF) 0.9% PF flush 3 mL 3 mL, Intracatheter, EVERY 8 HOURS, First dose on Mon12/21/23 at 0830, And Q1H PRN, to lock peripheral IV dormant line. 0002 ($Given - Provider: Abhishek Bajwa RN)0902 ($Given - Provider: Chastity Escobar RN)1821 ($Given - Provider: Sabine Velasquez, HERACLIO)2358 ($Given - Provider: Tessy Rosenberg, HERACLIO) 0953 ($Given - Provider: Darrell Nelson RN)1756 ($Given - Provider: Vilma Copeland, HERACLIO) 0133 ($Given - Provider: Cecile Joy, HERACLIO)0839 ($Given - Provider: Berny Irwin RN)1600 (Canceled Entry - Provider: Orders Generic Provider - Comment: Automatically canceled at discontinue of medication order) Continuous Medication Order 12/27/2023 12/28/2023 12/29/2023 heparin 25,000 units in 0.45% NaCl 250 mL ANTICOAGULANT infusion (CANCELED) 0-5,000 Units/hr (0-50 mL/hr), Intravenous, CONTINUOUS, Starting on Mon12/26/23 at 0900, --Nurse to use Heparin Infusion ADULT Dose Adjustments by RN order set after EVERY heparin unfractionated Anti-Xa result to place further orders (for bolus if needed, infusion adjustment if needed, and ordering next lab)- Starting Infusion Rate = 1800 units/hr (Ordered: 12/26/2023) High Intensity Heparin Treatment WITH Boluses. GOAL: Heparin Xa (10a) LEVEL = 0.3-0.7 IU/mL IF HEPARIN INFUSION HELD FOR PROCEDURE: Restart heparin infusion at previous rate (no bolus needed). Nurse to place a one-time unfractionated heparin Anti-Xa lab order timed for 6 hours after heparin infusion was restarted., Heparin Therapy Type: High Intensity Heparin Infusion (Anti Xa 0.3-0.7) 0001 (Rate/Dose Verify - Provider: Abhishek Bajwa RN)0119 (Paused - Provider: Abhishek Bajwa RN)0252 ($New Bag - Provider: Abhishek Bajwa RN)1538 (Rate/Dose Verify - Provider: Sabine Velasquez RN - Comment: Hep recheck within goal range X2. scheduled for AM re-check.)1702 (Infusion stopped per MD order - Provider: Sabine Velasquez RN) PRN Medication Order 12/27/2023 12/28/2023 12/29/2023 acetaminophen (TYLENOL) Suppository 650 mg(Linked Group 3) 650 mg, Rectal, EVERY 4 HOURS PRN, mild pain, other, and adjunct with moderate or severe pain or per patient request, Starting on Mon12/21/23 at 0756, Alternate with ibuprofen if ordered. Maximum acetaminophen dose from all sources = 75 mg/kg/day not to exceed 4 grams/day. 2357 (See Alternative - Provider: Tessy Rosenberg RN) 181 (See Alternative - Provider: Vilma Copeland RN)2117 (See Alternative - Provider: Rizwana Cortez RN) acetaminophen (TYLENOL) tablet 650 mg(Linked Group 3) 650 mg, Oral, EVERY 4 HOURS PRN, mild pain, other, and adjunct with moderate or severe pain or per patient request, Starting on Mon12/21/23 at 0756, Alternate with ibuprofen if ordered. Maximum acetaminophen dose from all sources = 75 mg/kg/day not to exceed 4 grams/day. 235 ($Given - Provider: Tessy Rosenberg RN) 1812 ($Given - Provider: Vilma Copeland RN)2117 ($Given - Provider: Rizwana Cortez RN - Comment: L shoulder pain) gabapentin 8 % in PLO cream 1 g 1 g, Topical, EVERY 8 HOURS PRN, pain, neuropathic pain, Starting on Mon12/26/23 at 0229, Apply to affected areas Dispense in dosing applicator. 1 click = 0.25g of product. haloperidol lactate (HALDOL) injection 2 mg (CANCELED) 2 mg, Intravenous, EVERY 6 HOURS PRN, agitation, Administer over 1 Minutes, Starting on Mon12/27/23 at 1444 1447 ($Given - Provider: Chastity Escobar, HERACLIO) hydrALAZINE (APRESOLINE) injection 10 mg(Linked Group 4) 10 mg, Intravenous, EVERY 4 HOURS PRN, high blood pressure, for systolic BP greater than 180 mmHg, Administer over 1 Minutes, Starting on Mon12/21/23 at 0756 hydrALAZINE (APRESOLINE) tablet 10 mg(Linked Group 4) 10 mg, Oral, EVERY 4 HOURS PRN, high blood pressure, for systolic BP greater than 180 mmHg, Starting on Mon12/21/23 at 0756 HYDROmorphone (DILAUDID) injection 0.2 mg 0.2 mg, Intravenous, EVERY 3 HOURS PRN, moderate pain, Starting on Elana 12/21/23 at 1011, On hold since Mon12/22/2023 at 1120 until manually unheld 1645 (Unheld by provider - Provider: Orders Generic Provider) ipratropium - albuterol 0.5 mg/2.5 mg/3 mL (DUONEB) neb solution 3 mL 3 mL, Nebulization, EVERY 4 HOURS PRN, wheezing, Starting on Elana 12/28/23 at 1152 lidocaine (LMX4) cream Topical, EVERY 1 HOUR PRN, pain, with VAD insertion or accessing implanted port., Starting on Elana 12/21/23 at 0755, Do NOT give if patient has a history of allergy to any local anesthetic or any asad product. Apply at least 30 minutes prior to VAD insertion or port access. In divided doses as needed for size of site for VAD insertion with MAX Dose: 2.5 g (?? of 5 g tube). lidocaine (XYLOCAINE) 2 % external gel Urethral, ONCE PRN, mild pain, Starting on Mon12/21/23 at 1000, For 1 dose, Insert into urethra 5 minutes PRIOR to catheterization. lidocaine 1 % 0.1-1 mL 0.1-1 mL, Other, EVERY 1 HOUR PRN, mild pain with VAD insertion., Starting on Elana 12/21/23 at 0755, Do NOT give if patient has a history of allergy to any local anesthetic or any asad product. MAX dose 1 mL subcutaneous OR intradermal in divided doses as needed for VAD insertion. melatonin tablet 3 mg 3 mg, Oral, AT BEDTIME PRN, sleep, Starting on 12/23/23 at 0155 2358 ($Given - Provider: Tessy Rosenberg RN) 2118 ($Given - Provider: Rizwana Cortez RN) menthol (ICY HOT) 5 % patch 1 patch(Linked Group 1) 1 patch, Topical, EVERY 8 HOURS PRN, muscle soreness, Administer over 8 Hours, Starting on Tu12/26/23 at 0229, Apply to Skin. Remove 'old patch' and chart on Medication Patch Removal order when new patch is applied. Avoid placing heating pad over the patch. Reminder: Remove previous patch before applying new patch. 2131 ($Patch/Med Applied - Provider: Karen Ward, RN) 0621 (Patch/Med Removed - Provider: Tessy Rosenberg, RN)1000 ($Patch/Med Applied - Provider: Darrell Nelson, HERACLIO)1756 (Patch/Med Removed - Provider: Vilma Copeland, RN) naloxone (NARCAN) injection 0.2 mg(Linked Group 5) 0.2 mg, Intravenous, EVERY 2 MIN PRN, opioid reversal, Starting on Elana 12/21/23 at 1013, Administer intravenous route when available and notify provider when administered. For unintended sedation or respiratory depression if all of the below criteria are met: ~ respiratory rate LESS than or EQUAL to 8. ~SaO2 less than 92% and or/end-tidal CO2 is greater than 50. ~ the patient is receiving an opioid, has unintended sedations assessed as RASS (-3), and is currently not on mechanical ventilation. RASS scale moderate (-3) is movement or eye opening to voice but no eye contact. Patient Monitoring Once the patient has demonstrated a response to the naloxone, continue to monitor respiratory rate, depth, oxygen saturation and end-tidal CO2 (if available) every 15 minutes x 2, then every 30 minutes x 2, then every 1 hour x 1 after each naloxone dose. Consider transfer to ICU if patient respiratory parameters have not improved after 4 naloxone doses. naloxone (NARCAN) injection 0.2 mg(Linked Group 5) 0.2 mg, Intramuscular, EVERY 2 MIN PRN, opioid reversal, Starting on Elana 12/21/23 at 1013, Administer intramuscular if an intravenous route is not available and notify provider when administered. For unintended sedation or respiratory depression if all of the below criteria are met: ~ respiratory rate LESS than or EQUAL to 8. ~SaO2 less than 92% and or/end-tidal CO2 is greater than 50. ~ the patient is receiving an opioid, has unintended sedations assessed as RASS (-3), and is currently not on mechanical ventilation. RASS scale moderate (-3) is movement or eye opening to voice but no eye contact. Patient Monitoring Once the patient has demonstrated a response to the naloxone, continue to monitor respiratory rate, depth, oxygen saturation and end-tidal CO2 (if available) every 15 minutes x 2, then every 30 minutes x 2, then every 1 hour x 1 after each naloxone dose. Consider transfer to ICU if patient respiratory parameters have not improved after 4 naloxone doses. naloxone (NARCAN) injection 0.4 mg(Linked Group 5) 0.4 mg, Intravenous, EVERY 2 MIN PRN, opioid reversal, Starting on Elana 12/21/23 at 1013, Administer intravenous route when available and notify provider when administered. For unintended sedation or respiratory depression if all of the below criteria are met: ~ respiratory rate LESS than or EQUAL to 8. ~ SaO2 less than 92% and or/end-tidal CO2 is greater than 50. ~ the patient is receiving an opioid, has unintended sedation assessed as RASS (-4) or (-5) and patient is currently not on mechanical ventilation. RASS scale (-4) is deep sedation with no response to voice but movement or eye opening to physical stimulation. RASS scale (-5) is unarousable. Patient Monitoring Once the patient has demonstrated a response to the naloxone, continue to monitor respiratory rate, depth, oxygen saturation and end-tidal CO2 (if available) every 15 minutes x 2, then every 30 minutes x 2, then every 1 hour x 1 after each naloxone dose. Consider transfer to ICU if patient respiratory parameters have not improved after 4 naloxone doses. naloxone (NARCAN) injection 0.4 mg(Linked Group 5) 0.4 mg, Intramuscular, EVERY 2 MIN PRN, opioid reversal, Starting on Elana 12/21/23 at 1013, Administer intramuscular if an intravenous route is not available and notify provider when administered. For unintended sedation or respiratory depression if all of the below criteria are met: ~ respiratory rate LESS than or EQUAL to 8. ~ SaO2 less than 92% and or/end-tidal CO2 is greater than 50. ~ the patient is receiving an opioid, has unintended sedation assessed as RASS (-4) or (-5) and patient is currently not on mechanical ventilation. RASS scale (-4) is deep sedation with no response to voice but movement or eye opening to physical stimulation. RASS scale (-5) is unarousable. Patient Monitoring Once the patient has demonstrated a response to the naloxone, continue to monitor respiratory rate, depth, oxygen saturation and end-tidal CO2 (if available) every 15 minutes x 2, then every 30 minutes x 2, then every 1 hour x 1 after each naloxone dose. Consider transfer to ICU if patient respiratory parameters have not improved after 4 naloxone doses. OLANZapine (zyPREXA) injection 2.5 mg 2.5 mg, Intramuscular, EVERY 6 HOURS PRN, agitation, and NPO or unmanageable with oral choices., Starting on Elana 12/21/23 at 0800, Dissolve the contents of the 10 mg vial using 2.1 mL of Sterile Water for Injection to provide a solution containing 5 mg/mL of olanzapine. Withdraw the ordered dose from vial. Use immediately (within 1 hour) after reconstitution. Discard any unused portion. 0341 ($Given - Provider: Abhishek Bajwa RN) ondansetron (ZOFRAN ODT) ODT tab 4 mg(Linked Group 6) 4 mg, Oral, EVERY 6 HOURS PRN, nausea, vomiting, Starting on Elana 12/21/23 at 0754, This is Step 1 of nausea and vomiting management. If nausea not resolved in 15 minutes, go to Step 2 prochlorperazine (COMPAZINE). With dry hands, peel back foil backing and gently remove tablet. Do not push oral disintegrating tablet through foil backing. Administer immediately on tongue and oral disintegrating tablet dissolves in seconds, then swallow with saliva. Liquid not required. ondansetron (ZOFRAN) injection 4 mg(Linked Group 6) 4 mg, Intravenous, EVERY 6 HOURS PRN, nausea, vomiting, Administer over 2-5 Minutes, Starting on Elana 12/21/23 at 0754, Give IF patient unable to tolerate oral medication. This is Step 1 of nausea and vomiting management. If nausea not resolved in 15 minutes, go to Step 2 prochlorperazine (COMPAZINE). Irritant. prochlorperazine (COMPAZINE) injection 5 mg(Linked Group 7) 5 mg, Intravenous, EVERY 6 HOURS PRN, nausea, vomiting, Administer over 1-2 Minutes, Starting on Elana 12/21/23 at 0757, Give IF patient unable to tolerate oral medication. This is Step 2 of nausea and vomiting management. Give if nausea not resolved 15 minutes after giving ondansetron (ZOFRAN). If nausea not resolved in 15-30 minutes, Notify provider. prochlorperazine (COMPAZINE) suppository 12.5 mg(Linked Group 7) 12.5 mg, Rectal, EVERY 12 HOURS PRN, nausea, vomiting, Starting on Elana 12/21/23 at 0757, This is Step 2 of nausea and vomiting management. Give if nausea not resolved 15 minutes after giving ondansetron (ZOFRAN). If nausea not resolved in 15-30 minutes, Notify provider. prochlorperazine (COMPAZINE) tablet 5 mg(Linked Group 7) 5 mg, Oral, EVERY 6 HOURS PRN, vomiting, Starting on Elana 12/21/23 at 0757, This is Step 2 of nausea and vomiting management. Give if nausea not resolved 15 minutes after giving ondansetron (ZOFRAN). If nausea not resolved in 15-30 minutes, Notify provider. QUEtiapine (SEROquel) half-tab 12.5 mg 12.5 mg, Oral, AT BEDTIME PRN, sleep, Starting on 12/23/23 at 1223 0107 ($Given - Provider: Tessy Rosenberg RN) senna-docusate (SENOKOT-S/PERICOLACE) 8.6-50 MG per tablet 1 tablet(Linked Group 8) 1 tablet, Oral, 2 TIMES DAILY PRN, constipation, Starting on Elana 12/21/23 at 0754, If no bowel movement in 24 hours, increase to 2 tablets by mouth. IF more than 1 constipation PRN medication is ordered, administer step-acuna as indicated, moving to the next step ONLY if prior step ineffective. Step 1: senna-docusate (SENOKOT-S; PERICOLACE) OR bisacodyl (DULCOLAX) EC tablet Step 2: polyethylene glycol (MIRALAX/GLYCOLAX) Step 3: bisacodyl (DULCOLAX) suppository Step 4: enema Hold for loose stools. senna-docusate (SENOKOT-S/PERICOLACE) 8.6-50 MG per tablet 2 tablet(Linked Group 8) 2 tablet, Oral, 2 TIMES DAILY PRN, constipation, Starting on Elana 12/21/23 at 0754, IF more than 1 constipation PRN medication is ordered, administer step-acuna as indicated, moving to the next step ONLY if prior step ineffective. Step 1: senna-docusate (SENOKOT-S; PERICOLACE) OR bisacodyl (DULCOLAX) EC tablet Step 2: polyethylene glycol (MIRALAX/GLYCOLAX) Step 3: bisacodyl (DULCOLAX) suppository Step 4: enema Hold for loose stools. sodium chloride (PF) 0.9% PF flush 3 mL 3 mL, Intracatheter, EVERY 1 MIN PRN, line flush, Starting on Elana 12/21/23 at 0755, for peripheral IV flush post IV meds traMADol (ULTRAM) half-tab 25 mg 25 mg, Oral, 3 TIMES DAILY PRN, moderate pain, Starting on 12/23/23 at 1222, Hold for oversedation. 0124 ($Given - Provider: Abhishek Bajwa, RN)1411 ($Given - Provider: Chastity Escobar, HERACLIO) 0107 ($Given - Provider: Tessy Rosenberg, HERACLIO) Linked Groups Order Group 1: menthol (ICY HOT) 5 % patch 1 patchJump to med 1 patch, Topical, EVERY 8 HOURS PRN, muscle soreness, Administer over 8 Hours, Starting on Mon12/26/23 at 0229, Apply to Skin. Remove 'old patch' and chart on Medication Patch Removal order when new patch is applied. Avoid placing heating pad over the patch. Reminder: Remove previous patch before applying new patch. And menthol (ICY HOY) Patch in PlaceJump to med First dose on Mon12/26/23 at 0230, Chart every shift, confirming that patch is still in place on patient (no barcode scan needed). See patch order for dose information. Group 2: rivaroxaban ANTICOAGULANT (XARELTO) tablet 15 mgJump to med 15 mg, Oral, 2 TIMES DAILY WITH MEALS, First dose on Mon12/27/23 at 1800, For 21 days, Indications: DVT-PE Treatment Followed by rivaroxaban ANTICOAGULANT (XARELTO) tablet 20 mgJump to med 20 mg, Oral, DAILY WITH SUPPER, First dose on Mon01/17/24 at 1800, Indications: DVT-PE Treatment Group 3: acetaminophen (TYLENOL) tablet 650 mgJump to med 650 mg, Oral, EVERY 4 HOURS PRN, mild pain, other, and adjunct with moderate or severe pain or per patient request, Starting on Elana 12/21/23 at 0756, Alternate with ibuprofen if ordered. Maximum acetaminophen dose from all sources = 75 mg/kg/day not to exceed 4 grams/day. Or acetaminophen (TYLENOL) Suppository 650 mgJump to med 650 mg, Rectal, EVERY 4 HOURS PRN, mild pain, other, and adjunct with moderate or severe pain or per patient request, Starting on Elana 12/21/23 at 0756, Alternate with ibuprofen if ordered. Maximum acetaminophen dose from all sources = 75 mg/kg/day not to exceed 4 grams/day. Group 4: hydrALAZINE (APRESOLINE) tablet 10 mgJump to med 10 mg, Oral, EVERY 4 HOURS PRN, high blood pressure, for systolic BP greater than 180 mmHg, Starting on Elana 12/21/23 at 0756 Or hydrALAZINE (APRESOLINE) injection 10 mgJump to med 10 mg, Intravenous, EVERY 4 HOURS PRN, high blood pressure, for systolic BP greater than 180 mmHg, Administer over 1 Minutes, Starting on Elana 12/21/23 at 0756 Group 5: naloxone (NARCAN) injection 0.2 mgJump to med 0.2 mg, Intravenous, EVERY 2 MIN PRN, opioid reversal, Starting on Elana 12/21/23 at 1013, Administer intravenous route when available and notify provider when administered. For unintended sedation or respiratory depression if all of the below criteria are met: ~ respiratory rate LESS than or EQUAL to 8. ~SaO2 less than 92% and or/end-tidal CO2 is greater than 50. ~ the patient is receiving an opioid, has unintended sedations assessed as RASS (-3), and is currently not on mechanical ventilation. RASS scale moderate (-3) is movement or eye opening to voice but no eye contact. Patient Monitoring Once the patient has demonstrated a response to the naloxone, continue to monitor respiratory rate, depth, oxygen saturation and end-tidal CO2 (if available) every 15 minutes x 2, then every 30 minutes x 2, then every 1 hour x 1 after each naloxone dose. Consider transfer to ICU if patient respiratory parameters have not improved after 4 naloxone doses. Or naloxone (NARCAN) injection 0.4 mgJump to med 0.4 mg, Intravenous, EVERY 2 MIN PRN, opioid reversal, Starting on Elana 12/21/23 at 1013, Administer intravenous route when available and notify provider when administered. For unintended sedation or respiratory depression if all of the below criteria are met: ~ respiratory rate LESS than or EQUAL to 8. ~ SaO2 less than 92% and or/end-tidal CO2 is greater than 50. ~ the patient is receiving an opioid, has unintended sedation assessed as RASS (-4) or (-5) and patient is currently not on mechanical ventilation. RASS scale (-4) is deep sedation with no response to voice but movement or eye opening to physical stimulation. RASS scale (-5) is unarousable. Patient Monitoring Once the patient has demonstrated a response to the naloxone, continue to monitor respiratory rate, depth, oxygen saturation and end-tidal CO2 (if available) every 15 minutes x 2, then every 30 minutes x 2, then every 1 hour x 1 after each naloxone dose. Consider transfer to ICU if patient respiratory parameters have not improved after 4 naloxone doses. Or naloxone (NARCAN) injection 0.2 mgJump to med 0.2 mg, Intramuscular, EVERY 2 MIN PRN, opioid reversal, Starting on Elana 12/21/23 at 1013, Administer intramuscular if an intravenous route is not available and notify provider when administered. For unintended sedation or respiratory depression if all of the below criteria are met: ~ respiratory rate LESS than or EQUAL to 8. ~SaO2 less than 92% and or/end-tidal CO2 is greater than 50. ~ the patient is receiving an opioid, has unintended sedations assessed as RASS (-3), and is currently not on mechanical ventilation. RASS scale moderate (-3) is movement or eye opening to voice but no eye contact. Patient Monitoring Once the patient has demonstrated a response to the naloxone, continue to monitor respiratory rate, depth, oxygen saturation and end-tidal CO2 (if available) every 15 minutes x 2, then every 30 minutes x 2, then every 1 hour x 1 after each naloxone dose. Consider transfer to ICU if patient respiratory parameters have not improved after 4 naloxone doses. Or naloxone (NARCAN) injection 0.4 mgJump to med 0.4 mg, Intramuscular, EVERY 2 MIN PRN, opioid reversal, Starting on Elana 12/21/23 at 1013, Administer intramuscular if an intravenous route is not available and notify provider when administered. For unintended sedation or respiratory depression if all of the below criteria are met: ~ respiratory rate LESS than or EQUAL to 8. ~ SaO2 less than 92% and or/end-tidal CO2 is greater than 50. ~ the patient is receiving an opioid, has unintended sedation assessed as RASS (-4) or (-5) and patient is currently not on mechanical ventilation. RASS scale (-4) is deep sedation with no response to voice but movement or eye opening to physical stimulation. RASS scale (-5) is unarousable. Patient Monitoring Once the patient has demonstrated a response to the naloxone, continue to monitor respiratory rate, depth, oxygen saturation and end-tidal CO2 (if available) every 15 minutes x 2, then every 30 minutes x 2, then every 1 hour x 1 after each naloxone dose. Consider transfer to ICU if patient respiratory parameters have not improved after 4 naloxone doses. Group 6: ondansetron (ZOFRAN ODT) ODT tab 4 mgJump to med 4 mg, Oral, EVERY 6 HOURS PRN, nausea, vomiting, Starting on Elana 12/21/23 at 0754, This is Step 1 of nausea and vomiting management. If nausea not resolved in 15 minutes, go to Step 2 prochlorperazine (COMPAZINE). With dry hands, peel back foil backing and gently remove tablet. Do not push oral disintegrating tablet through foil backing. Administer immediately on tongue and oral disintegrating tablet dissolves in seconds, then swallow with saliva. Liquid not required. Or ondansetron (ZOFRAN) injection 4 mgJump to med 4 mg, Intravenous, EVERY 6 HOURS PRN, nausea, vomiting, Administer over 2-5 Minutes, Starting on Elana 12/21/23 at 0754, Give IF patient unable to tolerate oral medication. This is Step 1 of nausea and vomiting management. If nausea not resolved in 15 minutes, go to Step 2 prochlorperazine (COMPAZINE). Irritant. Group 7: prochlorperazine (COMPAZINE) injection 5 mgJump to med 5 mg, Intravenous, EVERY 6 HOURS PRN, nausea, vomiting, Administer over 1-2 Minutes, Starting on Elana 12/21/23 at 0757, Give IF patient unable to tolerate oral medication. This is Step 2 of nausea and vomiting management. Give if nausea not resolved 15 minutes after giving ondansetron (ZOFRAN). If nausea not resolved in 15-30 minutes, Notify provider. Or prochlorperazine (COMPAZINE) tablet 5 mgJump to med 5 mg, Oral, EVERY 6 HOURS PRN, vomiting, Starting on Elana 12/21/23 at 0757, This is Step 2 of nausea and vomiting management. Give if nausea not resolved 15 minutes after giving ondansetron (ZOFRAN). If nausea not resolved in 15-30 minutes, Notify provider. Or prochlorperazine (COMPAZINE) suppository 12.5 mgJump to med 12.5 mg, Rectal, EVERY 12 HOURS PRN, nausea, vomiting, Starting on Elana 12/21/23 at 0757, This is Step 2 of nausea and vomiting management. Give if nausea not resolved 15 minutes after giving ondansetron (ZOFRAN). If nausea not resolved in 15-30 minutes, Notify provider. Group 8: senna-docusate (SENOKOT-S/PERICOLACE) 8.6-50 MG per tablet 1 tabletJump to med 1 tablet, Oral, 2 TIMES DAILY PRN, constipation, Starting on Elana 12/21/23 at 0754, If no bowel movement in 24 hours, increase to 2 tablets by mouth. IF more than 1 constipation PRN medication is ordered, administer step-acuna as indicated, moving to the next step ONLY if prior step ineffective. Step 1: senna-docusate (SENOKOT-S; PERICOLACE) OR bisacodyl (DULCOLAX) EC tablet Step 2: polyethylene glycol (MIRALAX/GLYCOLAX) Step 3: bisacodyl (DULCOLAX) suppository Step 4: enema Hold for loose stools. Or senna-docusate (SENOKOT-S/PERICOLACE) 8.6-50 MG per tablet 2 tabletJump to med 2 tablet, Oral, 2 TIMES DAILY PRN, constipation, Starting on Elana 12/21/23 at 0754, IF more than 1 constipation PRN medication is ordered, administer step-acuna as indicated, moving to the next step ONLY if prior step ineffective. Step 1: senna-docusate (SENOKOT-S; PERICOLACE) OR bisacodyl (DULCOLAX) EC tablet Step 2: polyethylene glycol (MIRALAX/GLYCOLAX) Step 3: bisacodyl (DULCOLAX) suppository Step 4: enema Hold for loose stools. documented in this encounter Care Teams Mushroom Cutter Relationship Specialty Start Date End Date System, Provider Not In PCP - [facility] 12/21/23 documented as of this encounter
--- OUTSIDE RECORDS SUMMARY | 2024-03-03 14:31 | XMS_ITS ---
Author Name Unknown Organization [facility] Address [address] [place] [address] Care Team Providers Care Computer Science Intern Name Role Phone Unavailable Unavailable Unavailable Surgery Details Not on file Complications Check Surgery Details section. Procedure Estimated Blood Loss Check Surgery Details section. Procedure Findings Check Surgery Details section. Procedure Specimens Taken Check Surgery Details section.
== END 2024-03-02 02:50 | disposition home or self-care (01) ==
LOC: AMB 03-03 14:15
PROVIDERS: PCP Family Medicine; Visit Provider Family Medicine
DX: S79.919A Unspecified injury of unspecified hip, initial encounter (principal); W19.XXXA Unspecified fall, initial encounter; Y92.099 Unspecified place in other non-institutional residence as the place of occurrence of the external cause
CPT/HCPCS: A0425; A0429

== ENCOUNTER 2024-03-02 03:27 | Emergency (ER) | payer MEDICARE, OTHER, SELFPAY ==
--- NOTE | 2024-03-02 03:33 | XR_ITS ---
Patient: ROSINA NAVAS Facility:?[facility] Patient ID:?[id number] Site Patient ID:?[id number] Site :?[id number] Study:?XRay-Hip Left 2 VIEWS AND PELVIS-03/02/2024 5:24:13 AM Ordering Physician:ANA Final Report: Indication: Injury and pain Technique: Pelvis and left hip, 2 view Comparison: None Findings: Bones: Alignment is normal. No fractures or bone lesions. Joint spaces: Mild degenerate arthrosis of the bilateral hips. Degenerative changes of the lumbar spine and SI joints. Soft tissues: Unremarkable. Impression: No evidence of left hip fracture or dislocation. Dictated by Lionel Gupta MD @ 03/02/2024 6:04:47 AM Signed by:?Lionel Gupta MD @03/02/2024 6:04:47 AM (Electronic Signature)
--- NOTE | 2024-03-02 03:35 | CT_ITS ---
Patient: ROSINA NAVAS Facility:?[facility] Patient ID:?[id number] Site Patient ID:?[id number] Site :?[id number] Study:?CT-Spine Cervical W/O TTA-03/02/2024 5:21:55 AM Ordering Physician:ANA Final Report: INDICATION: FALL, ON BLOOD THINNERS. TECHNIQUE: CT cervical spine without contrast. COMPARISON: CT cervical spine September 30, 2020. FINDINGS: Vertebrae: Generalized osteopenia. Straightening of expected cervical lordosis. There are no fractures or suspicious bony lesions. Discs and facet joints: There are moderate to advanced diffuse degenerative changes in the disc spaces and facet joints. Extraspinal findings: Paraspinous soft tissues are unremarkable. IMPRESSION: 1. No sign of acute cervical spine fracture. 2. Multilevel degenerative spondylosis. Please note that all CT scans at this facility use dose modulation, iterative reconstruction, and/or weight-based dosing when appropriate to reduce radiation dose to as low as reasonably achievable. Dictated by Lionel Gupta MD @ 03/02/2024 6:02:57 AM Signed by:?Lionel Gupta MD @03/02/2024 6:02:57 AM (Electronic Signature)
--- NOTE | 2024-03-02 03:35 | CT_ITS ---
Patient: ROSINA NAVAS Facility:?[facility] Patient ID:?[id number] Site Patient ID:?[id number] Site :?[id number] Study:?CT-Head W/O TTA-03/02/2024 5:21:14 AM Ordering Physician:ANA Final Report: INDICATION: FALL, ON BLOOD THINNERS TECHNIQUE: Head CT without contrast. COMPARISON: MRI head October 01, 2020. FINDINGS: CSF spaces: Global parenchymal volume loss. Brain parenchyma and extra-axial spaces: There are nonspecific low attenuation white matter changes consistent with chronic microvascular disease. No sign of mass effect, hemorrhage, or midline shift. Skull base and calvarium: The visualized paranasal sinuses and mastoid air cells demonstrate no acute or significant findings. The visualized orbits are grossly unremarkable. No skull fractures. Carotid siphon atherosclerotic calcifications. IMPRESSION: 1. No evidence of acute intracranial abnormality on this unenhanced CT. 2. Global parenchymal volume loss and chronic microvascular ischemic changes. Please note that all CT scans at this facility use dose modulation, iterative reconstruction, and/or weight-based dosing when appropriate to reduce radiation dose to as low as reasonably achievable. Dictated by Lionel Gupta MD @ 03/02/2024 5:59:04 AM Signed by:?Lionel Gupta MD @03/02/2024 5:59:04 AM (Electronic Signature)
[2024-03-02 03:37] VITALS: BP 197/132; PULSE 94; RESP 16; TEMP 36.4; O2SAT 95
[2024-03-02 03:46] LABS: Basophils Absolute Auto 0.02 K/uL (0.00-0.30); Basophils Percent Auto 0.2 % (0.0-3.0); Eosinophils Absolute Auto 0.34 K/uL (0.00-0.50); Eosinophils Percent Auto 3.8 % (0.0-7.0); Hematocrit 42.2 % (33.0-51.0); Hemoglobin* 13.6 gm/dL (12.0-16.0); Immature Granulocytes Abs Auto 0.01 K/uL (0.00-0.30); Immature Granulocytes Pct Auto 0.1 %; Lymphocytes Absolute Auto 2.79 K/uL (0.90-2.90); Mean Corpuscular HGB Conc 32 gm/dL (32-36); Mean Corpuscular Hemoglobin 29 pg (26-34); Mean Corpuscular Volume 91 fL (80-100); Monocytes Percent Auto 8.3 % (0.0-11.0); Neutrophils Absolute Auto 5.09 K/uL (1.7-7.0); Neutrophils Percent Auto 56.6 % (42.0-72.0); Platelet Count* 316 K/uL (140-440); RDW Coefficient of Variation % 12.9 % (11.5-15.5); Red Blood Count 4.63 m/uL (4.00-5.20)
[2024-03-02 03:47] LABS: Slide Review Reflex No
[2024-03-02 03:59] LABS: Chloride* 108 mmol/L (96-114); Sodium* 142 mmol/L (135-149)
[2024-03-02] MEDS: MORPHINE 4 MG/ML INJ IVP (04:00)
[2024-03-02] MEDS: 0.9 % SODIUM CHLORIDE 1000 ml 1,000 ML IV (04:00)
[2024-03-02 04:02] LABS: Anion Gap 5 mEq/L (7-15); Blood Urea Nitrogen* 17 mg/dL (7-30); Calcium* 9.2 mg/dL (8.4-10.6); Carbon Dioxide* 29 mmol/L (20-32); Creatinine* 0.7 mg/dL (0.5-1.5); Estimated Glomerular Filt Rate 86 ml/min; Glucose* 147 mg/dL (60-115)
[2024-03-02 04:20] VITALS: BP 161/93; PULSE 86; RESP 16; O2SAT 95
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
--- NOTE | 2024-03-02 04:44 | XR_ITS ---
Patient: ROSINA NAVAS Facility:?[facility] Patient ID:?[id number] Site Patient ID:?[id number] Site :?[id number] Study:?XRay-Extremity Right FEMUR 2 VIEWS-03/02/2024 5:25:21 AM Ordering Physician:ANA Final Report: Indication: FALL RT HIP AND LEG PAIN Technique: Right femur, 2 views. Comparison: None. Findings: No evidence of right femur fracture. Right knee arthroplasty partially visualized. Impression: No evidence of right femur fracture. Dictated by Lionel Gupta MD @ 03/02/2024 6:06:52 AM Signed by:?Lionel Gupta MD @03/02/2024 6:06:52 AM (Electronic Signature)
--- NOTE | 2024-03-02 07:13 | PC.NURSE ---
daughter Elenita contacted to bring patient back home.
--- NOTE | 2024-03-02 07:14 | PC.NURSE ---
patient ambulated with walker well around unit, able to stand and walk with steady gait and pain controlled. spoke with staff at [facility] and this is patients baseline ambulations status.
== END 2024-03-02 08:01 | disposition home or self-care (01) ==
PROVIDERS: Emergency Provider Family Medicine; PCP Family Medicine
DX: M79.661 Pain in right lower leg (principal); E66.01 Morbid (severe) obesity due to excess calories; W19.XXXA Unspecified fall, initial encounter
CPT/HCPCS: 51702; 36415; 70450; 72125; 73502; 73552; 80048; 85025; 93005; 96374; 99284; 99291; G0390; J2270; J7030

== ENCOUNTER 2024-10-24 11:33 | Outpatient (REF) | payer MEDICARE, OTHER, SELFPAY ==
[2024-10-24 12:12] LABS: Basophils Absolute Auto 0.05 K/uL (0.00-0.30); Basophils Percent Auto 0.7 % (0.0-3.0); Eosinophils Absolute Auto 0.35 K/uL (0.00-0.50); Eosinophils Percent Auto 4.7 % (0.0-7.0); Hematocrit 40.2 % (33.0-51.0); Hemoglobin* 12.6 gm/dL (12.0-16.0); Immature Granulocytes Abs Auto 0.01 K/uL (0.00-0.30); Immature Granulocytes Pct Auto 0.1 %; Lymphocytes Absolute Auto 2.22 K/uL (0.90-2.90); Mean Corpuscular HGB Conc 31 gm/dL (32-36); Mean Corpuscular Hemoglobin 28 pg (26-34); Mean Corpuscular Volume 91 fL (80-100); Monocytes Percent Auto 8.9 % (0.0-11.0); Neutrophils Absolute Auto 4.12 K/uL (1.7-7.0); Neutrophils Percent Auto 55.6 % (42.0-72.0); Platelet Count* 268 K/uL (140-440); RDW Coefficient of Variation % 12.7 % (11.5-15.5); Red Blood Count 4.44 m/uL (4.00-5.20); White Blood Count* 7.41 K/uL (4.50-11.00)
[2024-10-24 12:19] LABS: Slide Review Reflex No
[2024-10-24 12:39] LABS: Chloride* 103 mmol/L (96-114); Potassium* 4.2 mmol/L (3.6-5.1); Sodium* 141 mmol/L (135-149)
[2024-10-24 12:42] LABS: Anion Gap 10 mEq/L (7-15); Blood Urea Nitrogen* 14 mg/dL (7-30); Carbon Dioxide* 28 mmol/L (20-32); Creatinine* 0.8 mg/dL (0.5-1.5); Estimated Glomerular Filt Rate 73 ml/min; Glucose* 134 mg/dL (60-115)
== END 2024-10-24 11:34 | disposition home or self-care (01) ==
LOC: NPINS 11:33
PROVIDERS: PCP Family Medicine; Visit Provider Nurse Practitioner Gerontology
DX: I10 Essential (primary) hypertension (principal); Z86.718 Personal history of other venous thrombosis and embolism; E03.9 Hypothyroidism, unspecified
CPT/HCPCS: 80048; 84443; 85025

== ENCOUNTER 2024-11-26 06:57 | Outpatient (CLI) | payer MEDICARE, OTHER, SELFPAY | END 2024-11-26 06:58 | disposition home or self-care (01) | LOC: AMB 12-10 00:28 | PROVIDERS: PCP Family Medicine; Visit Provider Family Medicine | DX: S29.9XXA Unspecified injury of thorax, initial encounter (principal); W19.XXXA Unspecified fall, initial encounter; Y92.129 Unspecified place in nursing home as the place of occurrence of the external cause | CPT/HCPCS: A0425; A0429 ==

== ENCOUNTER 2024-11-26 07:27 | Emergency (ER) | payer MEDICARE, OTHER, SELFPAY ==
[2024-11-26] VITALS (41 sets, daily range): BP systolic 148–215; BP diastolic 69–133; PULSE 68–92; RESP 16–18; TEMP 35.9; O2SAT 90–98
--- OUTSIDE RECORDS SUMMARY | 2024-11-26 07:30 | XMS_ITS | Referral Summary ---
Author Organization [facility] Address [address] [place] [address] Care Team Providers Care Citrus Picker Name Role Phone System, Provider Not In Primary Care Provider Un available Allergies Active Allergy Reactions Criticality Noted Date Comments Cephalexin Rash Low 06/18/2010 Cephalexin Monohydrate 04/15/2005 Penicillins Rash Low 06/18/2010 Avoids. Mild rash 06/07/16 Sulfamethoxazole-Trimethopri m Rash High 12/27/2019 Medications PAIN RELIEF EXTRA STRENGTH 500 MG tablet Take 500 mg by mouth as needed 1 Active albuterol (PROAIR HFA/PROVENTIL HFA/VENTOLIN HFA) 108 (90 Base) MCG/ACT inhaler Inhale 2 puffs into the lungs as needed 1 Active VITAMIN D3 25 MCG (1000 UT) tablet Take 1 tablet by mouth daily 1 Active diclofenac (VOLTAREN) 1 % topical gel Apply 2 g topically 4 times daily as needed for moderate pain (Shoulders) 2 Active Multiple Vitamin (TAB-A-HAILEY) TABS TAKLE 1 TAB BY MOUTH ONCE DAILY 1 Active NYAMYC 688758 UNIT/GM external powder Apply topically daily as needed 2 Active simvastatin (ZOCOR) 20 MG tablet Take 20 mg by mouth at bedtime 2 Active hydrochlorothiazid e (HYDRODIURIL) 25 MG tabletIndications: Essential hypertension Take 1 tablet (25 mg) by mouth daily for 30 days 30 tablet 4 Active gabapentin (NEURONTIN) 100 MG capsuleIndications :Neuropathic pain Take 1 capsule (100 mg) by mouth at bedtime for 30 days 30 capsule 4 Active levothyroxine (SYNTHROID/LEVOTHR OID) 125 MCG tabletIndications: Hypothyroidism, unspecified type Take 1 tablet (125 mcg) by mouth daily for 30 days 30 tablet 4 Active Rivaroxaban ANTICOAGULANT 15 & 20 MG TBPK Starter Therapy PackIndications: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 51 each 4 Active Active Problems Problem Noted Date Diagnosed Date Pneumonia 12/26/2023 Weakness 12/21/2023 Primary osteoarthritis of both knees 05/10/2017 Lumbar spinal stenosis 01/12/2017 Bariatric surgery status 06/09/2016 Overview (08/03/2022): Dr. Mandie Douglass of [place] Dr. Villanueva Immunizations Name Administration Dates Next Due COVID-19 Bivalent 18+ (Moderna) 08/18/2022 Influenza (High Dose) Trival ent,PF (Fluzone) 08/20/2020,08/15/2019,08/16/2018,2015 Influenza Vaccine >6 months,quad, PF 07/16/2019, [...] School Help Needed Not on file 08/07 Comments Unknown Sex and Gender Information Value Date Recorded Sex Assigned at Not on file Legal Sex Female 3:29 AM GAME AND FISH PROTECTOR Gender Identity Not on file Sexual Orientation Not on file Last Filed Vital Signs Vital Sign Reading Time Taken Comments Blood Pressure 132/88 12/29/2023 11:46 AM GAME AND FISH PROTECTOR Pulse 81 12/29/2023 11:46 AM GAME AND FISH PROTECTOR Temperature 36.6 C (97.9 F) 12/29/2023 8:07 AM GAME AND FISH PROTECTOR Respiratory Rate 19 12/29/2023 11:4 6 AM GAME AND FISH PROTECTOR Oxygen Saturation 93% 12/29/2023 11: 46 AM GAME AND FISH PROTECTOR Inhaled Oxygen Concentration - - Weight 107.7 kg (237 lb 6.4 oz) 12/26/2023 9:56 AM GAME AND FISH PROTECTOR Height 152.4 cm (5') 12/21/2023 8:24 AM GAME AND FISH PROTECTOR Body Mass Index 46.36 12/21/2023 8:24 AM GAME AND FISH PROTECTOR Plan of Treatment Not on file Procedures Procedure Name Priority Date/Time Associated Diagnosis Comments BASIC METABOLIC PANEL Routine 12/28/2023 6:26 AM GAME AND FISH PROTECTOR TSH WITH FREE T4 REFLEX STAT 12/21/2023 8:33 AM GAME AND FISH PROTECTOR from Last 3 Months or Most Recently Relevant to Health Maintenance Results * (ABNORMAL) Basic metabolic panel (12/28/2023 6:26 AM GAME AND FISH PROTECTOR) Sodium 142 135 - 145 mmol/L 12/28/2023 7:13 AM [facility] Comment:Reference intervals for this test were updated on 08/08/2023 to more accurately reflect our healthy population. There may be differences in the flagging of prior results with similar values performed with this method. Interpretation of those prior results can be made in the context of the updated reference intervals. Potassium 3.8 3.4 - 5.3 mmol/L 12/28/2023 7:13 AM [facility] Chloride 103 98 - 107 mmol/L 12/28/2023 7:13 AM [facility] Carbon Dioxide (CO2) 26 22 - 29 mmol/L 12/28/2023 7:13 AM [facility] Anion Gap 13 7 - 15 mmol/L 12/28/2023 7:13 AM [facility] Urea Nitrogen 17.9 8.0 - 23.0 mg/dL 12/28/2023 7:13 AM [facility] Creatinine 0.90 0.51 - 0.95 mg/dL 12/28/2023 7:13 AM [facility] GFR Estimate 63 >60 mL/min/1. 73m2 12/28/2023 7:13 AM [facility] Calcium 9.4 8.8 - 10.2 mg/dL 12/28/2023 7:13 AM [facility] [employer] [facility]OT[facility] Glucose 117(H) 70 - 99 mg/dL 12/28/2023 7:13 AM GAME AND FISH PROTECTOR [facility] Blood STRUCTURE OF RIGHT HAND / Unknown Venipuncture / Unknown 12/28/2023 6:26 AM GAME AND FISH PROTECTOR 12/28/2023 6:36 AM GAME AND FISH PROTECTOR us Kristina Griffin MD LAB - BLOOD ORDERABLES Final Res ult [facility] [address] Lab (1st floor, no room number) [place] [address], [place] [phone] * (ABNORMAL) TSH with free T4 reflex (12/21/2023 8:33 AM GAME AND FISH PROTECTOR) TSH 5.16(H) 0.30 - 4.20 uIU/mL 12/21/2023 9:14 AM GAME AND FISH PROTECTOR [facility] Blood STRUCTURE OF LEFT UPPER LIMB / Unknown Venipuncture / Unknown 12/21/2023 8:33 AM GAME AND FISH PROTECTOR 12/21/2023 8:40 AM GAME AND FISH PROTECTOR us Oswaldo Samuel APRN, CNP LAB - BLOOD ORDERABLE S Final Result [facility] [address] Lab (1st floor, no room number) [place] [address], [place] [phone] from Last 3 Months or Most Recently Relevant to Health Maintenance Insurance [employer] [place] [id number] MEDICARE [address] [phone] [phone] MEDICA [facility] [place] [id number] MEDICARE Advance Directives For more information, please contact: [phone] * No CPR- Do NOT Intubate (Latest Code Status on File) Date Activated Date Inactivated Comments 12/21/2023 8:01 AM 12/29/2023 4:45 PM NO basic or a dvanced life-sustaining interventions are performed Question Answer Comments Code status determined by: Discussion with patie nt/ legal decision maker Care Teams Citrus Picker Relationship Specialty Start Date End Date System, Provider Not In PCP - General Clinic 12/21/23
--- OUTSIDE RECORDS SUMMARY | 2024-11-26 07:30 | XMS_ITS | Clinical Summary ---
Author Organization [facility] Address [address] [facility] [place] [address] Care Team Providers Care Caustic Cresylate Shift Superintendent Name Role Phone System, Provider Not In [...] BY MOUTH ONCE DAILY 1 Active NYAMYC 184036 UNIT/GM external powder Apply topically daily as [...] 06/09/2016 Overview (08/03/2022): Dr. Mandie Douglass of [place] Dr. Villanueva Immunizations Name Administration Dates Next [...] on file Legal Sex Female 3:29 AM WIRE DRAWING MACHINE TENDER Gender Identity Not on file Sexual Orientation Not on file Last Filed Vital Signs Vital Sign Reading Time Taken Comments Blood Pressure 132/88 12/29/2023 11:46 AM WIRE DRAWING MACHINE TENDER Pulse 81 12/29/2023 11:46 AM WIRE DRAWING MACHINE TENDER Temperature 36.6 C (97.9 F) 12/29/2023 8:07 AM WIRE DRAWING MACHINE TENDER Respiratory Rate 19 12/29/2023 11:4 6 AM WIRE DRAWING MACHINE TENDER Oxygen Saturation 93% 12/29/2023 11: 46 AM WIRE DRAWING MACHINE TENDER Inhaled Oxygen Concentration - - Weight 107.7 kg (237 lb 6.4 oz) 12/26/2023 9:56 AM WIRE DRAWING MACHINE TENDER Height 152.4 cm (5') 12/21/2023 8:24 AM WIRE DRAWING MACHINE TENDER Body Mass Index 46.36 12/21/2023 8:24 AM WIRE DRAWING MACHINE TENDER Plan of Treatment Health Maintenance Due Date Last Done Comments ADVANCE CARE PLANNING 1940 ANNUAL REVIEW OF HM ORDERS 1940 DEXA 1940 LIPID 1940 URINE DRUG SCREEN 1940 ZOSTER IMMUNIZATION (1 of 2) 1990 FALL RISK ASSESSMENT 2005 MEDICARE ANNUAL WELLNESS VISIT 2005 RSV VACCINE (1 - 1-dose 75+ series) 2015 PHQ-2 (once per calendar year) 2023 08/14/2023 COVID-19 Vaccine ( season) 2024 08/18/2022, 12/23/2020, 11/25/2020 INFLUENZA VACCINE (#1) 2024 , 08/20/2020, 08/15/2019, Additional history exists BMP 12/28/2024 12/28/2023, 12/14, 12/24/2023, Additional history exists DTAP/TDAP/TD IMMUNIZATION (3 - Td or Tdap) 09/30/2030 09/30/2020, 06/11/2012 Pneumococcal Vaccine: 50+ Years Completed 01/20/2017, 07/28/2015 TSH W/FREE T4 REFLEX Discontinued 12/21/2023, 12/21/2023, 12/04/2017 HPV IMMUNIZATION Aged Out No longer e [...] BASIC METABOLIC PANEL Routine 12/28/2023 6:26 AM WIRE DRAWING MACHINE TENDER TSH WITH FREE T4 REFLEX STAT 12/21/2023 8:33 AM WIRE DRAWING MACHINE TENDER from Last 3 Months or Most Recently Relevant to Health Maintenance Results * (ABNORMAL) Basic metabolic panel (12/28/2023 6:26 AM WIRE DRAWING MACHINE TENDER) Sodium 142 135 - 145 mmol/L 12/28/2023 7:13 AM WIRE DRAWING MACHINE TENDER [facility] Comment:Reference intervals for this test were updated on 08/08/2023 to more accurately reflect our healthy population. There may be differences in the flagging of prior results with similar values performed with this method. Interpretation of those prior results can be made in the context of the updated reference intervals. Potassium 3.8 3.4 - 5.3 mmol/L 12/28/2023 7:13 AM [facility] Chloride 103 98 - 107 mmol/L 12/28/2023 7:13 AM [facility] Carbon Dioxide (CO2) 26 22 - 29 mmol/L 12/28/2023 7:13 AM [facility] Anion Gap 13 7 - 15 mmol/L 12/28/2023 7:13 AM [facility] Urea Nitrogen 17.9 8.0 - 23.0 mg/dL 12/28/2023 7:13 AM [facility] Creatinine 0.90 0.51 - 0.95 mg/dL 12/28/2023 7:13 AM [facility] GFR Estimate 63 >60 mL/min/1. 73m2 12/28/2023 7:13 AM [facility] Calcium 9.4 8.8 - 10.2 mg/dL 12/28/2023 7:13 AM [facility] Glucose 117(H) 70 - 99 mg/dL 12/28/2023 7:13 AM [facility] Blood STRUCTURE OF RIGHT HAND / Unknown Venipuncture / Unknown 12/28/2023 6:26 AM WIRE DRAWING MACHINE TENDER 12/28/2023 6:36 AM WIRE DRAWING MACHINE TENDER Kristina Griffin MD LAB - BLOOD ORDERABLES Final Res ult LABORATORY [facility] [address] Lab (1st floor, no room number) [place] [address], [facility] [phone] * (ABNORMAL) TSH with free T4 reflex (12/21/2023 8:33 AM WIRE DRAWING MACHINE TENDER) TSH 5.16(H) 0.30 - 4.20 uIU/mL 12/21/2023 9:14 AM WIRE DRAWING MACHINE TENDER LABORATORY Blood STRUCTURE OF LEFT UPPER LIMB / Unknown Venipuncture / Unknown 12/21/2023 8:33 AM WIRE DRAWING MACHINE TENDER 12/21/2023 8:40 AM WIRE DRAWING MACHINE TENDER Oswaldo Samuel APRN [employer] LAB - BLOOD ORDERABLE S Final Result Performing Organization Address [facility]/ZIP Co de Phone Number LABORATORY [facility] [address] Lab (1st floor, no room number) [place] [address], [facility] [phone] from Last 3 Months or Most Recently Relevant to Health Maintenance Insurance [employer] MEDICARE [address] [phone] [address] MEDICA [employer] MEDICARE Advance Directives For more information, please contact: [phone] * No CPR- Do NOT Intubate (Latest Code Status on File) Date Activated Date Inactivated Comments 12/21/2023 8:01 AM 12/29/2023 4:45 PM NO basic or a dvanced life-sustaining interventions are performed Question Answer Comments Code status determined by: Discussion with patie nt/ legal decision maker Care Teams Caustic Cresylate Shift Superintendent Relationship Specialty Start Date End Date System, Provider Not In PCP - General Clinic 12/21/23
--- OUTSIDE RECORDS SUMMARY | 2024-11-26 07:30 | XMS_ITS ---
Author Organization [facility] Address [address] [place] [address] Care Team Providers Care Associate Store Director Name Role Phone Unavailable Unavailable Unavailable Surgery Details Not on file Complications Check Surgery Details section. Procedure Estimated Blood Loss Check Surgery Details section. Procedure Findings Check Surgery Details section. Procedure Specimens Taken Check Surgery Details section.
--- OUTSIDE RECORDS SUMMARY | 2024-11-26 07:30 | XMS_ITS | Clinical Summary ---
Author Organization [facility] Address [place], [place] [address] Care Team Providers Care Debrander Name Role Phone Samantha Acharya MD Primary Care Provider + Allergies Active Allergy Reactions Criticality Noted Date Comments Cephalexin Rash Low 04/15/2005 Penicillins Rash Low 06/18/2010 Avoids. Mild rash 06/07/16 Sulfamethoxazole-Trimethopri m Rash High 12/27/2019 Medications losartan (COZAAR) 50 mg tablet 6 Active simvastatin (ZOCOR) 20 mg tablet 6 Active levothyroxine (SYNTHROID) 125 mcg tablet 6 Active aspirin enteric coated (ECOTRIN) 325 mg tablet Take 1 tablet by mouth once daily with a meal. 0 6 Active furosemide (LASIX) 20 mg tablet Take 20 mg by mouth once daily. 1 7 Active gabapentin (NEURONTIN) 300 mg capsule Take 300 mg by mouth at bedtime. 0 7 Active VITAMIN D 1,000 unit tablet Take 1,000 Units by mouth once daily. 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 36 tablet 2 8 Active diclofenac topical (VOLTAREN) 1 % gel 1 Active Active Problems Problem Noted Date Diagnosed Date Primary osteoarthritis of both knees 05/10/2017 Lumbar spinal stenosis 01/12/2017 Lumbar facet arthropathy 01/12/2017 Laparoscopic removal of gastric band and compone nts 06/09/2016 Overview (06/09/2016): Dr. Rich Arredondo of laparoscopic adjustable gastric banding Overview (05/20/2016): Dr. Mandie Douglass of [place] Screen for colon cancer 06/18/2010 Overview (06/18/2010): Colonoscopy 06/2010 normal repeat in 10 years Encounters Date Type Department Care Team Description 10/25/2024 9:00 AM LEAD TRAINER Procedure Only [facility] [address] [facility] [place] [address] Oswaldo Muir MD Procedure (Left shoulder injection) 10/25/2024 Telephone [facility] [address] [facility] [place] [address] Oswaldo Muir MD Form (disability parking) 10/25/2024 Travel 10/02/2024 Telephone [facility] [address] [place] [address] Oswaldo Muir MD Appointment from Last 3 Months Immunizations Name Administration Dates Next Due COVID-19 vaccine (Moderna 100mcg/0.5mL) JULIAN MOTLEY 12/23/2020,11/25/2020 Family History Medical History Relation Name Comments Heart Disease Brother 1 Other Brother 2 COPD Heart Disease Father Heart Disease Sister Heart transpla nt Relation Name Status Comments Brother 1 Brother 2 Father Sister Social History Tobacco Use Types Packs/Day Years Used Date Smoking Tobacco: Never Smokeless Tobacco: Never Tobacco Cessation:Counseling Given: Yes Alcohol Use Standard Drinks/Week Comments Yes 0 (1 standard drink = 0.6 oz pur e alcohol) occasional Financial Resource Strain Answer Date R ecorded Difficulty of Paying Living Expenses Not on file 11/04/2021 Difficulty of Paying Living Expenses Not on file 11/04/2021 Comments No Sex and Gender Information Value Date Recorded Sex Assigned at Not on file Legal Sex Female 6:13 AM LEAD TRAINER Gender Identity Not on file Sexual Orientation Not on file Obstetrics History Last Filed Vital Signs Vital Sign Reading Time Taken Comments Blood Pressure 153/95 10/25/2024 9:13 AM LEAD TRAINER Pulse 78 10/25/2024 9:13 AM LEAD TRAINER Temperature 36.6 C (97.9 F) 10/25/2024 9:13 AM LEAD TRAINER Respiratory Rate 18 06/24/2016 2:11 PM CDT Oxygen Saturation 94% 10/25/2024 9:13 AM LEAD TRAINER Inhaled Oxygen Concentration - - Weight 108.5 kg (239 lb 3.2 oz) 10/25/2024 9:13 AM LEAD TRAINER Height 145.3 cm (4' 9.21) 01/31/2019 1 1:16 AM CDT Body Mass Index 51.39 01/31/2019 11:16 AM CDT Plan of Treatment Health Maintenance Due Date Last Done Comments Tdap 1951 Depression screening for age 12+ 1952 Tetanus booster 1960 Pneumococcal series for age 50+ (1 of 1 - PCV) 1990 Zoster (shingles) series for age 50+ (1 of 2) 1990 DEXA/DXA scan for age 65+ 2005 Medicare Wellness for age 65+ 2005 RSV vaccine for adults or (1 - 1-dose 75+ series) 2015 BMI (ht and wt on same day) for age 18+ 02/01/2020 01/31/2019, 2017, 05/10/2017, Additional history exists COVID-19 vaccine series ( season) 2024 08/18/2022, 12/23/2020, 11/25/2020 Influenza for age 65+ 07/14/2024 Procedures Procedure Name Priority Date/Time Associated Diagnosis Comments BEDSIDE US STUDY ARCHIVE Routine 10/25/2024 3:51 PM LEAD TRAINER Osteoarthritis of left glenohumeral joint Chronic left shoulder pain from Last 3 Months Results * BEDSIDE US STUDY ARCHIVE (10/25/2024 3:51 PM LEAD TRAINER) Narrative Duyen Springer - 10/25/2024 3:51 PM LEAD TRAINER The patient was seen for ultrasound guided injection by Dr. Oswaldo Muir. Ultrasound was not used for diagnostic purposes, but to guide the needle placement and document the position of the injection. See patient's EPIC encounter for the detail of the procedure; see JORGE LUIS for saved images of the injection. us Oswaldo Muir MD PROCEDURE ORD Final Resu lt from Last 3 Months Insurance MEDICARE PART A HB ONLY MEDICARE PART B HB ONLY MEDICA [employer] MR PB ONLY Advance Directives * Full Code (Latest Code Status on File) Date Activated Date Inactivated Comments 06/09/2016 5:55 AM 06/10/2016 8:21 PM Care Teams Debrander Relationship Specialty Start Date End Date Samantha Acharya MD [address] [place] [address] PCP - General Family Practice 12/12/16
--- OUTSIDE RECORDS SUMMARY | 2024-11-26 07:30 | XMS_ITS | Referral Summary ---
Author Organization [facility] Address [address] [place] [address] Care Team Providers Care Parts Sales Representative Name Role Phone Unavailable Primary Care Provider Unavailabl e Source Comments Patient records contain information from all sites at [facility]. For routine questions regarding patient records, call [phone] during business hours, M-F 8:00 AM - 5:00 PM Central Time. Record requests for emergency care only can be directed to [phone] at any time.[facility] Allergies No known active allergies Medications No known medications Active Problems No known active problems Social History Tobacco Use Types Packs/Day Years Used Date Smoking Tobacco: Never Tobacco Cessation:Counseling Given: Not Answered Nutrition Answer Date Recorded Nutrition: EVOO Fat Source Unknown 05/16 Nutrition: Servings of Fruits/Vegetables per Day Not on file 05/16/2023 Dental Answer Date Recorded Dental: Regular Dentist Unknown 05/16/20 23 Comments Unknown Sex and Gender Information Value Date Recorded Sex Assigned at Not on file Legal Sex Female 11:28 PM OLIVE PITTER Gender Identity Not on file Sexual Orientation Not on file Last Filed Vital Signs Vital Sign Reading Time Taken Comments Blood Pressure 151/72 05/16/2023 1:45 PM CDT Pulse 70 05/16/2023 2:15 PM CDT Temperature 36.6 C (97.9 F) 05/16/2023 12:01 PM CDT Respiratory Rate - - Oxygen Saturation 97% 05/16/2023 2:15 PM CDT Inhaled Oxygen Concentration - - Weight 105 kg (231 lb 7.7 oz) 05/16/2023 12:01 P M CDT Height - - Body Mass Index - - Plan of Treatment Not on file Medical Devices Implanted Type Area Press Setter Device Identifier Shelf Expiration Date Model / Serial / Lot Hardware E.G. Pins/Screws/Ro ds Hardware e.g. pins/screws/ rods Right: Knee Insurance MEDICA MEDICARE
--- OUTSIDE RECORDS SUMMARY | 2024-11-26 07:30 | XMS_ITS | Continuity of Care Document ---
Author Name [facility] User [email or web address] Address Unknown Organization Unknown Address Unknown Procedures FILTER APPLIED:Only known Procedures with Onset Date within the last 5 years Procedure Date Procedure Provider Additiona l Information Status X-RAY EXAM OF FEMUR 2/> (18072) Completed X-RAY EXAM HIP UNI 2-3 VIEWS (91734) Completed CT NECK SPINE W/O DYE (01798) Completed CT HEAD/BRAIN W/O DYE (65907) Completed ROUTINE VENIPUNCTURE (46573) Completed EMERGENCY DEPT VISIT MOD MDM (80751) Completed INSERT TEMP BLADDER CATH (96351) Completed CRITICAL CARE FIRST HOUR (50061) Completed THER/PROPH/DIAG INJ IV PUSH (93792) Completed ELECTROCARDIOGRAM TRACING (40409) Completed METABOLIC PANEL TOTAL CA (17009) Completed COMPLETE CBC W/AUTO DIFF WBC (97785) Completed ADMISSION MED REC MARKER FOR REPORTING AND BPA'S (43205) Completed RESP VIRUS 3-5 TARGETS (60721) Completed BLOOD CULTURE FOR BACTERIA (42414) Completed THER/PROPH/DIAG IV INF INIT (65765) Completed TX/PRO/DX INJ NEW DRUG ADDON (86708) Completed EMERGENCY DEPT VISIT HI MDM (44777) Completed COMPLETE CBC W/AUTO DIFF WBC (31997) Completed ASSAY OF LACTIC ACID (91303) Completed BLOOD GASES ANY COMBINATION (50678) Completed METABOLIC PANEL TOTAL CA (61646) Completed CT ABD PELVIS W/O CONTRAST (57811) Completed CT THORAX DX C- (18494) Completed X-RAY EXAM CHEST 1 VIEW (81349) Completed ROUTINE VENIPUNCTURE (14422) Completed MEASURE BLOOD OXYGEN LEVEL (05373) Completed AIRWAY INHALATION TREATMENT (15162) Completed PROCALCITONIN (PCT) (84718) Completed URINE CULTURE/COLONY COUNT (94831) Completed URINALYSIS AUTO W/SCOPE (61186) Completed ASSAY OF NATRIURETIC PEPTIDE (42161) Completed COMPLETE CBC W/AUTO DIFF WBC (50630) Completed METABOLIC PANEL TOTAL CA (98460) Completed URINALYSIS AUTO W/SCOPE (11739) Completed URINE CULTURE/COLONY COUNT (05829) Completed Encounters FILTER APPLIED:Only known Encounters with Admission Date within the last 5 years Encounter Location Admission Discharge Billing Code Consultant Mliton elliott Outpatient Edy Aguila Outpatient Nerissa Joaquinus Outpatient Nerissa King Outpatient Valentin Lebron Emergency Luciano Meza Outpatient Luciano Meza Inpatient [facility] Outpatient [facility] Emergency [facility]read [facility]
--- OUTSIDE RECORDS SUMMARY | 2024-11-26 07:30 | XMS_ITS | Clinical Summary ---
Author Organization [facility] Address [address] [place] [address] Care Team Providers Care Care Transition Manager Name Role Phone Unavailable Primary Care Provider Unavailabl e Source Comments Patient records contain information from all sites at [facility]. For routine questions regarding patient records, call [phone] during business hours, M-F 8:00 AM - 5:00 PM Central Time. Record requests for emergency care only can be directed to [phone] at any time.[facility] Allergies No known active allergies Medications No [...] on file Legal Sex Female 11:28 PM FRUIT PACKER Gender Identity Not on file Sexual Orientation [...] Comments Zoster Vaccines (1 of 2) 1990 RSV vaccine - (32-36 weeks) or 60+ years (1 - 1-dose 75+ series) 2015 Depression Screening (Annual PHQ-2) 11/13/2023 Fall Risk Screen (Annual) 11/13/2023 COVID-19 Vaccine (4 - 2023-25 season) 2024 08/18/2022, 12/23/2020, 11/25/2020 Influenza Vaccine (#1) 2024 3, 08/20/2020, 08/15/2019, Additional history exists DTaP,Tdap,and Td Vaccines (3 - Td or Tdap) 09/30/2030 09/30/2020, 06/11/2012 Pneumococcal vaccine (50+ years) Completed 01/20/2017, 07/28/2015 IPV Vaccines Aged Out No longer eligi ble based on patient's age to complete this topic Medical Devices Implanted Type Area Help Desk Technician Device Identifier Shelf Expiration Date Model / Serial / Lot Hardware E.G. Pins/Screws/Ro ds Hardware e.g. pins/screws/ rods Right: Knee Insurance MEDICA MEDICARE
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
--- NOTE | 2024-11-26 08:16 | CRLHL7_ITS ---
For Patients: As a result of the Century Cures Act, medical imaging exams and procedure reports are released immediately into your electronic medical record. You may view this report before your referring provider. If you have questions, please contact your health care provider. Indication: Injury Technique: CT examination of the thoracic spine was performed. Contrast was not administered. Imaging was acquired in the axial plane from the lower cervical through the upper lumbar region. Sagittal and coronal reformatted imaging was performed. Comparison: None Findings: Soft tissues unrelated to the spine as incidentally visualized: Small hiatal hernia. Atherosclerotic vascular calcifications. Basilar atelectasis. Osseous structures: Demineralized osseous structures. Moderate to severe degenerative changes diffusely. No visible acute fracture, dislocation or destructive process. Impression: Demineralization and degenerative change. No visible acute fracture, dislocation or destructive process. Please note that all CT scans at this facility use dose modulation, iterative reconstruction, and/or weight-based dosing when appropriate to reduce radiation dose to as low as reasonably achievable. Dictated by Carmine Holden MD @ 11/26/2024 10:09:27 AM (Electronically Signed)
--- NOTE | 2024-11-26 08:16 | CRLHL7_ITS ---
For Patients: As a result of the Century Cures Act, medical imaging exams and procedure reports are released immediately into your electronic medical record. You may view this report before your referring provider. If you have questions, please contact your health care provider. INDICATION: Injury COMPARISON: None TECHNIQUE: CT examination of the cervical spine is performed without contrast using spiral technique. Thin axial, sagittal and coronal reconstructions were made. Please note that all CT scans at this facility use dose modulation, iterative reconstruction, and/or weight-based dosing when appropriate to reduce radiation dose to as low as reasonably achievable. FINDINGS: : Technical limitations due to beam attenuation from the patient`s shoulders. There is straightening which is probably due to muscle spasm or positioning. Bone mineral density is decreased. There are moderate to severe degenerative changes diffusely. There is no visible acute fracture, dislocation or destructive process. IMPRESSION: Demineralization and degenerative change. Straightening. No visible acute fracture, dislocation or destructive process. Please note that all CT scans at this facility use dose modulation, iterative reconstruction, and/or weight-based dosing when appropriate to reduce radiation dose to as low as reasonably achievable. Dictated by Carmine Holden MD @ 11/26/2024 10:06:08 AM (Electronically Signed)
--- NOTE | 2024-11-26 08:16 | CRLHL7_ITS ---
For Patients: As a result of the Century Cures Act, medical imaging exams and procedure reports are released immediately into your electronic medical record. You may view this report before your referring provider. If you have questions, please contact your health care provider. INDICATION: Injury COMPARISON: None TECHNIQUE: CT examination of the head was performed as axial sections without intravenous contrast. Images were obtained from the vertex of the skull through the skull base. Please note that all CT scans at this facility use dose modulation, iterative reconstruction, and/or weight-based dosing when appropriate to reduce radiation dose to as low as reasonably achievable. FINDINGS: The brain shows no sign of mass lesion, mass effect, hemorrhage, or edema. There are moderate involutional changes consistent with atrophy and white matter disease. Involutional changes are in a predominantly bifrontal and bitemporal distribution. The visualized portions of the orbits are normal in appearance. The osseous structures are normal in their appearance with no sign of abnormality in the skull base or calvarium. IMPRESSION: Involutional changes. No acute intracranial posttraumatic findings. Please note that all CT scans at this facility use dose modulation, iterative reconstruction, and/or weight-based dosing when appropriate to reduce radiation dose to as low as reasonably achievable. Dictated by Carmine Holden MD @ 11/26/2024 10:03:39 AM (Electronically Signed)
--- NOTE | 2024-11-26 08:16 | CRLHL7_ITS ---
For Patients: As a result of the Century Cures Act, medical imaging exams and procedure reports are released immediately into your electronic medical record. You may view this report before your referring provider. If you have questions, please contact your health care provider. Indication: Injury Technique: CT examination of the thoracic spine was performed. Imaging was obtained from the lower thoracic spine through the mid sacrum. Contrast was not administered. Sagittal and coronal reformatted imaging was performed. Comparison: None Findings: Incidental soft tissues as visualized: Atherosclerotic vascular calcifications. Osseous structures: Demineralized osseous structures. Severe degenerative changes of the spine at every level. This includes the disc spaces and facet joints. There is a degenerative anterolisthesis of L4 on L5 measuring 7 millimeters. Smaller degenerative anterolisthesis and retrolisthesis are noted at additional levels. There is no fracture, dislocation or destructive process. Impression: Significant degenerative changes. No visible acute fracture, dislocation or destructive process. There is a 7 millimeter degenerative anterolisthesis of L4 on L5. This does not appear to have a traumatic component. Please note that all CT scans at this facility use dose modulation, iterative reconstruction, and/or weight-based dosing when appropriate to reduce radiation dose to as low as reasonably achievable. Dictated by Carmine Holden MD @ 11/26/2024 10:12:51 AM (Electronically Signed)
--- NOTE | 2024-11-26 08:17 | CRLHL7_ITS ---
For Patients: As a result of the Cures Act, medical imaging exams and procedure reports are released immediately into your electronic medical record. You may view this report before your referring provider. If you have questions, please contact your health care provider. Indication: Injury Technique: An AP view of the pelvis was acquired as well as AP and lateral views of the left hip Comparison: None Findings: As described below Impression: 1. Decreased bone mineral density. 2. Severe degenerative changes of the visualized lower lumbar spine. 3. There is no visible acute fracture, dislocation or destructive process. Dictated by Carmine Holden MD @ 11/26/2024 10:14:36 AM (Electronically Signed)
--- NOTE | 2024-11-26 08:17 | CRLHL7_ITS ---
For Patients: As a result of the Century Cures Act, medical imaging exams and procedure reports are released immediately into your electronic medical record. You may view this report before your referring provider. If you have questions, please contact your health care provider. Indication: Injury Technique: A total of three-view of the left knee were acquired. Comparison: None Findings: As described below Impression: 1. Decreased bone mineral density. 2. No acute fracture, dislocation or destructive process. 3. 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 4. No definite joint effusion. Dictated by Carmine Holden MD @ 11/26/2024 10:16:04 AM (Electronically Signed)
[2024-11-26] MEDS: MORPHINE 4 MG/ML INJ IVP (08:52)
[2024-11-26 09:03] LABS: Lactate Sepsis w/Reflex* 1.1 mmol/L (0.5-1.9)
[2024-11-26 09:11] LABS: Basophils Absolute Auto 0.03 K/uL (0.00-0.30); Basophils Percent Auto 0.3 % (0.0-3.0); Eosinophils Absolute Auto 0.18 K/uL (0.00-0.50); Eosinophils Percent Auto 1.8 % (0.0-7.0); Hematocrit 39.7 % (33.0-51.0); Hemoglobin* 12.9 gm/dL (12.0-16.0); Immature Granulocytes Abs Auto 0.01 K/uL (0.00-0.30); Immature Granulocytes Pct Auto 0.1 %; Lymphocytes Absolute Auto 2.12 K/uL (0.90-2.90); Lymphocytes Percent Auto 21.8 % (20-44); Mean Corpuscular HGB Conc 33 gm/dL (32-36); Mean Corpuscular Hemoglobin 28 pg (26-34); Mean Corpuscular Volume 87 fL (80-100); Monocytes Percent Auto 7.6 % (0.0-11.0); Neutrophils Absolute Auto 6.65 K/uL (1.7-7.0); Neutrophils Percent Auto 68.4 % (42.0-72.0); Platelet Count* 341 K/uL (140-440); RDW Coefficient of Variation % 12.8 % (11.5-15.5); Red Blood Count 4.54 m/uL (4.00-5.20); White Blood Count* 9.73 K/uL (4.50-11.00)
[2024-11-26 09:16] LABS: Slide Review Reflex No
[2024-11-26 09:19] LABS: PCR FLU A Negative PCR FLU A (Negative); PCR FLU B Negative PCR FLU B (Negative); PCR RSV Negative PCR RSV (Negative); SARS PCR* Negative SARS-CoV-2 (Negative)
[2024-11-26 09:19] LABS: Troponin, Point-of-Care* 0.01 ng/ml (0.01-0.04)
[2024-11-26 09:34] LABS: Albumin* 4.5 g/dL (3.3-5.0)
[2024-11-26 09:35] LABS: Chloride* 103 mmol/L (96-114); Potassium* 3.8 mmol/L (3.6-5.1); Sodium* 139 mmol/L (135-149)
[2024-11-26 09:37] LABS: Alkaline Phosphatase* 81 U/L (40-150); Aspartate Amino Transferase* 23 U/L (12-35); Bilirubin Direct* 0.3 mg/dL (0.0-0.5); Bilirubin Total* 0.8 mg/dL (0.1-1.5); Creatine Kinase* 131 U/L (41-117); Total Protein* 7.1 g/dL (6.0-8.3)
[2024-11-26 09:38] LABS: Alanine Aminotransferase* 13 U/L (4-35); Anion Gap 7 mEq/L (7-15); Blood Urea Nitrogen* 16 mg/dL (7-30); Carbon Dioxide* 29 mmol/L (20-32); Creatinine* 0.8 mg/dL (0.5-1.5); Estimated Glomerular Filt Rate 73 ml/min; Glucose* 138 mg/dL (60-115)
[2024-11-26 09:51] LABS: Troponin I* < 0.01 ng/mL (0.01-0.04)
[2024-11-26 13:35] LABS: Appearance Urine Clear (Clear); Bilirubin Urine Negative (Negative); Blood Urine Negative (Negative); Color Urine Yellow (Yellow); Glucose Urine Negative (Negative); Ketones Urine Trace (Negative); Leukocyte Esterase Urine Negative (Negative); Nitrite Urine Negative (Negative); Protein Urine Negative (Negative); Urobilinogen Urine 0.2 (0.2-1.0)
--- NOTE | 2024-11-26 13:50 | ED.NURSE ---
Pt ambulated 20 ft via walker, with sx2 standby assist. Pt tolerated this well, did report some lower abdominal pain. MD amaya
[2024-11-26 13:54] LABS: RBC Urine 0-2 (0-2); WBC Urine 0-2 (0-5)
--- NOTE | 2024-11-26 14:09 | ED.NURSE ---
Patient report given to [facility]. They are aware of her discharging. Called delgado Gomez, update given.
--- NOTE | 2024-11-26 15:45 | ED.NURSE ---
Pt ambulated to pt daughter vehicle, pt was unable to climb in to vehicle with assistance. EMS called for transport, report given.
== END 2024-11-26 15:45 | disposition home or self-care (01) ==
PROVIDERS: Emergency Provider Emergency Medicine; PCP Family Medicine
DX: M79.605 Pain in left leg (principal); W19.XXXA Unspecified fall, initial encounter
CPT/HCPCS: 36415; 70450; 72125; 72128; 72131; 73502; 73562; 80048; 80076; 81001; 82550; 83605; 84484; 85025; 87631; 93005; 96374; 99284; 99285; J2270

== ENCOUNTER 2024-11-26 15:40 | Outpatient (CLI) | payer MEDICARE, OTHER, SELFPAY | END 2024-11-26 15:41 | disposition home or self-care (01) | LOC: AMB 12-11 17:43 | PROVIDERS: PCP Family Medicine; Visit Provider Emergency Medicine | DX: M25.512 Pain in left shoulder (principal) | CPT/HCPCS: A0425; A0428 ==

== ENCOUNTER 2024-12-03 06:36 | Outpatient (CLI) | payer MEDICARE, OTHER, SELFPAY | END 2024-12-03 10:49 | disposition home or self-care (01) | LOC: AMB 12-24 10:47 | PROVIDERS: PCP Family Medicine; Visit Provider Family Medicine | DX: S99.922A Unspecified injury of left foot, initial encounter (principal); W19.XXXA Unspecified fall, initial encounter; Y92.129 Unspecified place in nursing home as the place of occurrence of the external cause | CPT/HCPCS: A0425; A0427 ==

== ENCOUNTER 2024-12-03 06:51 | Emergency (ER) | payer MEDICARE, OTHER, SELFPAY ==
[2024-12-03] VITALS (10 sets, daily range): BP systolic 142–205; BP diastolic 89–107; PULSE 63–84; RESP 16–20; TEMP 36.7; O2SAT 92–96
--- OUTSIDE RECORDS SUMMARY | 2024-12-03 06:53 | XMS_ITS | Clinical Summary ---
Author Organization [facility] Address [address] [place] [address] Care Team Providers Care Digital Advertising Specialist Name Role Phone Unavailable Primary Care Provider Unavailabl e Source Comments Patient records contain information from all sites at [facility]. For routine questions regarding patient records, call [phone] during business hours, M-F 8:00 AM - 5:00 PM Central Time. 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 Pins/Screws/Ro ds Hardware e.g. pins/screws/ rods Right: Knee Insurance MEDICA MEDICARE
--- OUTSIDE RECORDS SUMMARY | 2024-12-03 06:53 | XMS_ITS ---
Author Organization [facility] Address [address] [place] [address] Care Team Providers Care Repair Department Manager Name Role Phone Unavailable Unavailable Unavailable Surgery Details Not on file Complications Check Surgery Details section. Procedure Estimated Blood Loss Check Surgery Details section. Procedure Findings Check Surgery Details section. Procedure Specimens Taken Check Surgery Details section.
--- OUTSIDE RECORDS SUMMARY | 2024-12-03 06:53 | XMS_ITS | Referral Summary ---
Author Organization [facility] Address [address] [facility] [place] [address] Care Team Providers Care Battery Tester And Repairer Name Role Phone System, Provider Not [...] BY MOUTH ONCE DAILY 1 Active NYAMYC 525352 UNIT/GM external powder Apply topically daily as [...] 06/09/2016 Overview (08/03/2022): Dr. Mandie Douglass of [place] Dr. 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 Gender Identity Not on file Sexual Orientation Not on file Last Filed Vital Signs Vital Sign Reading Time Taken Comments Blood Pressure 132/88 12/29/2023 11:46 AM MANAGER ADMINISTRATIVE Pulse 81 12/29/2023 11:46 AM MANAGER ADMINISTRATIVE Temperature 36.6 C (97.9 F) 12/29/2023 8:07 AM MANAGER ADMINISTRATIVE Respiratory Rate 19 12/29/2023 11:4 6 AM MANAGER ADMINISTRATIVE Oxygen Saturation 93% 12/29/2023 11: 46 AM MANAGER ADMINISTRATIVE Inhaled Oxygen Concentration - - Weight 107.7 kg (237 lb 6.4 oz) 12/26/2023 9:56 AM MANAGER ADMINISTRATIVE Height 152.4 cm (5') 12/21/2023 8:24 AM MANAGER ADMINISTRATIVE Body Mass Index 46.36 12/21/2023 8:24 AM MANAGER ADMINISTRATIVE Plan of Treatment Not on file Procedures Procedure Name Priority Date/Time Associated Diagnosis Comments BASIC METABOLIC PANEL Routine 12/28/2023 6:26 AM MANAGER ADMINISTRATIVE TSH WITH FREE T4 REFLEX STAT 12/21/2023 8:33 AM MANAGER ADMINISTRATIVE from Last 3 Months or Most Recently Relevant to Health Maintenance Results * (ABNORMAL) Basic metabolic panel (12/28/2023 6:26 AM MANAGER ADMINISTRATIVE) Sodium 142 135 - 145 mmol/L 12/28/2023 7:13 AM [facility] Comment:Reference intervals for this test were updated on 08/08/2023 to more accurately reflect our healthy population. There may be differences in the flagging of prior results with similar values performed with this method. Interpretation of those prior results can be made in the context of the updated reference intervals. Potassium 3.8 3.4 - 5.3 mmol/L 12/28/2023 7:13 AM [facility] Chloride 103 98 - 107 mmol/L 12/28/2023 7:13 AM [facility] Carbon Dioxide (CO2) 26 22 - 29 mmol/L 12/28/2023 7:13 AM [facility] Anion Gap 13 7 - 15 mmol/L 12/28/2023 7:13 AM [facility] Urea Nitrogen 17.9 8.0 - 23.0 mg/dL 12/28/2023 7:13 AM [facility] Creatinine 0.90 0.51 - 0.95 mg/dL 12/28/2023 7:13 AM [facility] GFR Estimate 63 >60 mL/min/1. 73m2 12/28/2023 7:13 AM MANAGER ADMINISTRATIVE LABORATORY Calcium 9.4 8.8 - 10.2 mg/dL 12/28/2023 7:13 AM MANAGER ADMINISTRATIVE LABORATORY Glucose 117(H) 70 - 99 mg/dL 12/28/2023 7:13 AM MANAGER ADMINISTRATIVE [facility] Blood STRUCTURE OF RIGHT HAND / Unknown Venipuncture / Unknown 12/28/2023 6:26 AM MANAGER ADMINISTRATIVE 12/28/2023 6:36 AM MANAGER ADMINISTRATIVE us Kristina Griffin MD LAB - BLOOD ORDERABLES Final Res ult [facility] [address] Lab (1st floor, no room number) [place] [address], [place] [phone] * (ABNORMAL) TSH with free T4 reflex (12/21/2023 8:33 AM MANAGER ADMINISTRATIVE) TSH 5.16(H) 0.30 - 4.20 uIU/mL 12/21/2023 9:14 AM MANAGER ADMINISTRATIVE [facility] Blood STRUCTURE OF LEFT UPPER LIMB / Unknown Venipuncture / Unknown 12/21/2023 8:33 AM MANAGER ADMINISTRATIVE 12/21/2023 8:40 AM MANAGER ADMINISTRATIVE us Oswaldo Samuel APRN, CNP LAB - BLOOD ORDERABLE S Final Result [facility] [address] Lab (1st floor, no room number) [place] [address], [place] [phone] from Last 3 Months or Most Recently Relevant to Health Maintenance Insurance [employer] [place] [id number] MEDICARE [address] [phone] [address] MEDICA [facility] [place] [id number] MEDICARE Advance Directives For more information, please contact: [phone] * No CPR- Do NOT Intubate (Latest Code Status on File) Date Activated Date Inactivated Comments 12/21/2023 8:01 AM 12/29/2023 4:45 PM NO basic or a dvanced life-sustaining interventions are performed Question Answer Comments Code status determined by: Discussion with patie nt/ legal decision maker Care Teams Battery Tester And Repairer Relationship Specialty Start Date End Date System, Provider Not In PCP - General Clinic 12/21/23
--- OUTSIDE RECORDS SUMMARY | 2024-12-03 06:53 | XMS_ITS | Clinical Summary ---
Author Organization [facility] Address [place], [place] [address] Care Team Providers Care Production Team Leader Name Role Phone Samantha Acharya MD Primary [...] banding Overview (05/20/2016): Dr. Mandie Douglass of [place] Screen for colon cancer 06/18/2010 Overview (06/18/2010): Colonoscopy 06/2010 normal repeat in 10 years Encounters Date Type Department Care Team Description 10/25/2024 9:00 AM PLASTERER HELPER Procedure Only [facility] [address] [place] [address] Oswaldo Muir MD Procedure (Left shoulder injection) 10/25/2024 Telephone [facility] [address] [place] [address] Oswaldo Muir MD Form (disability parking) 10/25/2024 Travel 10/02/2024 Telephone [facility] [address] [place] [address] Oswaldo Muir MD Appointment from Last 3 [...] on file Legal Sex Female 6:13 AM PLASTERER HELPER Gender Identity Not on file Sexual Orientation Not on file Obstetrics History Last Filed Vital Signs Vital Sign Reading Time Taken Comments Blood Pressure 153/95 10/25/2024 9:13 AM PLASTERER HELPER Pulse 78 10/25/2024 9:13 AM PLASTERER HELPER Temperature 36.6 C (97.9 F) 10/25/2024 9:13 AM PLASTERER HELPER Respiratory Rate 18 06/24/2016 2:11 PM CDT Oxygen Saturation 94% 10/25/2024 9:13 AM PLASTERER HELPER Inhaled Oxygen Concentration - - Weight 108.5 kg (239 lb 3.2 oz) 10/25/2024 9:13 AM PLASTERER HELPER Height 145.3 cm (4' 9.21) 01/31/2019 1 [...] US STUDY ARCHIVE Routine 10/25/2024 3:51 PM PLASTERER HELPER Osteoarthritis of left glenohumeral joint Chronic left shoulder pain from Last 3 Months Results * BEDSIDE US STUDY ARCHIVE (10/25/2024 3:51 PM PLASTERER HELPER) Narrative Duyen Springer - 10/25/2024 3:51 PM PLASTERER HELPER The patient was seen for ultrasound guided [...] 5:55 AM 06/10/2016 8:21 PM Care Teams Production Team Leader Relationship Specialty Start Date End Date Samantha Acharya MD [address] [place] [address] PCP - General Family Practice 12/12/16
--- OUTSIDE RECORDS SUMMARY | 2024-12-03 06:53 | XMS_ITS | Referral Summary ---
Author Organization [facility] Address [address] [place] [address] Care Team Providers Care Setter Induction Heating Equipment Name Role Phone Unavailable Primary Care Provider Unavailabl e Source Comments Patient records contain information from all sites at [facility]. For routine questions regarding patient records, call [phone] during business hours, M-F 8:00 AM - 5:00 PM Central Time. 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 Pins/Screws/Ro ds Hardware e.g. pins/screws/ rods Right: Knee Insurance MEDICA MEDICARE
--- OUTSIDE RECORDS SUMMARY | 2024-12-03 06:53 | XMS_ITS | Continuity of Care Document ---
Author Organization [facility] Address [address] [place] [address] Phone Care Team Providers Care Coat Repair Inspector Name Role Phone Jonny PAC, Luis Unavailable Unavailable Allergies, Adverse Reactions, Alerts Substance Reaction Status Criticality No Known Allergies Active No Inform ation Procedures Procedure Date Office/Outpatient Visit,[facility] 2016 Advance Directives Directive Yes / No Effective Date File Name No Information Encounters Encounter Description Practice Location Reason(s) For Visit Diagnoses Date Provider Providers Copied on Encounter [facility], [address], [place], [place], [id number], [place] tel:[phone] [facility] No Information Panvica Luis. [facility], [address] [place] [address], [address], [place], [place], [id number] , [place]. tel:[phone] Office/Outpat ient Visit,[facility], [facility], [address], [place], [place], [id number], [place] tel:[phone] [facility] Spondylolisthes is, lumbar regionSpinal stenosis, lumbar regionOther intervertebral disc degeneration, lumbar region Panvica Luis. [facility], [address] [place] [address], [address], [place], [place], [id number] , [place]. tel:[phone] Referring Provider: Samantha Abreu[address], [address]. tel:[phone] Family History Family Member Type Diagnosis Age At Onset No Information Payers Payer name Insurance type Covered constitution party ID Authoriza titimothy(s) [employer] Camila RIOS [id number] Social History Type Description Quantity Date Captured [...]
--- OUTSIDE RECORDS SUMMARY | 2024-12-03 06:53 | XMS_ITS | Clinical Summary ---
Author Organization [facility] Address [address] [facility] [place] [address] Care Team Providers Care Certified Income Tax Preparer Name Role Phone System, Provider Not In [...] BY MOUTH ONCE DAILY 1 Active NYAMYC 711253 UNIT/GM external powder Apply topically daily as [...] 06/09/2016 Overview (08/03/2022): Dr. Mandie Douglass of [place] Dr. Villanueva Immunizations Name Administration Dates Next [...] on file Legal Sex Female 3:29 AM MILL TENDER SECOND OPERATOR Gender Identity Not on file Sexual Orientation Not on file Last Filed Vital Signs Vital Sign Reading Time Taken Comments Blood Pressure 132/88 12/29/2023 11:46 AM MILL TENDER SECOND OPERATOR Pulse 81 12/29/2023 11:46 AM MILL TENDER SECOND OPERATOR Temperature 36.6 C (97.9 F) 12/29/2023 8:07 AM MILL TENDER SECOND OPERATOR Respiratory Rate 19 12/29/2023 11:4 6 AM MILL TENDER SECOND OPERATOR Oxygen Saturation 93% 12/29/2023 11: 46 AM MILL TENDER SECOND OPERATOR Inhaled Oxygen Concentration - - Weight 107.7 kg (237 lb 6.4 oz) 12/26/2023 9:56 AM MILL TENDER SECOND OPERATOR Height 152.4 cm (5') 12/21/2023 8:24 AM MILL TENDER SECOND OPERATOR Body Mass Index 46.36 12/21/2023 8:24 AM MILL TENDER SECOND OPERATOR Plan of Treatment Health Maintenance Due [...] BASIC METABOLIC PANEL Routine 12/28/2023 6:26 AM MILL TENDER SECOND OPERATOR TSH WITH FREE T4 REFLEX STAT 12/21/2023 8:33 AM MILL TENDER SECOND OPERATOR from Last 3 Months or Most Recently Relevant to Health Maintenance Results * (ABNORMAL) Basic metabolic panel (12/28/2023 6:26 AM MILL TENDER SECOND OPERATOR) Sodium 142 135 - 145 mmol/L 12/28/2023 7:13 AM MILL TENDER SECOND OPERATOR [facility] Comment:Reference intervals for this test were updated on 08/08/2023 to more accurately reflect our healthy population. There may be differences in the flagging of prior results with similar values performed with this method. Interpretation of those prior results can be made in the context of the updated reference intervals. Potassium 3.8 3.4 - 5.3 mmol/L 12/28/2023 7:13 AM [facility] Chloride 103 98 - 107 mmol/L 12/28/2023 7:13 AM [facility] Carbon Dioxide (CO2) 26 22 - 29 mmol/L 12/28/2023 7:13 AM [facility] Anion Gap 13 7 - 15 mmol/L 12/28/2023 7:13 AM [facility] Urea Nitrogen 17.9 8.0 - 23.0 mg/dL 12/28/2023 7:13 AM [facility] Creatinine 0.90 0.51 - 0.95 mg/dL 12/28/2023 7:13 AM [facility] GFR Estimate 63 >60 mL/min/1. 73m2 12/28/2023 7:13 AM [facility] Calcium 9.4 8.8 - 10.2 mg/dL 12/28/2023 7:13 AM [facility] Glucose 117(H) 70 - 99 mg/dL 12/28/2023 7:13 AM [facility] Blood STRUCTURE OF RIGHT HAND / Unknown Venipuncture / Unknown 12/28/2023 6:26 AM MILL TENDER SECOND OPERATOR 12/28/2023 6:36 AM MILL TENDER SECOND OPERATOR Krsitina Griffin MD LAB - BLOOD ORDERABLES Final Res ult LABORATORY [facility] [address] Lab (1st floor, no room number) [place] [address], [facility] [phone] * (ABNORMAL) TSH with free T4 reflex (12/21/2023 8:33 AM MILL TENDER SECOND OPERATOR) TSH 5.16(H) 0.30 - 4.20 uIU/mL 12/21/2023 9:14 AM MILL TENDER SECOND OPERATOR LABORATORY Blood STRUCTURE OF LEFT UPPER LIMB / Unknown Venipuncture / Unknown 12/21/2023 8:33 AM MILL TENDER SECOND OPERATOR 12/21/2023 8:40 AM MILL TENDER SECOND OPERATOR Oswaldo Samuel APRN PUBLIC SERVICE OFFICER LAB - BLOOD ORDERABLE S Final Result Performing Organization Address [facility]/ZIP Co de Phone Number LABORATORY [facility] [address] Lab (1st floor, no room number) [place] [address], [facility] [phone] from Last 3 Months or Most Recently Relevant to Health Maintenance [place] [address] MED[address]ARE [address] [address] [address] MEDICA [employer] MEDICARE Advance Directives For more information, please contact: [phone] * No CPR- Do NOT Intubate (Latest Code Status on File) Date Activated Date Inactivated Comments 12/21/2023 8:01 AM 12/29/2023 4:45 PM NO basic or a dvanced life-sustaining interventions are performed Question Answer Comments Code status determined by: Discussion with patie nt/ legal decision maker Care Teams Certified Income Tax Preparer Relationship Specialty Start Date End Date System, Provider Not In PCP - General Clinic 12/21/23
--- OUTSIDE RECORDS SUMMARY | 2024-12-03 06:53 | XMS_ITS | Continuity of Care Document ---
Author Name Nw[facility]IN User [email or web address]-a llowed Address Unknown Organization Unknown Address Unknown Procedures FILTER APPLIED:Only known Procedures with Onset Date within the last 5 years Procedure Date Procedure Provider Additiona l Information Status X-RAY EXAM OF FEMUR 2/> (78873) Completed X-RAY EXAM HIP UNI 2-3 VIEWS (69762) Completed CT NECK SPINE W/O DYE (58623) Completed CT HEAD/BRAIN W/O DYE (01429) Completed ROUTINE VENIPUNCTURE (05459) Completed EMERGENCY DEPT VISIT MOD MDM (93217) Completed INSERT TEMP BLADDER CATH (91276) Completed CRITICAL CARE FIRST HOUR (42529) Completed THER/PROPH/DIAG INJ IV PUSH (35890) Completed ELECTROCARDIOGRAM TRACING (12595) Completed METABOLIC PANEL TOTAL CA (28535) Completed COMPLETE CBC W/AUTO DIFF WBC (96858) Completed ADMISSION MED REC MARKER FOR REPORTING AND BPA'S (71723) Completed RESP VIRUS 3-5 TARGETS (54545) Completed BLOOD CULTURE FOR BACTERIA (50477) Completed THER/PROPH/DIAG IV INF INIT (31597) Completed TX/PRO/DX INJ NEW DRUG ADDON (43364) Completed EMERGENCY DEPT VISIT HI MDM (96176) Completed COMPLETE CBC W/AUTO DIFF WBC (52083) Completed ASSAY OF LACTIC ACID (88347) Completed BLOOD GASES ANY COMBINATION (02497) Completed METABOLIC PANEL TOTAL CA (26036) Completed CT ABD PELVIS W/O CONTRAST (37126) Completed CT THORAX DX C- (86942) Completed X-RAY EXAM CHEST 1 VIEW (84415) Completed ROUTINE VENIPUNCTURE (92152) Completed MEASURE BLOOD OXYGEN LEVEL (92936) Completed AIRWAY INHALATION TREATMENT (10411) Completed PROCALCITONIN (PCT) (41129) Completed URINE CULTURE/COLONY COUNT (88674) Completed URINALYSIS AUTO W/SCOPE (51840) Completed ASSAY OF NATRIURETIC PEPTIDE (19155) Completed COMPLETE CBC W/AUTO DIFF WBC (82591) Completed METABOLIC PANEL TOTAL CA (35480) Completed URINALYSIS AUTO W/SCOPE (27148) Completed URINE CULTURE/COLONY COUNT (86174) Completed Encounters FILTER APPLIED:Only known Encounters with Admission Date within the last 5 years Encounter Location Admission Discharge Billing Code Consultant [facility] Out[facility] Nerissa Joaquinus Outpatient Ner[facility] Out[facility] Luc[facility] Meza Inpatient [facility]
--- NOTE | 2024-12-03 07:06 | CRLHL7_ITS ---
For Patients: As a result of the Century Cures Act, medical imaging exams and procedure reports are released immediately into your electronic medical record. You may view this report before your referring provider. If you have questions, please contact your health care provider. INDICATION: Fall, altered mental status TECHNIQUE: 1 view chest radiograph COMPARISON: 09/30/2020 FINDINGS: Devices: None. Lung volumes are good. No focal or diffuse opacities. No pleural effusion. No pneumothorax. Heart size is upper limits of normal. Mediastinal contours are about the same. Advanced degenerative change in both shoulders, worse on the left, with significant glenohumeral joint remodeling. No acute appearing bone findings. IMPRESSION: No acute or traumatic thoracic findings seen. Dictated by Sheree Espino MD @ 12/03/2024 7:54:59 AM (Electronically Signed)
--- NOTE | 2024-12-03 07:06 | CRLHL7_ITS ---
For Patients: As a result of the Century Cures Act, medical imaging exams and procedure reports are released immediately into your electronic medical record. You may view this report before your referring provider. If you have questions, please contact your health care provider. INDICATION: Fall, nosebleed and confusion TECHNIQUE: CT head without contrast. COMPARISON: Head CT 11/26/2024 FINDINGS: Exam is mildly degraded secondary to patient motion. CSF spaces: Within normal limits for age. Brain parenchyma: The reeves-white differentiation is normal. No sign of mass, hemorrhage, or midline shift. Cerebral atrophy with moderate low-density in the deep white matter. Skull base and calvarium: Mucosal thickening paranasal sinuses with some soft tissue density within the left nasal cavity anteriorly. No definite displaced fractures. IMPRESSION: 1. Exam degraded by patient motion. 2. No definite intracranial bleed or displaced fracture seen. Patient motion could obscure a nondisplaced fracture. 3. Cerebral atrophy with nonspecific white matter disease, likely microangiopathy. 4. Soft tissue within the left nasal cavity anteriorly. This is nonspecific but would be consistent with the given history of nosebleed/hematoma. Please note that all CT scans at this facility use dose modulation, iterative reconstruction, and/or weight-based dosing when appropriate to reduce radiation dose to as low as reasonably achievable. Dictated by Alverto Salas MD @ 12/03/2024 7:47:57 AM (Electronically Signed)
--- NOTE | 2024-12-03 07:06 | CRLHL7_ITS ---
For Patients: As a result of the Century Cures Act, medical imaging exams and procedure reports are released immediately into your electronic medical record. You may view this report before your referring provider. If you have questions, please contact your health care provider. INDICATION: Fall, left hip pain COMPARISON: 11/26/2024 TECHNIQUE: AP pelvis, AP left hip, cross-table lateral left hip. FINDINGS: There is some asymmetric sclerosis in the left greater trochanter that could be a nondisplaced subacute/healing fracture. No acute fracture seen. Normal hip joint alignment. Joint spaces are normal. Degenerative change at the lumbosacral junction and both sacroiliac joints. Soft tissues are normal. IMPRESSION: Possible healing nondisplaced left greater trochanter fracture. No acute fractures or dislocation. Dictated by Sheree Espino MD @ 12/03/2024 7:52:27 AM (Electronically Signed)
--- NOTE | 2024-12-03 07:15 | ED_ITS ---
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 IMPRESSION: Possible healing nondisplaced left greater trochanter fracture. No acute fractures or dislocation. Dictated by Sheree Espino MD @ 12/03/2024 7:52:27 AM <Meri Santiago MD - Last Filed: 12/03/24 23:56> CT- Other: Attestation: I have reviewed the pertinent imaging results. <Renu Valle MD - Last Filed: 12/03/24 09:57> Radiologist's impression: Patient: ROSINA NAVAS Facility:?[facility] Patient ID:?[id number] Site Patient ID:?[id number]. Site :?[id number] Study:?CT-Hip Left WO-12/03/2024 8:32:17 AM Ordering Physician:Padilla Jerez Final Report: INDICATION: Fall. Abnormal x-ray. TECHNIQUE: Noncontrast CT of the left hip. COMPARISON: Radiographs 12/03/2024. FINDINGS: There is no acute left proximal femoral or left acetabular fracture. There are mild degenerative changes of the left hip. Spurring of the left greater trochanter is chronic. No adjacent space-occupying hematoma or fluid collection. Degenerative changes of the contralateral right hip. Degenerative changes of the pubic symphysis and sacroiliac joints. Prior hysterectomy. Fat containing ventral abdominal wall hernia. IMPRESSION: 1. No acute fracture. 2. Mild degenerative changes of the left hip. 3. No fluid collection or space-occupying hematoma. Dictated by Bebeto Davis MD @ 12/03/2024 8:41:37 AM Please note that all CT scans at this facility use dose modulation, iterative reconstruction, and/or weight-based dosing when appropriate to reduce radiation dose to as low as reasonably achievable. Dictated by: Bebeto Davis MD @ 12/03/2024 08:41:50 (Electronic Signature) <Renu Draper MD - Last Filed: 12/03/24 09:57> ECG Data Attestation: I personally reviewed and interpreted this ECG as follows: <Meri Santiago MD - Last Filed: 12/03/24 23:56> Prior ECG tracings: available for review <Meri Santiago MD - Last Filed: 12/03/24 23:56> Interpretation: Sinus rhythm, rate of 76. Normal intervals and axis. No significant ST or T-wave abnormalities. <Meri Santiago MD - Last Filed: 12/03/24 23:56> Discharge Plan Discharge Clinical Impression: Acute pain of left hip, Influenza A Fall Qualifiers: Encounter type: initial encounter Qualified Code(s): W19.XXXA - Unspecified fall, initial encounter <Meri Santiago MD - Last Filed: 12/03/24 23:56> Patient Disposition: Home w/ Parent or Adult <Meri Santiago MD - Last Filed: 12/03/24 23:56> Condition: Stable <Meri Santiago MD - Last Filed: 12/03/24 23:56> Instructions: Influenza (ED) <Meri Santiago MD - Last Filed: 12/03/24 23:56> Additional Instructions: Imaging which did include CT of the hip and pelvis shows no acute fracture. No acute intracranial pathology on CT imaging of your head. You did test positive for influenza a, got your 1st dose of Tamiflu here in the ER. Next dose will be due tonight and you should take medicine as prescribed. If you are worsening, have further concerns, please seek re-evaluation. <Meri Santiago MD - Last Filed: 12/03/24 23:56> Activity Level: No Restrictions <Meri Santiago MD - Last Filed: 12/03/24 23:56> No Restrictions <Renu Draper MD - Last Filed: 12/03/24 09:57> Prescriptions: New oseltamivir [Tamiflu] 75 mg capsule 75 mg PO BID 5 Days Qty: 9 0RF oseltamivir [Tamiflu] 75 mg capsule 75 mg PO BID 5 Days Qty: 9 0RF No Action acetaminophen 500 mg tablet 1,000 mg PO TID PRN cholecalciferol (vitamin D3) 25 mcg (1,000 unit) tablet 1,000 unit PO DAILY losartan 50 mg tablet 50 mg PO BID sennosides 8.6 mg tablet 8.6 mg PO BID tramadol 50 mg tablet 50 mg PO Q12H nystatin [Nyamyc] 100,000 unit/gram powder 1 applic topical DIRECTED simvastatin 20 mg tablet 20 mg PO HS levothyroxine 125 mcg tablet 125 mcg PO DAILY furosemide 40 mg tablet 40 mg PO DAILY <Meri Santiago MD - Last Filed: 12/03/24 23:56> Follow Up/Referrals: Samantha Acharya MD [Primary Care Provider] - <Meri Santiago MD - Last Filed: 12/03/24 23:56> Stand Alone Forms: MyHealth Info Instructions <Meri Santiago MD - Last Filed: 12/03/24 23:56>
--- OUTSIDE RECORDS SUMMARY | 2024-12-03 07:17 | XMS_ITS | Continuity of Care Document ---
Author Organization [facility] Address [address] [place] [address] Phone Care Team Providers Care Acreage Reporter Name Role Phone Jonny PAC, Luis Unavailable Unavailable Allergies, Adverse Reactions, Alerts Substance Reaction Status Criticality No Known Allergies Active No Inform ation Procedures Procedure Date Office/Outpatient Visit,[facility] 2016 Advance Directives Directive Yes / No Effective Date File Name No Information Encounters Encounter Description Practice Location Reason(s) For Visit Diagnoses Date Provider Providers Copied on Encounter [facility], [address], [place], [place], [id number], [place] tel:[phone] [facility] No Information Panvica Luis. [facility], [address] [place] [address], [address], [place], [place], [address] , [place]. tel:[phone] Office/Outpat ient Visit,[facility], [facility], [address], [place], [place], [id number], [place] tel:[phone] [facility] Spondylolisthes is, lumbar regionSpinal stenosis, lumbar regionOther intervertebral disc degeneration, lumbar region Panvica Luis. [facility], [address] [place] [address], [address], [place], [place], [id number] , [place]. tel:[phone] Referring Provider: Samantha Abre[address], [address]. tel:[phone] Family History Family Member Type Diagnosis Age At Onset No Information Payers Payer name Insurance type Covered constitution party ID Authoriza titimothy(s) [employer] Camila RIOS [id number] Social History Type Description Quantity Date Captured [...]
--- OUTSIDE RECORDS SUMMARY | 2024-12-03 07:17 | XMS_ITS | Continuity of Care Document ---
Author Name NwHIN User [email or web address] llowed Address Unknown Organization Unknown Address Unknown Procedures FILTER APPLIED:Only known Procedures with Onset Date within the last 5 years Procedure Date Procedure Provider Additiona l Information Status X-RAY EXAM OF FEMUR 2/> (46834) Completed X-RAY EXAM HIP UNI 2-3 VIEWS (10631) Completed CT NECK SPINE W/O DYE (93593) Completed CT HEAD/BRAIN W/O DYE (88499) Completed ROUTINE VENIPUNCTURE (93005) Completed EMERGENCY DEPT VISIT MOD MDM (51215) Completed INSERT TEMP BLADDER CATH (73926) Completed CRITICAL CARE FIRST HOUR (76771) Completed THER/PROPH/DIAG INJ IV PUSH (25907) Completed ELECTROCARDIOGRAM TRACING (15657) Completed METABOLIC PANEL TOTAL CA (35671) Completed COMPLETE CBC W/AUTO DIFF WBC (73257) Completed ADMISSION MED REC MARKER FOR REPORTING AND BPA'S (03714) Completed RESP VIRUS 3-5 TARGETS (25519) Completed BLOOD CULTURE FOR BACTERIA (30774) Completed THER/PROPH/DIAG IV INF INIT (78423) Completed TX/PRO/DX INJ NEW DRUG ADDON (83347) Completed EMERGENCY DEPT VISIT HI MDM (89468) Completed COMPLETE CBC W/AUTO DIFF WBC (40908) Completed ASSAY OF LACTIC ACID (90149) Completed BLOOD GASES ANY COMBINATION (23259) Completed METABOLIC PANEL TOTAL CA (30519) Completed CT ABD PELVIS W/O CONTRAST (43845) Completed CT THORAX DX C- (46601) Completed X-RAY EXAM CHEST 1 VIEW (60172) Completed ROUTINE VENIPUNCTURE (68593) Completed MEASURE BLOOD OXYGEN LEVEL (22569) Completed AIRWAY INHALATION TREATMENT (51050) Completed PROCALCITONIN (PCT) (05979) Completed URINE CULTURE/COLONY COUNT (88098) Completed URINALYSIS AUTO W/SCOPE (60291) Completed ASSAY OF NATRIURETIC PEPTIDE (47447) Completed COMPLETE CBC W/AUTO DIFF WBC (43585) Completed METABOLIC PANEL TOTAL CA (05753) Completed URINALYSIS AUTO W/SCOPE (47743) Completed URINE CULTURE/COLONY COUNT (57766) Completed Encounters FILTER APPLIED:Only known Encounters with Admission Date within the last 5 years Encounter Location Admission Discharge Billing Code Consultant [facility] Outpatient Edy [facility] Outpatient Nerissa Joaquinus Outpatient Nerissa King Outpatient Valentin [facility] Emergency Luciano Meza Outpatient Luciano Meza Inpatient [facility] Outpatient [facility]
--- OUTSIDE RECORDS SUMMARY | 2024-12-03 07:17 | XMS_ITS | Clinical Summary ---
Author Organization [facility] Address [address] [facility] [place] [address] Care Team Providers Care Knot Bumper Name Role Phone System, Provider Not In [...] BY MOUTH ONCE DAILY 1 Active NYAMYC 084877 UNIT/GM external powder Apply topically daily as [...] 06/09/2016 Overview (08/03/2022): Dr. Mandie Douglass of [place] Dr. Villanueva Immunizations Name Administration Dates Next [...] on file Legal Sex Female 3:29 AM HEAD START DIRECTOR Gender Identity Not on file Sexual Orientation Not on file Last Filed Vital Signs Vital Sign Reading Time Taken Comments Blood Pressure 132/88 12/29/2023 11:46 AM HEAD START DIRECTOR Pulse 81 12/29/2023 11:46 AM HEAD START DIRECTOR Temperature 36.6 C (97.9 F) 12/29/2023 8:07 AM HEAD START DIRECTOR Respiratory Rate 19 12/29/2023 11:4 6 AM HEAD START DIRECTOR Oxygen Saturation 93% 12/29/2023 11: 46 AM HEAD START DIRECTOR Inhaled Oxygen Concentration - - Weight 107.7 kg (237 lb 6.4 oz) 12/26/2023 9:56 AM HEAD START DIRECTOR Height 152.4 cm (5') 12/21/2023 8:24 AM HEAD START DIRECTOR Body Mass Index 46.36 12/21/2023 8:24 AM HEAD START DIRECTOR Plan of Treatment Health Maintenance Due Date [...] BASIC METABOLIC PANEL Routine 12/28/2023 6:26 AM HEAD START DIRECTOR TSH WITH FREE T4 REFLEX STAT 12/21/2023 8:33 AM HEAD START DIRECTOR from Last 3 Months or Most Recently Relevant to Health Maintenance Results * (ABNORMAL) Basic metabolic panel (12/28/2023 6:26 AM HEAD START DIRECTOR) Sodium 142 135 - 145 mmol/L 12/28/2023 7:13 AM HEAD START DIRECTOR [facility] Comment:Reference intervals for this test were updated on 08/08/2023 to more accurately reflect our healthy population. There may be differences in the flagging of prior results with similar values performed with this method. Interpretation of those prior results can be made in the context of the updated reference intervals. Potassium 3.8 3.4 - 5.3 mmol/L 12/28/2023 7:13 AM [facility] Chloride 103 98 - 107 mmol/L 12/28/2023 7:13 AM [facility] Carbon Dioxide (CO2) 26 22 - 29 mmol/L 12/28/2023 7:13 AM [facility] Anion Gap 13 7 - 15 mmol/L 12/28/2023 7:13 AM [facility] Urea Nitrogen 17.9 8.0 - 23.0 mg/dL 12/28/2023 7:13 AM [facility] Creatinine 0.90 0.51 - 0.95 mg/dL 12/28/2023 7:13 AM [facility] GFR Estimate 63 >60 mL/min/1. 73m2 12/28/2023 7:13 AM [facility] Calcium 9.4 8.8 - 10.2 mg/dL 12/28/2023 7:13 AM [facility] Glucose 117(H) 70 - 99 mg/dL 12/28/2023 7:13 AM [facility] Blood STRUCTURE OF RIGHT HAND / Unknown Venipuncture / Unknown 12/28/2023 6:26 AM HEAD START DIRECTOR 12/28/2023 6:36 AM HEAD START DIRECTOR Kristina Griffin MD LAB - BLOOD ORDERABLES Final Res ult LABORATORY [facility] Acute Care Lab [address] Lab (1st floor, no room number) [place] [address], [facility] [phone] * (ABNORMAL) TSH with free T4 reflex (12/21/2023 8:33 AM HEAD START DIRECTOR) TSH 5.16(H) 0.30 - 4.20 uIU/mL 12/21/2023 9:14 AM HEAD START DIRECTOR LABORATORY Blood STRUCTURE OF LEFT UPPER LIMB / Unknown Venipuncture / Unknown 12/21/2023 8:33 AM HEAD START DIRECTOR 12/21/2023 8:40 AM HEAD START DIRECTOR Oswaldo Samuel APRN AUTOMATIC LATHE SETTER LAB - BLOOD ORDERABLE S Final Result Performing Organization Address [facility]/ZIP Co de Phone Number LABORATORY [facility] Acute Care Lab [address] Lab (1st floor, no room number) [place] [address], [facility] [phone] from Last 3 Months or Most Recently Relevant to Health Maintenance Insurance [employer] MEDICARE [address] [phone] [address] MEDICA [employer] MEDICARE Advance Directives For more information, please contact: [phone] * No CPR- Do NOT Intubate (Latest Code Status on File) Date Activated Date Inactivated Comments 12/21/2023 8:01 AM 12/29/2023 4:45 PM NO basic or a dvanced life-sustaining interventions are performed Question Answer Comments Code status determined by: Discussion with patie nt/ legal decision maker Care Teams Knot Bumper Relationship Specialty Start Date End Date System, Provider Not In PCP - General Clinic 12/21/23
--- OUTSIDE RECORDS SUMMARY | 2024-12-03 07:18 | XMS_ITS ---
Author Organization [facility] Address [address] [place] [address] Care Team Providers Care Field Clerk Name Role Phone Unavailable Unavailable Unavailable Surgery Details Not on file Complications Check Surgery Details section. Procedure Estimated Blood Loss Check Surgery Details section. Procedure Findings Check Surgery Details section. Procedure Specimens Taken Check Surgery Details section.
--- OUTSIDE RECORDS SUMMARY | 2024-12-03 07:18 | XMS_ITS | Clinical Summary ---
Author Organization [facility] Address [place], [place] [address] Care Team Providers Care Registered Radiographer Name Role Phone Samantha Acharya MD Primary [...] banding Overview (05/20/2016): Dr. Mandie Douglass of [place] Screen for colon cancer 06/18/2010 Overview (06/18/2010): Colonoscopy 06/2010 normal repeat in 10 years Encounters Date Type Department Care Team Description 10/25/2024 9:00 AM ENVIRONMENTAL HEALTH AND SAFETY INTERN Procedure Only [facility] [address] [facility] [place] [address] Oswaldo Muir MD Procedure (Left shoulder injection) 10/25/2024 Telephone [facility] [address] [facility] [place] [address] Oswaldo Muir MD Form (disability parking) 10/25/2024 Travel 10/02/2024 Telephone [facility] [address] [place] [address] Oswaldo Muir MD Appointment from Last 3 [...] on file Legal Sex Female 6:13 AM ENVIRONMENTAL HEALTH AND SAFETY INTERN Gender Identity Not on file Sexual Orientation Not on file Obstetrics History Last Filed Vital Signs Vital Sign Reading Time Taken Comments Blood Pressure 153/95 10/25/2024 9:13 AM ENVIRONMENTAL HEALTH AND SAFETY INTERN Pulse 78 10/25/2024 9:13 AM ENVIRONMENTAL HEALTH AND SAFETY INTERN Temperature 36.6 C (97.9 F) 10/25/2024 9:13 AM ENVIRONMENTAL HEALTH AND SAFETY INTERN Respiratory Rate 18 06/24/2016 2:11 PM CDT Oxygen Saturation 94% 10/25/2024 9:13 AM ENVIRONMENTAL HEALTH AND SAFETY INTERN Inhaled Oxygen Concentration - - Weight 108.5 kg (239 lb 3.2 oz) 10/25/2024 9:13 AM ENVIRONMENTAL HEALTH AND SAFETY INTERN Height 145.3 cm (4' 9.21) 01/31/2019 1 [...] US STUDY ARCHIVE Routine 10/25/2024 3:51 PM ENVIRONMENTAL HEALTH AND SAFETY INTERN Osteoarthritis of left glenohumeral joint Chronic left shoulder pain from Last 3 Months Results * BEDSIDE US STUDY ARCHIVE (10/25/2024 3:51 PM ENVIRONMENTAL HEALTH AND SAFETY INTERN) Narrative Duyen Springer - 10/25/2024 3:51 PM ENVIRONMENTAL HEALTH AND SAFETY INTERN The patient was seen for ultrasound guided [...] 5:55 AM 06/10/2016 8:21 PM Care Teams Registered Radiographer Relationship Specialty Start Date End Date Samantha Acharya MD [address] [place] [address] PCP - General Family Practice 12/12/16
--- OUTSIDE RECORDS SUMMARY | 2024-12-03 07:18 | XMS_ITS | Referral Summary ---
Author Organization [facility] Address [address] [place] [address] Care Team Providers Care Jigger Machine Operator Name Role Phone System, Provider Not In [...] BY MOUTH ONCE DAILY 1 Active NYAMYC 464868 UNIT/GM external powder Apply topically daily as [...] 06/09/2016 Overview (08/03/2022): Dr. Mandie Douglass of [place] Dr. Villanueva Immunizations Name Administration Dates Next [...] on file Legal Sex Female 3:29 AM SHOE TRIMMER Gender Identity Not on file Sexual Orientation Not on file Last Filed Vital Signs Vital Sign Reading Time Taken Comments Blood Pressure 132/88 12/29/2023 11:46 AM SHOE TRIMMER Pulse 81 12/29/2023 11:46 AM SHOE TRIMMER Temperature 36.6 C (97.9 F) 12/29/2023 8:07 AM SHOE TRIMMER Respiratory Rate 19 12/29/2023 11:4 6 AM SHOE TRIMMER Oxygen Saturation 93% 12/29/2023 11: 46 AM SHOE TRIMMER Inhaled Oxygen Concentration - - Weight 107.7 kg (237 lb 6.4 oz) 12/26/2023 9:56 AM SHOE TRIMMER Height 152.4 cm (5') 12/21/2023 8:24 AM SHOE TRIMMER Body Mass Index 46.36 12/21/2023 8:24 AM SHOE TRIMMER Plan of Treatment Not on file Procedures Procedure Name Priority Date/Time Associated Diagnosis Comments BASIC METABOLIC PANEL Routine 12/28/2023 6:26 AM SHOE TRIMMER TSH WITH FREE T4 REFLEX STAT 12/21/2023 8:33 AM SHOE TRIMMER from Last 3 Months or Most Recently Relevant to Health Maintenance Results * (ABNORMAL) Basic metabolic panel (12/28/2023 6:26 AM SHOE TRIMMER) Sodium 142 135 - 145 mmol/L 12/28/2023 [...] 63 >60 mL/min/1. 73m2 12/28/2023 7:13 AM SHOE TRIMMER LABORATORY Calcium 9.4 8.8 - 10.2 mg/dL 12/28/2023 7:13 AM SHOE TRIMMER LABORATORY Glucose 117(H) 70 - 99 mg/dL 12/28/2023 7:13 AM SHOE TRIMMER [facility] Blood STRUCTURE OF RIGHT HAND / Unknown Venipuncture / Unknown 12/28/2023 6:26 AM SHOE TRIMMER 12/28/2023 6:36 AM SHOE TRIMMER us Kristina Griffin MD LAB - BLOOD ORDERABLES Final Res ult [facility] Care Lab [address] Lab (1st floor, no room number) [place] [address], [place] [phone] * (ABNORMAL) TSH with free T4 reflex (12/21/2023 8:33 AM SHOE TRIMMER) TSH 5.16(H) 0.30 - 4.20 uIU/mL 12/21/2023 9:14 AM SHOE TRIMMER [facility] Blood STRUCTURE OF LEFT UPPER LIMB / Unknown Venipuncture / Unknown 12/21/2023 8:33 AM SHOE TRIMMER 12/21/2023 8:40 AM SHOE TRIMMER us Oswaldo Samuel APRN, CNP LAB - BLOOD ORDERABLE S Final Result [facility] Lab [address] Lab (1st floor, no room number) [place] [address], [place] [phone] from Last 3 Months or Most Recently Relevant to Health Maintenance Insurance [employer] [place] [id number] MEDICARE [address] [phone] [phone] MEDICA [facility] [place] [id number] MEDICARE Advance Directives For more information, please contact: [phone] * No CPR- Do NOT Intubate (Latest Code Status on File) Date Activated Date Inactivated Comments 12/21/2023 8:01 AM 12/29/2023 4:45 PM NO basic or a dvanced life-sustaining interventions are performed Question Answer Comments Code status determined by: Discussion with patie nt/ legal decision maker Care Teams Jigger Machine Operator Relationship Specialty Start Date End Date System, Provider Not In PCP - General Clinic 12/21/23
--- OUTSIDE RECORDS SUMMARY | 2024-12-03 07:18 | XMS_ITS | Clinical Summary ---
Author Organization [facility] Address [address] [place] [address] Care Team Providers Care Ag Service Manager Name Role Phone Unavailable Primary Care Provider Unavailabl e Source Comments Patient records contain information from all sites at [facility]. For routine questions regarding patient records, call [phone] during business hours, M-F 8:00 AM - 5:00 PM Central Time. Record requests for emergency care only can be directed to [phone] at any time.[facility] Allergies No known active allergies [...] on file Legal Sex Female 11:28 PM MANAGER LOCATION Gender Identity Not on file Sexual Orientation [...] this topic Medical Devices Implanted Type Area Peanut Grader Device Identifier Shelf Expiration Date Model / Serial / Lot Hardware E.G. Pins/Screws/Ro ds Hardware e.g. pins/screws/ rods Right: Knee Insurance MEDICA MEDICARE
--- OUTSIDE RECORDS SUMMARY | 2024-12-03 07:18 | XMS_ITS | Referral Summary ---
Author Organization [facility] Address [address] [place] [address] Care Team Providers Care Set Up And Lay Out Inspector Name Role Phone Unavailable Primary Care Provider Unavailabl e Source Comments Patient records contain information from all sites at [facility]. For routine questions regarding patient records, call [phone] during business hours, M-F 8:00 AM - 5:00 PM Central Time. Record requests for emergency care only can be directed to [phone] at any time.[facility] Allergies No known active allergies [...] on file Legal Sex Female 11:28 PM PILE OPERATOR Gender Identity Not on file Sexual [...] on file Medical Devices Implanted Type Area Cotton Grower Device Identifier Shelf Expiration Date Model / Serial / Lot Hardware E.G. Pins/Screws/Ro ds Hardware e.g. pins/screws/ rods Right: Knee Insurance [employer] MEDICARE
[2024-12-03] MEDS: ACETAMINOPHEN 500 MG TABLET 1000 MG PO (07:38)
[2024-12-03] MEDS: 0.9 % SODIUM CHLORIDE 250 ml 250 ML IV (08:01)
[2024-12-03] MEDS: HYDROmorphone 0.5 mg/0.5 ml inj IVP (08:04)
[2024-12-03 08:05] LABS: Eosinophils Absolute Auto 0.07 K/uL (0.00-0.50); Eosinophils Percent Auto 0.9 % (0.0-7.0); Hematocrit 39.5 % (33.0-51.0); Hemoglobin* 12.8 gm/dL (12.0-16.0); Immature Granulocytes Abs Auto 0.02 K/uL (0.00-0.30); Immature Granulocytes Pct Auto 0.3 %; Lymphocytes Absolute Auto 1.86 K/uL (0.90-2.90); Lymphocytes Percent Auto 24.4 % (20-44); Mean Corpuscular HGB Conc 32 gm/dL (32-36); Mean Corpuscular Hemoglobin 28 pg (26-34); Mean Corpuscular Volume 88 fL (80-100); Monocytes Percent Auto 8.9 % (0.0-11.0); Neutrophils Absolute Auto 4.98 K/uL (1.7-7.0); Neutrophils Percent Auto 65.5 % (42.0-72.0); Platelet Count* 264 K/uL (140-440); RDW Coefficient of Variation % 12.6 % (11.5-15.5); White Blood Count* 7.61 K/uL (4.50-11.00)
[2024-12-03 08:07] LABS: Slide Review Reflex No
--- NOTE | 2024-12-03 08:07 | CRLHL7_ITS ---
For Patients: As a result of the Cures Act, medical imaging exams and procedure reports are released immediately into your electronic medical record. You may view this report before your referring provider. If you have questions, please contact your health care provider. INDICATION: Fall. Abnormal x-ray. TECHNIQUE: Noncontrast CT of the left hip. COMPARISON: Radiographs 12/03/2024. FINDINGS: There is no acute left proximal femoral or left acetabular fracture. There are mild degenerative changes of the left hip. Spurring of the left greater trochanter is chronic. No adjacent space-occupying hematoma or fluid collection. Degenerative changes of the contralateral right hip. Degenerative changes of the pubic symphysis and sacroiliac joints. Prior hysterectomy. Fat containing ventral abdominal wall hernia. IMPRESSION: 1. No acute fracture. 2. Mild degenerative changes of the left hip. 3. No fluid collection or space-occupying hematoma. Dictated by Bebeto Davis MD @ 12/03/2024 8:41:37 AM Please note that all CT scans at this facility use dose modulation, iterative reconstruction, and/or weight-based dosing when appropriate to reduce radiation dose to as low as reasonably achievable. Dictated by: Bebeto Davis MD @ 12/03/2024 08:41:50 (Electronically Signed)
[2024-12-03 08:13] LABS: Troponin, Point-of-Care* 0.01 ng/ml (0.01-0.04)
[2024-12-03 08:19] LABS: PCR FLU A POSITIVE PCR FLU A (Negative); PCR FLU B Negative PCR FLU B (Negative); PCR RSV Negative PCR RSV (Negative); SARS PCR* Negative SARS-CoV-2 (Negative)
[2024-12-03 08:20] LABS: Chloride* 101 mmol/L (96-114); Potassium* 3.4 mmol/L (3.6-5.1); Sodium* 139 mmol/L (135-149)
[2024-12-03 08:21] LABS: INR 0.93 (0.91-1.10)
[2024-12-03 08:23] LABS: Anion Gap 7 mEq/L (7-15); Blood Urea Nitrogen* 16 mg/dL (7-30); Carbon Dioxide* 31 mmol/L (20-32); Creatinine* 0.7 mg/dL (0.5-1.5); Estimated Glomerular Filt Rate 85 ml/min
[2024-12-03 08:24] LABS: Calcium* 8.8 mg/dL (8.4-10.6); Glucose* 126 mg/dL (60-115)
[2024-12-03 08:26] LABS: C Reactive Protein* 0.8 mg/dL (0.5-1.0)
[2024-12-03 08:33] LABS: NT Pro B Type NatriureticPept* 158 pg/mL
[2024-12-03] MEDS: OSELTAMIVIR PHOSPHATE 75 MG CAPSULE PO (10:11)
== END 2024-12-03 10:42 | disposition home or self-care (01) ==
PROVIDERS: Family Medicine; Emergency Provider Family Medicine; PCP Family Medicine
DX: S01.01XA Laceration without foreign body of scalp, initial encounter (principal); M25.552 Pain in left hip; R04.0 Epistaxis; Z91.81 History of falling; J09.X2 Influenza due to identified novel influenza A virus with other respiratory manifestations; F03.90 Unspecified dementia, unspecified severity, without behavioral disturbance, psychotic disturbance, mood disturbance, and anxiety; I10 Essential (primary) hypertension; I89.0 Lymphedema, not elsewhere classified; R60.0 Localized edema
CPT/HCPCS: 12002; 36415; 70450; 71045; 73502; 73700; 80048; 81003; 83880; 84484; 85025; 85610; 86140; 87631; 93005; 94761; 96374; 99284; 99285; A9270; J1171; J7050

== ENCOUNTER 2024-12-03 10:27 | Outpatient (CLI) | payer MEDICARE, OTHER, SELFPAY | END 2024-12-03 10:28 | disposition home or self-care (01) | PROVIDERS: PCP Family Medicine; Visit Provider Family Medicine | DX: J11.1 Influenza due to unidentified influenza virus with other respiratory manifestations (principal); F03.90 Unspecified dementia, unspecified severity, without behavioral disturbance, psychotic disturbance, mood disturbance, and anxiety | CPT/HCPCS: A0425; A0428 ==

== ENCOUNTER 2024-12-03 16:38 | Outpatient (CLI) | payer MEDICARE, OTHER, SELFPAY | END 2024-12-03 16:39 | disposition home or self-care (01) | LOC: AMB 12-14 23:36 | PROVIDERS: PCP Family Medicine; Visit Provider Family Medicine | DX: S01.01XA Laceration without foreign body of scalp, initial encounter (principal); W19.XXXA Unspecified fall, initial encounter; Y92.031 Bathroom in apartment as the place of occurrence of the external cause | CPT/HCPCS: A0425; A0427 ==

== ENCOUNTER 2024-12-03 17:03 | Inpatient (IN) | payer MEDICARE, OTHER, SELFPAY ==
--- OUTSIDE RECORDS SUMMARY | 2024-12-03 17:05 | XMS_ITS | Referral Summary ---
Author Organization [facility] Address [address] [place] [address] Care Team Providers Care Senior Human Resources Representative Name Role Phone Unavailable Primary Care Provider Unavailabl e Source Comments Patient records contain information from all sites at [facility]. For routine questions regarding patient records, call [phone] during business hours, M-F 8:00 AM - 5:00 PM Central Time. Record requests for emergency care only can be directed to [phone] at any time.[facility] Allergies No known active allergies Medications No [...] on file Legal Sex Female 11:28 PM CHANNEL LIP WETTER Gender Identity Not on file Sexual Orientation [...] on file Medical Devices Implanted Type Area Telephone Clerk Telegraph Office Device Identifier Shelf Expiration Date Model / Serial / Lot Hardware E.G. Pins/Screws/Ro ds Hardware e.g. pins/screws/ rods Right: Knee Insurance MEDICA MEDICARE
--- OUTSIDE RECORDS SUMMARY | 2024-12-03 17:05 | XMS_ITS | Clinical Summary ---
Author Organization [email or web address] Address [place], [place] [address] Care Team Providers Care Carbon Dioxide Operator Name Role Phone Samantha Acharya MD Primary [...] banding Overview (05/20/2016): Dr. Mandie Douglass of [place] Screen for colon cancer 06/18/2010 Overview (06/18/2010): Colonoscopy 06/2010 normal repeat in 10 years Encounters Date Type Department Care Team Description 10/25/2024 9:00 AM ORDER PLANNER Procedure Only [facility] [address] [place] [address] Oswaldo Muir MD Procedure (Left shoulder injection) 10/25/2024 Telephone [facility] [address] [place] [address] Oswaldo Muir MD Form (disability parking) 10/25/2024 Travel 10/02/2024 Telephone [facility] [address] [place] [address] Oswaldo Muir MD Appointment from Last 3 [...] on file Legal Sex Female 6:13 AM ORDER PLANNER Gender Identity Not on file Sexual Orientation Not on file Obstetrics History Last Filed Vital Signs Vital Sign Reading Time Taken Comments Blood Pressure 153/95 10/25/2024 9:13 AM ORDER PLANNER Pulse 78 10/25/2024 9:13 AM ORDER PLANNER Temperature 36.6 C (97.9 F) 10/25/2024 9:13 AM ORDER PLANNER Respiratory Rate 18 06/24/2016 2:11 PM CDT Oxygen Saturation 94% 10/25/2024 9:13 AM ORDER PLANNER Inhaled Oxygen Concentration - - Weight 108.5 kg (239 lb 3.2 oz) 10/25/2024 9:13 AM ORDER PLANNER Height 145.3 cm (4' 9.21) 01/31/2019 1 [...] US STUDY ARCHIVE Routine 10/25/2024 3:51 PM ORDER PLANNER Osteoarthritis of left glenohumeral joint Chronic left shoulder pain from Last 3 Months Results * BEDSIDE US STUDY ARCHIVE (10/25/2024 3:51 PM ORDER PLANNER) Narrative Duyen Springer - 10/25/2024 3:51 PM ORDER PLANNER The patient was seen for ultrasound guided injection by Dr. Osawldo Muir. Ultrasound was not used for diagnostic [...] 5:55 AM 06/10/2016 8:21 PM Care Teams Carbon Dioxide Operator Relationship Specialty Start Date End Date Samantha Acharya MD [address] [place] [address] PCP - General Family Practice 12/12/16
--- OUTSIDE RECORDS SUMMARY | 2024-12-03 17:05 | XMS_ITS | Clinical Summary ---
Author Organization [facility] Address [address] [facility] [place] [address] Care Team Providers Care Cheesemaking Laborer Name Role Phone System, Provider Not In [...] BY MOUTH ONCE DAILY 1 Active NYAMYC 355744 UNIT/GM external powder Apply topically daily as [...] 06/09/2016 Overview (08/03/2022): Dr. Mandie Douglass of [place] Dr. Villanueva Immunizations Name Administration Dates Next [...] on file Legal Sex Female 3:29 AM HANDYPERSON Gender Identity Not on file Sexual Orientation Not on file Last Filed Vital Signs Vital Sign Reading Time Taken Comments Blood Pressure 132/88 12/29/2023 11:46 AM HANDYPERSON Pulse 81 12/29/2023 11:46 AM HANDYPERSON Temperature 36.6 C (97.9 F) 12/29/2023 8:07 AM HANDYPERSON Respiratory Rate 19 12/29/2023 11:4 6 AM HANDYPERSON Oxygen Saturation 93% 12/29/2023 11: 46 AM HANDYPERSON Inhaled Oxygen Concentration - - Weight 107.7 kg (237 lb 6.4 oz) 12/26/2023 9:56 AM HANDYPERSON Height 152.4 cm (5') 12/21/2023 8:24 AM HANDYPERSON Body Mass Index 46.36 12/21/2023 8:24 AM HANDYPERSON Plan of Treatment Health Maintenance Due Date [...] BASIC METABOLIC PANEL Routine 12/28/2023 6:26 AM HANDYPERSON TSH WITH FREE T4 REFLEX STAT 12/21/2023 8:33 AM HANDYPERSON from Last 3 Months or Most Recently Relevant to Health Maintenance Results * (ABNORMAL) Basic metabolic panel (12/28/2023 6:26 AM HANDYPERSON) Sodium 142 135 - 145 mmol/L 12/28/2023 7:13 AM HANDYPERSON [facility] Comment:Reference intervals for this test were updated on 08/08/2023 to more accurately reflect our healthy population. There may be differences in the flagging of prior results with similar values performed with this method. Interpretation of those prior results can be made in the context of the updated reference intervals. Potassium 3.8 3.4 - 5.3 mmol/L 12/28/2023 7:13 AM [facility] Chloride 103 98 - 107 mmol/L 12/28/2023 7:13 AM [facility] Carbon Dioxide (CO2) 26 22 - 29 mmol/L 12/28/2023 7:13 AM [facility] Anion Gap 13 7 - 15 mmol/L 12/28/2023 7:13 AM [facility] Urea Nitrogen 17.9 8.0 - 23.0 mg/dL 12/28/2023 7:13 AM [facility] Creatinine 0.90 0.51 - 0.95 mg/dL 12/28/2023 7:13 AM [facility] GFR Estimate 63 >60 mL/min/1. 73m2 12/28/2023 7:13 AM [facility] Calcium 9.4 8.8 - 10.2 mg/dL 12/28/2023 7:13 AM [facility] Glucose 117(H) 70 - 99 mg/dL 12/28/2023 7:13 AM [facility] Blood STRUCTURE OF RIGHT HAND / Unknown Venipuncture / Unknown 12/28/2023 6:26 AM HANDYPERSON 12/28/2023 6:36 AM HANDYPERSON Kristina Griffin MD LAB - BLOOD ORDERABLES Final Res ult LABORATORY [facility] [address] Lab (1st floor, no room number) [place] [address], [facility] [phone] * (ABNORMAL) TSH with free T4 reflex (12/21/2023 8:33 AM HANDYPERSON) TSH 5.16(H) 0.30 - 4.20 uIU/mL 12/21/2023 9:14 AM HANDYPERSON LABORATORY Blood STRUCTURE OF LEFT UPPER LIMB / Unknown Venipuncture / Unknown 12/21/2023 8:33 AM HANDYPERSON 12/21/2023 8:40 AM HANDYPERSON Oswaldo Samuel APRN GLOBAL POSITION SYSTEM TECHNICIAN LAB - BLOOD ORDERABLE S Final Result Performing Organization Address [facility]/ZIP Co de Phone Number LABORATORY [facility] [address] Lab (1st floor, no room number) [place] [address], [facility] [phone] from Last 3 Months or Most Recently Relevant to Health Maintenance Insurance [employer] MEDICARE [address] [id number] [phone] [employer]ICA [employer] MEDICARE Advance Directives For more information, please contact: [phone] * No CPR- Do NOT Intubate (Latest Code Status on File) Date Activated Date Inactivated Comments 12/21/2023 8:01 AM 12/29/2023 4:45 PM NO basic or a dvanced life-sustaining interventions are performed Question Answer Comments Code status determined by: Discussion with patie nt/ legal decision maker Care Teams Cheesemaking Laborer Relationship Specialty Start Date End Date System, Provider Not In PCP - General Clinic 12/21/23
--- OUTSIDE RECORDS SUMMARY | 2024-12-03 17:05 | XMS_ITS ---
Author Organization [facility] Address [address] [place] [address] Care Team Providers Care Manager Msw Name Role Phone Unavailable Unavailable Unavailable Surgery Details Not on file Complications Check Surgery Details section. Procedure Estimated Blood Loss Check Surgery Details section. Procedure Findings Check Surgery Details section. Procedure Specimens Taken Check Surgery Details section.
--- OUTSIDE RECORDS SUMMARY | 2024-12-03 17:05 | XMS_ITS | Continuity of Care Document ---
Author Organization [facility] Address [address] [place] [address] Phone Care Team Providers Care Medical Office Coordinator Name Role Phone Jonny PAC, Luis Unavailable Unavailable Allergies, Adverse Reactions, Alerts Substance Reaction Status Criticality No Known Allergies Active No Inform ation Procedures Procedure Date Office/Outpatient Visit,[facility] [place] [place] 2016 Advance Directives Directive Yes / No Effective Date File Name No Information Encounters Encounter Description Practice Location Reason(s) For Visit Diagnoses Date Provider Providers Copied on Encounter [facility], [address], [place], [place], [id number], [place] tel:[phone] [facility] No Information Panvica Luis. [facility], [address] [place] [address], [address], [place], [place], [id number] , [place]. tel:[phone] Office/Outpat ient Visit,[facility] [place] [facility] [place] [place] [facility], [address], [place], [place], [id number], [place] tel:[phone] [facility] Spondylolisthes is, lumbar regionSpinal stenosis, lumbar regionOther intervertebral disc degeneration, lumbar region Panvica Luis. [facility], [address] [place] [address], [address], [place], [place], [id number] , [place]. tel:[phone] Referring Provider: Samantha Abreu[address], [address]. tel:[phone] Family History Family Member Type Diagnosis Age At Onset No Information Payers Payer name Insurance type Covered green party ID Authoriza titimothy(s) [employer] Camila RIOS [id number] Social History Type Description Quantity Date Captured [...]
--- OUTSIDE RECORDS SUMMARY | 2024-12-03 17:05 | XMS_ITS | Clinical Summary ---
Author Organization [facility] Address [address] [place] [address] Care Team Providers Care Senior Instructional Designer Name Role Phone Unavailable Primary Care Provider Unavailabl e Source Comments Patient records contain information from all sites at [facility]. For routine questions regarding patient records, call [phone] during business hours, M-F 8:00 AM - 5:00 PM Central Time. Record requests for emergency care only can be directed to [phone] at any time.[facility] Allergies No known active allergies Medications No [...] on file Legal Sex Female 11:28 PM HOSPITAL CHIEF FINANCIAL OFFICER Gender Identity Not on file Sexual Orientation [...] this topic Medical Devices Implanted Type Area Cuff Runner Device Identifier Shelf Expiration Date Model / Serial / Lot Hardware E.G. Pins/Screws/Ro ds Hardware e.g. pins/screws/ rods Right: Knee Insurance MEDICA MEDICARE
--- OUTSIDE RECORDS SUMMARY | 2024-12-03 17:05 | XMS_ITS | Referral Summary ---
Author Organization [facility] Address [address] [facility] [place] [address] Care Team Providers Care Swaging Machine Adjuster Name Role Phone System, Provider Not In [...] BY MOUTH ONCE DAILY 1 Active NYAMYC 169785 UNIT/GM external powder Apply topically daily as [...] 06/09/2016 Overview (08/03/2022): Dr. Mandie Douglass of [place] Dr. Villanueva Immunizations Name Administration Dates Next [...] on file Legal Sex Female 3:29 AM STRETCHER OPERATOR Gender Identity Not on file Sexual Orientation Not on file Last Filed Vital Signs Vital Sign Reading Time Taken Comments Blood Pressure 132/88 12/29/2023 11:46 AM STRETCHER OPERATOR Pulse 81 12/29/2023 11:46 AM STRETCHER OPERATOR Temperature 36.6 C (97.9 F) 12/29/2023 8:07 AM STRETCHER OPERATOR Respiratory Rate 19 12/29/2023 11:4 6 AM STRETCHER OPERATOR Oxygen Saturation 93% 12/29/2023 11: 46 AM STRETCHER OPERATOR Inhaled Oxygen Concentration - - Weight 107.7 kg (237 lb 6.4 oz) 12/26/2023 9:56 AM STRETCHER OPERATOR Height 152.4 cm (5') 12/21/2023 8:24 AM STRETCHER OPERATOR Body Mass Index 46.36 12/21/2023 8:24 AM STRETCHER OPERATOR Plan of Treatment Not on file Procedures Procedure Name Priority Date/Time Associated Diagnosis Comments BASIC METABOLIC PANEL Routine 12/28/2023 6:26 AM STRETCHER OPERATOR TSH WITH FREE T4 REFLEX STAT 12/21/2023 8:33 AM STRETCHER OPERATOR from Last 3 Months or Most Recently Relevant to Health Maintenance Results * (ABNORMAL) Basic metabolic panel (12/28/2023 6:26 AM STRETCHER OPERATOR) Sodium 142 135 - 145 mmol/L 12/28/2023 7:13 AM [facility] Comment:Reference intervals for this test were updated on 08/08/2023 to more accurately reflect our healthy population. There may be differences in the flagging of prior results with similar values performed with this method. Interpretation of those prior results can be made in the context of the updated reference intervals. Potassium 3.8 3.4 - 5.3 mmol/L 12/28/2023 7:13 AM [facility] Chloride 103 98 - 107 mmol/L 12/28/2023 7:13 AM [facility] Carbon Dioxide (CO2) 26 22 - 29 mmol/L 12/28/2023 7:13 AM [facility] Anion Gap 13 7 - 15 mmol/L 12/28/2023 7:13 AM [facility] Urea Nitrogen 17.9 8.0 - 23.0 mg/dL 12/28/2023 7:13 AM [facility] Creatinine 0.90 0.51 - 0.95 mg/dL 12/28/2023 7:13 AM [facility] GFR Estimate 63 >60 mL/min/1. 73m2 12/28/2023 7:13 AM STRETCHER OPERATOR LABORATORY Calcium 9.4 8.8 - 10.2 mg/dL 12/28/2023 7:13 AM STRETCHER OPERATOR LABORATORY Glucose 117(H) 70 - 99 mg/dL 12/28/2023 7:13 AM STRETCHER OPERATOR [facility] Blood STRUCTURE OF RIGHT HAND / Unknown Venipuncture / Unknown 12/28/2023 6:26 AM STRETCHER OPERATOR 12/28/2023 6:36 AM STRETCHER OPERATOR us Kristina Griffin MD LAB - BLOOD ORDERABLES Final Res ult [facility] [address] Lab (1st floor, no room number) [place] [address], [place] [phone] * (ABNORMAL) TSH with free T4 reflex (12/21/2023 8:33 AM STRETCHER OPERATOR) TSH 5.16(H) 0.30 - 4.20 uIU/mL 12/21/2023 9:14 AM STRETCHER OPERATOR [facility] Blood STRUCTURE OF LEFT UPPER LIMB / Unknown Venipuncture / Unknown 12/21/2023 8:33 AM STRETCHER OPERATOR 12/21/2023 8:40 AM STRETCHER OPERATOR us Oswaldo Samuel APRN, CNP LAB - BLOOD ORDERABLE S Final Result [facility] [address] Lab (1st floor, no room number) [place] [address], [place] [phone] from Last 3 Months or Most Recently Relevant to Health Maintenance Insurance [employer] [place] [id number] MEDICARE [address] [phone] [phone] MEDICA [employer] [facility] [place] [id number] MEDICARE Advance Directives For more information, please contact: [phone] * No CPR- Do NOT Intubate (Latest Code Status on File) Date Activated Date Inactivated Comments 12/21/2023 8:01 AM 12/29/2023 4:45 PM NO basic or a dvanced life-sustaining interventions are performed Question Answer Comments Code status determined by: Discussion with patie nt/ legal decision maker Care Teams Swaging Machine Adjuster Relationship Specialty Start Date End Date System, Provider Not In PCP - General Clinic 12/21/23
[2024-12-03 17:09] VITALS: BP 143/117; PULSE 86; RESP 20; TEMP 35.6; O2SAT 97; BMI 54.5
--- NOTE | 2024-12-03 17:22 | CRLHL7_ITS ---
For Patients: As a result of the Century Cures Act, medical imaging exams and procedure reports are released immediately into your electronic medical record. You may view this report before your referring provider. If you have questions, please contact your health care provider. INDICATION: FALL, DEMENTIA. TECHNIQUE: CT of the cervical spine was performed without intravenous contrast. COMPARISON: 11/26/2024. FINDINGS: Alignment: Straightening of the normal cervical lordosis. Vertebrae: Vertebral bodies and posterior elements are intact without acute fracture. Moderate degenerative changes of the visualized spine. Extra-vertebral soft tissues: Normal. Visualized brain: Normal. Additional comment: Subcentimeter cervical and upper mediastinal lymph nodes are nonspecific and favored to be reactive. IMPRESSION: No acute displaced fracture or malalignment of the cervical spine. Please note that all CT scans at this facility use dose modulation, iterative reconstruction, and/or weight-based dosing when appropriate to reduce radiation dose to as low as reasonably achievable. Dictated by Eze Cruz MD @ 12/03/2024 6:48:47 PM (Electronically Signed)
--- NOTE | 2024-12-03 17:22 | CRLHL7_ITS ---
For Patients: As a result of the Cures Act, medical imaging exams and procedure reports are released immediately into your electronic medical record. You may view this report before your referring provider. If you have questions, please contact your health care provider. Indication: Fall and injury Technique: Single view of the pelvis. Comparison: 12/03/2024. Findings: Irregularity of the left greater trochanter is favored to be chronic given same day CT findings. No acute displaced fracture or malalignment. Moderate degenerative changes of the visualized spine. Impression: Irregularity of the left greater trochanter is favored to be chronic given same day CT findings. No acute displaced fracture or malalignment. Dictated by Eze Cruz MD @ 12/03/2024 6:40:08 PM (Electronically Signed)
--- NOTE | 2024-12-03 17:22 | CRLHL7_ITS ---
For Patients: As a result of the Century Cures Act, medical imaging exams and procedure reports are released immediately into your electronic medical record. You may view this report before your referring provider. If you have questions, please contact your health care provider. INDICATION: Head injury, falls, dementia COMPARISON: Same-day CT head TECHNIQUE: CT of the head without contrast. FINDINGS: Brain, ventricles, and extra-axial spaces: No acute intracranial hemorrhage. Snowden-white differentiation is grossly preserved. Jvix-cp-feeuacjz hypoattenuating changes in the white matter which are nonspecific, but commonly attributable to chronic microangiopathic change. There is mild parenchymal volume loss with commensurate size of the ventricles and sulci. There are intracranial vascular calcifications. Bones: No acute osseous findings. Scattered amyv-ii-ysckqguv paranasal sinus mucosal thickening. Visualized mastoid air cells are clear. Additional findings: A tiny portion of the skull vertex is excluded from the field of view. IMPRESSION: No acute intracranial noncontrast CT findings. Please note that all CT scans at this facility use dose modulation, iterative reconstruction, and/or weight-based dosing when appropriate to reduce radiation dose to as low as reasonably achievable. Dictated by Vikas Rosenberg MD @ 12/03/2024 6:43:35 PM (Electronically Signed)
--- NOTE | 2024-12-03 17:23 | CRLHL7_ITS ---
For Patients: As a result of the Cures Act, medical imaging exams and procedure reports are released immediately into your electronic medical record. You may view this report before your referring provider. If you have questions, please contact your health care provider. INDICATION: Fall and pain. TECHNIQUE: Lumbar spine 3 view. COMPARISON: CT of the lumbar spine from November 26, 2024. FINDINGS: Bones: Redemonstrated grade 1 anterolisthesis of L4 on L5. No fractures or significant bone lesions. Joints: Disc spaces and facets demonstrate multilevel moderate to severe degenerative changes.. Soft tissues: Right upper quadrant clips likely related to cholecystectomy. Dictated by Odilia Recinos MD @ 12/03/2024 6:40:14 PM (Electronically Signed)
[2024-12-03] MEDS: IPRAT-ALBUT 0.5-2.5 MG/3 ML NEB 1 NEB IH (17:40)
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
--- OUTSIDE RECORDS SUMMARY | 2024-12-03 18:03 | XMS_ITS | Clinical Summary ---
Author Organization [facility] Address [address] [place] [address] Care Team Providers Care Professional Fee Coder Name Role Phone System, Provider Not In [...] BY MOUTH ONCE DAILY 1 Active NYAMYC 864631 UNIT/GM external powder Apply topically daily as [...] on file Legal Sex Female 3:29 AM [employer]LE [employer]INCIPAL Gender Identity Not on file Sexual Orientation Not on file Last Filed Vital Signs Vital Sign Reading Time Taken Comments Blood Pressure 132/88 12/29/2023 11:46 AM [employer] ASSIST[employer] PRINCIPAL Pulse 81 12/29/2023 11:46 AM [employer] PRINCIPAL Temperature 36.6 C (97.9 F) 12/29/2023 8:07 AM [employer] S[employer] ASSIST[employer] PRINCIPAL Respiratory Rate 19 12/29/2023 11:4 6 AM [employer] S[employer] ASSIST[employer] PRINCIPAL Oxygen Saturation 93% 12/29/2023 11: 46 AM [employer] S[employer] ASSIST[employer] PRINCIPAL Inhaled Oxygen Concentration - - Weight 107.7 kg (237 lb 6.4 oz) 12/26/2023 9:56 AM [employer] ASSIST[employer] PRINCIPAL Height 152.4 cm (5') 12/21/2023 8:24 AM [employer] ASS[employer] PRINCIPAL Body Mass Index 46.36 12/21/2023 8:24 AM [employer] ASSIST[employer] PRINCIPAL Plan of Treatment Health Maintenance Due Date [...] BASIC METABOLIC PANEL Routine 12/28/2023 6:26 AM [employer]IST[employer] PRINCIPAL TSH WITH FREE T4 REFLEX STAT 12/21/2023 8:33 AM [employer] S[employer] ASSIST[employer] PRINCIPAL from Last 3 Months or Most Recently Relevant to Health Maintenance Results * (ABNORMAL) Basic metabolic panel (12/28/2023 6:26 AM [employer] SCHO[employer] ASSIST[employer] PRINCIPAL) Sodium 142 135 - 145 mmol/L 12/28/2023 7:13 AM [employer] S[employer] ASSIST[employer] PRINCIPAL [facility] Comment:Reference intervals for this test were updated on 08/08/2023 to more accurately reflect our healthy population. There may be differences in the flagging of prior results with similar values performed with this method. Interpretation of those prior results can be made in the context of the updated reference intervals. Potassium 3.8 3.4 - 5.3 mmol/L 12/28/2023 7:13 AM [facility] Chloride 103 98 - 107 mmol/L 12/28/2023 7:13 AM [facility] Carbon Dioxide (CO2) 26 22 - 29 mmol/L 12/28/2023 7:13 AM [facility] Anion Gap 13 7 - 15 mmol/L 12/28/2023 7:13 AM [facility] Urea Nitrogen 17.9 8.0 - 23.0 mg/dL 12/28/2023 7:13 AM [facility] Creatinine 0.90 0.51 - 0.95 mg/dL 12/28/2023 7:13 AM [facility] GFR Estimate 63 >60 mL/min/1. 73m2 12/28/2023 7:13 AM [facility] Calcium 9.4 8.8 - 10.2 mg/dL 12/28/2023 7:13 AM [facility] Glucose 117(H) 70 - 99 mg/dL 12/28/2023 7:13 AM [facility] Blood STRUCTURE OF RIGHT HAND / Unknown Venipuncture / Unknown 12/28/2023 6:26 AM [employer] ASSIST[employer] PRINCIPAL 12/28/2023 6:36 AM [employer] ASS[employer] PRINCIPAL Kristina Griffin MD LAB - BLOOD ORDERABLES Final Res ult LABORATORY [facility] [address] Lab (1st floor, no room number) [place] [address], [facility] [phone] * (ABNORMAL) TSH with free T4 reflex (12/21/2023 8:33 AM [employer] ASSISTANT PRINCIPAL) TSH 5.16(H) 0.30 - 4.20 uIU/mL 12/21/2023 9:14 AM [employer] SCHO[employer] ASSISTANT PRINCIPAL LABORATORY Blood STRUCTURE OF LEFT UPPER LIMB / Unknown Venipuncture / Unknown 12/21/2023 8:33 AM [employer] S[employer] ASSISTANT PRINCIPAL 12/21/2023 8:40 AM [employer] ASSIST[employer] PRINCIPAL Oswaldo Samuel APRN LEAD PROJECT MANAGER LAB - BLOOD ORDERABLE S Final Result Performing Organization Address [facility]/ZIP Co de Phone Number LABORATORY [facility] [address] Lab (1st floor, no room number) [place] [address], [facility] [phone] from Last 3 Months or Most Recently Relevant to Health Maintenance Insurance [employer] MEDICARE [address] [id number] [phone] [employer] MEDICARE Advance Directives For more information, please contact: [phone] * No CPR- Do NOT Intubate (Latest Code Status on File) Date Activated Date Inactivated Comments 12/21/2023 8:01 AM 12/29/2023 4:45 PM NO basic or a dvanced life-sustaining interventions are performed Question Answer Comments Code status determined by: Discussion with patie nt/ legal decision maker Care Teams Professional Fee Coder Relationship Specialty Start Date End Date System, Provider Not In PCP - General Clinic 12/21/23
--- OUTSIDE RECORDS SUMMARY | 2024-12-03 18:03 | XMS_ITS | Continuity of Care Document ---
Author Organization [facility] Address [address] [place] [address] Phone Care Team Providers Care Guest Request Runner Name Role Phone Jonny PAC, Luis Unavailable Unavailable Allergies, Adverse Reactions, Alerts Substance Reaction Status Criticality No Known Allergies Active No Inform ation Procedures Procedure Date Office/Outpatient Visit,[facility] 2016 Advance Directives Directive Yes / No Effective Date File Name No Information Encounters Encounter Description Practice Location Reason(s) For Visit Diagnoses Date Provider Providers Copied on Encounter [facility], [address], [place], [place], [id number], [place] tel:[phone] [facility] No Information Panvica Luis. [facility], [address] [place] [address], [address], [place], [place], [id number] , [place]. tel:[phone] Office/Outpat ient Visit,[facility], [address], [place], [place], [id number], [place] tel:[phone] [facility] Spondylolisthes is, lumbar regionSpinal stenosis, lumbar regionOther intervertebral disc degeneration, lumbar region Panvica Luis. [facility], [address] [place] [address], [address], [place], [place], [address] , [place]. tel:[phone] Referring Provider: Samantha Abreu[address], [address]. tel:[phone] Family History Family Member Type Diagnosis Age At Onset No Information Payers Payer name Insurance type Covered constitution party ID Authoriza titimothy(s) [employer] Camila RIOS [id number] Social History Type Description Quantity Date Captured [...]
--- OUTSIDE RECORDS SUMMARY | 2024-12-03 18:04 | XMS_ITS | Referral Summary ---
Author Organization [facility] Address [address] [place] [address] Care Team Providers Care Rn Camp Name Role Phone Unavailable Primary Care Provider Unavailabl e Source Comments Patient records contain information from all sites at [facility]. For routine questions regarding patient records, call [phone] during business hours, M-F 8:00 AM - 5:00 PM Central Time. Record requests for emergency care only can be directed to [phone] at any time.[facility] Allergies No known active allergies Medications [...] on file Legal Sex Female 11:28 PM [employer]ISTER [employer] Gender Identity Not on file Sexual Orientation [...] on file Medical Devices Implanted Type Area Recreation Aide Device Identifier Shelf Expiration Date Model / Serial / Lot Hardware E.G. Pins/Screws/Ro ds Hardware e.g. pins/screws/ rods Right: Knee Insurance MEDICA MEDICARE
--- OUTSIDE RECORDS SUMMARY | 2024-12-03 18:04 | XMS_ITS | Clinical Summary ---
Author Organization [facility] Address [place], [place] [address] Care Team Providers Care Tubular Splitting Machine Tender Name Role Phone Samantha Acharya MD Primary [...] banding Overview (05/20/2016): Dr. Mandie Douglass of [place] Screen for colon cancer 06/18/2010 Overview (06/18/2010): Colonoscopy 06/2010 normal repeat in 10 years Encounters Date Type Department Care Team Description 10/25/2024 9:00 AM CHIEF LEARNING OFFICER Procedure Only [facility] [address] [place] [address] Oswaldo Muir MD Procedure (Left shoulder injection) 10/25/2024 Telephone [facility] [address] [place] [address] Oswaldo Muir MD Form (disability parking) 10/25/2024 Travel 10/02/2024 Telephone [facility] [address] [place] [address] Oswaldo Muir MD Appointment from Last 3 [...] on file Legal Sex Female 6:13 AM CHIEF LEARNING OFFICER Gender Identity Not on file Sexual Orientation Not on file Obstetrics History Last Filed Vital Signs Vital Sign Reading Time Taken Comments Blood Pressure 153/95 10/25/2024 9:13 AM CHIEF LEARNING OFFICER Pulse 78 10/25/2024 9:13 AM CHIEF LEARNING OFFICER Temperature 36.6 C (97.9 F) 10/25/2024 9:13 AM CHIEF LEARNING OFFICER Respiratory Rate 18 06/24/2016 2:11 PM CDT Oxygen Saturation 94% 10/25/2024 9:13 AM CHIEF LEARNING OFFICER Inhaled Oxygen Concentration - - Weight 108.5 kg (239 lb 3.2 oz) 10/25/2024 9:13 AM CHIEF LEARNING OFFICER Height 145.3 cm (4' 9.21) 01/31/2019 1 [...] US STUDY ARCHIVE Routine 10/25/2024 3:51 PM CHIEF LEARNING OFFICER Osteoarthritis of left glenohumeral joint Chronic left shoulder pain from Last 3 Months Results * BEDSIDE US STUDY ARCHIVE (10/25/2024 3:51 PM CHIEF LEARNING OFFICER) Narrative Duyen Springer - 10/25/2024 3:51 PM CHIEF LEARNING OFFICER The patient was seen for ultrasound guided [...] 5:55 AM 06/10/2016 8:21 PM Care Teams Tubular Splitting Machine Tender Relationship Specialty Start Date End Date Samantha Acharya MD [address] [place] [address] PCP - General Family Practice 12/12/16
--- OUTSIDE RECORDS SUMMARY | 2024-12-03 18:04 | XMS_ITS ---
Author Organization [facility] Address [address] [place] [address] Care Team Providers Care Shoe Salesman Name Role Phone Unavailable Unavailable Unavailable Surgery Details Not on file Complications Check Surgery Details section. Procedure Estimated Blood Loss Check Surgery Details section. Procedure Findings Check Surgery Details section. Procedure Specimens Taken Check Surgery Details section.
--- OUTSIDE RECORDS SUMMARY | 2024-12-03 18:04 | XMS_ITS | Clinical Summary ---
Author Organization [facility] Address [address] [place] [id number] Care Team Providers Care Gardener Name Role Phone Unavailable Primary Care Provider Unavailabl e Source Comments Patient records contain information from all sites at [facility]. For routine questions regarding patient records, call [phone] during business hours, M-F 8:00 AM - 5:00 PM Central Time. 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 Pins/Screws/Ro ds Hardware e.g. pins/screws/ rods Right: Knee Insurance [employer] MEDICARE
--- OUTSIDE RECORDS SUMMARY | 2024-12-03 18:04 | XMS_ITS | Referral Summary ---
Author Organization [facility] Address [address] [facility] [place] [address] Care Team Providers Care Engagement Lead Name Role Phone System, Provider Not In [...] BY MOUTH ONCE DAILY 1 Active NYAMYC [id number] UNIT/GM external powder Apply topically daily as [...] 06/09/2016 Overview (08/03/2022): Dr. Mandie Douglass of [place] Dr. 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 Gender Identity Not on file Sexual Orientation Not on file Last Filed Vital Signs Vital Sign Reading Time Taken Comments Blood Pressure 132/88 12/29/2023 11:46 AM INTERMEDIATE FRAME TENDER Pulse 81 12/29/2023 11:46 AM INTERMEDIATE FRAME TENDER Temperature 36.6 C (97.9 F) 12/29/2023 8:07 AM INTERMEDIATE FRAME TENDER Respiratory Rate 19 12/29/2023 11:4 6 AM INTERMEDIATE FRAME TENDER Oxygen Saturation 93% 12/29/2023 11: 46 AM INTERMEDIATE FRAME TENDER Inhaled Oxygen Concentration - - Weight 107.7 kg (237 lb 6.4 oz) 12/26/2023 9:56 AM INTERMEDIATE FRAME TENDER Height 152.4 cm (5') 12/21/2023 8:24 AM INTERMEDIATE FRAME TENDER Body Mass Index 46.36 12/21/2023 8:24 AM INTERMEDIATE FRAME TENDER Plan of Treatment Not on file Procedures Procedure Name Priority Date/Time Associated Diagnosis Comments BASIC METABOLIC PANEL Routine 12/28/2023 6:26 AM INTERMEDIATE FRAME TENDER TSH WITH FREE T4 REFLEX STAT 12/21/2023 8:33 AM INTERMEDIATE FRAME TENDER from Last 3 Months or Most Recently Relevant to Health Maintenance Results * (ABNORMAL) Basic metabolic panel (12/28/2023 6:26 AM INTERMEDIATE FRAME TENDER) Sodium 142 135 - 145 mmol/L [...] 63 >60 mL/min/1. 73m2 12/28/2023 7:13 AM INTERMEDIATE FRAME TENDER LABORATORY Calcium 9.4 8.8 - 10.2 mg/dL 12/28/2023 7:13 AM INTERMEDIATE FRAME TENDER LABORATORY Glucose 117(H) 70 - 99 mg/dL 12/28/2023 7:13 AM INTERMEDIATE FRAME TENDER [facility] LABOR[facility] Blood STRUCTURE OF RIGHT HAND / Unknown Venipuncture / Unknown 12/28/2023 6:26 AM INTERMEDIATE FRAME TENDER 12/28/2023 6:36 AM INTERMEDIATE FRAME TENDER us Kristina Griffin MD LAB - BLOOD ORDERABLES Final Res ult [facility] [address] Lab (1st floor, no room number) [place] [address], [place] [phone] * (ABNORMAL) TSH with free T4 reflex (12/21/2023 8:33 AM INTERMEDIATE FRAME TENDER) TSH 5.16(H) 0.30 - 4.20 uIU/mL 12/21/2023 9:14 AM INTERMEDIATE FRAME TENDER [facility] Blood STRUCTURE OF LEFT UPPER LIMB / Unknown Venipuncture / Unknown 12/21/2023 8:33 AM INTERMEDIATE FRAME TENDER 12/21/2023 8:40 AM INTERMEDIATE FRAME TENDER us Oswaldo Samuel APRN, CNP LAB - BLOOD ORDERABLE S Final Result [facility] [address] Lab (1st floor, no room number) [place] [address], [place] [phone] from Last 3 Months or Most Recently Relevant to Health Maintenance Insurance [employer] [place] [id number] MEDICARE [address] [phone] [phone] MEDICA [facility] EM[facility] [place] [id number] MEDICARE Advance Directives For more information, please contact: [phone] * No CPR- Do NOT Intubate (Latest Code Status on File) Date Activated Date Inactivated Comments 12/21/2023 8:01 AM 12/29/2023 4:45 PM NO basic or a dvanced life-sustaining interventions are performed Question Answer Comments Code status determined by: Discussion with patie nt/ legal decision maker Care Teams Engagement Lead Relationship Specialty Start Date End Date System, Provider Not In PCP - General Clinic 12/21/23
--- NOTE | 2024-12-03 20:00 | ED.NURSE ---
Pt report given to shankar PULLIAM. Pt daughter Jason updated on pt being admitted to [facility].
[2024-12-03 20:16] VITALS: BP 156/81; PULSE 76; RESP 16; TEMP 37.1; O2SAT 93; BMI 51.1
[2024-12-03] MEDS: OXYCODONE 5 MG TABLET 2.5 MG PO (21:51)
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
[2024-12-03 23:00] VITALS: BP 148/87; PULSE 82; RESP 17; TEMP 36.8; O2SAT 90
[2024-12-03 23:03] LABS: Appearance Urine Clear (Clear); Bilirubin Urine Negative (Negative); Blood Urine Negative (Negative); Color Urine Yellow (Yellow); Glucose Urine Negative (Negative); Ketones Urine 1+ (Negative); Leukocyte Esterase Urine 1+ (Negative); Nitrite Urine Negative (Negative); Protein Urine Negative (Negative); Urobilinogen Urine 0.2 (0.2-1.0); pH Urine 7.5 (5.0-8.5)
[2024-12-03 23:36] LABS: Bacteria Urine Few; RBC Urine 0-2 (0-2); Squamous Epithelial Cell Urine Few (None-Few)
[2024-12-03] MEDS: TRAMADOL HCL 50 MG TABLET PO (23:47)
[2024-12-03] MEDS: OSELTAMIVIR PHOSPHATE 75 MG CAPSULE PO (23:47)
[2024-12-04 02:24] VITALS: BP 184/94; PULSE 84; RESP 17; TEMP 37; O2SAT 94
[2024-12-04] MEDS: OXYCODONE 5 MG TABLET 2.5 MG PO ×2 (02:37→18:41)
[2024-12-04] MEDS: LEVOTHYROXINE 125 MCG TABLET PO (06:24)
[2024-12-04] MEDS: TRAMADOL HCL 50 MG TABLET PO ×3 (06:24→18:04)
--- NOTE | 2024-12-04 06:53 | PC.NURSE ---
Shift note (): Patient admitted from ED at 195. Patient pleasant, alert and cooperative with cares. History of dementia. Trouble finding words at times during admission assessment. Ambulated with walker gait belt and assist of one-two.?Denied discomfort on admission. Later reported left hip/low back pain. Also reported chronic pain in left shoulder from an old injury.?Given scheduled Tramadol and PRN Oxycodone. Daughter?at bedside through night.?
[2024-12-04 07:00] VITALS: BP 153/84; PULSE 74; RESP 20; TEMP 36.9; O2SAT 95
[2024-12-04] MEDS: SENNOSIDES 1 TAB TABLET PO ×2 (09:23→20:25)
[2024-12-04] MEDS: SODIUM CHLORIDE 0.9 % (FLUSH) 10 ML SYRINGE 5 ML IVF ×2 (09:23→20:26)
[2024-12-04] MEDS: FUROSEMIDE 40 MG TABLET PO (09:23)
[2024-12-04] MEDS: LOSARTAN POTASSIUM 50 MG TABLET PO ×2 (09:23→20:25)
[2024-12-04] MEDS: OSELTAMIVIR PHOSPHATE 75 MG CAPSULE PO ×2 (09:23→20:25)
--- NOTE | 2024-12-04 10:02 | NUTR.NU ---
RDN with nutrition screen related to positive skin risk score. Patient admitted for influenza A positive, metabolic encephalopathy. Past medical history significant for dementia. Patient currently resides at [facility]. Current weight 231lb 11.2oz; height 4ft 9in; BMI 50.1 kg/m2. Weight seems to be stable recently, however some weights in chart are stated and showing significant weight loss. Stated weights are not reliable and therefore will not be used when assessing weight. Current diet order is regular. One meal intake since admit which was 25%. No nutrition interventions at this time with stable weight. RDN will continue to monitor meal intakes and status and follow-up as needed.
[2024-12-04 11:00] VITALS: BP 149/77; PULSE 72; RESP 20; TEMP 36.9; O2SAT 94
--- NOTE | 2024-12-04 13:57 | PC.SOCIAL ---
Addendum entered by LEROY Duenas 12/04/24 15:53: Discharge planning: Spoke to Geno from [facility] whom shared that the pt receives supervision in the Memory Care unit and ambulates independently on the unit and in her room with a walker. Staff also assist her with dressing and toileting as needed, but the pt does refuse this at times. When there is an anticipated discharge date, Geno will need to review the pt's records for this hospital stay prior to the pt's return. Social work to follow-up as needed. Original Note: Social work check-in/discharge planning: social worker palliative care spoke to pt's daughter, Taylor Dillard, today via phone. Taylor would like for her mother to return to [facility] at discharge if she is able to go back there. social worker palliative care has not heard of an anticipated discharge date for the pt yet. Pt was a one assist with Occupational Therapy this morning during their session. social worker palliative care is waiting to hear back from NORMA Lora at [facility], about discharge plans/questions/concerns for the pt. Social work to follow-up as needed.
[2024-12-04 15:00] VITALS: BP 158/87; PULSE 63; PULSE 72; RESP 20; TEMP 37.3; O2SAT 96
--- NOTE | 2024-12-04 17:29 | PM.IMPN1 ---
Progress Note: A&P Assessment and plan (1) Metabolic encephalopathy: Problem details: - Had an episode of this in December of 2023 at [facility] and appears to have it again today probably associated with her acute influenza and pain - 12/04 Persistent, now hypoactive delirium, suspect due to influenza A on top of dementia Status: Acute (2) Influenza A: Problem details: - Continue Tamiflu x 5 days Status: Acute (3) Dementia: Status: Chronic (4) Fall: Problem details: Recurrent falls with injuries to areas of chronic pain including left shoulder, lumbar spine, left hip Status: Acute (5) Laceration: Problem details: Scalp laceration repaired with magdaleno in the emergency department, 12/03/2024. Stable should come out in about 10 days Status: Acute (6) Weakness: Problem details: Likely due to influenza - PT and OT consulted Status: Acute (7) Super obesity: Problem details: BMI 50.6 Status: Chronic (8) Sleep apnea: Problem details: Appears high risk for sleep apnea. Caution with use of opioids for pain in this setting with influenza and morbid obesity Status: Suspected (9) Lumbar radiculopathy, acute: Problem details: I favor her left hip pain being referred from nerve root impingement in the lumbar spine. Patient is not a good candidate for any type of back surgery Status: Acute (10) Lumbar spinal stenosis: Problem details: Chronic longstanding symptoms of spinal stenosis. Poor surgical candidate Status: Chronic (11) Osteoarthritis of left shoulder: Problem details: Severe, [id number] Status: Chronic Subjective Time Seen by Provider: 10:33 Date Seen: 12/04/24 Interval history: Alesia was sleepy this morning. She denied complaints. Denies pain or appetite. Exam Narrative: Exam Narrative: General: No acute distress. Sleeping, arousable, oriented to self. Reclined in bedside chair. No pallor. No jaundice. Oropharynx: Clear. Mucous membranes moist. Cardiovascular: Regular rate and rhythm. No murmurs, gallops, or rubs. Respiratory: Clear to auscultation bilaterally. No wheezes or crackles. Const: Vital Signs, click to edit/add: Vital Signs - 24 hr 12/03/24 20:16 12/03/24 20:16 12/03/24 23:00 Temperature 98.8 F 98.3 F Pulse Rate [Pulse Oximeter] 76 82 Respiratory Rate 16 16 17 Blood Pressure [Ri ght Arm] 156/81 H 148/87 H Pulse Oximetry 93 93 90 Oxygen Delivery Me thod Room Air Room Air Room Air 12/03/24 23:00 12/03/24 23:00 12/04/24 02:24 Temperature 98.6 F Pulse Rate [Pulse Oximeter] 84 Respiratory Rate 17 17 17 Blood Pressure [Ri ght Arm] 184/94 H Pulse Oximetry 90 94 Oxygen Delivery Ma thod Room Air Room Air 12/04/24 07:00 12/04/24 07:00 12/04/24 11:00 Temperature 98.4 F 98.4 F Pulse Rate [Pulse Oximeter] 74 72 Respiratory Rate 20 20 Blood Pressure [Ri ght Arm] 153/84 H 149/77 H Pulse Oximetry 95 95 94 Oxygen Delivery Ma thod Room Air Room Air Room Air 12/04/24 15:00 12/04/24 15:00 12/04/24 15:00 Temperature 99.1 F Pulse Rate [Pulse Oximeter] 72 63 Respiratory Rate 20 20 Blood Pressure [Ri ght Arm] 158/87 H Pulse Oximetry 96 96 Oxygen Delivery Ma thod Room Air Room Air Labs Labs: Laboratory Results - last 24 hr 12/03/24 21:28 Urine Color Yellow Urine Appearance Clear Urine pH 7.5 Ur Specific Creighton 1.020 Urine Protein Negative Urine Glucose (UA) Negative Urine Ketones 1+ A Urine Blood Negative Urine Nitrite Negative Urine Bilirubin Negative Urine Urobilinogen 0.2 Ur Leukocyte Esterase 1+ A Urine RBC 0-2 Urine WBC 2-5 Ur Squamous Epith Cells Few Urine Bacteria Few A
--- NOTE | 2024-12-04 17:47 | PC.NURSE ---
End of Shift Note: Patient has been up in her recliner chair most of the day. Did lay down around lunch time and took a nap for about 1 hour. Don't believe she slept much last night. She has not complained of any pain today but she is also receiving tramadol. She is currently sitting up in the recliner have been trying to get her to eat as she did not eat much for breakfast or lunch. She kept falling asleep during her breakfast. She was telling me she couldn't eat tonight that she needs to go to [facility]apt[facility]. Her daughter is here now and she is eating more now that she has arrived. Will continue to monitor until next shift arrives.
[2024-12-04 20:06] VITALS: BP 148/85; PULSE 78; RESP 20; TEMP 36.8; O2SAT 93
[2024-12-04] MEDS: ENOXAPARIN 40 MG/0.4 ML INJ SUBCUT (20:24)
[2024-12-04] MEDS: MELATONIN 3 MG TABLET PO (20:25)
[2024-12-04] MEDS: SIMVASTATIN 20 MG TABLET PO (20:26)
[2024-12-04 23:38] VITALS: BP 185/99; PULSE 86; RESP 18; TEMP 36.9; O2SAT 93
[2024-12-05] VITALS (7 sets, daily range): BP systolic 139–167; BP diastolic 67–86; PULSE 68–75; RESP 18–22; TEMP 36.6–37.1; O2SAT 92–96
[2024-12-05] MEDS: LEVOTHYROXINE 125 MCG TABLET PO (06:35)
[2024-12-05] MEDS: TRAMADOL HCL 50 MG TABLET PO ×5 (06:35→23:26)
--- NOTE | 2024-12-05 07:25 | PC.NURSE ---
Pt alert and oriented to self only. Afebrile. Pt unable to rate pain but reports pain in left shoulder with movement, pain managed with scheduled Tramadol. Pt is up SBA with walker and gait belt, walker x1 in halls. Pt is voiding and tolerating a regular diet.
[2024-12-05] MEDS: OSELTAMIVIR PHOSPHATE 75 MG CAPSULE PO ×2 (08:43→22:12)
[2024-12-05] MEDS: LOSARTAN POTASSIUM 50 MG TABLET PO ×2 (08:43→22:11)
[2024-12-05] MEDS: FUROSEMIDE 40 MG TABLET PO (08:43)
[2024-12-05] MEDS: SENNOSIDES 1 TAB TABLET PO ×2 (08:43→22:11)
[2024-12-05] MEDS: ACETAMINOPHEN 325 MG TABLET 650 MG PO (10:08)
--- NOTE | 2024-12-05 12:35 | PM.IMPN1 ---
Progress Note: A&P Assessment and plan (1) Metabolic encephalopathy: Problem details: - Had an episode of this in December of 2023 at [facility] and appears to have it again today probably associated with her acute influenza and pain - Persistent, now hypoactive delirium, suspect due to influenza A on top of dementia. Remains calm cooperative. Status: Acute (2) Influenza A: Problem details: - Continue Tamiflu x 5 days. No hypoxia, remains afebrile Status: Acute (3) Dementia: Problem details: -chronic Status: Chronic (4) Fall: Problem details: Recurrent falls with injuries to areas of chronic pain including left shoulder, lumbar spine, left hip Lumbar and pelvis x-rays without acute traumatic findings Status: Acute (5) Laceration: Problem details: Scalp laceration repaired with magdaleno in the emergency department, 12/03/2024. Stable should come out in about 5-7 days Status: Acute (6) Weakness: Problem details: Likely due to influenza - PT and OT consulted. Would benefit from ongoing therapies when returns to [facility]. 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 Caution with use of opioids for pain in this setting with influenza and morbid obesity Status: Suspected (9) Lumbar radiculopathy, acute: Problem details: I favor her left hip pain being referred from nerve root impingement in the lumbar spine. Patient is not a good candidate for any type of back surgery Status: Acute (10) Lumbar spinal stenosis: Problem details: Chronic longstanding symptoms of spinal stenosis. 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 Delirium, on chronic dementia, improving. Remains calm, cooperative. OT/PT recommending ongoing therapies when returns to [facility]. Time Spent With Patient Total time spent: Total time spent caring for the patient today was 45 minutes. This includes time spent for the visit reviewing the chart, time spent during the visit, time spent after the visit and documentation and planning in coordination of care. Subjective Date Seen: 12/05/24 Interval history: Patient is seen sitting in her chair this morning. Eyes are closed, napping. Easily awakens. Complains of mild headache, mild body aches. Denies chest pain or shortness of breath. Denies abdominal pain. Tolerating orals without nausea vomiting. Working with therapies. Awaiting return to [facility]. Exam Narrative: Exam Narrative: PHYSICAL EXAM General: Sleeping, awakens easily, in ED Cardiovascular: RRR, S1S2. Chronic pitting edema Pulmonary: CTA bilaterally without rhonchi, rales, expiratory wheezes. No dyspnea on room air Abdominal: Soft, obese, nondistended, NTTP Neurological: Alert, answering questions appropriately this morning Extremities: No gross joint deformity or swelling. AROMI. Neurovascularly intact Skin: Warm, dry, chronic scaling. Const: Vital Signs, click to edit/add: Vital Signs - 24 hr 12/04/24 15:00 12/04/24 15:00 12/04/24 15:00 Temperature 99.1 F Pulse Rate [Pulse Oximeter] 72 63 Respiratory Rate 20 20 Blood Pressure [Le ft Arm] Blood Pressure [Ri ght Arm] 158/87 H Pulse Oximetry 96 96 Oxygen Delivery Me thod Room Air Room Air 12/04/24 20:06 12/04/24 23:38 12/04/24 23:38 Temperature 98.2 F Pulse Rate [Pulse Oximeter] 78 86 Respiratory Rate 20 18 18 Blood Pressure [Le ft Arm] Blood Pressure [Ri ght Arm] 148/85 H Pulse Oximetry 93 93 Oxygen Delivery Me thod Room Air Room Air 12/04/24 23:38 12/05/24 04:05 12/05/24 06:38 Temperature 98.4 F 98.7 F Pulse Rate [Pulse Oximeter] 86 74 Respiratory Rate 18 20 Blood Pressure [Le ft Arm] Blood Pressure [Ri ght Arm] 185/99 H Pulse Oximetry 93 95 Oxygen Delivery Me thod Room Air Room Air Room Air 12/05/24 06:38 12/05/24 08:43 12/05/24 11:09 Temperature 98.6 F 98 F Pulse Rate [Pulse Oximeter] 73 73 72 Respiratory Rate 20 20 20 Blood Pressure [Le ft Arm] 167/86 H Blood Pressure [Ri ght Arm] 145/79 H Pulse Oximetry 96 92 Oxygen Delivery Me od Room Air Room Air
--- NOTE | 2024-12-05 14:55 | PC.SOCIAL ---
Addendum entered by LEROY Duenas 12/05/24 17:01: Discharge planning: Pt's records were secure emailed to Geno at 1pm today. As of 5pm this worker had not heard back from her on whether or not pt could return to [facility] tomorrow. community worker left a voicemail with Geno at 5pm asking for an update/response. Social work to follow-up as needed. Original Note: Discharge planning: The provider on duty stated pt should be ready for discharge tomorrow(Monday) 12/06/24. community worker sent all of pt's current records from this hospital stay to NORMA Lora at [facility], via secure email for review of pt returning to [facility] tomorrow. community worker will wait to hear back from Geno after she has reviewed pt's records. Social work to follow-up as needed.
--- NOTE | 2024-12-05 18:38 | PC.NURSE ---
End of Shift: Patient pleasant and cooperative, only oriented to self. Patient vitally stable, lungs with expiratory wheezes and rhonchi, BS WNL, NO IV. Patient reports pain but does not rate, scheduled tramadol given. Patient 1 assist/walker. Patient tolerating regular diet and urinating well. Patient has been up in chair majority of day.
[2024-12-05] MEDS: SIMVASTATIN 20 MG TABLET PO (22:11)
[2024-12-05] MEDS: ENOXAPARIN 40 MG/0.4 ML INJ SUBCUT (22:12)
[2024-12-05] MEDS: MELATONIN 3 MG TABLET PO (22:12)
[2024-12-06] MEDS: OXYCODONE 5 MG TABLET 2.5 MG PO (01:19)
[2024-12-06 03:00] VITALS: BP 123/72; PULSE 80; RESP 22; TEMP 36.4; O2SAT 96
[2024-12-06] MEDS: LEVOTHYROXINE 125 MCG TABLET PO (06:21)
[2024-12-06] MEDS: TRAMADOL HCL 50 MG TABLET PO ×2 (06:21→12:23)
--- NOTE | 2024-12-06 06:50 | PC.NURSE ---
End of Shift: The patient is alert to self only, VSS on RA. Reports moderate to severe pain in her back/shoulder intermittently throughout the night. Scheduled and PRN medication was given. Ax1 w/ RW and GB, the patient does not use the call light appropriately. Medial head laceration is intact with magdaleno and a small amount of dried blood. Continent of urine this shift with timed toileting. Alarms are in place.? Vilma PULLIAM BSN
[2024-12-06 07:00] VITALS: BP 164/78; PULSE 73; RESP 20; TEMP 36.6; O2SAT 95
[2024-12-06] MEDS: SENNOSIDES 1 TAB TABLET PO (07:50)
[2024-12-06] MEDS: LOSARTAN POTASSIUM 50 MG TABLET PO (07:50)
[2024-12-06] MEDS: FUROSEMIDE 40 MG TABLET PO (07:50)
[2024-12-06] MEDS: OSELTAMIVIR PHOSPHATE 75 MG CAPSULE PO (07:51)
[2024-12-06 11:00] VITALS: RESP 18; O2SAT 96
--- NOTE | 2024-12-06 12:53 | PC.SOCIAL ---
Discharge planning: Pt will be discharging back to [facility] today. Discharge orders were secure emailed to NORMA Lora at [facility]. Nurse to nurse report was completed. Pt will start PT at [facility] through their physical therapy team, Fabiola. Pt will be transporting via non-emergent EMS per family request around 12:30pm. Pt should have insurance coverage for the transportation cost due to pt's Dimentia diagnosis. childcare worker updated pt's daughter, Jacquelyn, with this plan via phone. Jacquelyn was thankful for the update. Social work to follow-up as needed.
--- NOTE | 2024-12-06 15:11 | P.DS_ITS ---
DS: Providers Provider Date Seen: 12/06/24 Date of admission: 12/03/24 22:29 Primary care physician: Samantha Acharya MD Admitting Clinician: Ralph Mccarthy MD Consults: 12/03/24 22:31 Consult to Occupational Therapy [CONS] Routine Comment: Reason(s) for OT Consult:: Evaluate and Treat Any Restrictions?:: No Restrictions Consult to Physical Therapy [CONS] Routine Comment: Reason(s) for PT Consult:: Evaluate and Treat Any Restrictions?:: No Restrictions Consult to Gas Appliance Adjuster [CONS] Routine Comment: Reason for Consult:: Discharge Planning Needs Attending Physician on discharge: DANIEL Zurita, PAMannyC Date of Discharge: 12/06/24 DS: Diagnosis Discharge Diagnosis (1) Metabolic encephalopathy: Status: Acute Problem details: - Had an episode of this in December of 2023 at [facility] and appears to have it again today probably associated with her acute influenza and pain - Persistent, now hypoactive delirium, suspect due to influenza A on top of dementia. Remains calm cooperative. On discharge, patient at baseline. Stable to return to [facility]. (2) Influenza A: Status: Acute Problem details: - Continue Tamiflu x 5 days. No hypoxia, remains afebrile. Complete remainder of tamiflu Rx (3) Dementia: Status: Chronic Problem details: -chronic (4) Fall: Status: Acute Problem details: Recurrent falls with injuries to areas of chronic pain including left shoulder, lumbar spine, left hip Lumbar and pelvis x-rays without acute traumatic findings Recommended patient continue to work with physical therapy. (5) Laceration: Status: Acute Problem details: Scalp laceration repaired with magdaleno in the emergency department, 12/03/2024. Stable should come out in about 5-7 days Can be removed 12/08-12/10. (6) Weakness: Status: Acute Problem details: Likely due to influenza - PT and OT consulted. Would benefit from ongoing therapies when returns to [facility]. financial services rep assisting with this PT recommending ongoing PT when returns to [facility] (7) Super obesity: Status: Chronic Problem details: BMI 50.6 (8) Sleep apnea: Status: Suspected Problem details: Appears high risk for sleep apnea. Caution with use of opioids for pain in this setting with influenza and morbid obesity (9) Lumbar radiculopathy, acute: Status: Acute Problem details: I favor her left hip pain being referred from nerve root impingement in the lumbar spine. Patient is not a good candidate for any type of back surgery (10) Lumbar spinal stenosis: Status: Chronic Problem details: Chronic longstanding symptoms of spinal stenosis. Poor surgical candidate (11) Osteoarthritis of left shoulder: Status: Chronic Problem details: Severe, [id number] DS: Summary Hospital Course Hospital Course: Course of care and details as noted above. Acute encephalopathy resolved, baseline dementia. Return to [facility]. Recommending ongoing physical therapy. Scalp laceration with magdaleno to be removed 12/08-12/10 Remainder of chronic medical comorbidities were monitored and managed with home medications. Status at Discharge Overall status at discharge: patient is progressing back to baseline Time Spent with Patient Time attestation: Total time spent providing and/or coordinating discharge services: Time spent: Greater than 30 minutes Exam Narrative: Exam Narrative: PHYSICAL EXAM General: Pleasant, NAD Cardiovascular: RRR Pulmonary: No dyspnea Neurological: Alert, no acute delirium Skin: Warm, dry. Const: Vital Signs, click to edit/add: Vital Signs - 24 hr 12/05/24 19:00 12/05/24 23:00 12/05/24 23:00 Temperature 98.0 F Pulse Rate [Pulse Oximeter] 75 Respiratory Rate 20 22 Blood Pressure [Le ft Arm] 139/80 Blood Pressure [Ri ght Arm] Pulse Oximetry 92 93 Oxygen Delivery Me thod Room Air Room Air 12/05/24 23:00 12/06/24 03:00 12/06/24 07:00 Temperature 98.2 F 97.6 F 97.8 F Pulse Rate [Pulse Oximeter] 75 80 73 Respiratory Rate 22 22 20 Blood Pressure [Le ft Arm] 145/80 H 123/72 Blood Pressure [Ri ght Arm] 164/78 H Pulse Oximetry 93 96 95 Oxygen Delivery Me thod Room Air Room Air Room Air 12/06/24 07:00 12/06/24 07:00 12/06/24 11:00 Temperature Pulse Rate [Pulse Oximeter] 73 Respiratory Rate 20 20 18 Blood Pressure [Le ft Arm] Blood Pressure [Ri ght Arm] Pulse Oximetry 95 96 Oxygen Delivery Me thod Room Air Room Air DS: Data Imaging CT scan - head: Attestation: I have reviewed the pertinent imaging results. Radiologist's impression: Brain, ventricles, and extra-axial spaces: No acute intracranial hemorrhage. Snowden-white differentiation is grossly preserved. Qryo-gc-gvjrjyil hypoattenuating changes in the white matter which are nonspecific, but commonly attributable to chronic microangiopathic change. There is mild parenchymal volume loss with commensurate size of the ventricles and sulci. There are intracranial vascular calcifications. Bones: No acute osseous findings. Scattered mwdb-rr-dywtatda paranasal sinus mucosal thickening. Visualized mastoid air cells are clear. Additional findings: A tiny portion of the skull vertex is excluded from the field of view. IMPRESSION: No acute intracranial noncontrast CT findings. CT C-spine: Attestation: I have reviewed the pertinent imaging results. Radiologist's impression: Alignment: Straightening of the normal cervical lordosis. Vertebrae: Vertebral bodies and posterior elements are intact without acute fracture. Moderate degenerative changes of the visualized spine. Extra-vertebral soft tissues: Normal. Visualized brain: Normal. Additional comment: Subcentimeter cervical and upper mediastinal lymph nodes are nonspecific and favored to be reactive. IMPRESSION: No acute displaced fracture or malalignment of the cervical spine. Pelvis x-ray: Attestation: I have reviewed the pertinent imaging results. Radiologist's impression: Irregularity of the left greater trochanter is favored to be chronic given same day CT findings. No acute displaced fracture or malalignment. Moderate degenerative changes of the visualized spine. Impression: Irregularity of the left greater trochanter is favored to be chronic given same day CT findings. No acute displaced fracture or malalignment. Lumbar spine x-ray: Attestation: I have reviewed the pertinent imaging results. Radiologist's impression: Bones: Redemonstrated grade 1 anterolisthesis of L4 on L5. No fractures or significant bone lesions. Joints: Disc spaces and facets demonstrate multilevel moderate to severe degenerative changes.. Soft tissues: Right upper quadrant clips likely related to cholecystectomy. Discharge Plan Discharge Disposition: [facility] Discharge Location: [facility] Date of Admission: 12/03/24 22:29 Attending Provider on Discharge: April Orantes Primary Care Provider: Samantha Acharya Condition: Stable Anticipated Discharge Date/Time: 12/06/24 10:02 Discharge Medications: Continued acetaminophen 500 mg tablet 1,000 mg PO TID PRN cholecalciferol (vitamin D3) 25 mcg (1,000 unit) tablet 1,000 unit PO DAILY losartan 50 mg tablet 50 mg PO BID sennosides 8.6 mg tablet 8.6 mg PO BID tramadol 50 mg tablet 50 mg PO Q12H nystatin [Nyamyc] 100,000 unit/gram powder 1 applic topical DIRECTED simvastatin 20 mg tablet 20 mg PO HS levothyroxine 125 mcg tablet 125 mcg PO DAILY furosemide 40 mg tablet 40 mg PO DAILY oseltamivir [Tamiflu] 75 mg capsule 75 mg PO BID 5 Days Qty: 9 0RF Discharge Orders: Discharge Order (Routine); Ordered 12/06/24 Ordered By: April Orantes Additional Instructions: TAMIFLU - HAS RECEIVED 6 DOSES OF TAMIFLU. COMPLETE DOSING WITH 4 MORE DOSES. Return to [facility]. PT TO EVALUATE AND TREAT. Staple removal, scalp, 12/08-12/10 Activity Level: Light activity, Up with assist and Weight Bearing as Tolerated Discharge Diet: Regular Follow Up Appointments: Samantha Acharya MD [Primary Care Provider] - (post hospital follow up 5-10 days) Forms: [facility] Info Instructions Wound Care: Scalp staple removal 12/08-12/10 Admit to: Memory Care Discharge Potential: Fair Length of Stay: >90 days Can use facility standing orders?: Yes Code Status: DNR/DNI Rehab Potential: Fair Therapy: Physical Therapy Therapy Orders: Evaluate and Treat Oxygen: No Urinary Catheter: No Orders are good >30 days: Yes Signature: April Orantes, DANIEL, PA-C [facility]
--- NOTE | 2024-12-10 10:59 | PC.SOCIAL ---
Social work: Called jeannine Mauro regarding transportation at discharge. Shared with dtr that pt did no meet medical criteria for insurance coverage of her non-emergency ambulance back to [facility] at discharge. Dtr states she had been told that was a possibility and is agreeable to paying the $99 estimate of this charge. Transportation form signed as a verbal consent by this social group worker.
== END 2024-12-06 12:55 | DRG 71 ==
LOC: ED 19:37 → MEDSURG 20:14
PROVIDERS: Admitting Provider Family Medicine; Emergency Provider Family Medicine; PCP Family Medicine; Visit Provider Family Medicine
DX: G93.41 Metabolic encephalopathy (principal); Z68.43 Body mass index [BMI] 50.0-59.9, adult; J10.1 Influenza due to other identified influenza virus with other respiratory manifestations; R29.6 Repeated falls; S01.01XA Laceration without foreign body of scalp, initial encounter; F03.90 Unspecified dementia, unspecified severity, without behavioral disturbance, psychotic disturbance, mood disturbance, and anxiety; R53.1 Weakness; E66.01 Morbid (severe) obesity due to excess calories; G47.30 Sleep apnea, unspecified; M54.16 Radiculopathy, lumbar region; M48.061 Spinal stenosis, lumbar region without neurogenic claudication; M19.012 Primary osteoarthritis, left shoulder; W19.XXXA Unspecified fall, initial encounter; Z91.81 History of falling; Y92.099 Unspecified place in other non-institutional residence as the place of occurrence of the external cause; E78.5 Hyperlipidemia, unspecified; I10 Essential (primary) hypertension; Z96.651 Presence of right artificial knee joint; Z98.84 Bariatric surgery status; M25.552 Pain in left hip; R04.0 Epistaxis; J09.X2 Influenza due to identified novel influenza A virus with other respiratory manifestations; I89.0 Lymphedema, not elsewhere classified; R60.0 Localized edema
CPT/HCPCS: 12002; 36415; 70450; 71045; 72100; 72125; 72170; 73502; 73700; 80048; 81001; 81003; 83880; 84484; 85025; 85610; 86140; 87086; 87186; 87631; 93005; 94761; 96374; 97110; 97116; 97161; 97165; 97530; 99284; 99285; A9270; J1171; J1650; J7050

== ENCOUNTER 2024-12-06 12:50 | Outpatient (CLI) | payer MEDICARE, OTHER, SELFPAY | END 2024-12-06 12:51 | disposition home or self-care (01) | PROVIDERS: PCP Family Medicine; Visit Provider Student in an Organized Health Care Education/Training Program | DX: G93.41 Metabolic encephalopathy (principal); J10.1 Influenza due to other identified influenza virus with other respiratory manifestations; F03.90 Unspecified dementia, unspecified severity, without behavioral disturbance, psychotic disturbance, mood disturbance, and anxiety | CPT/HCPCS: A0425; A0428 ==

== ENCOUNTER 2024-12-23 06:06 | Outpatient (CLI) | payer MEDICARE, OTHER, SELFPAY | END 2024-12-23 06:07 | disposition home or self-care (01) | LOC: AMB 12-26 12:40 | PROVIDERS: PCP Family Medicine; Visit Provider Family Medicine | DX: S79.912A Unspecified injury of left hip, initial encounter (principal); W18.30XA Fall on same level, unspecified, initial encounter; Y92.10 Unspecified residential institution as the place of occurrence of the external cause | CPT/HCPCS: A0425; A0427 ==

== ENCOUNTER 2024-12-23 06:28 | Observation (INO) | payer MEDICARE, OTHER, SELFPAY ==
[2024-12-23] VITALS (13 sets, daily range): BP systolic 144–188; BP diastolic 73–114; PULSE 79–103; RESP 16–24; TEMP 36.4–37.1; O2SAT 92–97; BMI 52.2
--- OUTSIDE RECORDS SUMMARY | 2024-12-23 06:30 | XMS_ITS | Continuity of Care Document ---
Author Organization [facility] Address [address] [place] [address] Phone Care Team Providers Care Generator Operator Straight Bevel Gear Name Role Phone Jonny PAC, Luis Unavailable Unavailable Allergies, Adverse Reactions, Alerts Substance Reaction Status Criticality No Known Allergies Active No Inform ation Procedures Procedure Date Office/Outpatient Visit,[facility] 2016 Advance Directives Directive Yes / No Effective Date File Name No Information Encounters Encounter Description Practice Location Reason(s) For Visit Diagnoses Date Provider Providers Copied on Encounter [facility], [address], [place], [place], [id number], [place] tel:[phone] [facility] No Information Panvica Luis. [facility], [address] [place] [address], [address], [place], [place], [id number] , [place]. tel:[phone] Office/Outpat ient Visit,[facility], [address], [place], [place], [id number], [place] tel:[phone] [facility] Spondylolisthes is, lumbar regionSpinal stenosis, lumbar regionOther intervertebral disc degeneration, lumbar region Panvica Luis. [facility], [address] [place] [address], [address], [place], [place], [id number] , [place]. tel:[phone] Referring Provider: Samantha Abreu[address], [address]. tel:[phone] Family History Family Member Type Diagnosis Age At Onset No Information Payers Payer name Insurance type Covered republican ID Authoriza titimothy(s) [employer] Camila RIOS [id number] Social History Type Description Quantity Date Captured [...]
--- OUTSIDE RECORDS SUMMARY | 2024-12-23 06:30 | XMS_ITS | Clinical Summary ---
Author Organization [facility] Address [place], [place] [address] Care Team Providers Care Wellness Coordinator Name Role Phone Samantha Acharya MD Primary [...] banding Overview (05/20/2016): Dr. Mandie Douglass of [place] Screen for colon cancer 06/18/2010 Overview (06/18/2010): Colonoscopy 06/2010 normal repeat in 10 years Encounters Date Type Department Care Team Description 10/25/2024 9:00 AM COLOR TECHNICIAN Procedure Only [facility] [address] [place] [address] Oswaldo Muir MD Procedure (Left shoulder injection) 10/25/2024 Telephone [facility] [address] [place] [address] Oswaldo Muir MD Form (disability parking) 10/25/2024 Travel 10/02/2024 Telephone [facility] [address] [place] [address] Oswaldo Muir MD Appointment from Last 3 [...] on file Legal Sex Female 6:13 AM COLOR TECHNICIAN Gender Identity Not on file Sexual Orientation Not on file Obstetrics History Last Filed Vital Signs Vital Sign Reading Time Taken Comments Blood Pressure 153/95 10/25/2024 9:13 AM COLOR TECHNICIAN Pulse 78 10/25/2024 9:13 AM COLOR TECHNICIAN Temperature 36.6 C (97.9 F) 10/25/2024 9:13 AM COLOR TECHNICIAN Respiratory Rate 18 06/24/2016 2:11 PM CDT Oxygen Saturation 94% 10/25/2024 9:13 AM COLOR TECHNICIAN Inhaled Oxygen Concentration - - Weight 108.5 kg (239 lb 3.2 oz) 10/25/2024 9:13 AM COLOR TECHNICIAN Height 145.3 cm (4' 9.21) 01/31/2019 1 [...] US STUDY ARCHIVE Routine 10/25/2024 3:51 PM COLOR TECHNICIAN Osteoarthritis of left glenohumeral joint Chronic left shoulder pain from Last 3 Months Results * BEDSIDE US STUDY ARCHIVE (10/25/2024 3:51 PM COLOR TECHNICIAN) Narrative Duyen Springer - 10/25/2024 3:51 PM COLOR TECHNICIAN The patient was seen for ultrasound guided [...] 5:55 AM 06/10/2016 8:21 PM Care Teams Wellness Coordinator Relationship Specialty Start Date End Date Samantha Acharya MD [address] [place] [address] PCP - General Family Practice 12/12/16
--- OUTSIDE RECORDS SUMMARY | 2024-12-23 06:30 | XMS_ITS | Clinical Summary ---
Author Organization [facility] Address [address] [place] [id number] Care Team Providers Care Return Agent Name Role Phone Unavailable Primary Care Provider Unavailabl e Source Comments Patient records contain information from all sites at [facility]. For routine questions regarding patient records, call [phone] during business hours, M-F 8:00 AM - 5:00 PM Central Time. Record requests for emergency care only can be directed to [phone] at any time.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 Gender Identity Not on file Sexual Orientation [...] years (1 - 1-dose 75+ series) 2015 COVID-19 Vaccine ( - 2023- season) 2024 08/18/2022, 12/23/2020, 11/25/2020 Influenza Vaccine (#1) 2024 3, 08/20/2020, 08/15/2019, Additional history exists Depression Screening (Annual PHQ-2) 11/13/2024 Fall Risk Screen (Annual) 11/13/2024 DTaP,Tdap,and Td Vaccines (3 - Td or Tdap) 09/30/2030 09/30/2020, 06/11/2012 Pneumococcal vaccine (50+ years) Completed 01/20/2017, 07/28/2015 IPV Vaccines Aged Out No longer eligi ble based on patient's age to complete this topic Medical Devices Implanted Type Area Content Analyst Device Identifier Shelf Expiration Date Model / Serial / Lot Hardware E.G. Pins/Screws/Ro ds Hardware e.g. pins/screws/ rods Right: Knee Insurance [employer] MEDICARE
--- OUTSIDE RECORDS SUMMARY | 2024-12-23 06:30 | XMS_ITS | Clinical Summary ---
Author Organization [place] Address [address] [facility] [place] [address] Care Team Providers Care Development Director Name Role Phone System, Provider Not In [...] BY MOUTH ONCE DAILY 1 Active NYAMYC [id number] UNIT/GM external powder Apply topically daily as [...] 06/09/2016 Overview (08/03/2022): Dr. Mandie Douglass of [place] Dr. Villanueva Immunizations Name Administration Dates Next [...] on file Legal Sex Female 3:29 AM [employer] Gender Identity Not on file Sexual Orientation Not on file Last Filed Vital Signs Vital Sign Reading Time Taken Comments Blood Pressure 132/88 12/29/2023 11:46 AM [employer] Pulse 81 12/29/2023 11:46 AM [employer] Temperature 36.6 C (97.9 F) 12/29/2023 8:07 AM [employer] Respiratory Rate 19 12/29/2023 11:4 6 AM [employer] Oxygen Saturation 93% 12/29/2023 11: 46 AM [employer] Inhaled Oxygen Concentration - - Weight 107.7 kg (237 lb 6.4 oz) 12/26/2023 9:56 AM [employer] Height 152.4 cm (5') 12/21/2023 8:24 AM [employer] Body Mass Index 46.36 12/21/2023 8:24 AM [employer] Plan of Treatment Health Maintenance Due Date Last Done Comments ADVANCE CARE PLANNING 1940 ANNUAL REVIEW OF HM ORDERS 1940 DEXA 1940 LIPID 1940 URINE DRUG SCREEN 1940 ZOSTER IMMUNIZATION (1 of 2) 1990 FALL RISK ASSESSMENT 2005 MEDICARE ANNUAL WELLNESS VISIT 2005 RSV VACCINE (1 - 1-dose 75+ series) 2015 COVID-19 Vaccine ( season) 2024 08/18/2022, 12/23/2020, 11/25/2020 INFLUENZA VACCINE (#1) 2024 , 08/20/2020, 08/15/2019, Additional history exists PHQ-2 (once per calendar year) 2024 08/14/2023 BMP 12/28/2024 12/28/2023, 12/14, 12/24/2023, Additional history [...] BASIC METABOLIC PANEL Routine 12/28/2023 6:26 AM [employer] TSH WITH FREE T4 REFLEX STAT 12/21/2023 8:33 AM [employer] from Last 3 Months or Most Recently Relevant to Health Maintenance Results * (ABNORMAL) Basic metabolic panel (12/28/2023 6:26 AM [employer]) Sodium 142 135 - 145 mmol/L 12/28/2023 7:13 AM [employer] [facility] Comment:Reference intervals for this test were updated on 08/08/2023 to more accurately reflect our healthy population. There may be differences in the flagging of prior results with similar values performed with this method. Interpretation of those prior results can be made in the context of the updated reference intervals. Potassium 3.8 3.4 - 5.3 mmol/L 12/28/2023 7:13 AM [facility] Chloride 103 98 - 107 mmol/L 12/28/2023 7:13 AM [facility] Carbon Dioxide (CO2) 26 22 - 29 mmol/L 12/28/2023 7:13 AM [facility] Anion Gap 13 7 - 15 mmol/L 12/28/2023 7:13 AM [facility] Urea Nitrogen 17.9 8.0 - 23.0 mg/dL 12/28/2023 7:13 AM [facility] Creatinine 0.90 0.51 - 0.95 mg/dL 12/28/2023 7:13 AM [facility] GFR Estimate 63 >60 mL/min/1. 73m2 12/28/2023 7:13 AM [facility] Calcium 9.4 8.8 - 10.2 mg/dL 12/28/2023 7:13 AM [facility] Glucose 117(H) 70 - 99 mg/dL 12/28/2023 7:13 AM [facility] Blood STRUCTURE OF RIGHT HAND / Unknown Venipuncture / Unknown 12/28/2023 6:26 AM [employer] 12/28/2023 6:36 AM [employer] Kristina Griffin MD LAB - BLOOD ORDERABLES Final Res ult LABORATORY [facility] [address] Lab (1st floor, no room number) [place] [address], [facility] [phone] * (ABNORMAL) TSH with free T4 reflex (12/21/2023 8:33 AM [employer]) TSH 5.16(H) 0.30 - 4.20 uIU/mL 12/21/2023 9:14 AM [employer] TEACHER LABORATORY Blood STRUCTURE OF LEFT UPPER LIMB / Unknown Venipuncture / Unknown 12/21/2023 8:33 AM [employer] TE[employer]ER 12/21/2023 8:40 AM [employer] Oswaldo Samuel APRN ELECTR[employer]ATING SALES REPRESENTATIVE LAB - BLOOD ORDERABLE S Final Result Performing Organization Address [facility]/ZIP Co de Phone Number LABORATORY [facility] [address] Lab (1st floor, no room number) [place] [address], [facility] [phone] from Last 3 Months or Most Recently Relevant to Health Maintenance Insurance [facility] MEDICARE [address] [phone] [address] [employer] MEDICARE Advance Directives For more information, please contact: [phone] * No CPR- Do NOT Intubate (Latest Code Status on File) Date Activated Date Inactivated Comments 12/21/2023 8:01 AM 12/29/2023 4:45 PM NO basic or a dvanced life-sustaining interventions are performed Question Answer Comments Code status determined by: Discussion with patie nt/ legal decision maker Care Teams Development Director Relationship Specialty Start Date End Date System, Provider Not In PCP - [facility] 12/21/23
--- NOTE | 2024-12-23 06:43 | CRLHL7_ITS ---
For Patients: As a result of the Century Cures Act, medical imaging exams and procedure reports are released immediately into your electronic medical record. You may view this report before your referring provider. If you have questions, please contact your health care provider. Indication: Fall. Technique: 1 view(s) of the chest. Comparison: 12/03/2024, 12/21/2023. Findings: Enlarged cardiomediastinal silhouette, likely exaggerated by hypoinflation and AP technique. Lungs are moderately hypoinflated with bronchovascular crowding. Mild streaky basilar airspace opacities without dense consolidation. No pleural effusion. No pneumothorax. No displaced fracture visualized. Impression: Moderate hypoinflation with minimal basilar airspace opacities favoring atelectasis. Increased cardiomegaly, likely accentuated by underinflation and AP technique. Dictated by Duyen Escalante MD @ 12/23/2024 7:41:51 AM (Electronically Signed)
--- NOTE | 2024-12-23 06:49 | ED_ITS ---
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 02:14> Lab Results 12/23/24 12/23/24 12/23/24 Range/Units 06:43 07:00 09:05 WBC 12.15 H (4.50-11.00) K/uL RBC 4.37 (4.00-5.20) m/uL Hgb 12.3 (12.0-16.0) gm/dL Hct 38.2 (33.0-51.0) % MCV 87 (80-100) fL MCH 28 (26-34) pg MCHC 32 (32-36) gm/dL RDW Coeff of Leandro 12.9 (11.5-15.5) % Plt Count 334 (140-440) K/uL Neut % (Auto) 77.9 H (42.0-72.0) % Lymph % (Auto) 13.7 L (20-44) % [place] % (Auto) 7.4 (0.0-11.0) % Eos % (Auto) 0.5 (0.0-7.0) % Baso % (Auto) 0.3 (0.0-3.0) % Neut # (Auto) 9.50 H (1.7-7.0) K/uL Lymph # (Auto) 1.70 (0.90-2.90) K/uL [place] # (Auto) 0.90 (0.00-0.90) K/UL Eos # (Auto) 0.10 (0.00-0.50) K/uL Baso # (Auto) 0.00 (0.00-0.30) K/uL Abs Immat Gran (auto) 0.00 (0.00-0.30) K/uL Imm/Tot Granulo (auto) 0.2 % Sodium 139 (135-149) mmol/L Potassium 3.2 L (3.6-5.1) mmol/L Chloride 101 (96-114) mmol/L Carbon Dioxide 30 (20-32) mmol/L Anion Gap 8 (7-15) mEq/L BUN 13 (7-30) mg/dL Creatinine 0.7 (0.5-1.5) mg/dL Estimated GFR 85 ml/min Glucose 147 H (60-115) mg/dL Calcium 9.0 (8.4-10.6) mg/dL C-Reactive Protein 1.7 H (0.5-1.0) mg/dL NT-Pro-B Natriuret Pep 212 pg/mL Urine Color Yellow (Yellow) Urine Appearance Clear (Clear) Urine pH 7.5 (5.0-8.5) Ur Specific Varina 1.015 (1.000-1.030) Urine Protein Negative (Negative) Urine Glucose (UA) Negative (Negative) Urine Ketones Trace A (Negative) Urine Blood Negative (Negative) Urine Nitrite Negative (Negative) Urine Bilirubin Negative (Negative) Urine Urobilinogen 0.2 (0.2-1.0) Ur Leukocyte Esterase Negative (Negative) Urine RBC 0-2 (0-2) Urine WBC 0-2 (0-5) Ur Squamous Epith Cells Few (None-Few) Amorphous Sediment Few A (None) Urine Bacteria Few A (None) Ethyl Alcohol < 0.01 L (0.01-0.03) % SARS-CoV-2 (PCR) Negative SARS-CoV-2 (Negative) Influenza Type A (PCR) Negative PCR FLU A (Negative) Influenza Type B (PCR) Negative PCR FLU B (Negative) RSV (PCR) Negative PCR RSV (Negative) POC Troponin I 0.00 L (0.01-0.04) ng/ml <Landon Tom MD - Last Filed: 12/23/24 10:24> Imaging Data Chest x-ray: Attestation: I have reviewed the pertinent imaging results. <Meri Santiago MD - Last Filed: 12/31/24 02:14> My impression: Cardiac enlargements and signs of chronic fluid congestion. <Meri Santiago MD - Last Filed: 12/31/24 02:14> Radiologist's impression: Findings: Enlarged cardiomediastinal silhouette, likely exaggerated by hypoinflation and AP technique. Lungs are moderately hypoinflated with bronchovascular crowding. Mild streaky basilar airspace opacities without dense consolidation. No pleural effusion. No pneumothorax. No displaced fracture visualized. Impression: Moderate hypoinflation with minimal basilar airspace opacities favoring atelectasis. Increased cardiomegaly, likely accentuated by underinflation and AP technique. <Meri Santiago MD - Last Filed: 12/31/24 02:14> Left hip and pelvis x-rays: Attestation: I have reviewed the pertinent imaging results. <Meri Santiago MD - Last Filed: 12/31/24 02:14> My impression: Stable from prior studies. No acute fracture. <Meri Santiago MD - Last Filed: 12/31/24 02:14> ECG Data Attestation: I personally reviewed and interpreted this ECG as follows: <Landon Tom MD - Last Filed: 12/23/24 10:24> Interpretation: Normal sinus rhythm. Rate is 81 beats per minute. There are no ST or T- wave abnormalities. <Landon Tom MD - Last Filed: 12/23/24 10:24> Discharge Plan Discharge Clinical Impression: Weakness, Dementia, Frequent falls <Meri Santiago MD - Last Filed: 12/31/24 02:14> Patient Disposition: Admitted As Observation <Meri Santiago MD - Last Filed: 12/31/24 02:14> Condition: Unchanged <Meri Santiago MD - Last Filed: 12/31/24 02:14> Activity Level: Activity as Tolerated <Meri Santiago MD - Last Filed: 12/31/24 02:14> Activity as Tolerated <Landon Tom MD - Last Filed: 12/23/24 10:24> Discharge Diet: Regular <Meri Santiago MD - Last Filed: 12/31/24 02:14> Regular <Landon Tom MD - Last Filed: 12/23/24 10:24>
--- NOTE | 2024-12-23 06:50 | CRLHL7_ITS ---
For Patients: As a result of the Cures Act, medical imaging exams and procedure reports are released immediately into your electronic medical record. You may view this report before your referring provider. If you have questions, please contact your health care provider. Indication: Hip pain Technique: Pelvis and left hip 3 views Comparison: 12/03/2024 Findings: Degenerative changes at the lower lumbar spine. Spurring at the iliac crests. Pubic rami intact. Hypertrophic change at the left greater trochanter. Femoral neck intact. Impression: No sign of acute fracture. Dictated by Amos Ochoa MD @ 12/23/2024 8:19:22 AM (Electronically Signed)
--- OUTSIDE RECORDS SUMMARY | 2024-12-23 07:04 | XMS_ITS | Clinical Summary ---
Author Organization [facility] Address [address] [facility] [place] [address] Care Team Providers Care Mind Reader Name Role Phone System, Provider Not In [...] BY MOUTH ONCE DAILY 1 Active NYAMYC 691315 UNIT/GM external powder Apply topically daily as [...] 06/09/2016 Overview (08/03/2022): Dr. Mandie Douglass of [place] Dr. Villanueva Immunizations Name Administration Dates Next [...] on file Legal Sex Female 3:29 AM DIVISION SERGEANT Gender Identity Not on file Sexual Orientation Not on file Last Filed Vital Signs Vital Sign Reading Time Taken Comments Blood Pressure 132/88 12/29/2023 11:46 AM DIVISION SERGEANT Pulse 81 12/29/2023 11:46 AM DIVISION SERGEANT Temperature 36.6 C (97.9 F) 12/29/2023 8:07 AM DIVISION SERGEANT Respiratory Rate 19 12/29/2023 11:4 6 AM DIVISION SERGEANT Oxygen Saturation 93% 12/29/2023 11: 46 AM DIVISION SERGEANT Inhaled Oxygen Concentration - - Weight 107.7 kg (237 lb 6.4 oz) 12/26/2023 9:56 AM DIVISION SERGEANT Height 152.4 cm (5') 12/21/2023 8:24 AM DIVISION SERGEANT Body Mass Index 46.36 12/21/2023 8:24 AM DIVISION SERGEANT Plan of Treatment Health Maintenance Due Date [...] BASIC METABOLIC PANEL Routine 12/28/2023 6:26 AM DIVISION SERGEANT TSH WITH FREE T4 REFLEX STAT 12/21/2023 8:33 AM DIVISION SERGEANT from Last 3 Months or Most Recently Relevant to Health Maintenance Results * (ABNORMAL) Basic metabolic panel (12/28/2023 6:26 AM DIVISION SERGEANT) Sodium 142 135 - 145 mmol/L 12/28/2023 7:13 AM DIVISION SERGEANT [facility] Comment:Reference intervals for this test were updated on 08/08/2023 to more accurately reflect our healthy population. There may be differences in the flagging of prior results with similar values performed with this method. Interpretation of those prior results can be made in the context of the updated reference intervals. Potassium 3.8 3.4 - 5.3 mmol/L 12/28/2023 7:13 AM [facility] Chloride 103 98 - 107 mmol/L 12/28/2023 7:13 AM [facility] Carbon Dioxide (CO2) 26 22 - 29 mmol/L 12/28/2023 7:13 AM [facility] Anion Gap 13 7 - 15 mmol/L 12/28/2023 7:13 AM [facility] Urea Nitrogen 17.9 8.0 - 23.0 mg/dL 12/28/2023 7:13 AM [facility] Creatinine 0.90 0.51 - 0.95 mg/dL 12/28/2023 7:13 AM [facility] GFR Estimate 63 >60 mL/min/1. 73m2 12/28/2023 7:13 AM [facility] Calcium 9.4 8.8 - 10.2 mg/dL 12/28/2023 7:13 AM [facility] Glucose 117(H) 70 - 99 mg/dL 12/28/2023 7:13 AM [facility] Blood STRUCTURE OF RIGHT HAND / Unknown Venipuncture / Unknown 12/28/2023 6:26 AM DIVISION SERGEANT 12/28/2023 6:36 AM DIVISION SERGEANT Kristina Griffin MD LAB - BLOOD ORDERABLES Final Res ult LABORATORY [facility] [address] Lab (1st floor, no room number) [place] [address], [facility] [phone] * (ABNORMAL) TSH with free T4 reflex (12/21/2023 8:33 AM DIVISION SERGEANT) TSH 5.16(H) 0.30 - 4.20 uIU/mL 12/21/2023 9:14 AM DIVISION SERGEANT [facility] Blood STRUCTURE OF LEFT UPPER LIMB / Unknown Venipuncture / Unknown 12/21/2023 8:33 AM DIVISION SERGEANT 12/21/2023 8:40 AM DIVISION SERGEANT Oswaldo Samuel APRN GUIDE DELEGATE LAB - BLOOD ORDERABLE S Final Result Performing Organization Address [facility]/ZIP Co de Phone Number LABORATORY [facility] [address] Lab (1st floor, no room number) [place] [address], [facility] [phone] from Last 3 Months or Most Recently Relevant to Health Maintenance Insurance [employer] MEDICARE [address] [id number] [phone] MEDICA [employer] MEDICARE Advance Directives For more information, please contact: [phone] * No CPR- Do NOT Intubate (Latest Code Status on File) Date Activated Date Inactivated Comments 12/21/2023 8:01 AM 12/29/2023 4:45 PM NO basic or a dvanced life-sustaining interventions are performed Question Answer Comments Code status determined by: Discussion with patie nt/ legal decision maker Care Teams Mind Reader Relationship Specialty Start Date End Date System, Provider Not In PCP - General Clinic 12/21/23
--- OUTSIDE RECORDS SUMMARY | 2024-12-23 07:04 | XMS_ITS | Clinical Summary ---
Author Organization [facility] Address [place], [place] [address] Care Team Providers Care Cigarette Stamper Name Role Phone Samantha Acharya MD Primary [...] banding Overview (05/20/2016): Dr. Mandie Douglass of [place] Screen for colon cancer 06/18/2010 Overview (06/18/2010): Colonoscopy 06/2010 normal repeat in 10 years Encounters Date Type Department Care Team Description 10/25/2024 9:00 AM CARTON COUNTER FEEDER Procedure Only [facility] [address] [address] Oswaldo Muir MD Procedure (Left shoulder injection) 10/25/2024 Telephone [facility] [address] [place] [address] Oswaldo Muir MD Form (disability parking) 10/25/2024 Travel 10/02/2024 Telephone [facility] [address] [place] [address] Oswlado Muir MD Appointment from Last 3 Months [...] on file Legal Sex Female 6:13 AM CARTON COUNTER FEEDER Gender Identity Not on file Sexual Orientation Not on file Obstetrics History Last Filed Vital Signs Vital Sign Reading Time Taken Comments Blood Pressure 153/95 10/25/2024 9:13 AM CARTON COUNTER FEEDER Pulse 78 10/25/2024 9:13 AM CARTON COUNTER FEEDER Temperature 36.6 C (97.9 F) 10/25/2024 9:13 AM CARTON COUNTER FEEDER Respiratory Rate 18 06/24/2016 2:11 PM CDT Oxygen Saturation 94% 10/25/2024 9:13 AM CARTON COUNTER FEEDER Inhaled Oxygen Concentration - - Weight 108.5 kg (239 lb 3.2 oz) 10/25/2024 9:13 AM CARTON COUNTER FEEDER Height 145.3 cm (4' 9.21) 01/31/2019 1 [...] US STUDY ARCHIVE Routine 10/25/2024 3:51 PM CARTON COUNTER FEEDER Osteoarthritis of left glenohumeral joint Chronic left shoulder pain from Last 3 Months Results * BEDSIDE US STUDY ARCHIVE (10/25/2024 3:51 PM CARTON COUNTER FEEDER) Narrative Duyen Springer - 10/25/2024 3:51 PM CARTON COUNTER FEEDER The patient was seen for ultrasound guided [...] 5:55 AM 06/10/2016 8:21 PM Care Teams Cigarette Stamper Relationship Specialty Start Date End Date Samantha Acharya MD [address] [place] [address] PCP - General Family Practice 12/12/16
--- OUTSIDE RECORDS SUMMARY | 2024-12-23 07:04 | XMS_ITS | Continuity of Care Document ---
Author Organization [facility] Address [address] [place] [address] Phone Care Team Providers Care Malt Liquors Sales Representative Name Role Phone Jonny PAC, Luis Unavailable Unavailable Allergies, Adverse Reactions, Alerts Substance Reaction Status Criticality No Known Allergies Active No Inform ation Procedures Procedure Date Office/Outpatient Visit,[facility] 2016 Advance Directives Directive Yes / No Effective Date File Name No Information Encounters Encounter Description Practice Location Reason(s) For Visit Diagnoses Date Provider Providers Copied on Encounter [facility], [address], [place], [place], [id number], [place] tel:[phone] [facility] No Information Panvica Luis. [facility], [address] [place] [address], [address], [place], [place], [id number] , [place]. tel:[phone] Office/Outpat ient Visit,[facility], [facility], [address], [place], [place], [id number], [place] tel:[phone] [facility] Spondylolisthes is, lumbar regionSpinal stenosis, lumbar regionOther intervertebral disc degeneration, lumbar region Panvica Luis. [facility], [address] [place] [address], [address], [place], [place], [id number] , [place]. tel:[phone] Referring Provider: Samantha Abreu[address], [address]. tel:[phone] Family History Family Member Type Diagnosis Age At Onset No Information Payers Payer name Insurance type Covered alliance party ID Authoriza titimothy(s) [employer] Camila RIOS [id number] Social History Type Description Quantity Date Captured [...]
--- OUTSIDE RECORDS SUMMARY | 2024-12-23 07:04 | XMS_ITS | Clinical Summary ---
Author Organization [facility] Address [address] [place] [address] Care Team Providers Care Sack Maker Name Role Phone Unavailable Primary Care Provider Unavailabl e Source Comments Patient records contain information from all sites at [facility]. For routine questions regarding patient records, call [phone] during business hours, M-F 8:00 AM - 5:00 PM Central Time. Record requests for emergency care only can be directed to [phone] at any time.[facility] Allergies No known active allergies Medications [...] on file Legal Sex Female 11:28 PM TEST TECHNICIAN Gender Identity Not on file Sexual [...] this topic Medical Devices Implanted Type Area Papier Mache' Molder Device Identifier Shelf Expiration Date Model / Serial / Lot Hardware E.G. Pins/Screws/Ro ds Hardware e.g. pins/screws/ rods Right: Knee Insurance MEDICA MEDICARE
[2024-12-23 07:16] LABS: Basophils Percent Auto 0.3 % (0.0-3.0); Eosinophils Percent Auto 0.5 % (0.0-7.0); Hematocrit 38.2 % (33.0-51.0); Hemoglobin* 12.3 gm/dL (12.0-16.0); Immature Granulocytes Pct Auto 0.2 %; Lymphocytes Percent Auto 13.7 % (20-44); Mean Corpuscular HGB Conc 32 gm/dL (32-36); Mean Corpuscular Hemoglobin 28 pg (26-34); Mean Corpuscular Volume 87 fL (80-100); Monocytes Percent Auto 7.4 % (0.0-11.0); Neutrophils Percent Auto 77.9 % (42.0-72.0); Platelet Count* 334 K/uL (140-440); RDW Coefficient of Variation % 12.9 % (11.5-15.5); Red Blood Count 4.37 m/uL (4.00-5.20); White Blood Count* 12.15 K/uL (4.50-11.00)
[2024-12-23 07:23] LABS: Slide Review Reflex No
[2024-12-23 07:45] LABS: PCR FLU A Negative PCR FLU A (Negative); PCR FLU B Negative PCR FLU B (Negative); PCR RSV Negative PCR RSV (Negative); SARS PCR* Negative SARS-CoV-2 (Negative)
[2024-12-23 08:56] LABS: Chloride* 101 mmol/L (96-114); Sodium* 139 mmol/L (135-149)
[2024-12-23 08:57] LABS: Potassium* 3.2 mmol/L (3.6-5.1)
[2024-12-23 08:59] LABS: Creatinine* 0.7 mg/dL (0.5-1.5); Estimated Glomerular Filt Rate 85 ml/min
[2024-12-23 09:00] LABS: Anion Gap 8 mEq/L (7-15); Blood Urea Nitrogen* 13 mg/dL (7-30); Carbon Dioxide* 30 mmol/L (20-32); Glucose* 147 mg/dL (60-115)
[2024-12-23 09:03] LABS: C Reactive Protein* 1.7 mg/dL (0.5-1.0)
[2024-12-23 09:14] LABS: Ethanol* < 0.01 % (0.01-0.03); NT Pro B Type NatriureticPept* 212 pg/mL
[2024-12-23 09:34] LABS: Appearance Urine Clear (Clear); Bilirubin Urine Negative (Negative); Blood Urine Negative (Negative); Color Urine Yellow (Yellow); Glucose Urine Negative (Negative); Ketones Urine Trace (Negative); Leukocyte Esterase Urine Negative (Negative); Nitrite Urine Negative (Negative); Protein Urine Negative (Negative); Specific Gravity Urine 1.015 (1.000-1.030); Urobilinogen Urine 0.2 (0.2-1.0); pH Urine 7.5 (5.0-8.5)
[2024-12-23 09:47] LABS: Amorphous Sediment Urine Few; Bacteria Urine Few; RBC Urine 0-2 (0-2); Squamous Epithelial Cell Urine Few (None-Few); WBC Urine 0-2 (0-5)
[2024-12-23] MEDS: ACETAMINOPHEN 500 MG TABLET 1000 MG PO ×2 (11:31→21:09)
[2024-12-23] MEDS: OXYCODONE 5 MG TABLET PO ×2 (11:32→20:26)
--- NOTE | 2024-12-23 11:42 | CRLHL7_ITS ---
For Patients: As a result of the Century Cures Act, medical imaging exams and procedure reports are released immediately into your electronic medical record. You may view this report before your referring provider. If you have questions, please contact your health care provider. INDICATION: Pain. TECHNIQUE: CT of the lumbar spine without contrast. COMPARISON: CT lumbar spine without contrast 11/26/2024. FINDINGS: [id number] multilevel degenerative changes with disc space narrowing, disc osteophyte complex formation and facet arthropathy is similar in appearance. Grade 1 degenerative anterolisthesis of L4 on L5 is unchanged. Alignment elsewhere in the lumbar spine is unchanged. Moderate to severe central canal stenosis at L4-5 is unchanged. Multilevel pjak-[id number]-eqiraejj bilateral bony neural foraminal narrowing greatest at L4-5 is also unchanged. No evidence of acute fracture. No suspicious lytic or sclerotic osseous lesion. Mild fatty atrophy of the posterior paraspinal musculature. Aortic atherosclerosis. No abdominal aortic aneurysm. Prior cholecystectomy. Paraspinal soft tissues elsewhere as imaged are unremarkable. IMPRESSION: 1. No acute or suspicious osseous abnormality in the lumbar spine. 2. Multilevel degenerative disease greatest at L4-5 is unchanged. Dictated by Walter Neumann MD @ 12/23/2024 12:32:44 PM Please note that all CT scans at this facility use dose modulation, iterative reconstruction, and/or weight-based dosing when appropriate to reduce radiation dose to as low as reasonably achievable. Dictated by: Walter Neumann MD @ 12/23/2024 12:33:03 (Electronically Signed)
--- NOTE | 2024-12-23 11:42 | CRLHL7_ITS ---
For Patients: As a result of the Century Cures Act, medical imaging exams and procedure reports are released immediately into your electronic medical record. You may view this report before your referring provider. If you have questions, please contact your health care provider. EXAM: CT OF THE PELVIS, WITHOUT CONTRAST CLINICAL INDICATION: Found down. Left-sided pain. COMPARISON STUDIES: 12/03/2024 radiographs. 12/03/2024 CT left hip. 12/21/2023 CT abdomen and pelvis. TECHNICAL: Non-contrast CT of the pelvis with axial images. Sagittal oblique and coronal oblique reformatted images were created. FINDINGS: OSSEOUS STRUCTURES: No fracture, callous formation or periosteal reaction. Benign bone island in the right femoral head. No evidence for chronic avascular necrosis. JOINT SPACES: Right Hip: No effusion. Mild narrowing and hypertrophic changes. Left Hip: No effusion. Mild narrowing and hypertrophic changes. SI Joints: Moderate degenerative changes. Lumbar Spine: Degenerative changes in the lower lumbar interspaces and lumbosacral facets. MUSCLES AND TENDONS: There is edema and enlargement of the left iliopsoas musculature. There is a small retracted calcification in the left iliopsoas distally. Finding is consistent with a partial-thickness tear of the iliopsoas with adjacent muscle edema. No intramuscular hematoma. No muscle atrophy. The remaining muscles and tendons are unremarkable. SOFT TISSUES: Mild subcutaneous edema in the left hip and thigh and the bilateral gluteal region. No subcutaneous hematoma. INTRAPELVIC CONTENTS: Multiple fat containing ventral and umbilical hernias. No bowel is evident in a right ventral hernia present on the 2023 CT. No bowel dilatation. Bilateral inguinal hernias. No free fluid. Hysterectomy. NEUROVASCULAR STRUCTURES: No abnormality of the neurovascular structures. IMPRESSION: 1. Partial-thickness tear of the left iliopsoas with adjacent muscle edema. No intramuscular hematoma. 2. No fractures are evident. 3. Degenerative changes in the hips SI joints and lumbar spine. 4. Subcutaneous edema without hematoma. 5. Multiple fat containing hernias. Please note that all CT scans at this facility use dose modulation, iterative reconstruction, and/or weight-based dosing when appropriate to reduce radiation dose to as low as reasonably achievable. Dictated by Oswaldo Rae MD @ 12/23/2024 12:45:14 PM (Electronically Signed)
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
[2024-12-23] MEDS: POTASSIUM BICARB 25 MEQ EFFERVESCENT TAB PO (12:38)
[2024-12-23] MEDS: LIDOCAINE 5% PATCH 1 PATCH TRANSDERMA (13:23)
[2024-12-23] MEDS: POTASSIUM CHLORIDE 10 MEQ/100 ML PIGGYBACK 100 MEQ IVPB ×4 (15:18→18:34)
--- NOTE | 2024-12-23 16:07 | PC.NURSE ---
Large bruise noted on left side of abdomen. Not charted in nursing assessment
[2024-12-23] MEDS: SENNOSIDES 1 TAB TABLET PO (21:10)
[2024-12-23] MEDS: SIMVASTATIN 20 MG TABLET PO (21:10)
[2024-12-23] MEDS: SODIUM CHLORIDE 0.9 % (FLUSH) 10 ML SYRINGE 5 ML IVF (21:25)
--- NOTE | 2024-12-23 23:20 | PC.NURSE ---
Shift note ([id number]): Patient pleasant, alert ad cooperative with cares. Pivot transferred to recliner and bedside commode with walker, gait belt and assist of two; needed a lot of encouragement. Given PRN Oxycodone for c/o knee pain. Daughter visited?at HS. Patient currently resting comfortably in her recliner. ?
[2024-12-24] VITALS (7 sets, daily range): BP systolic 142–189; BP diastolic 64–89; PULSE 62–89; RESP 18–20; TEMP 36.8–37.1; O2SAT 94–96
[2024-12-24] MEDS: OXYCODONE 5 MG TABLET PO ×4 (01:07→20:18)
[2024-12-24] MEDS: ENOXAPARIN 30 MG/0.3ML INJ SUBCUT ×2 (01:07→20:20)
--- NOTE | 2024-12-24 06:46 | PC.NURSE ---
Pt alert, oriented to self and vitally stable. Pt stated being uncomfortable in chair, moved to bed via 2a walker and gait belt. Pt states pain though is unable to rate it, prn oxy given. Pt changed and repositioned q4h, tolerates well. Pt set off chair alarm multiple times throughout shift. Pt in bed, appears to be resting call light within reach.?
[2024-12-24 06:53] LABS: Basophils Absolute Auto 0.03 K/uL (0.00-0.30); Basophils Percent Auto 0.3 % (0.0-3.0); Eosinophils Absolute Auto 0.31 K/uL (0.00-0.50); Eosinophils Percent Auto 3.3 % (0.0-7.0); Hematocrit 38.8 % (33.0-51.0); Hemoglobin* 12.4 gm/dL (12.0-16.0); Immature Granulocytes Abs Auto 0.01 K/uL (0.00-0.30); Immature Granulocytes Pct Auto 0.1 %; Lymphocytes Absolute Auto 2.49 K/uL (0.90-2.90); Lymphocytes Percent Auto 26.3 % (20-44); Mean Corpuscular HGB Conc 32 gm/dL (32-36); Mean Corpuscular Hemoglobin 28 pg (26-34); Mean Corpuscular Volume 89 fL (80-100); Monocytes Percent Auto 9.1 % (0.0-11.0); Neutrophils Absolute Auto 5.77 K/uL (1.7-7.0); Neutrophils Percent Auto 60.9 % (42.0-72.0); Platelet Count* 340 K/uL (140-440); RDW Coefficient of Variation % 13.3 % (11.5-15.5); Red Blood Count 4.36 m/uL (4.00-5.20); White Blood Count* 9.47 K/uL (4.50-11.00)
[2024-12-24 06:54] LABS: Slide Review Reflex No
[2024-12-24] MEDS: LEVOTHYROXINE 125 MCG TABLET PO (06:55)
[2024-12-24 07:08] LABS: Chloride* 103 mmol/L (96-114); Potassium* 3.7 mmol/L (3.6-5.1); Sodium* 140 mmol/L (135-149)
[2024-12-24 07:11] LABS: Anion Gap 8 mEq/L (7-15); Carbon Dioxide* 29 mmol/L (20-32); Creatinine* 0.8 mg/dL (0.5-1.5); Est. Creatinine Clearance* 70.29; Estimated Glomerular Filt Rate 73 ml/min
[2024-12-24 07:12] LABS: Blood Urea Nitrogen* 11 mg/dL (7-30); Calcium* 8.9 mg/dL (8.4-10.6); Glucose* 121 mg/dL (60-115)
[2024-12-24] MEDS: CELECOXIB 200 MG CAPSULE PO (08:33)
[2024-12-24] MEDS: ACETAMINOPHEN 500 MG TABLET 1000 MG PO ×2 (08:33→20:20)
[2024-12-24] MEDS: FUROSEMIDE 40 MG TABLET PO (08:33)
[2024-12-24] MEDS: SODIUM CHLORIDE 0.9 % (FLUSH) 10 ML SYRINGE 5 ML IVF ×2 (08:34→20:20)
--- NOTE | 2024-12-24 09:22 | NUTR.NU ---
RDN with nutrition screen related to positive skin risk. Patient admitted for recurrent falls and muscle strain, needing placement. Medical history includes dementia. Patient currently lives at an assisted living facility. Current weight 234lb 6.4oz; height 4ft 8in; BMI 52.6 kg/m2. Per weight history, weight has been stable recently. Current diet order is Regular. No meal intakes yet recorded. No nutrition interventions at this time with stable weight. Will continue to monitor and follow-up prn.
--- NOTE | 2024-12-24 11:38 | PM.IMPN1 ---
Progress Note: A&P Assessment and plan (1) Strain of left iliopsoas muscle: Problem details: - partial tear noted on CT, likely contributing to discomfort - pain management (scheduled APAP, Celebrex, Lidocaine patch, prn oxycodone), PT Status: Acute (2) Frequent falls: Problem details: - per current [facility], requires higher level of care - PT, OT, SW following Status: Acute (3) Sleep apnea: Problem details: - appears high risk for sleep apnea given body habitus, daytime somnolence - monitor closely, especially while getting pain medications Status: Suspected (4) Dementia: Problem details: - chronic MCI, no agitation Status: Chronic Plan - to SNF when bed available - appreciate input from PT, OT, SW Subjective Date Seen: 12/24/24 Interval history: Alesia was admitted from her [facility] last night for L leg pain and weakness, increased falls. She was recently hospitalized for Influenza. Admission imaging revealed a tear of her L iliopsoas with muscle edema, no hematoma. PT and OT following, recommending increased level of care to SNF upon discharge. Tolerating po intake, labs and VS baseline. Exam Narrative: Exam Narrative: GEN: Awake and sitting comfortably in bedside chair CV: RRR, No concerning murmurs, rubs, or gallops R: Breathing comfortably, no wheezing Neuro: Nonfocal Psych: Cognitive impairment evident, pleasant Const: Vital Signs, click to edit/add: Vital Signs - 24 hr 12/23/24 11:55 12/23/24 15:00 12/23/24 15:00 Temperature 97.6 F 98.2 F Pulse Rate [Pulse Oximeter] 92 86 86 Respiratory Rate 18 18 20 Blood Pressure [Ri ght Arm] 177/114 H 184/73 H Pulse Oximetry 97 92 Oxygen Delivery Me thod Room Air Room Air 12/23/24 19:00 12/23/24 23:00 12/23/24 23:00 Temperature 98.1 F 98.1 F Pulse Rate [Pulse Oximeter] 103 H 86 86 Respiratory Rate 20 18 18 Blood Pressure [Ri ght Arm] 166/90 H 188/99 H Pulse Oximetry 95 97 Oxygen Delivery Me thod Room Air Room Air 12/24/24 07:00 12/24/24 08:43 Temperature 98.3 F Pulse Rate [Pulse Oximeter] 86 86 Respiratory Rate 18 18 Blood Pressure [Ri ght Arm] 189/88 H Pulse Oximetry 95 Oxygen Delivery Me thod Room Air Labs Labs: Laboratory Results - last 24 hr 12/24/24 06:03 WBC 9.47 RBC 4.36 Hgb 12.4 Hct 38.8 MCV 89 MCH 28 MCHC 32 RDW Coeff of Leandro 13.3 Plt Count 340 Neut % (Auto) 60.9 Lymph % (Auto) 26.3 [place] % (Auto) 9.1 Eos % (Auto) 3.3 Baso % (Auto) 0.3 Neut # (Auto) 5.77 Lymph # (Auto) 2.49 [place] # (Auto) 0.90 Eos # (Auto) 0.31 Baso # (Auto) 0.03 Abs Immat Gran (auto) 0.01 Imm/Tot Granulo (auto) 0.1 Sodium 140 Potassium 3.7 Chloride 103 Carbon Dioxide 29 Anion Gap 8 BUN 11 Creatinine 0.8 Estimated Creat Clear 70.29 Estimated GFR 73 Glucose 121 H Calcium 8.9
--- NOTE | 2024-12-24 12:10 | PC.SOCIAL ---
Addendum entered by LEROY Duenas 12/24/24 16:52: Discharge planning: Pt has been accepted to [facility] for admission tomorrow(Monday) for short-term rehab. Pt needs to be there by 2pm. children's service worker spoke to pt's daughter, Jacquelyn, who will accept the bed and stated that she would like the pt to travel by non-emergent EMS and is willing to pay the transport fee of $113.00(92+7x3= 113). Pt's Conservator, Loren with [facility], will connect with [facility] staff on how to get the $10,000.00 deposit to [facility] tomorrow. Social work to follow-up as needed. Addendum entered by LEROY Duenas 12/24/24 15:03: Discharge planning: children's service worker did send a referral for the pt to Loren at [facility] for review via secure email. Jacquelyn was in agreement with the pt going to short-term rehab, but hopes that the pt will be able to return to [facility] after the short-term rehab stay, at least for a little while, so that the pt can have closure/say goodbye to her friends and the family can look for a long-term care facility. Social work to follow-up as needed. Addendum entered by LEROY Duenas 12/24/24 14:52: Discharge planning: children's service worker spoke to pt's daughter, Jacquelyn, this afternoon via phone about discharge planning for the pt. children's service worker explained that the pt is being recommended for short-term rehab with the possibility of needing LTC in a prison after that. children's service worker explained to Jacquelyn that this worker knew that the [facility] unit for [facility] at [facility] has female openings right now and asked if this worker could send a referral. children's service worker also explained to Jacquelyn that the pt is in Observation status right now and has Medicare for her primary insurance, Medicare requires a three night inpatient hospital stay before they will cover/pay for short-term rehab. children's service worker explained that the pt will most likely have to private pay. [facility] requires a $10,000.00 deposit on admission for private pay. Jacquelyn then told this worker that the pt has a Conservator with [facility] named Loren. Jacquelyn explained that this worker would have to talk to Loren at [facility] about payment for the short-term rehab. children's service worker left a message for Loren at [facility] this afternoon asking for a call back, #[phone]. Social work to follow-up as needed. Original Note: Discharge planning: children's service worker left a message for pt's daughter, Jacquelyn, this morning asking for a call back in regard to discharge planning/recommendations for the pt. Social work to follow-up as needed.
--- NOTE | 2024-12-24 18:53 | PC.NURSE ---
End of Shift([id number]): Patient pleasant. Only oriented to self this shift. Patient reports pain on her left hip this shift, managed with PRN medication, see MAR. Patient refused lidocaine patch, Tylenol, and senna this shift. Explained the importance on staying on top of pain management/medications, patient still refused. 1A with walker and gait belt, 2A if getting out of bed. ?
[2024-12-24] MEDS: SENNOSIDES 1 TAB TABLET PO (20:19)
[2024-12-24] MEDS: SIMVASTATIN 20 MG TABLET PO (20:20)
[2024-12-25] MEDS: OXYCODONE 5 MG TABLET PO ×2 (02:19→10:18)
[2024-12-25 03:00] VITALS: PULSE 67; RESP 18
--- NOTE | 2024-12-25 06:50 | PC.NURSE ---
End of shift report [id number]: Alert, oriented to self and date only. Patient reporting pain to left hip.waist and left shoulder. 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 At 0015 patient attempting to get up from chair, patient up 4-5 times each hour going from chair to bed. Ambulated patient in hallway x 3 overnight. Patient in room yelling out help me, help me when approaching patient she states I need to go home, get me outta here, what am I doing here. Reoriented several times throughout the shift that patient is in the hospital due to a fall and injury. Awake from [id number], patient continuing to attempt to self transfer and get out of chair and bed, stating that I just want to stand here while standing patient will lean down onto forearms on walker. Anesthesiologist/Physician educated patient on safety and making sure to stand upright and hold onto walker with hands. Patient not redirectable. Call to on-call placed and PRN 1:1 order obtained for patient safety.
[2024-12-25 08:08] VITALS: BP 154/80; PULSE 91; RESP 18; TEMP 36.9; O2SAT 95
[2024-12-25] MEDS: ACETAMINOPHEN 500 MG TABLET 1000 MG PO (08:13)
[2024-12-25] MEDS: FUROSEMIDE 40 MG TABLET PO (08:14)
[2024-12-25] MEDS: CELECOXIB 200 MG CAPSULE PO (08:14)
[2024-12-25] MEDS: SODIUM CHLORIDE 0.9 % (FLUSH) 10 ML SYRINGE 5 ML IVF (08:14)
[2024-12-25] MEDS: SENNOSIDES 1 TAB TABLET PO (08:14)
--- NOTE | 2024-12-25 09:08 | PM.DS1 ---
DS: Providers Provider Date Seen: 12/25/24 Date of admission: 12/23/24 10:37 Primary care physician: Samantha Acharya MD Admitting Clinician: Ralph Mccarthy MD Consults: OT, PT, SW Attending Physician on discharge: Nkechi Ramirez MD Date of Discharge: 12/25/24 DS: Diagnosis Discharge Diagnosis (1) Strain of left iliopsoas muscle: Status: Acute Problem details: - partial tear noted on CT, likely contributing to discomfort - pain management (scheduled APAP, Celebrex, Lidocaine patch, prn oxycodone), PT - appropriate for SNF discharge on 12/25/24 (2) Frequent falls: Status: Acute Problem details: - requires higher level of care (3) Sleep apnea: Status: Suspected Problem details: - appears high risk for sleep apnea given body habitus, daytime somnolence - monitor closely, especially while getting pain medications (4) Dementia: Status: Chronic Problem details: - chronic MCI, no agitation DS: Summary Hospital Course Hospital Course: Alesia was admitted to the hospital after a fall at home ([facility]). She has a history of cognitive impairment, spinal stenosis, frequent falls, chronic left shoulder pain. Admission imaging revealed a tear of the left iliopsoas tendon, followed by PT and OT during stay, SNF recommended. Pain management was achieved with scheduled Tylenol, lidocaine patch, Celebrex, prn Oxycodone. Comorbidities remained stable, no changes made to home medication. Status at Discharge Functional status at discharge: uses cane/walker Time Spent with Patient Time attestation: Total time spent providing and/or coordinating discharge services: Time spent: Greater than 30 minutes Specific discharge activities: Medication management and reconciliation, reviewing d/c plan of care with multidisciplinary team Exam Narrative: Exam Narrative: GEN: Awake and interactive, cognitive impairment is evident HEENT: EOMIs bilaterally, no scleral icterus CV: Pulse palpates as RRR R: Breathing comfortably without tachypnea or audible wheezing Skin: No concerning skin lesions or rashes on exposed skin Neuro: Ambulating with a walker, no focal deficits on limited exam Psych: + short-term memory loss, no agitation Const: Vital Signs, click to edit/add: Vital Signs - 24 hr 12/24/24 11:30 12/24/24 15:00 12/24/24 15:30 Temperature 98.6 F 98.5 F Pulse Rate [Pulse Oximeter] 84 77 77 Respiratory Rate 18 18 18 Blood Pressure [Ri ght Arm] 142/76 H 144/89 H Pulse Oximetry 96 96 Oxygen Delivery Me thod Room Air Room Air 12/24/24 19:00 12/24/24 23:00 12/24/24 23:00 Temperature 98.8 F 98.8 F Pulse Rate [Pulse Oximeter] 89 89 62 Respiratory Rate 20 20 20 Blood Pressure [Ri ght Arm] 159/64 H 159/64 H Pulse Oximetry 95 94 Oxygen Delivery Me thod Room Air Room Air 12/25/24 03:00 12/25/24 08:08 Temperature 98.5 F Pulse Rate [Pulse Oximeter] 67 91 Respiratory Rate 18 18 Blood Pressure [Ri ght Arm] 154/80 H Pulse Oximetry 95 Oxygen Delivery Me thod Room Air Room Air DS: Data Data Completed and Pending Completed studies during hospitalization: Procedures Repair Scalp Skin, External Approach (12/03/24) Labs on day of discharge: Preliminary micro results at discharge 12/23/24 09:05 Urine Culture - Preliminary Urine,Clean Catch Gram negative malik Discharge Plan Discharge Disposition: [facility] Date of Admission: 12/23/24 10:37 Attending Provider on Discharge: Nkechi Ramirez Primary Care Provider: Samantha Acharya Condition: Unchanged Anticipated Discharge Date/Time: 12/25/24 07:59 Discharge Medications: New celecoxib 200 mg Capsule 200 mg PO DAILY Qty: 30 0RF acetaminophen 500 mg Tablet 1,000 mg PO TID Qty: 90 0RF lidocaine 5 % Adhesive Patch,Medicated 1 patch transdermal Q24H Qty: 30 0RF oxycodone 5 mg Tablet 2.5 mg PO Q6H PRN (Reason: Pain) Qty: 20 0RF Continued cholecalciferol (vitamin D3) 25 mcg (1,000 unit) tablet 1,000 unit PO DAILY sennosides 8.6 mg tablet 8.6 mg PO BID nystatin [Nyamyc] 100,000 unit/gram powder 1 applic topical DIRECTED simvastatin 20 mg tablet 20 mg PO HS levothyroxine 125 mcg tablet 125 mcg PO DAILY furosemide 40 mg tablet 40 mg PO DAILY multivitamin with folic acid [Daily-Ambar (with folic acid)] 400 mcg tablet 1 tab PO DAILY melatonin 3 mg capsule 3 mg PO HS Discontinued acetaminophen 500 mg tablet 1,000 mg PO BID PRN tramadol 50 mg tablet 50 mg PO Q12H acetaminophen 500 mg capsule 1,000 mg PO BID tramadol 50 mg tablet 25 mg PO BID@12,16 Discharge Orders: Discharge Order (Routine); Ordered 12/25/24 Ordered By: Nkechi Ramirez Activity Level: Activity as Tolerated Discharge Diet: Regular Follow Up Appointments: Samantha Acharya MD [Primary Care Provider] - Forms: [facility] Info Instructions Admit to: SNF Discharge Potential: Poor Length of Stay: >90 days Can use facility standing orders?: Yes Code Status: DNR/DNI Rehab Potential: Poor Therapy: Physical Therapy and Occupational Therapy Therapy Orders: Evaluate and Treat Therapy Orders Additional Information: Known tear of L iliopsoas Oxygen: No Urinary Catheter: No Orders are good >30 days: Yes Signature: Nkechi Ramirez MD
[2024-12-25 11:06] VITALS: BP 143/87; PULSE 82; RESP 18; TEMP 36.7; O2SAT 93
--- NOTE | 2024-12-25 11:56 | PC.SOCIAL ---
Addendum entered by LEROY Duenas 12/25/24 12:20: Discharge planning: The non-emergent EMS wheelchair transportation form was verbally signed by pt's daughter, Jacquelyn, yesterday, 12/24/2024. Pt's daughter is in agreement with the $113.00(92+7x3= 113) transport fee. Social work to follow-up as needed. Original Note: Discharge planning: Pt will discharge to [facility] unit at [facility] for short-term rehab this afternoon at 1:45pm via non-emergent transport. Discharge orders were secure emailed to Loren at [facility]. Pre-admission screening was completed and sent to [facility] via secure email. [id number]. Social work to follow-up as needed.
--- NOTE | 2024-12-25 13:06 | PC.NURSE ---
Pt alert to self. Pt up with assist of one with gait belt and walker. Pt's VS WNL. Pt complained of pain; see EMAR for intervention. Pt's IV removed catheter intact. Pt discharging to [facility]. Nurse to nurse done with Cecy PULLIAM. EMS left with Pt at 1300.
== END 2024-12-25 13:09 ==
LOC: ED 10:24 → MEDSURG 10:37
PROVIDERS: Family Medicine; Admitting Provider Family Medicine; Emergency Provider Family Medicine; PCP Family Medicine; Visit Provider Family Medicine
DX: S76.812A Strain of other specified muscles, fascia and tendons at thigh level, left thigh, initial encounter (principal); R29.6 Repeated falls; F03.90 Unspecified dementia, unspecified severity, without behavioral disturbance, psychotic disturbance, mood disturbance, and anxiety; R53.1 Weakness; R40.0 Somnolence; M25.552 Pain in left hip; M54.50 Low back pain, unspecified; K43.9 Ventral hernia without obstruction or gangrene; W19.XXXA Unspecified fall, initial encounter; I10 Essential (primary) hypertension; E66.9 Obesity, unspecified; Z68.43 Body mass index [BMI] 50.0-59.9, adult; Z87.828 Personal history of other (healed) physical injury and trauma
CPT/HCPCS: 36415; 71045; 72131; 72192; 73502; 80048; 81001; 82077; 83880; 84484; 85025; 86140; 87086; 87631; 93005; 96365; 96366; 96372; 97161; 97165; 97530; 97535; 99284; 99285; A9270; G0378; J1650; J3480

== ENCOUNTER 2024-12-25 13:01 | Outpatient (CLI) | payer MEDICARE, OTHER, SELFPAY | END 2024-12-25 13:02 | disposition home or self-care (01) | LOC: AMB 12-30 08:10 | PROVIDERS: PCP Family Medicine; Visit Provider Student in an Organized Health Care Education/Training Program | DX: F03.90 Unspecified dementia, unspecified severity, without behavioral disturbance, psychotic disturbance, mood disturbance, and anxiety (principal); Z99.3 Dependence on wheelchair | CPT/HCPCS: A0425; A0428 ==

== ENCOUNTER 2025-10-21 10:49 | Outpatient (REF) | payer MEDICARE, OTHER, SELFPAY ==
[2025-10-21 11:39] LABS: Hematocrit* 42.6 % (33.0-51.0); Hemoglobin* 13.8 gm/dL (12.0-16.0); Immature Granulocytes Abs Auto 0.01 K/uL (0.00-0.30); Immature Granulocytes Pct Auto 0.1 %; Lymphocytes Absolute Auto 1.99 K/uL (0.90-2.90); Mean Corpuscular HGB Conc 32 gm/dL (32-36); Mean Corpuscular Hemoglobin 30 pg (26-34); Mean Corpuscular Volume 93 fL (80-100); RDW Coefficient of Variation % 12.5 % (11.5-15.5); Red Blood Count* 4.58 m/uL (4.00-5.20); White Blood Count* 7.42 K/uL (4.50-11.00)
[2025-10-21 11:49] LABS: Slide Review Reflex No
[2025-10-21 11:50] LABS: Chloride* 106 mmol/L (96-114)
[2025-10-21 11:51] LABS: Potassium* 3.8 mmol/L (3.6-5.1); Sodium* 143 mmol/L (135-149)
[2025-10-21 11:54] LABS: Anion Gap 9 mEq/L (7-15); Blood Urea Nitrogen* 18 mg/dL (7-30); Calcium* 9.5 mg/dL (8.4-10.6); Carbon Dioxide* 28 mmol/L (20-32); Creatinine* 0.8 mg/dL (0.5-1.5); Estimated Glomerular Filt Rate 72 ml/min; Glucose* 126 mg/dL (60-115)
--- OUTSIDE RECORDS SUMMARY | 2025-10-22 00:37 | XMS_ITS | Clinical Summary ---
Author Organization [place] Address [address] [place] [address] Care Team Providers Care Spotter Driver Name Role Phone System, Provider Not In Primary Care Provider Un available Allergies Active AllergyReactionsCriticalityNoted ZivoQzbclspiYcgjbhufcaMlrgCks79/06/2010 Cephalexin Ygrndphpijo60/03/9269DvbafxwcjcbYwpgSji90/06/2010 Avoids. Mild rash 06/07/16 Sulfamethoxazole-QlkhslnhdraoQfokJzcd02/14/2020 Medications MedicationSigDispense QuantityRefillsLast FilledStart DateEnd DateStatus PAIN RELIEF EXTRA STRENGTH 500 MG tablet Take 500 mg by mouth as pajejq4308/17/2021ctive albuterol (PROAIR HFA/PROVENTIL HFA/VENTOLIN HFA) 108 (90 Base) MCG/ACT inhaler Inhale 2 puffs into the lungs as qbjzpf0209/10/2021ctive VITAMIN D3 25 MCG (1000 UT) tablet Take 1 tablet by mouth daily08/17/2021ctive diclofenac (VOLTAREN) 1 % topical gel Apply 2 g topically 4 times daily as needed for moderate pain (Shoulders) 08/01/2022ctive Multiple Vitamin (TAB-A-HAILEY) TABS TAKLE 1 TAB BY MOUTH ONCE DAILY08/17/2021ctive NYAMYC 582295 UNIT/GM external powder Apply topically daily as ooexmi4001/24/2022ctive simvastatin (ZOCOR) 20 MG tablet Take 20 mg by mouth at bttwjou9308/12/2022ctive hydrochlorothiazide (HYDRODIURIL) 25 MG tablet Indications:Essential hypertensionTake 1 tablet (25 mg) by mouth daily for 30 days 30 tablet 12/29/2023ctive gabapentin (NEURONTIN) 100 MG capsule Indications:Neuropathic painTake 1 capsule (100 mg) by mouth at bedtime for 30 days 30 capsule 12/28/2023ctive levothyroxine (SYNTHROID/LEVOTHROID) 125 MCG tablet Indications:Hypothyroidism, unspecified typeTake 1 tablet (125 mcg) by mouth daily for 30 days 30 tablet 12/29/2023ctive Rivaroxaban ANTICOAGULANT 15 & 20 MG TBPK Starter Therapy Pack Indications:Acute deep vein thrombosis (DVT) of brachial vein of both upper extremities (H)Take 15 mg by mouth 2 times daily (with meals) for 19 days, THEN 20 mg daily with food for 9 days. 51 each 12/29/2023ctive Active Problems ProblemNoted DateDiagnosed GcelLmrexqfua62/13/9002Jtggmtgx66/08/2024Primary osteoarthritis of both knees05/10/2017Lumbar spinal /02/2017Bariatric surgery aptblh7606/09/2016 Overview (08/03/2022): Dr. Mandie Douglass of [place] Dr. Villanueva Immunizations ImmunizationAdministration DatesNext DueCOVID-19 Bivalent 18+ (Moderna) 08/18/2022Influenza (High Dose) Trivalent,PF (Fluzone)08/20/2020,08/15/2019, 08/16/2018,11/17/2015Influenza Vaccine >6 months,quad, PF07/16/2019,09/02/2016 Pneumo Conj 13-V (2010&after)07/28/2015Pneumococcal 23 kfpkud3401/20/2017TDAP (Adacel,Boostrix)09/30/2020,06/11/2012Typhoid IM04/15/2005Yellow Fever04/15/2005 Social History Tobacco UseTypesPacks/DayYears UsedDateSmoking Tobacco: NeverSmokeless Tobacco: Never Tobacco Cessation:Counseling Given: Not Answered PHQ-2AnswerDate RecordedPHQ-2 Mvbwu090/02/2023Adolescent EducationAnswerDate RecordedGetting School Help NeededNot on file3CommentsUnknown Sex and Gender InformationValueDate RecordedSex Assigned at BirthNot on file Legal SbbZsefru83/04/2012 3:29 AM CSTGender IdentityNot on fileSexual OrientationNot on file Last Filed Vital Signs Vital SignReadingTime TakenCommentsBlood [place]915/8812/29/2023 11:46 AM INSULATION POWER UNIT TENDER Rbtur400512/29/2023 11:46 AM SPJOmdmdoycbuy93.6 ??C (97.9 ??F)12/29/2023 8:07 AM CSTRespiratory Zkto517612/29/2023 11:46 AM CSTOxygen Fwygjdgqah89%12/29/2023 11:46 AM CSTInhaled Oxygen Concentration--Lvizsq361.7 kg (237 lb 6.4 oz)12/26/2023 9:56 AM WZJIvkham637.4 cm (5')12/21/2023 8:24 AM CSTBody Mass Index46.36 12/21/2023 8:24 AM INSULATION POWER UNIT TENDER Plan of Treatment Health MaintenanceDue DateLast DoneCommentsADVANCE CARE FEVRQKKX1940ANNUAL REVIEW OF HM VNUXWC40 1940DEXA112/20/19394912UXMAL1940ZOSTER VACCINE (1 of 2)1990FALL RISK HJVNHHCDME45/07/2005MEDICARE ANNUAL WELLNESS VISIT 2005RSV VACCINE (1 - 1-dose 75+ series)2015PHQ-2 (once per calendar year)/8456RDZ62/15/517312/, 12/25/2023, 12/24/2023, Additional history existsCOVID-19 VACCINE ( season)2025 08/18/2022, 12/23/2020, 11/25/2020INFLUENZA VACCINE (#1)/, 08/20/2020, 08/15/2019, Additional history existsDTAP/TDAP/TD VACCINE (3 - Td or Tdap), 06/11/2012PNEUMOCOCCAL VACCINE 50+ YEARSCompleted 01/20/2017, 07/28/2015TSH W/FREE T4 NOKKAIOotmkevrotoy91/08/2024, 12/21/2023, 12/04/2017HPV VACCINE (No Doses Required)CompletedMENINGITIS VACCINEAged OutNo longer eligible based on patient's age to complete this topic Procedures Procedure NamePriorityDate/TimeAssociated DiagnosisCommentsBASIC METABOLIC PANEL Cuvnesj6512/28/2023 6:26 AM INSULATION POWER UNIT TENDER TSH WITH FREE T4 IZAHFGDKKW48/08/2024 8:33 AM INSULATION POWER UNIT TENDER from Last 3 Months or Most Recently Relevant to Health Maintenance Results * (ABNORMAL) Basic metabolic panel (12/28/2023 6:26 AM INSULATION POWER UNIT TENDER)ComponentValueRef RangeTest MethodAnalysis TimePerformed AtPathologist CcjowwcxfBtafaj413403 - 145 mmol/L12/28/2023 7:13 AM [facility] LABORATORYComment:Reference intervals for this test were updated on 08/08/2023 to more accurately reflect our healthy population. There may be differences in the flagging of prior results with similar values performedwith this method. Interpretation of those prior results can be made in the context of the updated reference intervals. Potassium3.83.4 - 5.3 mmol/L12/28/2023 7:13 AM [facility] WOXBGNXPJDKwagvbqo41770 - 107 mmol/L12/28/2023 7:13 AM [facility] LABORATORYCarbon Dioxide (CO2)2622 - 29 mmol/L12/28/2023 7:13 AM [facility] LABORATORYAnion Uze903 - 15 mmol/L12/28/2023 7:13 AM [facility] LABORATORYUrea Xmjmvokc76.98.0 - 23.0 mg/dL12/28/2023 7:13 AM [facility] LABORATORYCreatinine0.900.51 - 0.95 mg/dL12/28/2023 7:13 AM [facility] LABORATORYGFR Futctbpe66>60 mL/min/1.35a59412/28/2023 7:13 AM [facility] Calcium9.48.8 - 10.2 mg/dL12/28/2023 7:13 AM [facility] EIPHKMFBRDJxquifp471(H)70 - 99 mg/dL12/28/2023 7:13 AM [facility] LABORATORYSpecimen (Source)Anatomical Location / LateralityCollection Method / VolumeCollection TimeReceived Time BloodSTRUCTURE OF RIGHT HAND / UnknownVenipuncture / Kzmnpot4412/28/2023 6:26 AM CST12/28/2023 6:36 AM INSULATION POWER UNIT TENDER Narrative Authorizing ProviderResult TypeResult Statusmarco Gaby MDLAB - BLOOD ORDERABLES Final ResultPerforming OrganizationAddressCity/State/ZIP CodePhone Number [facility] [address] Lab (1st floor, no room number) [place] [address], [facility] [phone] * (ABNORMAL) TSH with free T4 reflex (12/21/2023 8:33 AM INSULATION POWER UNIT TENDER)ComponentValueRef RangeTest MethodAnalysis TimePerformed AtPathologist SignatureTSH5.16(H)0.30 - 4.20 uIU/mL12/21/2023 9:14 AM CST LABORATORYSpecimen (Source)Anatomical Location / LateralityCollection Method / VolumeCollection TimeReceived Time BloodSTRUCTURE OF LEFT UPPER LIMB / UnknownVenipuncture / Wxjxzst0712/21/2023 8:33 AM CST12/21/2023 8:40 AM INSULATION POWER UNIT TENDER Narrative Authorizing ProviderResult TypeResult StatusSckarson Samuel APRN CNPLAB - BLOOD ORDERABLESFinal ResultPerforming OrganizationAddressCity/State/ZIP Code Phone Number [facility] [address] Lab (1st floor, no room number) [place] [address], [facility] [phone] from Last 3 Months or Most Recently Relevant to Health Maintenance Insurance * Guarantor: Sravanthi Alesiajoni GloverAccorashid TypeRelation to PatientDate of PhoneBilling AddressPersonal/KrhegfQlmt1940 [address] [facility] [address] [place] [phone] * Guarantor: Alesia FishmanAccount TypeRelation to PatientDate of PhoneBilling AddressPersonal/GyofxsCczf[address] [address] * Guarantor: Alesia FishmanAccorashid TypeRelation to PatientDate of PhoneBilling AddressPersonal/PqaaltYkrq15/07/[address] [address] Advance Directives For more information, please contact: [phone] * No CPR- Do NOT Intubate (Latest Code Status on File) Date ActivatedDate InactivatedComcollis p. [facility]12/21/2023 8:01 AM12/29/2023 4:45 PMNO basic or advanced life-sustaining interventions are performedQuestionAnswerComments Code status determined by:* Discussion with patient/ legal decision maker Care Teams Team MemberRelationshipSpecialtyStart DateEnd Date System, Provider Not In [facility]
--- OUTSIDE RECORDS SUMMARY | 2025-10-22 00:37 | XMS_ITS | Clinical Summary ---
Author Organization [email or web address] Address [address] [place] [address] Care Team Providers Care Storage Worker Name Role Phone Samantha Acharya MD Primary Care Provider + Allergies Active AllergyReactionsCriticalityNoted JefsSwesiahqZdhsmpphdrTehqPnl36/03/2005 RobdalbrozsRlewDco02/06/2010 Avoids. Mild rash 06/07/16 Sulfamethoxazole-PhcowamfkxmqOgrgVmni29/14/2020 Medications MedicationSigDispense QuantityRefillsLast FilledStart DateEnd DateStatus losartan (COZAAR) 50 mg tablet 02/11/2016Active simvastatin (ZOCOR) 20 mg tablet 02/11/2016Active levothyroxine (SYNTHROID) 125 mcg tablet 02/11/2016Active aspirin enteric coated (ECOTRIN) 325 mg tablet Take 1 tablet by mouth once daily with a meal.Active furosemide (LASIX) 20 mg tablet Take 20 mg by mouth once daily.Active gabapentin (NEURONTIN) 300 mg capsule Take 300 mg by mouth at bedtime.Active VITAMIN D 1,000 unit tablet Take 1,000 Units by mouth once daily.Active albuterol HFA 90 mcg/actuation inhaler Every 4 Hours as ezlpes6107/13/2017Active traMADol (ULTRAM) 50 mg tablet Indications:Spinal stenosis of lumbar region with neurogenic claudication,Lumbar facet arthropathy,Primary osteoarthritis of both kneesTake 1 tablet by mouth 2 times daily if needed for Pain. 36 tablet Active diclofenac topical (VOLTAREN) 1 % gel 1Active Active Problems ProblemNoted DateDiagnosed DatePrimary osteoarthritis of both knees05/10/2017 Lumbar spinal dxejputt08/02/2017Lumbar facet aosdfagiknd06/02/2017Laparoscopic removal of gastric band and /28/2016 Overview (06/09/2016): Dr. Rich Arredondo of laparoscopic adjustable gastric wrfpoqs7705/20/2016 Overview (05/20/2016): Dr. Mandie Douglass of [place] Screen for colon zabvmx0706/18/2010 Overview (06/18/2010): Colonoscopy 06/2010 normal repeat in 10 years Encounters DateTypeDepartmentCare YbhqVbtduuemfsj27/17/2025 10:20 AM CDTOffice Visit [facility] [address] [place] [address] Oswaldo Muir MD Musculoskeletal Problem (Shoulder pain)07/30/2025Travelfrom Last 3 Months Immunizations ImmunizationAdministration DatesNext DueCOVID-19 vaccine (Moderna 100mcg/0.5mL) MD TOLUV12/23/2020,11/25/2020 Family History Medical HistoryRelationNameCommentsHeart DiseaseBrother 1OtherBrother 2COPDHeart DiseaseFatherHeart DiseaseSisterHeart transplantRelationNameStatusComments Brother 1Brother 2FatherSister Social History Tobacco UseTypesPacks/DayYears UsedDateSmoking Tobacco: NeverSmokeless Tobacco: Never Tobacco Cessation:Counseling Given: Yes Alcohol UseStandard Drinks/WeekCommentsYes0 (1 standard drink = 0.6 oz pure alcohol)occasionalFinancial Resource StrainAnswerDate RecordedDifficulty of Paying Living ExpensesNot on file1Difficulty of Paying Living Expenses Not on file1CommentsNoSex and Gender InformationValueDate RecordedSex Assigned at BirthNot on fileLegal MvpKnjlus22/14/2013 6:13 AM INTAKE NURSE Gender IdentityNot on fileSexual OrientationNot on file Last Filed Vital Signs Vital SignReadingTime TakenCommentsBlood Bxbcsjpe339/7709 10:25 AM CDT Ygnuc1618/17/2025 10:25 AM PEURoidgrjcabl66.6 ??C (97.9 ??F)07/30/2025 10:25 AM CDTRespiratory Jvqd829206/24/2016 2:11 PM CDTOxygen Pgxhzhpqfm03%07/30/2025 10:25 AM CDTInhaled Oxygen Concentration--Xfugok985.7 kg (230 lb 14.4 oz)07/30/2025 10:25 AM RRMYouuzu894.3 cm (4' 9.21)07/30/2025 10:25 AM CDTBody Mass Index49.6 07/30/2025 10:25 AM CDT Plan of Treatment DateTypeDepartmentCare Team (Latest Contact Info)Jwqlxebrltv76/19/2026 1:40 PM CSTOffice [facility] [address] [place] [address] Oswaldo Muir MD [address] [place] [address] Health MaintenanceDue DateLast DoneCommentsTetanus /07/1951Depression screening for age 12+2Pneumococcal series for age 50+ (1 of 1 - PCV) 1990Zoster (shingles) series for age 50+ (1 of 2)1990DEXA/DXA scan for age 65+2005Medicare Wellness for age 65+2005RSV vaccine for adults or (1 - 1-dose 75+ series)2015COVID-19 vaccine series ( season)/04/2022, 12/23/2020, 11/25/2020Influenza Vaccine (#1)5BMI (ht and wt on same day) for age 18+, 01/31/2019, 2017, Additional history existsHepatitis B series for 19+Aged OutNo longer eligible based on patient's age to complete this topic Insurance * Guarantor: Alesia Fishman TypeRelation to PatientDate of BirthPhone Billing AddressPersonal/TspbyfZlka1940 [address] [place] [address] Advance Directives * Full Code (Latest Code Status on File) Date ActivatedDate InactivatedComments06/09/2016 5:55 AM06/10/2016 8:21 PM Care Teams Team MemberRelationshipSpecialtyStart DateEnd Date Samantha Acharya MD [address] [place] [address] PCP - GeneralFamily Practice12/12/16
== END 2025-10-21 10:50 | disposition home or self-care (01) ==
LOC: NPINS 10:49
PROVIDERS: PCP Family Medicine; Visit Provider Family Medicine
DX: R73.03 Prediabetes (principal); I10 Essential (primary) hypertension; Z79.1 Long term (current) use of non-steroidal anti-inflammatories (NSAID); E03.9 Hypothyroidism, unspecified
CPT/HCPCS: 80048; 83036; 84443; 85025